=== PATIENT | female | born 1965 | race Caucasian/White ===

== ENCOUNTER 2020-07-16 07:00 | Emergency (ER) | payer OTHER, SELFPAY ==
[2020-07-16 07:08] VITALS: BP 140/83; PULSE 101; RESP 16; TEMP 37.1; O2SAT 98; BMI 25.8
--- NOTE | 2020-07-16 08:53 | ED.EYEPROB ---
HPI - Eye Problem General Chief complaint: Eye Problems Stated complaint: EYE ISSUE Time Seen by Provider: 07/16/20 08:00 Source: patient Mode of arrival: ambulatory Limitations: no limitations History of Present Illness HPI Narrative: 54 yo female here with rash to face noted since yesterday. patient tells me 8 days ago she was diagnosed with left eye bacterial conjunctivitis. She was treated with Cipro eyedrops. She continued to have sinus congestion, pressure, pain and bilateral ear pain and spoke to her primary care doctor 5 days ago. She was placed on doxycycline twice daily which she started Saturday. The patient tells me yesterday she noticed some rash over her face. This was itchy. She denies any difficulty breathing, swallowing, vomiting, diarrhea. No body rash. She took a Benadryl which seemed to improve the rash and this morning when she woke up she noticed a continued rash over the face. No fevers or chills. She continues to have some sinus pressure, pain and ear pain although tells me it is improving. Decreased drainage from her eye. The patient does tell me that she is continuing to use her contacts. She does not have glasses and is waiting for new contacts and glasses to come in. No visual pain or decreased acuity MD chief complaint: eye redness Onset (ago): day(s) Onset description: gradual Duration: constant Location: left eye Eye Symptoms: redness and itching Mechanism: none Severity: mild Associated symptoms: other (sinus pressure/pain/ear pain) Treatments Prior to Arrival: other (cipro eye drops, doxycyline, nasal saline ) Related Data Previous Rx's Medication Instructions Recorded lisinopril 10 mg tablet 10 mg PO DAILY 30 Days #30 tab 06/14/20 doxycycline hyclate 100 mg capsule 100 mg PO BID 7 Days #14 cap 07/12/20 clindamycin HCl 300 mg PO TID 10 Days #30 cap 07/16/20 [id number] 4 drp OTIC (EARS) Q6H #10 ml 07/16/20 prednisone 40 mg PO DAILY 5 Days #10 tab 07/16/20 Allergies Allergy/AdvReac Type Severity Reaction Status Date / Time ciprofloxacin [From CIPRO] Allergy Unknown UNKNOWN Verified 06/29/20 11:20 gluten [GLUTEN] Allergy Unknown ABD PAIN Unverified 05/12/20 18:53 penicillin V Allergy Unknown hives Verified 06/29/20 11:20 Penicillins [PENICILLINS] Allergy Unknown HIVES Verified 06/29/20 11:20 Sulfa (Sulfonamide Allergy Unknown RASH Verified 06/29/20 11:20 Antibiotics) [SULFA (SULFONAMIDE ANTIBIOTICS)] Review of Systems Review of Systems: Yes all other systems are reviewed and are negative Constitutional: Constitutional: Reports no additional constitutional complaints, Denies body ache(s), Denies chills, Denies fever(s), Denies headache(s) and Denies weakness Eyes: Eyes: Reports no additional eye complaints, Denies blurry vision, Denies change in vision, Denies eye discharge, Reports irritation, Denies loss of vision, Denies eye pain and Denies photophobia ENT: Reports system reviewed and no additional complaints, except as documented, Denies dizziness, Reports otalgia, Denies headache(s), Denies nasal congestion, Denies nasal discharge, Denies neck pain, Reports sinus pain and Reports sinus pressure Cardiovascular: Cardiovascular: Reports no additional cardiovascular complaints, Denies chest pain, Denies leg edema and Denies dyspnea Respiratory: Respiratory: Reports no additional respiratory complaints, Denies cough and Denies dyspnea Gastrointestinal: Gastrointestinal: Reports no additional gastrointestinal complaints, Denies abdominal pain, Denies diarrhea, Denies nausea and Denies vomiting Genitourinary: Genitourinary: Reports no additional female genitourinary complaints and Denies urinary incontinence Musculoskeletal: Musculoskeletal: Reports no additional musculoskeletal complaints, Denies back pain, Denies arthralgias, Denies joint swelling, Denies neck pain, Denies numbness and Denies tingling Integumentary/Breasts: Skin/Breast: Reports system reviewed and no additional complaints, except as docu and Denies rash Neurologic: Reports system reviewed and no additional complaints, except as documented, Denies Abnormal speech present, Denies dizziness, Denies headache(s), Denies loss of vision, Denies numbness, Denies tingling and Denies weakness PMFSH Past Medical History Attestation statement: The following information was validated with the patient. Source: obtained from family and nursing notes reviewed Medical History Celiac disease HTN (hypertension) Surgical History History of breast lump/mass excision History of section History of hysterectomy History of removal of cyst History of tonsillectomy Family History Family History Father CAD (coronary artery disease) Skin cancer Mother CHF (congestive heart failure) Diabetes Guillain-[place] Son Prader-Willi syndrome Son Muscular dystrophy Son Celiac disease Social History Social History Advance Directives: No Advance Directives Information Provided: Yes Physical Exam Vital Signs: Vital Signs: Last Vital Signs Temp 98.8 F 07/16/20 07:08 Pulse 101 H 07/16/20 07:08 Resp 16 07/16/20 07:08 BP 140/83 H 07/16/20 07:08 Pulse Ox 98 07/16/20 07:08 Body Mass Index 25.8 Const: General: cooperative, healthy appearing, comfortable and no acute distress Orientation/consciousness: patient oriented x3 Limitations: no limitations HENMT: Head: Yes normal to inspection Ears: hearing grossly normal bilaterally, TM's normal bilaterally, mastoids normal, no periauricular adenopathy and external ear abnormal ( bilateral canal swelling and erythema.) General nose exam: Normal external nose present Face and sinus: Yes Facial tenderness on exam of face and sinuses ( left maxillary) Mouth: Normal oral and palatal mucosa present Throat: Yes posterior oropharynx normal Eyes: Other: the left conjunctival is injected with mild irritation noted. There is no drainage, swelling. over the left upper eyelid there is an urticarial patch noted. There is similar patches noted over the forehead which crosses the midline and over the left cheek. There is no vesicle or pain on exam. The patient has some tenderness over the left maxillary sinus with some tenderness which extends just below the ear. There is no mastoid tenderness or swelling General: appearance normal, both eyes and all related structures Visual Garcia: normal visual garcia by confrontation Alignment and Position: alignment normal Corneas: corneas normal Pupils: Equal, round and reactive pupils present EOM: EOMs intact bilaterally Direct Ophthalmoscopy: No photophobia Neck: Neck: Yes normal visual inspection Chest: Chest palpation & inspection: normal inspection of the chest Resp: Effort & Inspection: normal respiratory effort Auscultation: clear to auscultation bilaterally Cardio: Rate: regular rate Rhythm: regular rhythm Peripheral pulses: Peripheral pulses 2+ throughout GI: Inspection: Yes normal to inspection Palpation (GI): Soft to palpation and nontender Auscultation: normal bowel sounds Back/Spine/Pelvis: Thoracic/Lumbar Spine: thoracic and lumbar spine normal to inspection Skin: General skin exam: no rashes or lesions noted Neuro: General: patient oriented x3, no focal motor deficits and normal sensation to monofilament Cranial nerves: Yes Equal, round and reactive pupils present Cognition (Neuro): normal cognition Speech: No Abnormal speech present Gait exam (Neuro): Normal gait present Motor exam (neuro): 5/5 motor strength present throughout Extrem: General: Yes normal to inspection Course Course Course Narrative: Exam consistent with a continued sinusitis and bilateral otitis externa and left bacterial conjunctivitis. Patient tells me she has an allergy to Cipro and wanted to try the Cipro this week to see if she would have a similar reaction. She is also taking doxycycline for the 1st time. It appears that she has a mild urticarial rash over the face which is likely secondary to medication reaction. There is no signs or symptoms of a systemic infection. will have the patient stop her current medications and start her new round of medicines. Reviewed worrisome signs symptoms and when to return to the emergency department. Comfortable discharge home. Discharge Plan Discharge Clinical Impression: Sinusitis, Allergic reaction, Otitis externa Patient Disposition: Home, Self-Care Instructions: Urticaria (ED), Sinusitis (ED), Otitis Externa (ED), General Allergic Reaction (ED) Additional Instructions: Warm compresses to face Stop all other antibiotics Prescriptions: New prednisone 20 mg tablet 40 mg PO DAILY 5 Days Qty: 10 RF: 0 clindamycin HCl 300 mg capsule 300 mg PO TID 10 Days Qty: 30 RF: 0 [id number] 3.5-10,000-1 mg/mL-unit/mL-% solution 4 drp otic (ears) Q6H Qty: 10 RF: 0 No Action lisinopril 10 mg tablet 10 mg PO DAILY 30 Days Qty: 30 RF: 8 doxycycline hyclate 100 mg capsule 100 mg PO BID 7 Days Qty: 14 RF: 0 Referrals: Matt Neves PA-C [Primary Care Provider] - 2 days Interventions: ED Discharge Assessment Last Done: 07/16/20 08:37 Discharge Date/Time: 07/16/20 08:40
== END 2020-07-16 08:40 | disposition home or self-care (01) ==
PROVIDERS: Emergency Provider Emergency Medicine; PCP Physician Assistant
DX: J32.9 Chronic sinusitis, unspecified (principal); H60.93 Unspecified otitis externa, bilateral; L23.9 Allergic contact dermatitis, unspecified cause; H57.12 Ocular pain, left eye; Z79.899 Other long term (current) drug therapy
CPT/HCPCS: 99282

== ENCOUNTER 2020-09-02 08:09 | Emergency (ER) | payer OTHER, SELFPAY ==
[2020-09-02 08:11] VITALS: BP 169/79; PULSE 100; RESP 18; TEMP 36.6; O2SAT 100; BMI 25.5
--- NOTE | 2020-09-02 08:40 | ED.EAR ---
HPI - Ear Problem General Chief complaint: Ear Problems Stated complaint: ear pain Time Seen by Provider: 09/02/20 08:30 Source: patient Mode of arrival: ambulatory Limitations: no limitations History of Present Illness HPI Narrative: Patient comes emergency room complaining of sinus pressure and left-sided ear pain. Patient states the ear pain has been intermittent since June. Patient denies any ear discharge. Patient states that she has had multiple sinus infections. Patient states that she is concerned that her partner is returning home from [facility], who recently got a liver transplant. Patient denies fever chills. Patient states that she gets tested for COVID every Saturday, so far all her tests have been negative, she is scheduled for a COVID test tomorrow MD Complaint: ear pain Related Data Previous Rx's Medication Instructions Recorded lisinopril 10 mg tablet 10 mg PO DAILY 30 Days #30 tab 06/14/20 doxycycline hyclate 100 mg capsule 100 mg PO BID 7 Days #14 cap 07/12/20 clindamycin HCl 300 mg PO TID 10 Days #30 cap 07/16/20 [id number] 4 drp OTIC (EARS) Q6H #10 ml 07/16/20 prednisone 40 mg PO DAILY 5 Days #10 tab 07/16/20 doxycycline hyclate 100 mg PO BID #14 tab 09/02/20 Allergies Allergy/AdvReac Type Severity Reaction Status Date / Time ciprofloxacin [From CIPRO] Allergy Unknown UNKNOWN Verified 06/29/20 11:20 gluten [GLUTEN] Allergy Unknown ABD PAIN Unverified 05/12/20 18:53 penicillin V Allergy Unknown hives Verified 06/29/20 11:20 Penicillins [PENICILLINS] Allergy Unknown HIVES Verified 06/29/20 11:20 Sulfa (Sulfonamide Allergy Unknown RASH Verified 06/29/20 11:20 Antibiotics) [SULFA (SULFONAMIDE ANTIBIOTICS)] Review of Systems Review of Systems: Constitutional : No Weight loss, No Fever, No Chills, No Night Sweats, No Fatigue, No Malaise ENT/Mouth : No Hearing loss, complaining of ear pressure, No Nasal Congestion, complaining of sinus pain on the left side, No Hoarseness, No sore throat, No Rhinorrhea, No Swallowing Difficulty Eyes: No Eye Pain, No Swelling, No Redness, No Foreign Body, No Discharge, No Vision Changes Cardiovascular : No Chest Pain, No SOB, No Dyspnea on Exertion, No Orthopnea, No Edema, No Palpitations Respiratory : No Cough, No Sputum, No Wheezing, No Smoke Exposure, No Dyspnea Gastrointestinal : No Nausea, No Vomiting, No Diarrhea, No Constipation, No abdominal Pain, No Hematochezia, No Melena Genitourinary : no irregular bleeding, No Dysuria, No Urinary Frequency, No Hematuria, No Urinary Incontinence, No Urgency, No Flank Pain, No Urinary Flow Changes, No Hesitancy Musculoskeletal : No joint pain, No Myalgias, No Joint Swelling Skin : No Skin Lesions, No rash Neuro : No Weakness, No Numbness, No Paresthesias, No Loss of Consciousness, No Dizziness, No Headache Psych : No Anxiety/Panic, No Depression, No SI/HI/AH/VH, No Social Issues, Heme/Lymph: No Bruising, No Bleeding,No Lymphadenopathy Endocrine : No Polyuria, No Polydipsia, No Temperature Intolerance PMFSH Past Medical History Medical History Celiac disease HTN (hypertension) Surgical History History of breast lump/mass excision History of section History of hysterectomy History of removal of cyst History of tonsillectomy Family History Family History Father CAD (coronary artery disease) Skin cancer Mother CHF (congestive heart failure) Diabetes Guillain-[place] Son Prader-Willi syndrome Son Muscular dystrophy Son Celiac disease Social History Social History Advance Directives: No Advance Directives Information Provided: Yes Physical Exam Vital Signs: Vital Signs: Last Vital Signs Temp 97.8 F 09/02/20 08:11 Pulse 100 09/02/20 08:11 Resp 18 09/02/20 08:11 BP 169/79 H 09/02/20 08:11 Pulse Ox 100 09/02/20 08:11 Body Mass Index 25.5 Appearance: Alert. Oriented X3. No acute distress. Eyes: Pupils equal, round and reactive to light. ENT: Pharynx normal. , no erythema, no fluid behind the tympanic membranes bilaterally, moderate pain/discomfort to palpation over the left sinus. Neck: Normal inspection. Neck supple. No lymph nodes noted. No crepitus CVS: Normal heart rate and rhythm. Pulses normal. Normal S1 and S2 Respiratory: No respiratory distress. Breath sounds normal. No Wheezing. No rales Abdomen: Soft and nontender. No rigidity. No distention. good BS x4 Skin: Skin warm and dry. Normal skin color. Normal skin turgor. Extremities: No lower extremity edema. No lower extremity edema. No Lacerations. No Rash Neuro: Oriented X 3. No motor deficit. No sensory deficit. Moving all extermities. No slurred speech. Course Course Course Narrative: At this time, it is possible the patient may have a viral infection with sinusitis causing her symptoms, however, given that her partner is immunosuppressed and returning home, we will go ahead and treat her with antibiotics. Patient states she has had good results in the last couple of months with doxycycline Discharge Plan Discharge Clinical Impression: Sinus infection Qualifiers: Sinusitis location: unspecified location Chronicity: unspecified Qualified Code(s): J32.9 - Chronic sinusitis, unspecified Patient Disposition: Home, Self-Care Instructions: Sinusitis (ED) Additional Instructions: Please follow-up with your primary care physician tomorrow. If you have any worsening or new symptoms, please return to the emergency room or call 911 Prescriptions: New doxycycline hyclate 100 mg tablet 100 mg PO BID Qty: 14 RF: 0 No Action lisinopril 10 mg tablet 10 mg PO DAILY 30 Days Qty: 30 RF: 8 doxycycline hyclate 100 mg capsule 100 mg PO BID 7 Days Qty: 14 RF: 0 prednisone 20 mg tablet 40 mg PO DAILY 5 Days Qty: 10 RF: 0 clindamycin HCl 300 mg capsule 300 mg PO TID 10 Days Qty: 30 RF: 0 [id number] 3.5-10,000-1 mg/mL-unit/mL-% solution 4 drp otic (ears) Q6H Qty: 10 RF: 0
== END 2020-09-02 09:20 | disposition home or self-care (01) ==
PROVIDERS: Emergency Provider Emergency Medicine; PCP Physician Assistant
DX: J32.9 Chronic sinusitis, unspecified (principal); H92.02 Otalgia, left ear; I10 Essential (primary) hypertension; Z79.899 Other long term (current) drug therapy
CPT/HCPCS: 99283

== ENCOUNTER 2021-04-04 09:06 | Emergency (ER) | payer OTHER, SELFPAY ==
[2021-04-04 10:38] VITALS: BP 141/82; PULSE 90; RESP 18; TEMP 37.1; O2SAT 100; BMI 23.8
[2021-04-04 11:48] LABS: Influenza A PCR NEGATIVE (Negative); Influenza B PCR NEGATIVE (Negative); Resp Syncy Virus RNA Qual PCR NEGATIVE (Negative); SARS COV2 PCR INHOUSE NEGATIVE (Negative)
--- NOTE | 2021-04-04 12:42 | ED.SKABFB ---
HPI - Skin/Abscess/Foreign Bdy General Chief complaint: Skin/Abscess/Foreign Body Stated complaint: Abcess Time Seen by Provider: 04/04/21 12:26 Source: patient Mode of arrival: ambulatory Limitations: no limitations History of Present Illness HPI narrative: 55-year-old female presents for abscess and right lower buttock. Ten days ago, patient noticed a pimple, foot 6 days ago it became painful and enlarged. Six days ago it was draining clear fluid. Five days ago the son felt that she had the chills and a temperature at home, so she went to an urgent care in [place], they put her on doxycycline. Yesterday the abscess popped on its own and was draining pus. She has had chills and nausea, no fever. Patient is allergic to Cipro, penicillin, and Bactrim. MD complaint: abscess/boil Onset (ago): day(s) (6) Tetanus up to date: yes Location: buttocks Severity: moderate Quality: aching Pain Consistency: constant Treatments prior to arrival: attempted to drain pus at home and antibiotic Related Data Previous Rx's Medication Instructions Recorded doxycycline hyclate 100 mg capsule 100 mg PO BID 7 Days #14 cap 07/12/20 clindamycin HCl 300 mg capsule 300 mg PO TID 10 Days #30 cap 07/16/20 [id number] 3.5 4 drp OTIC (EARS) Q6H #10 ml 07/16/20 mg/mL-10,000 unit/mL-1 % ear solution prednisone 20 mg tablet 40 mg PO DAILY 5 Days #10 tab 07/16/20 doxycycline hyclate 100 mg tablet 100 mg PO BID #14 tab 09/02/20 nitrofurantoin macrocrystal 100 mg 100 mg PO Q12H #14 cap 02/27/21 capsule (Macrodantin) lisinopril 10 mg tablet 10 mg PO DAILY #90 tab 04/02/21 doxycycline hyclate 100 mg tablet 100 mg PO BID 3 Days #6 tab 04/04/21 ondansetron HCl 4 mg tablet 4 mg PO Q8H 3 Days #9 tab 04/04/21 (Zofran) Allergies Allergy/AdvReac Type Severity Reaction Status Date / Time ciprofloxacin [From CIPRO] Allergy Unknown UNKNOWN Verified 06/29/20 11:20 gluten [GLUTEN] Allergy Unknown ABD PAIN Verified 04/04/21 10:38 penicillin V Allergy Unknown hives Verified 06/29/20 11:20 Penicillins [PENICILLINS] Allergy Unknown HIVES Verified 06/29/20 11:20 Sulfa (Sulfonamide Allergy Unknown RASH Verified 06/29/20 11:20 Antibiotics) [SULFA (SULFONAMIDE ANTIBIOTICS)] Review of Systems Review of Systems: Constitutional : Chills, fatigue, No Weight loss, No Fever,, No Night Sweats ENT/Mouth : No Hearing loss, No Ear Pain, No Nasal Congestion, NoSinus Pain, No Hoarseness, No sore throat, No Rhinorrhea, NoSwallowing Difficulty Eyes: No Eye Pain, No Swelling, No Redness, No Foreign Body, NoDischarge, No Vision Changes Cardiovascular : No Chest Pain, No SOB, No Dyspnea on Exertion, NoOrthopnea, No Edema, No Palpitations Respiratory : No Cough, No Sputum, No Wheezing, No Smoke Exposure, No Dyspnea Gastrointestinal :Nausea, No Vomiting, No Diarrhea, NoConstipation, No abdominal Pain, No Hematochezia, No Melena Musculoskeletal : No joint pain, No Myalgias, No Joint Swelling Skin : abscess to right buttock Neuro : No Weakness, No Numbness, No Paresthesias, No Loss ofConsciousness, No Dizziness, No Headache Psych : No Anxiety/Panic, No Depression, No SI/HI/AH/VH, No Social Issues, Heme/Lymph: No Bruising, No Bleeding,No Lymphadenopathy Yes all other systems are reviewed and are negative PMFSH Past Medical History Medical History Celiac disease HTN (hypertension) Surgical History History of breast lump/mass excision History of section History of hysterectomy History of removal of cyst History of tonsillectomy Family History Family History Father CAD (coronary artery disease) Skin cancer Mother CHF (congestive heart failure) Diabetes Guillain-[place] Son Prader-Willi syndrome Son Muscular dystrophy Son Celiac disease Social History Social History Advance Directives: Yes Advance Directives Information Provided: Yes Advance Directives on File: No Physical Exam Vital Signs: Vital Signs: Last Vital Signs Temp 98.7 F 04/04/21 10:38 Pulse 90 04/04/21 10:38 Resp 18 04/04/21 10:38 BP 141/82 H 04/04/21 10:38 Pulse Ox 100 04/04/21 10:38 Body Mass Index 23.8 Const: General: no acute distress, well developed, alert and awake Nutritional Appearance: average body habitus Orientation/consciousness: patient oriented x3 Limitations: no limitations HENMT: Head: Yes normal to inspection and Yes atraumatic Eyes: Pupils: Equal, round and reactive pupils present EOM: EOMs intact bilaterally Neck: Neck: Yes full ROM and Yes supple Resp: Effort & Inspection: able to speak in complete sentences Auscultation: clear to auscultation bilaterally, no crackles, no rales, no rhonchi and no wheezes Cardio: Rate: regular rate Rhythm: regular rhythm Heart sounds: S1 normal heart sound present and S2 normal heart sound present GI: Inspection: Yes normal to inspection Palpation (GI): Soft to palpation, nontender, no guarding and not rigid Skin: Other: Abscess with pointing right lower buttock, near patient's proximal thigh. No surrounding cellulitis. I can isolate a round structure below the abscess that is 3 cm in diameter. Lesions: lesion noted Neuro: General: patient oriented x3 Cranial nerves: Yes Equal, round and reactive pupils present Course Course Course Narrative: 55-year-old female presents for 6 days of worsening abscess on right buttock. She was seen 5 days ago, treated with doxycycline, and states the abscess popped on its own yesterday and drained pus. On exam, patient has stable vitals, is well appearing, she has a 1 cm pointing abscess on the surface of her skin, and I can palpate a 5-6 cm ball underneath her skin. I&D did not result in much pus being expressed, only about 2-3 mL of bloody purulence. I did pack it, and advise her to f/u in 2 days for packing removal and a re-check. Provided her with 3 more days of Doxy, provided her with Zofran. Given infection return precautions, patient verbalized agreement understanding of plan. MDM - Skin/Abscess/Foreign Bdy Lab Data Labs: Lab Results 04/04/21 Range/Units 10:48 Coronavirus (PCR) NEGATIVE (Negative) Influenza Type A (PCR) NEGATIVE (Negative) Influenza Type B (PCR) NEGATIVE (Negative) RSV RNA Qual (PCR) NEGATIVE (Negative) Procedures Abscess I/D Site: other (right buttock near thigh) Side (if applicable): right Local Anesthetic: lidocaine 1% Amount of anesthesia used (mL): 7 Technique: incised with blade Amount of fluid expressed (mL): 3 Sent for culture/gram staining?: No Irrigation: No Packing used?: iodoform Discharge Plan Discharge Clinical Impression: Abscess Patient Disposition: Home, Self-Care Instructions: Abscess (ED) Additional Instructions: Please call your primary care provider and make an appointment to be seen in the next 2 days for recheck of your abscess and removed the packing. Your PCP may refer you to General surgery. you have fevers, worsening pain, or any other new or concerning symptoms please return to the emergency room. Please take Zofran as prescribed, an extend your doxycycline prescription for 3 more days. Prescriptions: New doxycycline hyclate 100 mg tablet 100 mg PO BID 3 Days Qty: 6 RF: 0 ondansetron HCl [Zofran] 4 mg tablet 4 mg PO Q8H 3 Days Qty: 9 RF: 0 No Action doxycycline hyclate 100 mg capsule 100 mg PO BID 7 Days Qty: 14 RF: 0 nitrofurantoin macrocrystal [Macrodantin] 100 mg capsule 100 mg PO Q12H Qty: 14 RF: 0 lisinopril 10 mg tablet 10 mg PO DAILY Qty: 90 RF: 1 prednisone 20 mg tablet 40 mg PO DAILY 5 Days Qty: 10 RF: 0 clindamycin HCl 300 mg capsule 300 mg PO TID 10 Days Qty: 30 RF: 0 [id number]-[id number] 3.5-10,000-1 mg/mL-unit/mL-% solution 4 drp otic (ears) Q6H Qty: 10 RF: 0 doxycycline hyclate 100 mg tablet 100 mg PO BID Qty: 14 RF: 0 Interventions: ED Discharge Assessment Last Done: 04/04/21 13:49 Discharge Date/Time: 04/04/21 13:50
[2021-04-04] MEDS: Lidocaine HCl 1 % 20 ML VIAL INFILTRATI (12:58)
== END 2021-04-04 13:50 | disposition home or self-care (01) ==
PROVIDERS: Emergency Provider Emergency Medicine Emergency Medical Services; PCP Physician Assistant
DX: L02.31 Cutaneous abscess of buttock (principal)
CPT/HCPCS: 0241U; 10060; 36415; 99283; 99284

== ENCOUNTER 2021-04-06 12:29 | Outpatient (REF) | payer OTHER, SELFPAY ==
--- NOTE | ~2021-04-06 | XR_ITS ---
EXAMINATION: XR CHEST CLINICAL INFORMATION: Cough. COMPARISON: Chest radiograph dated 03/19/2016. TECHNIQUE: 2 views of the chest were obtained. FINDINGS: The lungs are clear. The cardiomediastinal silhouette is normal in size. There is no pleural effusion or pneumothorax. No acute osseous abnormality. XR/XR chest 2V IMPRESSION: No acute cardiopulmonary findings.
== END 2021-04-06 12:30 | disposition home or self-care (01) ==
LOC: HO.XRAY 12:29
PROVIDERS: PCP Physician Assistant; Visit Provider Nurse Practitioner Family
DX: R05 Cough (principal)
CPT/HCPCS: 71046

== ENCOUNTER 2021-04-06 12:44 | Outpatient (REF) | payer OTHER, SELFPAY | END 2021-04-06 12:45 | disposition home or self-care (01) | LOC: HO.LNP 12:44 | PROVIDERS: Visit Provider Nurse Practitioner Family | DX: L02.31 Cutaneous abscess of buttock (principal) | CPT/HCPCS: 87071; 87077; 87186; 87205 ==

== ENCOUNTER → 2021-04-10 08:21 | Outpatient (BNVA) | payer OTHER, SELFPAY | PROVIDERS: PCP Physician Assistant; Visit Provider Surgery | DX: L02.419 Cutaneous abscess of limb, unspecified (principal) | CPT/HCPCS: 99202 ==

== ENCOUNTER 2021-04-10 09:11 | Outpatient (REF) | payer OTHER, SELFPAY ==
[2021-04-10 09:49] LABS: COVID-19 Test Negative (Negative)
== END 2021-04-10 09:12 | disposition home or self-care (01) ==
LOC: HO.LAB 09:11
PROVIDERS: PCP Physician Assistant; Visit Provider Internal Medicine
DX: Z20.822 Contact with and (suspected) exposure to COVID-19 (principal)
CPT/HCPCS: 36415; 87635; C9803

== ENCOUNTER 2021-04-20 10:47 | Outpatient (REF) | payer OTHER, SELFPAY ==
[2021-04-20 11:49] LABS: COVID-19 Test Negative (Negative)
== END 2021-04-20 10:48 | disposition home or self-care (01) ==
LOC: HO.LAB 10:47
PROVIDERS: PCP Physician Assistant; Visit Provider Internal Medicine
DX: Z20.822 Contact with and (suspected) exposure to COVID-19 (principal)
CPT/HCPCS: 36415; 87635; C9803

== ENCOUNTER 2021-05-04 12:25 | Outpatient (REF) | payer OTHER, SELFPAY | END 2021-05-04 12:26 | disposition home or self-care (01) | LOC: HO.LAB 12:25 | PROVIDERS: PCP Physician Assistant; Visit Provider Nurse Practitioner Family | DX: R05 Cough (principal); Z20.822 Contact with and (suspected) exposure to COVID-19 | CPT/HCPCS: U0003; U0005 ==

== ENCOUNTER 2021-05-23 16:14 | Outpatient (REF) | payer OTHER, SELFPAY ==
--- NOTE | ~2021-05-23 | XR_ITS ---
EXAMINATION: XR CHEST CLINICAL INFORMATION: Cough. COMPARISON: None TECHNIQUE: 2 views of the chest were obtained. FINDINGS: The lungs are well-expanded and clear. The heart size and pulmonary vascularity is normal. There is mild dextro scoliosis dorsolumbar spine. XR/XR chest 2V IMPRESSION: Unremarkable chest exam.
[2021-05-23 16:37] LABS: MANUAL DIFF FLAG NO
[2021-05-23 17:30] LABS: Basophils Absolute Auto 0.1 X10*3/uL (0.0-0.2); Basophils Percent Auto 0.7 % (0-2); Eosinophils Absolute Auto 0.3 X10*3/uL (0.0-0.4); Eosinophils Percent Auto 4.2 % (0-4); Hematocrit 38.9 % (37-47); Hemoglobin 12.7 g/dl (12.0-16.0); Imm Gran Abs Auto 0.01 X10*3/uL (0.00-0.03); Imm Gran Pct Auto 0.1 % (0.0-0.4); Lymphocytes Absolute Auto 2.3 X10*3/uL (1.2-4.9); Mean Corpuscular HGB Conc 32.6 g/dl (31.0-35.0); Mean Corpuscular Hemoglobin 30.2 pg (27.0-33.0); Mean Corpuscular Volume 92.6 fL (80-98); Mean Platelet Volume 10.4 fL (9.4-12.3); Monocytes Absolute Auto 0.6 X10*3/uL (0.1-1.2); Monocytes Percent Auto 9.5 % (2-11); Neutrophils Absolute Auto 3.5 X10*3/uL (2.0-8.3); Neutrophils Percent Auto 51.5 % (45-73); Platelet Count 296 X10*3/uL (160-400); Red Cell Distribution Width 13.3 % (11.0-16.0); White Blood Count 6.7 X10*3/uL (4.8-10.8)
[2021-05-23 17:46] LABS: Alanine Aminotransferase 25 U/L (0-31); Albumin Level 4.5 g/dL (3.5-5.0); Alkaline Phosphatase 69 U/L (39-117); Anion Gap 12 (12-20); Aspartate Amino Transferase 20 U/L (5-31); Bilirubin Total 0.4 mg/dL (0.0-1.0); Blood Urea Nitrogen 10 mg/dL (9-16); Carbon Dioxide 25 mmol/L (22-29); Chloride 106 mmol/L (96-108); Estimated Glomerular Filt Rate > 60; Glucose Random 84 mg/dL (60-115); Potassium 5.1 mmol/L (3.3-5.1); Sodium 138 mmol/L (135-145); Total Protein 7.6 g/dL (6.5-8.0)
[2021-05-23 18:09] LABS: Free T4 (Free Thyroxine) 1.01 ng/dL (0.71-1.85); Thyroid Stimulating Hormone 0.54 uIU/mL (0.32-4.0); Vitamin D 25-OH Total 90.6 ng/mL (>30)
[2021-05-23 18:15] LABS: Folate 17.8 ng/mL (> or = 4.0); Vitamin B12 1453 pg/mL (200-900)
== END 2021-05-23 16:15 | disposition home or self-care (01) ==
LOC: HO.XRAY 16:14
PROVIDERS: PCP Physician Assistant; Visit Provider Nurse Practitioner Family
DX: R05 Cough (principal); I10 Essential (primary) hypertension
CPT/HCPCS: 36415; 71046; 80053; 82306; 82607; 82746; 84439; 84443; 85025

== ENCOUNTER 2021-05-30 11:15 | Outpatient (REF) | payer OTHER, SELFPAY ==
--- NOTE | ~2021-05-30 | XR_ITS ---
EXAMINATION: XR LUMBOSACRAL SPINE CLINICAL INFORMATION: Low back pain. COMPARISON: None. TECHNIQUE: 3 views of the lumbosacral spine. FINDINGS: There is mild straightening of the lumbar lordosis with mild levoscoliosis. The vertebral heights and alignment are normal. There is mild loss of L 2-3 and L3-L4 disc heights with mild ventral spondylosis. No visible acute fracture, dislocation or lytic process seen. SI joints are symmetrical and normal. XR/XR lumbar spine 2-3V IMPRESSION: Degenerative disc changes L2-L3 and L3-L4 disc levels. No visible acute fracture, dislocation or lytic process seen.
== END 2021-05-30 11:16 | disposition home or self-care (01) ==
LOC: HO.XRAY 11:15
PROVIDERS: PCP Physician Assistant; Visit Provider Physician Assistant
DX: M54.50 Low back pain, unspecified (principal)
CPT/HCPCS: 72100

== ENCOUNTER 2021-06-08 14:16 | Outpatient (REF) | payer OTHER, SELFPAY | END 2021-06-08 14:17 | disposition home or self-care (01) | LOC: HO.LAB 14:16 | PROVIDERS: PCP Physician Assistant; Visit Provider Physician Assistant | DX: R43.2 Parageusia (principal); Z20.822 Contact with and (suspected) exposure to COVID-19 | CPT/HCPCS: U0003; U0005 ==

== ENCOUNTER 2021-06-09 08:49 | Outpatient (REF) | payer OTHER, SELFPAY ==
--- NOTE | 2021-06-09 | PFT_ITS ---
Forced vital capacity, FEV1, QKC75-05, and MVV are all normal. Post bronchodilator therapy, no significant change. Total lung capacity and residual volume normal. Diffusion capacity normal. CONCLUSION: Normal pulmonary function test. No evidence of obstructive or restrictive pulmonary disorder. MD DANAE Sinha/MODL / [id number]
== END 2021-06-09 08:50 | disposition home or self-care (01) ==
LOC: HO.RESP 08:49
PROVIDERS: PCP Physician Assistant; Visit Provider Physician Assistant
DX: R05.9 Cough, unspecified (principal)
CPT/HCPCS: 94060; 94727; 94729

== ENCOUNTER 2021-07-03 11:50 | Outpatient (REF) | payer OTHER, SELFPAY ==
--- NOTE | ~2021-07-03 | MM_ITS ---
EXAMINATION: MM SCREENING DIGITAL BREAST TOMOSYNTHESIS, BILATERAL CLINICAL INFORMATION: Screening. Asymptomatic. The lifetime risk of breast cancer based on the Tyrer-Cuzick Model is 31%. COMPARISON: Mammography: 07/14/2019, 06/05/2018, 03/27/2016 TECHNIQUE: Digital breast tomosynthesis is performed in both the craniocaudal and mediolateral oblique views along with computer-aided detection (CAD). Synthesized 2D images are generated from the tomosynthesis. FINDINGS: The breasts are heterogeneously dense, which may obscure small masses (ACR BI-RADS breast composition Category c). Parenchymal pattern is similar to prior studies. There is no developing density or interval mass or architectural abnormality. No abnormal calcifications. The axilla and skin contours are unremarkable. MM/MM tomosynthesis screening BI IMPRESSION: No mammographic evidence of malignancy. ASSESSMENT: BI-RADS 1: Negative RECOMMENDATION: 1. Routine annual mammography screening. 2. The lifetime risk of breast cancer based on the Tyrer-Cuzick Model is 31%. Additional annual adjunct screening with breast MRI may be of benefit in women with a risk score of 20% or greater. This patient's information was entered into a reminder system with a target due date for their next mammogram.
== END 2021-07-03 11:51 | disposition home or self-care (01) ==
LOC: HO.MAMMO 11:50
PROVIDERS: Visit Provider Physician Assistant
DX: Z12.31 Encounter for screening mammogram for malignant neoplasm of breast (principal)
CPT/HCPCS: 77063; 77067

== ENCOUNTER 2021-07-26 14:49 | Outpatient (REF) | payer OTHER, SELFPAY ==
[2021-07-27 10:17] LABS: BV Int Neg Control Negative (Negative); BV Int Pos Control Positive (Positive)
== END 2021-07-26 14:50 | disposition home or self-care (01) ==
LOC: HO.LAB 14:49
PROVIDERS: PCP Physician Assistant; Visit Provider Obstetrics & Gynecology
DX: Z11.3 Encounter for screening for infections with a predominantly sexual mode of transmission (principal); B00.9 Herpesviral infection, unspecified; N93.9 Abnormal uterine and vaginal bleeding, unspecified; R31.29 Other microscopic hematuria
CPT/HCPCS: 87086; 87255; 87480; 87510; 87660; 99202

== ENCOUNTER 2021-08-08 11:00 | Outpatient (RCR) | payer OTHER, SELFPAY ==
--- NOTE | 2021-06-20 11:56 | MHC.PT.EP ---
[facility] [place] Office [place] Office [place] Office [address] Fela Jarvis [address] [phone] F: [phone] F: [phone] F: [phone] F: [phone] Physical Therapy Plan of Care Date of Evaluation: Date of Surgery: N/A Diagnosis: unspecified thoracic, thoracolumbar, and lumbosacral interventebral disc disorder Assessment: pt presents to physical therapy with pain, decreased range of motion, decreased strength, impaired functional mobility, impaired postural awareness, and gait deviations. pt is a good candidate for skilled PT due to age, potential remediation of impairments, typical disease/condition progression and prognosis, comorbidities, and motivation. pt would benefit from tailored strengthening and stretching exercise program, functional training, gait training, postural re-training, neuromuscular re-education, modalities as needed for pain, equipment safety demonstration. Frequency and Duration: The patient will be seen 2x/wk for 4 wks Short Term Goals: pt will be I w/ HEP to promote self-management of condition. pt will demo proper sitting posture w/ lumbar roll Store Person Goals: pt will report a statistically significant improvement in self-reported outcome measure, Radha, to promote self-management of condition. pt will report <2/10 w/ standing for >20 min to promote pain-free return to work. Treatment Plan: Modalities to reduce pain, spasms and effusion. Manual therapy to restore motion and function. Therapeutic exercise to improve strength and flexibility. Neuromuscular re-education for posture and balance. Therapeutic activities to return to functional activities of daily living. Electronically signed by: Mar Tilley PT, DPT Please sign and return to therapist. Thank you for your referral.
--- NOTE | 2021-08-09 17:48 | MHC.PT.DC ---
[facility] [place] Office [place] Office [place] Office [address] Fela Jarvis 140 [facility] [phone] F: [phone] F: [phone] F: [phone] F: [phone] Physical Therapy Discharge Report Diagnosis: unspecified thoracic, thoracolumbar, and lumbosacral interventebral disc disorder Date of Surgery: N/A Date of Evaluation: 06/20/21 Date of Discharge: 08/09/21 Treatments to Date: 12 Cancellations to Date: 3 No Shows to Date: 0 Discharge Status: Achieved Goals Improved Function Independent with HEP Discharge Summary: The patient overall reports a significant improvement in her pain severity and frequency. She reports an improvement in her ability to tolerate tasks both at work and at home. She feels she is much more aware of her posture in standing and sitting positions. She has achieved all goals established at the initial evaluation. The patient is independent with her home exercise program. She was advised she may benefit from going to a massage therapist to manage her trigger points once a month. She is discharged from this physical therapy plan of care to her [facility]. Electronically signed by: Mar Tilley PT, DPT Please sign and return to therapist. Thank you for your referral.
== END 2021-08-09 17:50 | disposition home or self-care (01) ==
LOC: HO.PT 11:00
PROVIDERS: PCP Physician Assistant; Visit Provider Physician Assistant
DX: M54.2 Cervicalgia (principal); M51.9 Unspecified thoracic, thoracolumbar and lumbosacral intervertebral disc disorder; M47.816 Spondylosis without myelopathy or radiculopathy, lumbar region
CPT/HCPCS: 97110; 97112; 97140; 97150; 97161

== ENCOUNTER 2021-08-09 12:04 | Outpatient (REF) | payer OTHER, SELFPAY | END 2021-08-09 12:05 | disposition home or self-care (01) | LOC: HO.LAB 12:04 | PROVIDERS: PCP Physician Assistant; Visit Provider Obstetrics & Gynecology | DX: R31.29 Other microscopic hematuria (principal); N90.89 Other specified noninflammatory disorders of vulva and perineum; I10 Essential (primary) hypertension; K90.0 Celiac disease; Z87.891 Personal history of nicotine dependence; Z88.0 Allergy status to penicillin; Z88.2 Allergy status to sulfonamides; Z88.1 Allergy status to other antibiotic agents; Z91.02 Food additives allergy status | CPT/HCPCS: 87255; 99212 ==

== ENCOUNTER 2021-08-22 11:57 | Outpatient (REF) | payer OTHER, SELFPAY ==
[2021-08-23 07:59] LABS: Syphilis Screen Nonreactive (Nonreactive)
[2021-08-23 08:14] LABS: HIV AB/AG Nonreactive (Nonreactive); HIV Num 1 0.07 S/CO (0.00-0.99); ~HepC Num1 0.12 S/CO (0.00-0.79); ~Hepatitis C Antibody Nonreactive (Nonreactive)
[2021-08-23 08:33] LABS: HBsAGNum1 0.17 S/CO (0.00-0.99); Hepatitis B Surface Antigen Negative (Negative)
== END 2021-08-22 11:58 | disposition home or self-care (01) ==
LOC: HO.LAB 11:57
PROVIDERS: PCP Physician Assistant; Visit Provider Obstetrics & Gynecology
DX: B00.9 Herpesviral infection, unspecified (principal); Z11.3 Encounter for screening for infections with a predominantly sexual mode of transmission; Z11.8 Encounter for screening for other infectious and parasitic diseases; Z11.4 Encounter for screening for human immunodeficiency virus [HIV]; Z11.59 Encounter for screening for other viral diseases
CPT/HCPCS: 36415; 86780; 86803; 87340; 87389

== ENCOUNTER 2021-08-23 10:35 | Outpatient (REF) | payer OTHER, SELFPAY ==
[2021-08-23 11:33] LABS: Hematocrit 37.4 % (37.0-47.0); Hemoglobin 12.1 g/dl (12.0-16.0); Mean Corpuscular HGB Conc 32.4 g/dl (31.0-35.0); Mean Corpuscular Hemoglobin 30.2 pg (27.0-33.0); Mean Corpuscular Volume 93.3 fL (80.0-98.0); Mean Platelet Volume 10.6 fL (9.4-12.3); Platelet Count 284 X10*3/uL (160-400); Red Blood Count 4.01 X10*6/uL (4.20-5.50); Red Cell Distribution Width 12.7 % (11.0-16.0); White Blood Count 6.9 X10*3/uL (4.8-10.8)
[2021-08-23 12:00] LABS: Alanine Aminotransferase 24 U/L (0-31); Albumin Level 4.1 g/dL (3.5-5.0); Alkaline Phosphatase 65 U/L (39-117); Anion Gap 8 (12-20); Aspartate Amino Transferase 18 U/L (5-31); Bilirubin Total 0.4 mg/dL (0.0-1.0); Blood Urea Nitrogen 15 mg/dL (9-16); Calcium 9.5 mg/dL (8.4-10.2); Carbon Dioxide 29 mmol/L (22-29); Chloride 105 mmol/L (96-108); Cholesterol 233 mg/dL; Estimated Glomerular Filt Rate > 60; Glucose Fasting 102 mg/dL (60-99); HDL Cholesterol 51 mg/dL; Iron 67 mcg/dL (30-160); LDL Cholesterol Calculated 157 mg/dl; Percent Iron Saturation 21 % (15-50); Potassium 4.2 mmol/L (3.3-5.1); Sodium 138 mmol/L (135-145); Total Iron Binding Capacity 312 mcg/dL (228-428); Total Protein 7.1 g/dL (6.5-8.0); Triglycerides 129 mg/dL; Unsaturated Iron Binding 245 ug/dL
[2021-08-23 12:23] LABS: TSH reflex Free T4 1.12 uIU/mL (0.32-4.0)
[2021-08-23 12:35] LABS: Folate 12.6 ng/mL (> or = 4.0); Vitamin B12 1028 pg/mL (200-900)
== END 2021-08-23 10:36 | disposition home or self-care (01) ==
LOC: HO.CT 10:35
PROVIDERS: PCP Physician Assistant; Visit Provider Obstetrics & Gynecology
DX: I10 Essential (primary) hypertension (principal); D50.9 Iron deficiency anemia, unspecified
CPT/HCPCS: 36415; 80053; 80061; 82607; 82746; 83540; 84443; 85027

== ENCOUNTER 2021-08-24 08:55 | Outpatient (REF) | payer OTHER, SELFPAY ==
--- NOTE | ~2021-08-24 | CT_ITS ---
EXAMINATION: CT ABDOMEN AND PELVIS WITHOUT AND WITH CONTRAST CLINICAL INFORMATION: Microscopic hematuria COMPARISON: MR pelvis 06/23/2018 TECHNIQUE: Multidetector volumetric imaging was performed of the abdomen and pelvis before and after the IV administration of 85 mL of Omnipaque 350 intravenous contrast. Sagittal and coronal reformatted images were obtained on the technologist's workstation. This CT examination was performed using dose optimization techniques as appropriate, variously including the following: *Automated exposure control *Adjustment of mA and/or kV according to patient size (this includes techniques or standardized protocols for targeted exams where dose is matched to indication/reason for exam; i.e. extremities or head) *Use of iterative reconstruction technique DLP: 785 mGy-cm FINDINGS: LUNG BASES: The visualized lung bases are unremarkable. ABDOMINAL AND PELVIC WALL: Unremarkable. LIVER AND BILIARY TREE: Unremarkable GALLBLADDER: Unremarkable PANCREAS: Unremarkable SPLEEN: Unremarkable ADRENAL GLANDS: A 1.1 cm left adrenal lesion measuring intrinsically low density (less than 10 Hounsfield units) compatible with an adrenal adenoma. KIDNEYS AND URETERS: Kidneys are normal in size shape and attenuation. No hydronephrosis or nephrolithiasis. No ureteral filling defect. UPPER GASTROINTESTINAL TRACT: The stomach and duodenum are unremarkable. VASCULAR: Unremarkable. LYMPH NODES: No lymphadenopathy. BLADDER: Unremarkable PELVIC VISCERA: Status post hysterectomy. LOWER GASTROINTESTINAL TRACT: The small and large bowel are unremarkable. Normal appendix. OSSEOUS STRUCTURES: Unremarkable CT/CT abdomen pelvis wo/w con IMPRESSION: No findings to explain symptoms of hematuria. A 1.1 cm left adrenal adenoma. No routine follow up recommended.
[2021-08-24] MEDS: iohexoL 350 MG/ML 100 ML INFUS..BTL IV (09:56)
== END 2021-08-24 08:56 | disposition home or self-care (01) ==
LOC: HO.CT 08:55
PROVIDERS: Visit Provider Obstetrics & Gynecology
DX: R31.29 Other microscopic hematuria (principal); N90.89 Other specified noninflammatory disorders of vulva and perineum
CPT/HCPCS: 56605; 74178; 99212; Q9967

== ENCOUNTER 2021-08-24 10:47 | Outpatient (REF) | payer OTHER, SELFPAY | END 2021-08-24 10:48 | disposition home or self-care (01) | LOC: HO.LAB 10:47 | PROVIDERS: Visit Provider Obstetrics & Gynecology | DX: N90.89 Other specified noninflammatory disorders of vulva and perineum (principal) | CPT/HCPCS: 87071; 87147; 87186; 87205; 88305; 88312 ==

== ENCOUNTER 2021-08-30 12:31 | Outpatient (REF) | payer OTHER, SELFPAY | END 2021-08-30 12:32 | disposition home or self-care (01) | LOC: HO.LAB 12:31 | PROVIDERS: PCP Physician Assistant; Visit Provider Obstetrics & Gynecology | DX: N76.4 Abscess of vulva (principal) | CPT/HCPCS: 56405; 87071; 87147; 87205; 99212 ==

== ENCOUNTER → 2021-09-19 10:47 | Outpatient (BNVA) | payer OTHER, SELFPAY | PROVIDERS: Visit Provider Obstetrics & Gynecology | DX: N76.4 Abscess of vulva (principal) | CPT/HCPCS: 99212 ==

== ENCOUNTER 2021-09-25 11:44 | Outpatient (REF) | payer OTHER, SELFPAY ==
[2021-09-25 14:00] LABS: Appearance Urine HAZY; Color Urine STRAW; Glucose Urine UA NEG (NEG); Leukocyte Esterase Urine 2+ (NEG); Nitrite Urine NEG (NEG); PH 6.5 (5.0-8.0); Specific Gravity - Urine <= 1.005 (1.005-1.025); UACC Culture Trigger YES; Urine Blood TRACE (NEG); Urine Ketones NEG (NEG); Urine Protein NEG (NEG-TRACE)
[2021-09-25 14:32] LABS: Bacteria Urine 4+ /LPF; Oval Fat Bodies Urine NOTED; RBC Urine 0-2 /HPF (0); WBC Clumps Urine NOTED
== END 2021-09-25 11:45 | disposition home or self-care (01) ==
LOC: HO.LAB 11:44
PROVIDERS: PCP Physician Assistant; Visit Provider Obstetrics & Gynecology
DX: D50.0 Iron deficiency anemia secondary to blood loss (chronic) (principal); N39.0 Urinary tract infection, site not specified; R74.8 Abnormal levels of other serum enzymes
CPT/HCPCS: 81001; 81003; 87086; 87088; 87186

== ENCOUNTER 2021-10-18 09:09 | Outpatient (REF) | payer OTHER, SELFPAY ==
[2021-10-18 09:36] LABS: Hematocrit 36.7 % (37.0-47.0); Hemoglobin 11.9 g/dl (12.0-16.0); Mean Corpuscular HGB Conc 32.4 g/dl (31.0-35.0); Mean Corpuscular Hemoglobin 30.3 pg (27.0-33.0); Mean Corpuscular Volume 93.4 fL (80.0-98.0); Mean Platelet Volume 9.9 fL (9.4-12.3); Platelet Count 275 X10*3/uL (160-400); Red Blood Count 3.93 X10*6/uL (4.20-5.50); Red Cell Distribution Width 13.8 % (11.0-16.0); White Blood Count 6.1 X10*3/uL (4.8-10.8)
[2021-10-18 10:36] LABS: Vitamin B12 963 pg/mL (200-900)
[2021-10-18 10:52] LABS: Appearance Urine HAZY; Color Urine YELLOW; Glucose Urine UA NEG (NEG); Leukocyte Esterase Urine NEG (NEG); Nitrite Urine NEG (NEG); PH 6.5 (5.0-8.0); Urine Blood NEG (NEG); Urine Ketones NEG (NEG); Urine Protein NEG (NEG-TRACE)
[2021-10-19 20:51] LABS: Adrenocorticotropic Hormone 13 pg/mL (6-50)
[2021-10-28 14:11] LABS: Catecholamine Frac, Total 533 pg/mL
== END 2021-10-18 09:10 | disposition home or self-care (01) ==
LOC: HO.LAB 09:09
PROVIDERS: Obstetrics & Gynecology; PCP Physician Assistant; Visit Provider Physician Assistant
DX: D50.0 Iron deficiency anemia secondary to blood loss (chronic) (principal); N39.0 Urinary tract infection, site not specified; R74.8 Abnormal levels of other serum enzymes
CPT/HCPCS: 36415; 81003; 82024; 82384; 82607; 85027

== ENCOUNTER 2021-10-20 13:14 | Outpatient (REF) | payer OTHER, SELFPAY | END 2021-10-20 13:15 | disposition home or self-care (01) | LOC: HO.LAB 13:14 | PROVIDERS: PCP Physician Assistant | DX: R31.29 Other microscopic hematuria (principal) | CPT/HCPCS: 99202 ==

== ENCOUNTER → 2021-12-04 11:00 | Outpatient (BNVA) | payer OTHER, SELFPAY | PROVIDERS: PCP Physician Assistant; Referring Provider Physician Assistant; Visit Provider Nurse Practitioner Family | DX: Z12.11 Encounter for screening for malignant neoplasm of colon (principal); K90.0 Celiac disease; R10.13 Epigastric pain | CPT/HCPCS: 99202 ==

== ENCOUNTER 2021-12-13 17:18 | Outpatient (REF) | payer OTHER, SELFPAY ==
[2021-12-13 18:05] LABS: Appearance Urine CLOUDY; Color Urine YELLOW; Glucose Urine UA NEG (NEG); Leukocyte Esterase Urine 3+ (NEG); Nitrite Urine POS (NEG); PH 7.5 (5.0-8.0); Specific Gravity - Urine 1.015 (1.005-1.025); UACC Culture Trigger YES; Urine Blood 1+ (NEG); Urine Ketones NEG (NEG); Urine Protein TRACE MG/DL (NEG-TRACE)
[2021-12-13 18:14] LABS: WBC Urine TNTC /HPF (0-4)
[2021-12-13 18:15] LABS: Bacteria Urine 3+ /LPF; Squamous Epithelial Cell Urine 1+ /LPF
== END 2021-12-13 17:19 | disposition home or self-care (01) ==
LOC: HO.LAB 17:18
PROVIDERS: PCP Physician Assistant; Visit Provider Obstetrics & Gynecology
DX: N39.0 Urinary tract infection, site not specified (principal)
CPT/HCPCS: 81001; 87086; 87088; 87186

== ENCOUNTER 2021-12-14 10:36 | Outpatient (REF) | payer OTHER, SELFPAY ==
--- NOTE | ~2021-12-14 | CT_ITS ---
EXAMINATION: CT HEAD WITHOUT CONTRAST CLINICAL INFORMATION: Headache. COMPARISON: None TECHNIQUE: Contiguous axial imaging was performed from the skull base to vertex without intravenous administration of contrast. This CT examination was performed using dose optimization techniques as appropriate, variously including the following: *Automated exposure control *Adjustment of mA and/or kV according to patient size (this includes techniques or standardized protocols for targeted exams where dose is matched to indication/reason for exam; i.e. extremities or head) *Use of iterative reconstruction technique DLP: 656 mGy-cm FINDINGS: There is no evidence of acute intracranial hemorrhage or territorial infarction. No abnormal mass effect or midline shift is seen. Lewis to white matter differentiation is well preserved. No extra-axial fluid collections are identified. The ventricles are normal in size. There is no abnormal attenuation within the brain parenchyma. The osseous structures and soft tissues are normal. The mastoid air cells and visualized portions of the paranasal sinuses are well aerated. CT/CT head/brain wo con IMPRESSION: No acute intracranial process seen.
--- NOTE | ~2021-12-14 | XR_ITS ---
EXAMINATION: XR HAND-BILATERAL CLINICAL INFORMATION: T78.40XD - Allergy, unspecified, subsequent encounter COMPARISON: None TECHNIQUE: 3 views each of both hands. FINDINGS: Right hand: Mild diffuse osteopenia. The bony alignments are intact. The cortices are intact. Articular margins, joint space and periarticular soft tissues are unremarkable. Left hand: Mild diffuse osteopenia. The bony alignments are intact. The cortices are intact. Articular margins, joint space appear unremarkable. The soft tissues are unremarkable. XR/XR hand LT 2V IMPRESSION: Mild diffuse osteopenia.
--- NOTE | ~2021-12-14 | XR_ITS ---
EXAMINATION: XR HAND-BILATERAL CLINICAL INFORMATION: T78.40XD - Allergy, unspecified, subsequent encounter COMPARISON: None TECHNIQUE: 3 views each of both hands. FINDINGS: Right hand: Mild diffuse osteopenia. The bony alignments are intact. The cortices are intact. Articular margins, joint space and periarticular soft tissues are unremarkable. Left hand: Mild diffuse osteopenia. The bony alignments are intact. The cortices are intact. Articular margins, joint space appear unremarkable. The soft tissues are unremarkable. XR/XR hand RT 2V IMPRESSION: Mild diffuse osteopenia.
== END 2021-12-14 10:37 | disposition home or self-care (01) ==
LOC: HO.CT 10:36
PROVIDERS: PCP Physician Assistant; Visit Provider Physician Assistant
DX: R51.9 Headache, unspecified (principal); T78.40XD Allergy, unspecified, subsequent encounter; M85.842 Other specified disorders of bone density and structure, left hand; M85.841 Other specified disorders of bone density and structure, right hand
CPT/HCPCS: 70450; 73120

== ENCOUNTER 2021-12-15 14:26 | Emergency (ER) | payer OTHER, SELFPAY ==
--- NOTE | ~2021-12-15 | CT_ITS ---
EXAMINATION: CT ABDOMEN AND PELVIS WITHOUT CONTRAST CLINICAL INFORMATION: Right flank pain. Dysuria. COMPARISON: CT abdomen 08/24/2021 TECHNIQUE: Multidetector volumetric imaging was performed from the superior aspect of the liver through the pubic symphysis. Sagittal and coronal reformatted images were obtained on the technologist's workstation. This CT examination was performed using dose optimization techniques as appropriate, variously including the following: *Automated exposure control *Adjustment of mA and/or kV according to patient size (this includes techniques or standardized protocols for targeted exams where dose is matched to indication/reason for exam; i.e. extremities or head) *Use of iterative reconstruction technique DLP: 462 mGy-cm FINDINGS: LUNG BASES: Mild bibasilar atelectasis. LIVER, GALLBLADDER, AND BILIARY TREE: The liver is normal in size, shape, and attenuation. No focal hepatic lesion or biliary ductal dilatation is present. The gallbladder is unremarkable with no evidence of radiopaque gallstones, gallbladder wall thickening, or obvious pericholecystic inflammatory changes. PANCREAS: Unremarkable. SPLEEN: Unremarkable. ADRENAL GLANDS: Stable 1.1 cm left adrenal nodule, Hounsfield measurements -5, compatible with an adrenal adenoma. Right adrenal gland appears unremarkable. KIDNEYS AND URETERS: The kidneys are normal in size, shape, and attenuation. No hydronephrosis, hydroureter, or calculi seen. No perinephric stranding. BLADDER: Unremarkable. GASTROINTESTINAL TRACT: Stomach is nondistended. The small and large bowel are unremarkable. The appendix is unremarkable. No free fluid. ABDOMINAL WALL: No significant hernia is appreciated. LYMPH NODES: No adenopathy seen. VASCULAR: Unremarkable. PELVIC VISCERA: Unremarkable. OSSEOUS STRUCTURES: Degenerative changes of the spine. CT/CT abdomen pelvis wo con IMPRESSION: No renal or ureteral calculi evident. No hydronephrosis. Cause the patient's symptoms has not been determined by CT. Stable 1.1 cm left adrenal adenoma. Fleischner guidelines were followed.
[2021-12-15 14:59] VITALS: BP 117/81; PULSE 95; RESP 18; TEMP 36.5; O2SAT 98; BMI 23.3
[2021-12-15 15:16] LABS: Appearance Urine CLEAR; Color Urine YELLOW; Glucose Urine UA NEG (NEG); Leukocyte Esterase Urine 2+ (NEG); Nitrite Urine NEG (NEG); UACC Culture Trigger YES; Urine Blood NEG (NEG); Urine Ketones NEG (NEG); Urine Protein NEG (NEG-TRACE)
[2021-12-15 15:30] LABS: Bacteria Urine TRACE /LPF; RBC Urine 0 /HPF (0); Squamous Epithelial Cell Urine 1+ /LPF
[2021-12-15 15:32] LABS: Basophils Percent Auto 0.6 % (0-2); Eosinophils Absolute Auto 0.2 X10*3/uL (0.0-0.4); Eosinophils Percent Auto 3.5 % (0-4); Hematocrit 36.5 % (37.0-47.0); Imm Gran Abs Auto 0.03 X10*3/uL (0.00-0.03); Imm Gran Pct Auto 0.4 % (0.0-0.4); Lymphocytes Percent Auto 28.6 % (20-40); MANUAL DIFF FLAG NO; Mean Corpuscular HGB Conc 32.9 g/dl (31.0-35.0); Mean Corpuscular Hemoglobin 30.2 pg (27.0-33.0); Mean Corpuscular Volume 91.9 fL (80.0-98.0); Mean Platelet Volume 10.8 fL (9.4-12.3); Monocytes Absolute Auto 0.6 X10*3/uL (0.1-1.2); Monocytes Percent Auto 8.2 % (2-11); Neutrophils Absolute Auto 4.1 x10*3/uL (2.0-8.3); Neutrophils Percent Auto 58.7 % (45-73); Platelet Count 239 X10*3/uL (160-400); Red Blood Count 3.97 X10*6/uL (4.20-5.50); Red Cell Distribution Width 12.7 % (11.0-16.0); White Blood Count 6.9 X10*3/uL (4.8-10.8)
[2021-12-15 15:45] VITALS: BP 120/75; PULSE 92; RESP 16; TEMP 36.8; O2SAT 99
[2021-12-15 15:49] LABS: Alanine Aminotransferase 39 U/L (0-31); Albumin Level 4.3 g/dL (3.5-5.0); Alkaline Phosphatase 72 U/L (39-117); Anion Gap 9 (12-20); Aspartate Amino Transferase 27 U/L (5-31); Bilirubin Total 0.2 mg/dL (0.0-1.0); Blood Urea Nitrogen 12 mg/dL (9-16); Calcium 9.9 mg/dL (8.4-10.2); Carbon Dioxide 29 mmol/L (22-29); Chloride 102 mmol/L (96-108); Creatinine Clr Calc Pharmacy 90.8; Estimated Glomerular Filt Rate > 60; Glucose Random 125 mg/dL (60-115); Potassium 4.2 mmol/L (3.3-5.1); Sodium 136 mmol/L (135-145); Total Protein 7.3 g/dL (6.5-8.0)
--- NOTE | 2021-12-15 16:05 | ED_ITS ---
HPI - Female Genitourinary General Chief complaint: Urogenital-Female Stated complaint: UTI sent by [facility] Time Seen by Provider: 12/15/21 15:48 Source: patient Mode of arrival: ambulatory Limitations: no limitations History of Present Illness HPI Narrative: This is a 56-year-old female past medical history significant for celiac disease, adrenal adenoma, htn presenting to the emergency department with 4 days of urinary frequency, urgency, dysuria, suprapubic tenderness and right-sided flank pain. Patient tells me that she was seen by her OBGYN who prescribed her Macrobid. She tells me she has been taking it for 3 days with little to no relief. She also reports subjective fevers and chills as well as intermittent nausea. Denies blood in urine. She denies chest pain, shortness of breath, vomiting, diarrhea, headache, dizziness, malaise, fatigue. MD elicited complaint: dysuria, UTI and flank pain Onset (ago): day(s) (4) Severity: severe Female Urogenital Radiation: Non-Radiating Quality of pain: stabbing Consistency: intermittent Vaginal discharge: none Vaginal bleeding: none Urinary symptoms: Dysuria, Urgency, Frequency, Difficulty Urinating and Flank Pain Exacerbating factors: none Relieving factors: none Associated symptoms: abdominal pain (Suprapubic region) Treatment prior to arrival: none Patient : No Related Data Previous Rx's Medication Instructions Recorded fluticasone propionate 100 1 inh INHALATION BID 30 Days #60 ea 05/30/21 mcg/actuation blister powder for inhalation (Flovent Diskus) albuterol sulfate 90 mcg/actuation 2 puff INHALATION Q4-6H PRN 30 06/12/21 aerosol inhaler (ProAir HFA) Days #8.5 g lisinopril 10 mg tablet 10 mg PO DAILY #90 tab 06/20/21 clindamycin HCl 300 mg capsule 300 mg PO Q6H 7 Days #28 cap 08/27/21 cephalexin 500 mg capsule 500 mg PO QID 7 Days #28 cap 08/30/21 fluticasone propionate 50 2 spray INTRANASAL DAILY 30 Days 11/08/21 mcg/actuation nasal #16 g spray,suspension (Flonase Allergy Relief) prednisone 20 mg tablet 20 mg PO DAILY 4 Days #4 tab 11/08/21 bisacodyl 5 mg tablet 10 mg PO BEDTIME #20 tab 12/04/21 magnesium citrate 150 ml PO DAILY PRN #296 ml 12/04/21 sennosides 8.6 mg tablet (Natural 8.6 mg PO BEDTIME #30 tab 12/04/21 Senna Laxative) amitriptyline 25 mg tablet 25 mg PO BEDTIME #30 tab 12/07/21 mqtlvbeywy-fpyjuytbyuxmi-qmicztrn 1 tab PO Q6H PRN #16 tab 12/13/21 50 mg-325 mg-40 mg tablet nitrofurantoin 100 mg PO BID 5 Days #10 cap 12/13/21 monohydrate/macrocrystals 100 mg capsule (Macrobid) cefuroxime axetil 250 mg tablet 250 mg PO BID 7 Days #14 tab 12/15/21 phenazopyridine 100 mg tablet 200 mg PO TID 2 Days #6 tab 12/15/21 (Pyridium) Allergies Allergy/AdvReac Type Severity Reaction Status Date / Time ciprofloxacin [From CIPRO] Allergy Unknown UNKNOWN Verified 12/15/21 15:02 gluten [GLUTEN] Allergy Unknown ABD PAIN Verified 12/15/21 15:02 penicillin V Allergy Unknown hives Verified 12/15/21 15:02 Penicillins [PENICILLINS] Allergy Unknown HIVES Verified 12/15/21 15:02 Sulfa (Sulfonamide Allergy Unknown RASH Verified 12/15/21 15:02 Antibiotics) [SULFA (SULFONAMIDE ANTIBIOTICS)] sumatriptan AdvReac Intermediate Chest Pain Verified 12/15/21 15:02 Review of Systems Review of Systems: Constitutional : No Weight loss, + Fever, + Chills, No Fatigue, No Malaise ENT/Mouth : No sore throat, No Rhinorrhea Eyes: No Eye Pain, No Swelling, No Redness Cardiovascular : No Chest Pain, No SOB, No Dyspnea on Exertion, No Orthopnea, No Edema, No Palpitations Respiratory : No Cough, No Sputum, No Wheezing Gastrointestinal : + Nausea, No Vomiting, No Diarrhea, No Constipation, + abdominal Pain, No Hematochezia, No Melena Genitourinary : + Dysuria, + Urinary Frequency, No Hematuria, Musculoskeletal : No joint pain, No Myalgias, No Joint Swelling Skin : No Skin Lesions, No rash Neuro : No Weakness, No Numbness, No Dizziness, No Headache Psych : No Anxiety/Panic, No Depression All other systems reviewed and are negative Yes all other systems are reviewed and are negative [facility] Past Medical History Attestation statement: The following information was validated with the patient. Source: old records reviewed and nursing notes reviewed Medical History (Updated 12/15/21 @ 16:42 by WIL Leonard) Abscess of buttock, right Celiac disease Cough HTN (hypertension) Sinus infection Thigh abscess Surgical History History of breast lump/mass excision History of section History of esophagogastroduodenoscopy (EGD) History of hysterectomy History of removal of cyst History of tonsillectomy Hx of colonoscopy Family History Family History Father CAD (coronary artery disease) Skin cancer Prostate cancer Mother CHF (congestive heart failure) Diabetes Guillain-[place] Son Prader-Willi syndrome Son Muscular dystrophy Son Celiac disease Social History Social History Housing: House Alcohol intake: never Patient Tobacco Use Status: Former Tobacco user Tobacco use type: Cigarette e-Cigarette/Vaping Use: Never Used Use of substances other than those prescribed or required for medical reasons: No Advance Directives: No Advance Directives Information Provided: No Patient : No service: No Current occupational status: employed Current occupation: [employer] Physical Exam Vital Signs: Vital Signs: Last Vital Signs Temp 99.7 F 12/15/21 18:02 Pulse 93 12/15/21 18:02 Resp 18 12/15/21 18:02 BP 115/70 12/15/21 18:02 Pulse Ox 98 12/15/21 18:02 BMI result Body Mass Index 23.3 Vital signs stable Appearance: Alert.? Oriented X3.? No acute distress.? Head: Normocephalic, atraumatic, no step-offs or deformities Eyes: Pupils equal, round and reactive to light.? ENT: Pharynx normal.? Neck: Normal inspection.? Neck supple.? CVS: Normal heart rate and rhythm.? Pulses normal.? Respiratory: No respiratory distress.? Breath sounds normal.? Abdomen: Soft and + discomfort to suprapubic region.? Skin: Skin warm and dry.? Normal skin color.? Normal skin turgor.? Extremities: No lower extremity edema.? No calf ttp. 5/5 strength to bilateral upper and lower extremities Back: No midline tenderness, no C-spine tenderness, full range of motion, + right-sided CVA tenderness Neuro: Oriented X 3.? No motor deficit.? No sensory deficit. CN 2-12 intact Course Reevaluation(s) Reevaluation #1: CBC appears to be at patient's baseline. No acute electrolyte abnormalities requiring intervention. Urine is positive for leukocyte esterases, patient is having urinary frequency, urgency and dysuria consistent with acute UTI I will treat patient with Ceftin 250 mg p.o. b.i.d. x7 days. I told her to discontinue the Macrobid as she feels like this is not helping. At this time patient will be discharged home with PCP in OBGYN follow-up. Comfortable discharge She was given her 1st dose of Ceftin here, monitored for a while, tolerated medication well. Time: 18:37 MDM - Female Genitourinary MDM Narrative Medical decision making narrative: 1555 56 yo f pmhx adrenal adenoma, htn, celiac disease presents to the emergency department with right-sided flank pain, suprapubic discomfort, urinary frequency, urgency and dysuria x4 days despite 3 days of treatment with Macrobid. Physical examination significant for discomfort with palpation of suprapubic region. Abdomen soft, not distended with normoactive bowel sounds. Regular rate and rhythm. Lungs clear. Neuro exam nonfocal. Vital signs stable. Plan at this time is to obtain a urine, basic laboratory studies, CT of the abdomen pelvis to rule out obstructing uropathy. Medical Records Attestation: I reviewed the patient's medical records. Lab Data Attestation: I reviewed the patient's lab results. Result diagrams: 12/15/21 15:22 12/15/21 15: Labs: Lab Results 12/15/21 12/15/21 12/15/21 Range/Units 15:07 15:22 15:22 WBC 6.9 (4.8-10.8) X10*3/uL RBC 3.97 L (4.20-5.50) X10*6/uL Hgb 12.0 (12.0-16.0) g/dl Hct 36.5 L (37.0-47.0) % MCV 91.9 (80.0-98.0) fL MCH 30.2 (27.0-33.0) pg MCHC 32.9 (31.0-35.0) g/dl RDW 12.7 (11.0-16.0) % Plt Count 239 (160-400) X10*3/uL MPV 10.8 (9.4-12.3) fL Immature Gran % (Auto) 0.4 (0.0-0.4) % Neut % (Auto) 58.7 (45-73) % Lymph % (Auto) 28.6 (20-40) % [place] % (Auto) 8.2 (2-11) % Eos % (Auto) 3.5 (0-4) % Baso % (Auto) 0.6 (0-2) % Lymph # (Auto) 2.0 (1.2-4.9) X10*3/uL [place]aves # (Auto) 0.6 (0.1-1.2) X10*3/uL Eos # (Auto) 0.2 (0.0-0.4) X10*3/uL Baso # (Auto) 0.0 (0.0-0.2) X10*3/uL Abs Immat Gran (auto) 0.03 (0.00-0.03) X10*3/uL Absolute Neuts (auto) 4.1 (2.0-8.3) x10*3/uL Absolute Nucleated RBC 0.000 (0.0-0.012) X10*3/uL Nucleated RBC % (auto) 0.0 (0.0-0.2) /100WBC Sodium 136 (135-145) mmol/L Potassium 4.2 (3.3-5.1) mmol/L Chloride 102 (96-108) mmol/L Carbon Dioxide 29 (22-29) mmol/L Anion Gap 9 L (12-20) BUN 12 (9-16) mg/dL Creatinine 0.73 (0.5-1.4) mg/dL Estim Creat Clear Calc 90.8 Estimated GFR > 60 Random Glucose 125 H (60-115) mg/dL Calcium 9.9 (8.4-10.2) mg/dL Total Bilirubin 0.2 (0.0-1.0) mg/dL AST 27 D (5-31) U/L ALT 39 H (0-31) U/L Alkaline Phosphatase 72 (39-117) U/L Total Protein 7.3 (6.5-8.0) g/dL Albumin 4.3 (3.5-5.0) g/dL Urine Color YELLOW Urine Appearance CLEAR Urine pH 7.0 (5.0-8.0) Ur Specific [place] 1.010 (1.005-1.025) Urine Protein NEG (NEG-TRACE) MG/DL Urine Glucose (UA) NEG (NEG) MG/DL Urine Ketones NEG (NEG) MG/DL Urine Blood NEG (NEG) Urine Nitrite NEG (NEG) Ur Leukocyte Esterase 2+ H (NEG) Urine RBC 0 (0) /HPF Urine WBC 15-29 H (0-4) /HPF Ur Squamous Epith Cells 1+ /LPF Urine Bacteria TRACE /LPF Critical Care Time Critical Care Time Critical Care Time: No Discharge Plan Discharge Clinical Impression: UTI (urinary tract infection) Patient Disposition: Home, Self-Care Instructions: Urinary Tract Infection in Women (ED), Urinary Tract Infection in Women (DC) Additional Instructions: Take your medications as prescribed. If you were prescribed antibiotics today, it is important that you take your medication to their entirety, do not skip any doses, do not finish them early. Follow-up with your primary care provider this week. Follow-up with OBGYN. Return to the emergency department with new or worsening symptoms. Such as fevers, chills, chest pain, shortness of breath, nausea, vomiting, dizziness, headache, vision changes, lethargy In case of emergency call 911 Please stop taking the other antibiotics. Start the ones I sent to your pharmacy. CT/CT abdomen pelvis wo con IMPRESSION: No renal or ureteral calculi evident. No hydronephrosis. Cause the patient's symptoms has not been determined by CT. ? Stable 1.1 cm left adrenal adenoma.? ? Fleischner guidelines were followed. Prescriptions: New phenazopyridine [Pyridium] 100 mg tablet 200 mg PO TID 2 Days Qty: 6 0RF cefuroxime axetil 250 mg tablet 250 mg PO BID 7 Days Qty: 14 0RF No Action albuterol sulfate [ProAir HFA] 90 mcg/actuation HFA aerosol inhaler 2 puff inhalation Q4-6H PRN (Reason: shortness of breath or wheezing) 30 Days Qty: 8.5 2RF lisinopril 10 mg tablet 10 mg PO DAILY Qty: 90 1RF clindamycin HCl 300 mg capsule 300 mg PO Q6H 7 Days Qty: 28 0RF amitriptyline 25 mg tablet 25 mg PO BEDTIME Qty: 30 1RF tforrolfgf-srnbytdftvuok-dhek 50-325-40 mg tablet 1 tab PO Q6H PRN (Reason: pain) Qty: 16 0RF nitrofurantoin monohyd/m-cryst [Macrobid] 100 mg capsule 100 mg PO BID 5 Days Qty: 10 0RF Flovent Diskus 100 mcg/actuation blister with device 1 inh inhalation BID 30 Days Qty: 60 0RF prednisone 20 mg tablet 20 mg PO DAILY 4 Days Qty: 4 0RF fluticasone propionate [Flonase Allergy Relief] 50 mcg/actuation spray,suspension 2 spray intranasal DAILY 30 Days Qty: 16 1RF Rx Instructions: administer into each nostril cephalexin 500 mg capsule 500 mg PO QID 7 Days Qty: 28 0RF sennosides [Natural Senna Laxative] 8.6 mg tablet 8.6 mg PO BEDTIME Qty: 30 3RF magnesium citrate Solution 150 ml PO DAILY PRN (Reason: constipation) Qty: 296 0RF Rx Instructions: Take half a bottle 2 hours after taking the Dulcolax day before the procedure, finish the rest 2 hours after. bisacodyl 5 mg tablet 10 mg PO BEDTIME Qty: 20 0RF Rx Instructions: Start taking Dulcolax tablets 6 days before the procedure 2 tablets each night. The day before the procedure you can take 2 tablets at noon time then follow with magnesium citrate as ordered. Referrals: Matt Neves PA-C [Primary Care Provider] - 2 days Salty Kline MD [Physician] - 2 weeks Stand Alone Forms: Work/School Release
[2021-12-15 18:02] VITALS: BP 115/70; PULSE 93; RESP 18; TEMP 37.6; O2SAT 98
== END 2021-12-15 19:25 | disposition home or self-care (01) ==
PROVIDERS: Emergency Provider Emergency Medicine Emergency Medical Services; PCP Physician Assistant
DX: N39.0 Urinary tract infection, site not specified (principal); R30.0 Dysuria; R33.9 Retention of urine, unspecified; R10.9 Unspecified abdominal pain; Z79.899 Other long term (current) drug therapy; Z87.891 Personal history of nicotine dependence
CPT/HCPCS: 36415; 74176; 80053; 81001; 85025; 99284

== ENCOUNTER → 2021-12-19 10:46 | Outpatient (BNVA) | payer OTHER, SELFPAY | PROVIDERS: PCP Physician Assistant | DX: R33.9 Retention of urine, unspecified (principal); Z87.440 Personal history of urinary (tract) infections | CPT/HCPCS: 51798; 99212 ==

== ENCOUNTER 2022-01-02 10:48 | Outpatient (REF) | payer OTHER, SELFPAY ==
[2022-01-02 11:38] LABS: Hematocrit 36.3 % (37.0-47.0); Hemoglobin 11.9 g/dl (12.0-16.0); Mean Corpuscular HGB Conc 32.8 g/dl (31.0-35.0); Mean Corpuscular Hemoglobin 30.4 pg (27.0-33.0); Mean Corpuscular Volume 92.8 fL (80.0-98.0); Mean Platelet Volume 10.5 fL (9.4-12.3); Platelet Count 276 X10*3/uL (160-400); Red Blood Count 3.91 X10*6/uL (4.20-5.50); Red Cell Distribution Width 12.8 % (11.0-16.0); White Blood Count 5.5 X10*3/uL (4.8-10.8)
[2022-01-02 12:07] LABS: C Reactive Protein 0.19 mg/dL (< or = 0.50); Iron 99 mcg/dL (30-160); Percent Iron Saturation 35 % (15-50); Rheumatoid Factor < 15.0 IU/mL (<15.0); Total Iron Binding Capacity 281 mcg/dL (228-428); Unsaturated Iron Binding 182 ug/dL
[2022-01-02 12:28] LABS: Erythrocyte Sedimentation Rate 10 MM/HR (0-20)
[2022-01-02 12:40] LABS: Appearance Urine CLEAR; Color Urine YELLOW; Glucose Urine UA NEG (NEG); Leukocyte Esterase Urine NEG (NEG); Nitrite Urine NEG (NEG); Urine Blood NEG (NEG); Urine Ketones NEG (NEG); Urine Protein NEG (NEG-TRACE)
[2022-01-04 11:32] LABS: Cyclic Citrullinated Peptide <16 UNITS
[2022-01-04 13:45] LABS: Anti Nuclear Antibody Screen NEGATIVE (NEGATIVE)
[2022-01-04 20:52] LABS: Transglutaminase Ab IgG <1.0 U/mL; Transglutaminase IgA <1.0 U/mL
== END 2022-01-02 10:49 | disposition home or self-care (01) ==
LOC: HO.LAB 10:48
PROVIDERS: Nurse Practitioner Family; Obstetrics & Gynecology; PCP Physician Assistant; Visit Provider Physician Assistant
DX: R10.9 Unspecified abdominal pain (principal); D50.9 Iron deficiency anemia, unspecified; M25.50 Pain in unspecified joint; N39.0 Urinary tract infection, site not specified
CPT/HCPCS: 36415; 81003; 83540; 85027; 85652; 86038; 86039; 86140; 86200; 86364; 86431

== ENCOUNTER 2022-01-11 11:21 | Outpatient (REF) | payer OTHER, SELFPAY ==
[2022-01-11 12:40] LABS: Appearance Urine HAZY; Color Urine YELLOW; Glucose Urine UA NEG (NEG); Leukocyte Esterase Urine 2+ (NEG); Nitrite Urine POS (NEG); PH 7.5 (5.0-8.0); UACC Culture Trigger YES; Urine Blood TRACE (NEG); Urine Ketones NEG (NEG); Urine Protein NEG (NEG-TRACE)
[2022-01-11 14:00] LABS: RBC Urine 0-2 /HPF (0); Renal Epithelial Cells Urine TRACE /LPF; Squamous Epithelial Cell Urine 1+ /LPF
[2022-01-11 14:01] LABS: Bacteria Urine 1+ /LPF
== END 2022-01-11 11:22 | disposition home or self-care (01) ==
LOC: HO.LAB 11:21
PROVIDERS: PCP Physician Assistant; Visit Provider Obstetrics & Gynecology
DX: N39.0 Urinary tract infection, site not specified (principal)
CPT/HCPCS: 81001; 81003; 87086

== ENCOUNTER 2022-02-19 16:52 | Outpatient (REF) | payer OTHER, SELFPAY ==
[2022-02-19 17:43] LABS: Hematocrit 34.4 % (37.0-47.0); Hemoglobin 11.1 g/dl (12.0-16.0); Mean Corpuscular HGB Conc 32.3 g/dl (31.0-35.0); Mean Corpuscular Hemoglobin 30.4 pg (27.0-33.0); Mean Corpuscular Volume 94.2 fL (80.0-98.0); Mean Platelet Volume 10.4 fL (9.4-12.3); Platelet Count 279 X10*3/uL (160-400); Red Blood Count 3.65 X10*6/uL (4.20-5.50); Red Cell Distribution Width 12.7 % (11.0-16.0); White Blood Count 6.7 X10*3/uL (4.8-10.8)
[2022-02-19 18:08] LABS: Anion Gap 13 (12-20); Blood Urea Nitrogen 12 mg/dL (9-16); Calcium 9.1 mg/dL (8.4-10.2); Carbon Dioxide 27 mmol/L (22-29); Chloride 104 mmol/L (96-108); Estimated Glomerular Filt Rate > 60; Glucose Random 87 mg/dL (60-115); Magnesium 2.1 mg/dL (1.6-2.6); Potassium 4.5 mmol/L (3.3-5.1); Sodium 139 mmol/L (135-145)
[2022-02-19 18:49] LABS: Vitamin B12 1132 pg/mL (200-900)
== END 2022-02-19 16:53 | disposition home or self-care (01) ==
LOC: HO.LAB 16:52
PROVIDERS: PCP Physician Assistant; Visit Provider Physician Assistant
DX: E53.8 Deficiency of other specified B group vitamins (principal); G43.809 Other migraine, not intractable, without status migrainosus; D64.89 Other specified anemias
CPT/HCPCS: 36415; 80048; 82607; 82746; 83735; 85027

== ENCOUNTER 2022-03-12 11:15 | Day surgery (SDC) | payer OTHER, SELFPAY ==
[2022-03-06 13:36] VITALS: BMI 24.9
--- NOTE | 2022-03-09 08:52 | P.CONAN_ITS ---
Documented by User: Jenise Larsen NP 03/09/22 08:54 HPI - Anesthesia Eval Consult details Narrative: 56yo F for Upper Endoscopy and Colonoscopy PMF Active Problems Active Problems: All Active Problems (Updated 02/21/22 @ 11:46 by Matt Neves PA-C) Fatigue (Acute) Microscopic hematuria (Acute) Retention of urine (Acute) UTI (urinary tract infection) (Acute) Frequent headaches (Acute) Bilateral hand pain (Acute) Allergic (Acute) Polyarthralgia (Acute) Anemia (Acute) Migraine (Acute) Post-COVID chronic headache (Acute) Asthma exacerbation (Acute) Fatigue (Acute) Vomiting (Acute) Left genital labial abscess (Acute) Elevated vitamin B12 level (Acute) Adrenal adenoma (Acute) Anemia (Acute) Vulvar lesion (Acute) Bleeding (Acute) Microscopic hematuria (Acute) Vagina bleeding (Acute) Herpes (Acute) Cervical spine pain (Acute) Loss of taste (Acute) Lumbar arthropathy (Acute) Celiac disease (Acute) Breast cancer screening (Acute) Colon cancer screening (Acute) Lumbar spine pain (Acute) Chronic cough (Acute) Annual physical exam (Acute) Nausea (Acute) Thigh abscess (Acute) Cough (Acute) Abscess of buttock, right (Acute) HTN (hypertension) (Acute) Past Medical History Medical History Abscess of buttock, right Celiac disease Cough HTN (hypertension) Retention of urine Sinus infection Thigh abscess Family History Family History Father CAD (coronary artery disease) Skin cancer Prostate cancer Mother CHF (congestive heart failure) Diabetes Guillain-Reedy Son Prader-Willi syndrome Son Muscular dystrophy Son Celiac disease Surgical History Surgical History History of breast lump/mass excision History of section History of esophagogastroduodenoscopy (EGD) History of hysterectomy History of removal of cyst History of tonsillectomy Hx of colonoscopy Social History Social History Housing: House Alcohol intake: never Patient Tobacco Use Status: Former Tobacco user Tobacco use type: Cigarette e-Cigarette/Vaping Use: Never Used Are you DNR?: No Advance Directives: No Advance Directives Information Provided: Yes service: No Current occupational status: employed Current occupation: [employer] Cognitive needs: No Hearing needs: No Vision needs: Yes Meds Allergies Allergy/AdvReac Type Severity Reaction Status Date / Time ciprofloxacin [From CIPRO] Allergy Unknown UNKNOWN Verified 02/21/22 11:24 gluten [GLUTEN] Allergy Unknown ABD PAIN Verified 02/21/22 11:24 penicillin V Allergy Unknown hives Verified 02/21/22 11:24 Penicillins [PENICILLINS] Allergy Unknown HIVES Verified 02/21/22 11:24 Sulfa (Sulfonamide Allergy Unknown RASH Verified 02/21/22 11:24 Antibiotics) [SULFA (SULFONAMIDE ANTIBIOTICS)] amitriptyline AdvReac Intermediate Depression Verified 02/21/22 11:24 sumatriptan AdvReac Intermediate Chest Pain Verified 02/21/22 11:24 Exam Exam Date and Time: March 09, 2022 0852 Height,Weight and Vital Signs: Height 5 ft 7 in Weight 72.121 kg Pertinent Lab Results Pertinent Lab Results: Laboratory Tests 02/19/22 02/19/22 16:58 16:58 WBC 6.7 Hgb 11.1 L Hct 34.4 L Plt Count 279 Sodium 139 Potassium 4.5 Chloride 104 Carbon Dioxide 27 BUN 12 Creatinine 0.76 Narrative Narrative: PFT 05/2021 Forced vital capacity, FEV1, XQR03-13, and MVV are all normal. ? Post bronchodilator therapy, no significant change. ? Total lung capacity and residual volume normal. ? Diffusion capacity normal. ? CONCLUSION:? Normal pulmonary function test. ? No evidence of obstructive or restrictive pulmonary disorder. Documented by User: Angelito Lei MD 03/12/22 13:09 [facility] Past Medical History Medical History Abscess of buttock, right Celiac disease Cough HTN (hypertension) Retention of urine Sinus infection Thigh abscess Family History Family History Father CAD (coronary artery disease) Skin cancer Prostate cancer Mother CHF (congestive heart failure) Diabetes Guillain-Reedy Son Prader-Willi syndrome Son Muscular dystrophy Son Celiac disease Family history of problems with anesthesia: No Surgical History Surgical History History of breast lump/mass excision History of section History of esophagogastroduodenoscopy (EGD) History of hysterectomy History of removal of cyst History of tonsillectomy Hx of colonoscopy History of Problems with Anesthesia: No Social History Social History Housing: House Alcohol intake: never Patient Tobacco Use Status: Former Tobacco user Tobacco use type: Cigarette e-Cigarette/Vaping Use: Never Used Are you DNR?: No Advance Directives: No Advance Directives Information Provided: Yes service: No Current occupational status: employed Current occupation: [employer] Cognitive needs: No Hearing needs: No Vision needs: Yes Meds Allergies Allergy/AdvReac Type Severity Reaction Status Date / Time ciprofloxacin [From CIPRO] Allergy Unknown UNKNOWN Verified 02/21/22 11:24 gluten [GLUTEN] Allergy Unknown ABD PAIN Verified 02/21/22 11:24 penicillin V Allergy Unknown hives Verified 02/21/22 11:24 Penicillins [PENICILLINS] Allergy Unknown HIVES Verified 02/21/22 11:24 Sulfa (Sulfonamide Allergy Unknown RASH Verified 02/21/22 11:24 Antibiotics) [SULFA (SULFONAMIDE ANTIBIOTICS)] amitriptyline AdvReac Intermediate Depression Verified 02/21/22 11:24 sumatriptan AdvReac Intermediate Chest Pain Verified 02/21/22 11:24 Exam Airway Mallampati Class: II TM Dist: >3cm Neck ROM: Full Denture: Upper and Lower Heart: rrr Lungs: clear Assessment and Plan Final Anesthetic Review Family History of Problems with Anesthesia: No History of Problems with Anesthesia: No NPO: Yes ASA Class: II Final Preanesthetic Review: No Changes in Pt Med Stat, Meds/Allgs Chart Reviewed, Consent Obtained/Reviewed and Anes Risks/Benef Reviewed Patient Risk: Intermediate Procedure Risk: Low Anesthetic Plan Anesthetic Plan: MAC: Disposition: Standard PACU
[2022-03-12 11:38] VITALS: BP 132/76; PULSE 101; RESP 18; TEMP 36.6; O2SAT 99
[2022-03-12] MEDS: Lactated Ringers 1,000 ML 100 ML IVCONT (11:55)
--- NOTE | 2022-03-12 13:08 | MHC.SHP ---
Pre-Procedural Eval Section A Date of Service: 03/12/22 The patient is an INPATIENT: No The History & Physical has been completed within 30 days and I have reviewed it.: No Section B Chief Complaint: Epigastric pain,Celiac disease,screening Details of Present Illness: Colon cancer screening, follow-up of celiac disease, epigastric pain Relevant Family History (Specify if Yes): Yes Relevant Social History: Tobacco Use (Former smoker) Present Medications: see Short Stay Collaborative assessment Medical History: Significant History (Abscess of buttock, right Celiac disease Cough HTN (hypertension) Sinus infection Thigh abscess) History of Previous Operations: Relevant previous surgery/procedure and date(s) (History of breast lump/mass excision History of section History of esophagogastroduodenoscopy (EGD) History of hysterectomy History of removal of cyst History of tonsillectomy Hx of colonoscopy) Allergies: Allergies Allergy/AdvReac Type Severity Reaction Status Date / Time ciprofloxacin [From CIPRO] Allergy Unknown UNKNOWN Verified 02/21/22 11:24 gluten [GLUTEN] Allergy Unknown ABD PAIN Verified 02/21/22 11:24 penicillin V Allergy Unknown hives Verified 02/21/22 11:24 Penicillins [PENICILLINS] Allergy Unknown HIVES Verified 02/21/22 11:24 Sulfa (Sulfonamide Allergy Unknown RASH Verified 02/21/22 11:24 Antibiotics) [SULFA (SULFONAMIDE ANTIBIOTICS)] amitriptyline AdvReac Intermediate Depression Verified 02/21/22 11:24 sumatriptan AdvReac Intermediate Chest Pain Verified 02/21/22 11:24 Review of Systems Sugical H&P ROS: Negative: Constitution, Cardiovascular and Respiratory and Yes, Specify: Gastrointestinal (celiac disease) Exam Surgical H&P Exam: Normal: Heart, Normal: Lungs, Normal: Extremities and Normal: Abdomen Plan Diagnosis/Plan: Unchanged I have reviewed the history and physical and performed a pertinent physical examination on my patient. No changes have occurred unless specified.
--- NOTE | 2022-03-12 13:10 | PM.OP ---
Brief Operative Note Date of Service: 03/12/22 Pre-op diagnosis: Colon cancer screening, follow-up of celiac disease, epigastric pain Post-op diagnosis: other (GERD, Gastritis, celiac disease, colon polyp, diverticulosis, hemorrhoids) Procedure: FLEXIBLE TRANSORAL UPPER GASTROINTESTINAL ENDOSCOPY WITH BIOPSIES AND COLONOSCOPY TILL CECUM WITH BIOPSIES UPPER ENDOSCOPY Consent: Indications for the procedure and potential complications of bleeding, perforation, reaction to medications and missed diagnosis were discussed with the patient and informed consent was obtained. Instrument: Olympus GIF H 190 mid size upper endoscope Monitoring: Vital signs and clinical assessment, continuous EKG monitoring, Pulse oximetry, Carbon Dioxide monitoring and blood pressure monitoring were done throughout the procedure. Procedure: The patient was placed in the left lateral decubitis position and pre-procedure medications were administered and a bite block was placed. The endoscope was inserted into the mouth and advanced under direct vision to the third part of duodenum. A careful inspection was made as the upper endoscope was withdrawn including a retroflexed examination of the proximal stomach; Findings and interventions are described below. Findings: Larynx: Normal Esophagus: GE junction at 38 cms. No esophagitis or Sanderson's. Stomach: Mild gastric erythema. Antral biopsies were obtained to check for H Pylori. Grade 2 flap valve on retroflexed examination of the cardia. Duodenum: Normal bulb and descending duodenum. Biopsies were obtained from 3rd part of the duodenum to follow up on celiac disease. Intervention: Biopsies as noted above COLONOSCOPY PROCEDURE NOTE Consent: Indications for the procedure and potential complications of bleeding, perforation, reaction to medications and missed diagnosis were discussed with the patient and informed consent was obtained. Instrument: Olympus PCF H 190 L variable stiffness pediatric colonoscope Monitoring: Vital signs and clinical assessment, intermittent blood pressure monitoring, continuous EKG monitoring, Pulse oximetry and Carbon Dioxide monitoring were done throughout the procedure. Colon withdrawl time was 20 minutes. Procedure: The patient was placed in the left lateral decubitis position and pre-procedure medications were administered. After a digital rectal examination of the ano-rectum, the video colonoscope was inserted into the rectum and advanced through the colon to the cecum. The colonoscope was slowly withdrawn in a retrograde panoramic fashion and the colon mucosa was carefully examined including a retroflexed view of the rectum. Findings and interventions are described below. Procedure Difficulty: : Colon was long and tortuous with narrowing in the sigmoid colon. No maneuvers were required Findings: Terminal Ileum: Not evaluated Cecum: Normal Ascending Colon: Normal Transverse Colon: A 4-5 mm diminutive appearing polyp removed with the cold biopsy Moderate diverticulosis Descending Colon: Moderate diverticulosis Sigmoid Colon: Moderate diverticulosis Rectum: Normal Ano-rectum: Moderate internal hemorrhoids Colon preparation: Good after copious irrigation. Impression and Post Procedure Diagnosis: Endoscopy Findings: ESOPHAGUS: STOMACH: Gastritis DUODENUM: Normal. Biopsies were obtained from 3rd part of the duodenum to follow up on celiac disease. Colonoscopy Findings: One diminutive appearing polyps removed Moderate to severe diverticulosis seen in the left and transverse colon Moderate hemorrhoids on retroflexed exam. Plan: Await pathology results Patient has an appointment on 03/26/22 in the GI Clinic with Jennifer Caldwell FNP-BC. Repeat Colonoscopy interval based on path results - in 5 years if polyps are adenomatous and 10 years if polyps are hyperplastic. Above findings were reviewed with the patient and colon polyps and diverticulosis handouts were given in the discharge area Surgeon: Fran Leal MD Anesthesia: MAC (Dr Lei) Was an Drill Press Operator Helper used for this Procedure?: No Drill Press Operator Helper: Cindy Hua Estimated blood loss (mL): 0 Pathology: other (A: Small bowel biopsies B: Gastric antrum r/o H. pylori C: transverse colon polyp) Condition: stable Disposition: PACU
[2022-03-12 14:11] VITALS: BP 113/64; PULSE 111; RESP 16; TEMP 36.8; O2SAT 99
[2022-03-12] MEDS: Butalb/Acetamin/Caff 50/325/40 TABLET 1 TAB PO (14:22)
[2022-03-12 14:26] VITALS: BP 113/55; PULSE 92; RESP 18; TEMP 36.8; O2SAT 100
--- NOTE | 2022-03-14 16:55 | W.PM.OPN ---
Operative Note Operative Note Date of Service: 03/12/22 Narrative: Pre-op diagnosis: Colon cancer screening, follow-up of celiac disease, epigastric pain Post-op diagnosis:?other (GERD, Gastritis, celiac disease, colon polyp, diverticulosis, hemorrhoids) Procedure: FLEXIBLE TRANSORAL UPPER GASTROINTESTINAL ENDOSCOPY WITH BIOPSIES AND COLONOSCOPY TILL CECUM WITH BIOPSIES UPPER ENDOSCOPY Consent:?Indications for the procedure and potential complications of bleeding, perforation, reaction to medications and missed diagnosis were discussed with the patient and informed consent was obtained. Instrument:?Olympus GIF H 190 mid size upper endoscope Monitoring: Vital signs and clinical assessment, continuous EKG monitoring, Pulse oximetry, Carbon Dioxide monitoring and blood pressure monitoring were done throughout the procedure. Procedure:?The patient was placed in the left lateral decubitis position and pre-procedure medications were administered and a bite block was placed. The endoscope was inserted into the mouth and advanced under direct vision to the third part of duodenum. A careful inspection was made as the upper endoscope was withdrawn including a retroflexed examination of the proximal stomach; Findings and interventions are described below. Findings: Larynx:? Normal Esophagus:?GE junction at 38 cms. No esophagitis or Sanderson's. Stomach:?Mild gastric erythema. Antral biopsies were obtained to check for H Pylori. Grade 2 flap valve on retroflexed examination of the cardia. Duodenum:?Normal bulb and descending duodenum.? Biopsies were obtained from 3rd part of the duodenum to follow up on celiac disease. Intervention:?Biopsies as noted above COLONOSCOPY PROCEDURE NOTE Consent:?Indications for the procedure and potential complications of bleeding, perforation, reaction to medications and missed diagnosis were discussed with the patient and informed consent was obtained. Instrument:?Olympus PCF H 190 L variable stiffness pediatric colonoscope Monitoring:?Vital signs and clinical assessment, intermittent blood pressure monitoring, continuous EKG monitoring, Pulse oximetry and Carbon Dioxide monitoring were done throughout the procedure. Colon withdrawl time was 20 minutes. Procedure:?The patient was placed in the left lateral decubitis position and pre-procedure medications were administered. After a digital rectal examination of the ano-rectum, the video colonoscope was inserted into the rectum and advanced through the colon to the cecum. The colonoscope was slowly withdrawn in a retrograde panoramic fashion and the colon mucosa was carefully examined including a retroflexed view of the rectum. Findings and interventions are described below. Procedure Difficulty:?: Colon was long and tortuous with narrowing in the sigmoid colon. No maneuvers were required Findings: Terminal Ileum: Not evaluated Cecum:? Normal Ascending Colon:??Normal Transverse Colon:??A 4-5 mm diminutive appearing polyp removed with the cold biopsy Moderate diverticulosis Descending Colon:? Moderate diverticulosis Sigmoid Colon:??Moderate diverticulosis Rectum:??Normal Ano-rectum:??Moderate internal hemorrhoids Colon preparation:? Good after copious irrigation. Impression and Post Procedure Diagnosis: Endoscopy Findings: ESOPHAGUS: STOMACH: Gastritis DUODENUM: Normal.? Biopsies were obtained from 3rd part of the duodenum to follow up on celiac disease. Colonoscopy Findings: One diminutive appearing polyps removed Moderate to severe diverticulosis seen in the left and transverse colon Moderate hemorrhoids on retroflexed exam. Plan: Await pathology results Patient has an appointment on 03/26/22 in the GI Clinic with Jennifer Caldwell FNP-BC. Repeat Colonoscopy interval based on path results - in 5 years if polyps are adenomatous and 10 years if polyps are hyperplastic. Above findings were reviewed with the patient and colon polyps and diverticulosis handouts were given in the discharge area Surgeon: Fran Leal MD Anesthesia:?MAC (Dr Lei) Was an Seed Potato Cutter used for this Procedure?:?No Seed Potato Cutter:?Cindy Hua Estimated blood loss (mL):?0 Pathology:?other (A: Small bowel biopsies? B: Gastric antrum r/o H. pylori? C: transverse colon polyp) Condition:?stable Disposition:?PACU Breast Ansted Node Biopsy Substrate(s) used for sentinel node biopsy in the non-neoadjuvant setting: Dye General Surg. - Synoptic Notes Breast Ansted Node Biopsy Substrate(s) used for sentinel node biopsy in the non-neoadjuvant setting: Dye
== END 2022-03-12 15:09 | disposition home or self-care (01) ==
PROVIDERS: PCP Physician Assistant; Visit Provider Internal Medicine Gastroenterology
PROC: (CPT 45380; principal; 2022-03-12 12:50)
DX: Z12.11 Encounter for screening for malignant neoplasm of colon (principal); K63.5 Polyp of colon; K57.30 Diverticulosis of large intestine without perforation or abscess without bleeding; K64.8 Other hemorrhoids; K90.0 Celiac disease; K21.9 Gastro-esophageal reflux disease without esophagitis; K29.50 Unspecified chronic gastritis without bleeding; I10 Essential (primary) hypertension; Z88.0 Allergy status to penicillin; Z88.1 Allergy status to other antibiotic agents; Z88.2 Allergy status to sulfonamides; Z88.8 Allergy status to other drugs, medicaments and biological substances; Z87.891 Personal history of nicotine dependence
CPT/HCPCS: 45380; 43239; 88305; 88342; J0461

== ENCOUNTER → 2022-03-26 13:01 | Outpatient (BNVA) | payer OTHER, SELFPAY | PROVIDERS: PCP Physician Assistant; Visit Provider Nurse Practitioner Family | DX: K90.0 Celiac disease (principal); K21.9 Gastro-esophageal reflux disease without esophagitis; K63.5 Polyp of colon; K57.30 Diverticulosis of large intestine without perforation or abscess without bleeding; Z98.890 Other specified postprocedural states | CPT/HCPCS: 99212 ==

== ENCOUNTER → 2022-05-01 10:49 | Outpatient (BNVA) | payer OTHER, SELFPAY | PROVIDERS: PCP Physician Assistant; Visit Provider Nurse Practitioner Family | DX: G43.809 Other migraine, not intractable, without status migrainosus (principal); U09.9 Post COVID-19 condition, unspecified; G89.29 Other chronic pain; H81.09 Meniere's disease, unspecified ear | CPT/HCPCS: 99202 ==

== ENCOUNTER 2022-05-07 11:54 | Outpatient (REF) | payer OTHER, SELFPAY ==
[2022-05-07 12:50] LABS: Hematocrit 36.9 % (37.0-47.0); Mean Corpuscular HGB Conc 32.5 g/dl (31.0-35.0); Mean Corpuscular Hemoglobin 29.9 pg (27.0-33.0); Mean Platelet Volume 10.4 fL (9.4-12.3); Platelet Count 301 X10*3/uL (160-400); Red Blood Count 4.01 X10*6/uL (4.20-5.50); Red Cell Distribution Width 11.9 % (11.0-16.0); White Blood Count 7.2 X10*3/uL (4.8-10.8)
[2022-05-07 13:48] LABS: Folate 13.2 ng/mL (> or = 4.0); Vitamin B12 1410 pg/mL (200-900)
[2022-05-07 14:42] LABS: Urine Cytology See Pathology rpt
[2022-05-09 00:57] LABS: Lyme Abs Screen <0.90 index
== END 2022-05-07 11:55 | disposition home or self-care (01) ==
LOC: HO.LAB 11:54
PROVIDERS: PCP Physician Assistant; Visit Provider Physician Assistant
DX: R31.29 Other microscopic hematuria (principal); E53.8 Deficiency of other specified B group vitamins; R74.8 Abnormal levels of other serum enzymes; D50.0 Iron deficiency anemia secondary to blood loss (chronic)
CPT/HCPCS: 36415; 82607; 82746; 85027; 86617; 86618; 88112

== ENCOUNTER 2022-05-10 11:39 | Outpatient (REF) | payer OTHER, SELFPAY ==
[2022-05-10 13:10] LABS: Appearance Urine Clear; Color Urine Yellow; Glucose Urine UA Negative (Negative); Leukocyte Esterase Urine Large (3+) (Negative); Nitrite Urine Negative (Negative); UMIC TRIGGER UACC YES; Urine Blood Negative (Negative); Urine Ketones Negative (Negative); Urine Protein Negative (Neg-Trace)
[2022-05-10 13:43] LABS: Bacteria Urine 2+ (None Seen); Hyaline Casts Urine 0-2 /LPF (0-2); RBC Urine 0-2 /HPF (0-2); Squamous Epithelial Cell Urine 0-2 /HPF (0-2); UACC Culture Trigger YES; WBC Urine >50 /HPF (0-5)
[2022-05-12 14:36] LABS: Haptoglobin 192 mg/dL (43-212)
== END 2022-05-10 11:40 | disposition home or self-care (01) ==
LOC: HO.LAB 11:39
PROVIDERS: PCP Physician Assistant; Visit Provider Physician Assistant
DX: R74.8 Abnormal levels of other serum enzymes (principal)
CPT/HCPCS: 36415; 81001; 83010; 87086; 87147

== ENCOUNTER → 2022-07-02 11:27 | Outpatient (BNVA) | payer OTHER, SELFPAY | PROVIDERS: PCP Physician Assistant; Visit Provider Urology | DX: N39.0 Urinary tract infection, site not specified (principal); N30.90 Cystitis, unspecified without hematuria; R39.89 Other symptoms and signs involving the genitourinary system | CPT/HCPCS: 51798; 99212 ==

== ENCOUNTER → 2022-07-03 10:48 | Outpatient (BNVA) | payer OTHER, SELFPAY | PROVIDERS: PCP Physician Assistant; Visit Provider Nurse Practitioner Family | DX: G43.809 Other migraine, not intractable, without status migrainosus (principal); R51.9 Headache, unspecified; M54.2 Cervicalgia; U09.9 Post COVID-19 condition, unspecified; M54.9 Dorsalgia, unspecified; M62.838 Other muscle spasm; G89.29 Other chronic pain | CPT/HCPCS: 99212 ==

== ENCOUNTER 2022-08-06 11:18 | Outpatient (REF) | payer OTHER, SELFPAY ==
--- NOTE | ~2022-08-06 | MM_ITS ---
EXAMINATION: MM SCREENING DIGITAL BREAST TOMOSYNTHESIS, BILATERAL CLINICAL INFORMATION: Screening. Asymptomatic. The lifetime risk of breast cancer based on the Tyrer-Cuzick Model is 16%. COMPARISON: Mammography: 07/03/2021, 07/14/2019, 06/05/2018 TECHNIQUE: Digital breast tomosynthesis is performed in both the craniocaudal and mediolateral oblique views along with computer-aided detection (CAD). Synthesized 2D images are generated from the tomosynthesis. FINDINGS: The breasts are heterogeneously dense, which may obscure small masses (ACR BI-RADS breast composition Category c). There are no significant masses, abnormal calcifications, or other abnormalities. Breast tissue composition borders on average fibroglandular. Parenchymal pattern is similar to prior studies. No developing density. Incidental intramammary node again seen mid outer left breast. The axilla and skin contours are unremarkable. MM/MM tomosynthesis screening BI IMPRESSION: No mammographic evidence of malignancy. ASSESSMENT: BI-RADS 2: Benign RECOMMENDATION: Routine annual mammography screening. This patient's information was entered into system with a target due date for their next mammogram.
== END 2022-08-06 11:19 | disposition home or self-care (01) ==
LOC: HO.MAMMO 11:18
PROVIDERS: Visit Provider Physician Assistant
DX: Z12.31 Encounter for screening mammogram for malignant neoplasm of breast (principal)
CPT/HCPCS: 77063; 77067

== ENCOUNTER → 2022-09-26 10:50 | Outpatient (BNVA) | payer OTHER, SELFPAY | PROVIDERS: PCP Physician Assistant; Visit Provider Nurse Practitioner Family | DX: K59.01 Slow transit constipation (principal); K90.0 Celiac disease | CPT/HCPCS: 99212 ==

== ENCOUNTER 2022-11-01 11:20 | Outpatient (REF) | payer OTHER, SELFPAY ==
[2022-11-01 12:16] LABS: Hematocrit 36.9 % (37.0-47.0); Mean Corpuscular HGB Conc 32.5 g/dl (31.0-35.0); Mean Corpuscular Hemoglobin 30.2 pg (27.0-33.0); Mean Corpuscular Volume 92.7 fL (80.0-98.0); Mean Platelet Volume 10.3 fL (9.4-12.3); Platelet Count 274 X10*3/uL (160-400); Red Blood Count 3.98 X10*6/uL (4.20-5.50); Red Cell Distribution Width 12.6 % (11.0-16.0); White Blood Count 6.5 X10*3/uL (4.8-10.8)
[2022-11-01 16:17] LABS: Alanine Aminotransferase 23 U/L (0-31); Albumin Level 3.8 g/dL (3.5-5.0); Alkaline Phosphatase 50 U/L (39-117); Anion Gap 14 (12-20); Aspartate Amino Transferase 25 U/L (5-31); Bilirubin Total 0.4 mg/dL (0.0-1.0); Blood Urea Nitrogen 15 mg/dL (9-16); Calcium 9.1 mg/dL (8.4-10.2); Carbon Dioxide 25 mmol/L (22-29); Chloride 106 mmol/L (96-108); Estimated Glomerular Filt Rate > 60; Glucose Random 74 mg/dL (60-115); Iron 99 mcg/dL (30-160); Magnesium 1.9 mg/dL (1.6-2.6); Percent Iron Saturation 40 % (15-50); Potassium 4.7 mmol/L (3.3-5.1); Sodium 140 mmol/L (135-145); Total Iron Binding Capacity 249 mcg/dL (228-428); Total Protein 6.2 g/dL (6.5-8.0); Unsaturated Iron Binding 150 ug/dL
[2022-11-01 16:31] LABS: Folate 6.1 ng/mL (> or = 4.0); Vitamin B12 929 pg/mL (200-900)
== END 2022-11-01 11:21 | disposition home or self-care (01) ==
LOC: HO.LAB 11:20
PROVIDERS: PCP Physician Assistant; Visit Provider Physician Assistant
DX: D50.9 Iron deficiency anemia, unspecified (principal); G43.809 Other migraine, not intractable, without status migrainosus; E53.8 Deficiency of other specified B group vitamins; I10 Essential (primary) hypertension
CPT/HCPCS: 36415; 80053; 82607; 82746; 83540; 83735; 85027

== ENCOUNTER → 2022-12-28 11:31 | Outpatient (BNVA) | payer OTHER, SELFPAY | PROVIDERS: PCP Physician Assistant; Visit Provider Urology | DX: Z87.440 Personal history of urinary (tract) infections (principal) | CPT/HCPCS: 99212 ==

== ENCOUNTER → 2023-02-04 10:29 | Outpatient (REF) | payer OTHER, SELFPAY ==
--- NOTE | 2023-02-04 10:32 | CA_ITS ---
Acquisition Time: 2023-02-04 10:40:32 Total Exercise Time: 00:09:10 Test Indications: CP Medications: SEE H Protocol: CHRIS Max HR: 160 BPM 99% of Pred: 161 BPM Max BP: 142/068 mmHG Max Work Load: 10.3 METS Exercise stress test with exercise 9 min 10 sec of Chris protocol, achieving 99% MPHR, 10.3 METs, without anginal symptoms, with 2/10 right axilla ache at baseline which resolved with exercise, with isolated PACs and PVCs, with normotensive response to exercise, without EKG changes meeting criteria for ischemia, with changes to P wave sizes in recovery (unclear significance). Test reviewed with Dr Hernandes Referred By: Matt Neves Overread By: MIREYA ARANDA
== END ==
LOC: HO.CARD 10:29
PROVIDERS: PCP Physician Assistant; Visit Provider Physician Assistant
DX: R07.2 Precordial pain (principal)
CPT/HCPCS: 93017

== ENCOUNTER 2023-03-12 11:51 | Outpatient (REF) | payer OTHER, SELFPAY ==
[2023-03-12 12:22] LABS: Hematocrit 38.5 % (37.0-47.0); Hemoglobin 12.4 g/dl (12.0-16.0); Mean Corpuscular HGB Conc 32.2 g/dl (31.0-35.0); Mean Corpuscular Hemoglobin 30.1 pg (27.0-33.0); Mean Corpuscular Volume 93.4 fL (80.0-98.0); Mean Platelet Volume 10.8 fL (9.4-12.3); Platelet Count 243 X10*3/uL (160-400); Red Blood Count 4.12 X10*6/uL (4.20-5.50); Red Cell Distribution Width 12.2 % (11.0-16.0)
[2023-03-12 12:51] LABS: Alanine Aminotransferase 20 U/L (0-31); Albumin Level 4.1 g/dL (3.5-5.0); Alkaline Phosphatase 45 U/L (39-117); Anion Gap 8 (12-20); Aspartate Amino Transferase 17 U/L (5-31); Bilirubin Total 0.2 mg/dL (0.0-1.0); Blood Urea Nitrogen 21 mg/dL (9-16); Calcium 9.5 mg/dL (8.4-10.2); Carbon Dioxide 28 mmol/L (22-29); Chloride 106 mmol/L (96-108); Estimated Glomerular Filt Rate > 60; Glucose Fasting 103 mg/dL (60-99); Iron 124 mcg/dL (30-160); Percent Iron Saturation 42 % (15-50); Potassium 3.9 mmol/L (3.3-5.1); Sodium 138 mmol/L (135-145); Total Iron Binding Capacity 297 mcg/dL (228-428); Unsaturated Iron Binding 173 ug/dL
[2023-03-12 12:54] LABS: Vitamin D 25-OH Total 72.8 ng/mL (>30)
[2023-03-12 13:11] LABS: Folate 2.7 ng/mL (> or = 4.0); Vitamin B12 557 pg/mL (200-900)
[2023-03-18 12:59] LABS: Vitamin B6 20.4 ng/mL (2.1-21.7)
[2023-03-19 10:59] LABS: Vitamin B1 9 nmol/L (8-30)
[2023-03-19 14:33] LABS: Alpha-Tocopherol 23.4 mg/L (5.7-19.9); Beta-Gamma Tocopherol <1.0 mg/L (<=4.3); Vitamin A 81 mcg/dL (38-98)
== END 2023-03-12 11:52 | disposition home or self-care (01) ==
LOC: HO.LAB 11:51
PROVIDERS: PCP Physician Assistant; Visit Provider Physician Assistant
DX: D50.9 Iron deficiency anemia, unspecified (principal); D64.89 Other specified anemias; E53.8 Deficiency of other specified B group vitamins; K90.0 Celiac disease; I10 Essential (primary) hypertension
CPT/HCPCS: 36415; 80053; 82180; 82306; 82607; 82746; 83540; 84134; 84207; 84425; 84446; 84590; 85027

== ENCOUNTER 2023-05-07 10:51 | Outpatient (AMB) | payer OTHER, SELFPAY ==
[2023-05-07 11:01] VITALS: PULSE 113; O2SAT 97; BMI 23.1
--- NOTE | 2023-05-07 11:01 | A.OFFPC_ITS ---
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 Accompanied by: Self / Same As Patient Allergies ciprofloxacin [From CIPRO] Allergy (Unknown, Verified 05/07/23 11:36) UNKNOWN gluten [GLUTEN] Allergy (Unknown, Verified 05/07/23 11:36) ABD PAIN penicillin V Allergy (Unknown, Verified 05/07/23 11:36) hives Penicillins [PENICILLINS] Allergy (Unknown, Verified 05/07/23 11:36) HIVES Sulfa (Sulfonamide Antibiotics) [SULFA (SULFONAMIDE ANTIBIOTICS)] Allergy (Unknown, Verified 05/07/23 11:36) RASH amitriptyline Adverse Reaction (Intermediate, Verified 05/07/23 11:36) Depression influenza virus vacc trivalent, spl Adverse Reaction (Intermediate, Verified 05/07/23 11:36) illness sumatriptan Adverse Reaction (Intermediate, Verified 05/07/23 11:36) Chest Pain Medication List - Last Reconciled 05/07/23 by Matt Neves PA-C albuterol sulfate 90 mcg/actuation (ProAir HFA) 2 puffs inhalation Q4-6H PRN 30 days baclofen 10 mg PO TID PRN 30 days [id number]-skckzqbepoqfp-dbxp 50-325-40 mg 1 tab PO Q6H PRN 4 days estradiol (Yuvafem) 10 mcg vaginal 2XW fluticasone propionate 50 mcg/actuation (Flonase Allergy Relief) 2 sprays intranasal DAILY 30 days fluticasone propionate 100 mcg/actuation (Flovent Diskus) 1 inh inhalation BID 30 days Tobacco use date assessed: 01/30/23 Dental Screening Dental Screen Date: 05/07/23 Did you have a dental visit in the last 12 months?: Yes Did you have a dental problem in the last 6 months where you did not have access to dental care?: No Was dental information given to patient?: Patient has dentist HPI f/u Celiacs, HTN 2 HPI0 Details patient is a 57-year-old female here today for follow-up visit ? Patient has a past medical history significant for hypertension, migraines, Celiac disease, chronic cystitis. Concern--> reports having bilateral mandible pain and swelling. She does have some impacted wisdom teeth that she will be following up with her dentist about. She is asking for antibiotic in the meantime. Concern--> celiac disease--> has generally been doing well though has noted some weight loss since last office visit. Noted some slight decreased protein in her most recent labs thus patient has been using supplemental protein shakes and has been feeling better. Even reported lower frequency of her migraines Recent labs showing low folate level and elevated vitamin-E level. CHRONIC MEDICAL CONDITION-> Anemia:? Has followed up with Hematology.? Red blood cell count and hemoglobin have been trending upwards.? Patient reports she is feeling somewhat better.? Most recent CBC showing improved red blood cell count and normal hemoglobin.. .. Migraines--IS FOLLOWED BY NEUROLOGY. CONTINUES WITH P.R.N. USE OF FIORICET FOR MIGRAINES WHICH HAVE BEEN EFFECTIVE. SHE DOES REPORT SINCE INCREASING HER PROTEIN HER DIET HER FREQUENCY OF MIGRAINES HAVE BEEN MUCH LESS.. .. HTN: Continues on Lisinopril and report she does monitor BP at home and report normal readings. [facility] Medical History Abscess of buttock, right Celiac disease Cough Diverticulosis HTN (hypertension) Retention of urine Sinus infection Thigh abscess Surgical History History of esophagogastroduodenoscopy (EGD) Hx of colonoscopy History of hysterectomy History of breast lump/mass excision History of removal of cyst History of section History of tonsillectomy Family History Father CAD (coronary artery disease) Skin cancer Prostate cancer Mother CHF (congestive heart failure) Diabetes Guillain-[place] Son Prader-Willi syndrome Son Muscular dystrophy Son Celiac disease Social History Household Members: Significant Other Housing: House Alcohol intake: current Alcohol intake frequency: a few times a month Alcohol type: wine Patient Tobacco Use Status: Former Tobacco user Tobacco use type: Cigarette e-Cigarette/Vaping Use: Never Used Second Hand Smoke Exposure: No service: No Current occupational status: employed Current occupation: [employer] Cognitive needs: No Hearing needs: No Vision needs: Yes Questionnaire Thrive Questionnaire Date Thrive assessed: 01/30/23 BENJAMIN-7 AMB Questionnaire BENJAMIN-7 Date BENJAMIN - 7 assessed: 01/30/23 Source: Developed by Drs. Reynaldo Hampton, Yajaira Villanueva, Sina Nj and colleagues, with an educational anjali from [employer]. Review of Systems Const Reports fatigue and Reports headache(s) Eyes Denies loss of vision ENT Denies vertigo, Denies dizziness, Reports headache(s) and Denies sore throat Card Denies chest pain, Denies leg edema and Denies lightheadedness Resp Denies cough, Denies hemoptysis and Denies wheezing GI Denies abdominal pain, Denies melena, Denies constipation, Denies diarrhea and Denies vomiting Denies urinary frequency, Denies dysuria and Denies urinary urgency Musc Denies arthralgias, Denies joint swelling, Denies numbness and Denies tingling Neuro Denies Abnormal speech present, Denies behavioral changes, Denies vertigo, Denies dizziness, Reports headache(s), Denies loss of vision, Denies memory loss, Denies numbness and Denies tingling Psych Denies anxiety, Denies behavioral changes, Denies depression, Denies memory loss and Denies panic attacks Endo Reports fatigue Ravi/Lymph Denies easy bleeding and Denies easy bruising Aller/Immun Denies wheezing Physical exam (Primary Care) Vital Signs: Last Vital Signs Pulse 113 H 05/07/23 11:01 Pulse Ox 97 05/07/23 11:01 Oxygen Delivery Method Room Air 05/07/23 11:01 BMI result Body Mass Index 23.1 Tobacco/Smoking Status: Tobacco use Status Tobacco use date assessed 01/30/23 05/07/23 11:09 Patient Tobacco Use Status Former Tobacco user 05/07/23 11:09 Tobacco use type Cigarette 05/07/23 11:09 e-Cigarette/Vaping Use Never Used 05/07/23 11:09 Thrive Assessment: Date of Thrive Assessment Date Thrive assessed 01/30/23 05/07/23 11:09 Const General: healthy appearing, no acute distress, alert and awake Nutritional Appearance: well nourished Orientation/consciousness: oriented to person, oriented to place and oriented to time HENNE Ears: TM's normal bilaterally General nose exam: Normal nasal mucous membranes and turbinates present Teeth image: 2 1. SWOLLEN IMPACTED WISDOM TOOTH Eyes Conjunctivae: conjunctivae normal Sclerae: sclerae normal Pupils: Equal, round and reactive pupils present Neck Neck: Yes no lymphadenopathy and Yes no JVD Thyroid: Thyroid normal Carotids: no bruits Resp Effort & Inspection: normal respiratory effort and not tachypneic Auscultation: no crackles, no rales, no rhonchi and no wheezes Cardio Rate: regular rate Rhythm: regular rhythm Heart sounds: no murmurs and normal S1 and S2 GI Palpation (GI): Soft to palpation, nontender, no hepatomegaly and no splenomegaly Auscultation: normal bowel sounds Skin General skin exam: no rashes or lesions noted and dry skin Neuro General: oriented to person, oriented to place and oriented to time Cranial nerves: Yes Equal, round and reactive pupils present Speech: No Abnormal speech present Gait exam (Neuro): Normal gait present Motor exam (neuro): no tremor noted Extrem Right upper extremity: full ROM Left upper extremity: full ROM Right lower extremity: full ROM; no edema Left lower extremity: full ROM; no edema Psych Mental Status: mental status grossly normal Speech and movement: Normal speech and movement present Affect: normal affect Attitude: cooperative Thought process: Normal thought process present Assessment and Plan Assessment & Plan (1) Celiac disease: Code(s): K90.0 - Celiac disease Plan: Continues to a low gluten diet. Continues to feel somewhat fatigued which may related to her celiac disease. Continue to vitamin levels and CBC. Advised perhaps establishing care with [facility] (2) Family history of skin cancer: Code(s): Z80.8 - Family history of malignant neoplasm of other organs or systems Plan: Patient reports a family history in her mother and her sister of having skin cancer. she would like to see a medical or surgical instrument maker for skin exam. (3) Dental abscess: Code(s): K04.7 - Periapical abscess without sinus Plan: Has upcoming appointment dentist about bilateral dental molar impactions. Seems to be infected thus will supply patient with antibiotics. Orders: Orders 2 Vitamin E 05/07/23 K90.0 - Celiac disease Vitamin B12 and Folate 05/07/23 E53.8 - Deficiency of other specified B group vitamins, K90.0 - Celiac disease Complete Blood Count no Diff 05/07/23 K90.0 - Celiac disease Basic Metabolic Panel 05/07/23 I10 - Essential (primary) hypertension Referrals 2 Dermatology Referral Z80.8 - Family history of malignant neoplasm of other organs or systems Medications: New 2 clindamycin HCl 300 mg PO Q8H 5 days 15 caps 0RF K04.7 - Periapical abscess without sinus Coding Level of Care Code Est Pt Level 4 (38837) Diagnoses Celiac disease K90.0 Family history of skin cancer Z80.8 Dental abscess K04.7
== END 2023-05-07 12:31 | disposition home or self-care (01) ==
PROVIDERS: PCP Physician Assistant; Visit Provider Physician Assistant
DX: K90.0 Celiac disease (principal); Z80.8 Family history of malignant neoplasm of other organs or systems; K04.7 Periapical abscess without sinus
CPT/HCPCS: 99214

== ENCOUNTER 2023-07-03 10:17 | Outpatient (AMB) | payer OTHER, SELFPAY ==
--- NOTE | 2023-07-03 10:21 | A.OFFVIS_ITS ---
Intake Vital Signs 07/03/23 10:36 Height 5 ft 7 in Weight 150 lb 2 oz BMI 23.5 BP 122/78 Blood Pressure Location Rt brachial Position Sitting Pulse 84 Pulse Source Pulse Oximeter Pulse Oximetry (%) 97 Oxygen Delivery Method Room Air Intake Visit Reasons: Follow up headaches-LVM Intake Note: Patient presents for follow up headaches. Patient states they seem to be getting worst, I'm not sure if it's because of a pulled tooth. Allergies ciprofloxacin [From CIPRO] Allergy (Unknown, Verified 07/03/23 10:38) UNKNOWN gluten [GLUTEN] Allergy (Unknown, Verified 07/03/23 10:38) ABD PAIN penicillin V Allergy (Unknown, Verified 07/03/23 10:38) hives Penicillins [PENICILLINS] Allergy (Unknown, Verified 07/03/23 10:38) HIVES Sulfa (Sulfonamide Antibiotics) [SULFA (SULFONAMIDE ANTIBIOTICS)] Allergy (Unknown, Verified 07/03/23 10:38) RASH amitriptyline Adverse Reaction (Intermediate, Verified 07/03/23 10:38) Depression influenza virus vacc trivalent, spl Adverse Reaction (Intermediate, Verified 07/03/23 10:38) illness sumatriptan Adverse Reaction (Intermediate, Verified 07/03/23 10:38) Chest Pain Medication List - Last Reconciled 07/03/23 by JOSHUA Scanlon albuterol sulfate 90 mcg/actuation (ProAir HFA) 2 puffs inhalation Q4-6H PRN 30 days baclofen 10 mg PO TID PRN 30 days xvaakmrley-rgfctsxwfeoqb-gndn 50-325-40 mg 1 tab PO Q6H PRN 4 days clindamycin HCl 300 mg PO Q8H 5 days estradiol (Yuvafem) 10 mcg vaginal 2XW fluticasone propionate 50 mcg/actuation (Flonase Allergy Relief) 2 sprays intran chani DAILY 30 days fluticasone propionate 100 mcg/actuation (Flovent Diskus) 1 inh inhalation BID 30 days HPI HPI Comments History of Present Illness Details 57-yr-old female presents for f/u visit. Pt reports that earlier this year, her routine labs showed low albumin so she started a protein supplement. She felt this was helping with her overall energy levels. Her B-12 was high, so she started to avoid B-12 foods, but than develop ed a folic acid def. She is now supplementing her folate and being more mindful to eat a balanced diet. Pt reports that she has been having increased headaches more recently. Since Mar, she has had some wisdom teeth infection, then a wisdom tooth extraction w/ subsequent dry socket. Later today she is scheduled to have the other wisdom tooth extracted. She does continue to have neck tightness pain. She is using Baclofen w/ some effect. She is hoping to start PT- her PCP has recently ordered PT. [facility] Medical History (Updated 05/20/23 @ 14:28 by Matt Neves PA-C) Diverticulosis Retention of urine Thigh abscess Cough Abscess of buttock, right HTN (hypertension) Celiac disease Sinus infection Surgical History (Updated 07/03/23 @ 10:39 by HOMERO Slade) [place] teeth removed History of esophagogastroduodenoscopy (EGD) Hx of colonoscopy History of hysterectomy History of breast lump/mass excision History of removal of cyst History of section History of tonsillectomy Family History Father CAD (coronary artery disease) Skin cancer Prostate cancer Mother CHF (congestive heart failure) Diabetes Guillain-[place] Son Prader-Willi syndrome Son Muscular dystrophy Son Celiac disease Social History Household Members: Significant Other Housing: House Alcohol intake: current Alcohol intake frequency: a few times a month Alcohol type: wine Patient Tobacco Use Status: Former Tobacco user Tobacco use type: Cigarette e-Cigarette/Vaping Use: Never Used Second Hand Smoke Exposure: No service: No Current occupational status: employed Current occupation: [employer] Cognitive needs: No Hearing needs: No Vision needs: Yes Review of Systems Const All systems reviewed & are unremarkable except as noted in HPI and below Physical Exam Vital Signs: Last Vital Signs Pulse 84 07/03/23 10:36 BP 122/78 07/03/23 10:36 Pulse Ox 97 07/03/23 10:36 Oxygen Delivery Method Room Air 07/03/23 10:36 BMI result Body Mass Index 23.5 Const General: cooperative and no acute distress Orientation/consciousness: patient oriented x3 HEENT Head: Yes normocephalic Resp Effort & Inspection: normal respiratory effort and able to speak in complete sentences Neuro General: patient oriented x3, gait normal and CN's II-XI intact bilaterally Cognition (Neuro): normal cognition Motor exam (neuro): 5/5 motor strength present throughout Psych Appearance: grossly normal Mental Status: mental status grossly normal Speech and movement: Normal speech and movement present Affect: normal affect Attitude: cooperative Thought process: Normal thought process present Thought content: Normal thought content present Insight: Good insight present (Psych) Judgement: Good judgement present (Psych) Assessment & Plan Assessment & Plan (1) Migraine: Code(s): G43.909 - Migraine, unspecified, not intractable, without status migrainosus Qualifiers: Migraine type: other Status migrainosus presence: without status migrainosus Intractability: not intractable Qualified Code(s): G43.809 - Other migraine, not intractable, without status migrainosus (2) Cervicalgia: Code(s): M54.2 - Cervicalgia Plan For acute headache treatment: May continue Fioricet May continue her Ibuprofen prn. Previous acute medication use: Sumatriptan- caused chest pain within minutes. Rizatriptan. Future consideration: Gepant. ? For headache prevention medication: Resume OTC Magnesium- goal is 400-500mg qhs Previous preventative medication use: Amitriptyline caused depression. Note in the past she was given Wellbutrin for smoking cessation and anxiety- also caused depression. Propranolol- caused bradycardia. Riboflavin 400mg qam- ineffective. ? For cervicalgia and dorsalgia: Continue Baclofen 5mg tid and 10mg qhs. Concur with referral to PT. Future considerations- pain management referral. ? For sleep: Monitor sleep. Future considerations: HST. f/u in 6 months or sooner prn. Medications: Refilled baclofen 10 mg PO TID 30 days PRN 90 tabs 3RF muscle spasm Coding Level of Care Code Est Pt Level 4 (16081) Diagnoses Other migraine without status migrainosus, not intractable G43.809 Migraine type: other Status migrainosus presence: without status migrainosus Intractability: not intractable Cervicalgia M54.2
[2023-07-03 10:36] VITALS: BP 122/78; PULSE 84; O2SAT 97; BMI 23.5
== END 2023-07-03 11:15 | disposition home or self-care (01) ==
PROVIDERS: Visit Provider Nurse Practitioner Family
DX: G43.809 Other migraine, not intractable, without status migrainosus (principal); M54.2 Cervicalgia
CPT/HCPCS: 99214

== ENCOUNTER → 2023-07-03 10:17 | Outpatient (BNVA) | payer OTHER, SELFPAY | PROVIDERS: Visit Provider Nurse Practitioner Family | DX: G43.809 Other migraine, not intractable, without status migrainosus (principal); M54.2 Cervicalgia | CPT/HCPCS: 99212 ==

== ENCOUNTER 2023-07-26 11:11 | Outpatient (REF) | payer OTHER, SELFPAY ==
[2023-07-26 11:46] LABS: Estimated Average Glucose 114 mg/dL; Hematocrit 37.3 % (37.0-47.0); Hemoglobin 12.1 g/dl (12.0-16.0); Hemoglobin A1c % 5.6 % (<6.0); Mean Corpuscular HGB Conc 32.4 g/dl (31.0-35.0); Mean Corpuscular Hemoglobin 30.3 pg (27.0-33.0); Mean Corpuscular Volume 93.5 fL (80.0-98.0); Mean Platelet Volume 10.9 fL (9.4-12.3); Platelet Count 273 X10*3/uL (160-400); Red Blood Count 3.99 X10*6/uL (4.20-5.50); Red Cell Distribution Width 12.8 % (11.0-16.0); White Blood Count 12.5 X10*3/uL (4.8-10.8)
[2023-07-26 12:27] LABS: Albumin Level 4.1 g/dL (3.5-5.0); Anion Gap 11 (12-20); Blood Urea Nitrogen 22 mg/dL (9-16); Calcium 9.3 mg/dL (8.4-10.2); Carbon Dioxide 28 mmol/L (22-29); Chloride 105 mmol/L (96-108); Estimated Glomerular Filt Rate > 60; Glucose Random 93 mg/dL (60-115); Lactate Dehydrogenase 236 U/L (122-220); Sodium 140 mmol/L (135-145)
[2023-07-26 12:46] LABS: Folate > 20.0 ng/mL (> or = 4.0); Vitamin B12 563 pg/mL (200-900)
[2023-07-31 03:39] LABS: Alpha-Tocopherol 17.1 mg/L (5.7-19.9); Beta-Gamma Tocopherol <1.0 mg/L (<=4.3)
== END 2023-07-26 11:12 | disposition home or self-care (01) ==
LOC: HO.LAB 11:11
PROVIDERS: PCP Physician Assistant; Visit Provider Physician Assistant
DX: I10 Essential (primary) hypertension (principal); R73.01 Impaired fasting glucose; R53.83 Other fatigue; M79.10 Myalgia, unspecified site; K90.0 Celiac disease; E53.8 Deficiency of other specified B group vitamins
CPT/HCPCS: 36415; 80048; 82040; 82550; 82607; 82746; 83036; 83615; 84446; 85027

== ENCOUNTER 2023-07-29 13:13 | Outpatient (REF) | payer OTHER, SELFPAY ==
[2023-07-29 14:22] LABS: Appearance Urine Cloudy; Color Urine Straw; Glucose Urine UA Negative (Negative); Leukocyte Esterase Urine Large (3+) (Negative); Nitrite Urine Positive (Negative); UMIC TRIGGER UACC YES; Urine Blood Small (1+) (Negative); Urine Ketones Negative (Negative); Urine Protein Negative (Neg-Trace)
[2023-07-29 14:26] LABS: Bacteria Urine 4+ (None Seen); Hyaline Casts Urine 0-2 /LPF (0-2); RBC Urine 0-2 /HPF (0-2); Squamous Epithelial Cell Urine 0-2 /HPF (0-2); UACC Culture Trigger YES; WBC Urine >50 /HPF (0-5)
== END 2023-07-29 13:14 | disposition home or self-care (01) ==
LOC: HO.LAB 13:13
PROVIDERS: PCP Physician Assistant; Visit Provider Physician Assistant
DX: R30.0 Dysuria (principal); Z87.440 Personal history of urinary (tract) infections
CPT/HCPCS: 81001; 87086; 87088; 87186

== ENCOUNTER 2023-08-07 10:41 | Outpatient (AMB) | payer OTHER, SELFPAY ==
--- NOTE | 2023-08-07 11:03 | MHC.PC.OV ---
Vital Signs 08/07/23 11:22 Height 5 ft 7 in Weight 148 lb BMI 23.2 BP 122/68 Blood Pressure Location Lt brachial Position Sitting Pulse 70 Pulse Source Palpation Intake Visit Reasons: f/u anemia, ciliacs dz Environmental Epidemiologist Required: No Accompanied by: Self / Same As Patient Allergies ciprofloxacin [From CIPRO] Allergy (Unknown, Verified 08/07/23 11:37) UNKNOWN gluten [GLUTEN] Allergy (Unknown, Verified 08/07/23 11:37) ABD PAIN penicillin V Allergy (Unknown, Verified 08/07/23 11:37) hives Penicillins [PENICILLINS] Allergy (Unknown, Verified 08/07/23 11:37) HIVES Sulfa (Sulfonamide Antibiotics) [SULFA (SULFONAMIDE ANTIBIOTICS)] Allergy (Unknown, Verified 08/07/23 11:37) RASH amitriptyline Adverse Reaction (Intermediate, Verified 08/07/23 11:37) Depression influenza virus vacc trivalent, spl Adverse Reaction (Intermediate, Verified 08/07/23 11:37) illness sumatriptan Adverse Reaction (Intermediate, Verified 08/07/23 11:37) Chest Pain Medication List - Last Reconciled 08/07/23 by Matt Neves PA-C albuterol sulfate 90 mcg/actuation (Ventolin HFA) 2 puffs inhalation Q4-6H PRN 30 days baclofen 10 mg PO TID PRN 30 days evmpkkyhlp-dfahjsgqddony-djxu 50-325-40 mg 1 tab PO Q6H PRN 4 days clindamycin HCl 300 mg PO Q8H 5 days estradiol (Yuvafem) 10 mcg vaginal 2XW fluticasone propionate 50 mcg/actuation (Flonase Allergy Relief) 2 sprays intranasal DAILY 30 days fluticasone propionate 100 mcg/actuation (Flovent Diskus) 1 inh inhalation BID 30 days phenazopyridine (Pyridium) 200 mg PO TID PRN 6 doses Tobacco use date assessed: 01/30/23 Dental Screening Dental Screen Date: 08/07/23 Did you have a dental visit in the last 12 months?: Yes Did you have a dental problem in the last 6 months where you did not have access to dental care?: No Was dental information given to patient?: Patient has dentist HPI f/u anemia, ciliacs dz HPI Details patient is a 57-year-old female here today for follow-up visit ? Patient has a past medical history significant for hypertension, migraines, Celiac disease, chronic cystitis. Concern--> recently suffered a UTI that was treated with antibiotics. She did have leukocytosis. She also left maxillary sinusitis that has not gone away. Continues to have pain in her left maxillary sinus. Will supply with clindamycin Concern--> celiac disease--> has generally been doing well though has noted some weight loss since last office visit. Noted some slight decreased protein in her most recent labs thus patient has been using supplemental protein shakes and has been feeling better. Even reported lower frequency of her migraines CHRONIC MEDICAL CONDITION-> Anemia:? Has followed up with Hematology.? Red blood cell count and hemoglobin have been trending upwards.? Patient reports she is feeling somewhat better.? Most recent CBC showing improved red blood cell count and normal hemoglobin.. .. Migraines--IS FOLLOWED BY NEUROLOGY. CONTINUES WITH P.R.N. USE OF FIORICET FOR MIGRAINES WHICH HAVE BEEN EFFECTIVE. SHE DOES REPORT SINCE INCREASING HER PROTEIN HER DIET HER FREQUENCY OF MIGRAINES HAVE BEEN MUCH LESS.. She will consider physical therapy for her cervical spine and if fails physical therapy will consider pain management evaluation .. HTN: Continues on Lisinopril and report she does monitor BP at home and report normal readings. Laboratory Tests 03/12/23 07/26/23 07/26/23 12:13 11:19 11:19 WBC 12.5 H RBC 4.12 L 3.99 L Creatinine 0.68 Urine Blood Urine Nitrite Ur Leukocyte Georgina ase Urine Bacteria 07/29/23 13:17 WBC RBC Creatinine Urine Blood Small (1+) H Urine Nitrite Positive H Ur Leukocyte Georgina ase Large (3+) H Urine Bacteria 4+ PFSH Medical History (Updated 08/07/23 @ 11:42 by Matt Neves PA-C) Diverticulosis Retention of urine Thigh abscess Cough Abscess of buttock, right HTN (hypertension) Celiac disease Sinus infection Surgical History [place] teeth removed History of esophagogastroduodenoscopy (EGD) Hx of colonoscopy History of hysterectomy History of breast lump/mass excision History of removal of cyst History of section History of tonsillectomy Family History Father CAD (coronary artery disease) Skin cancer Prostate cancer Mother CHF (congestive heart failure) Diabetes Guillain-[place] Son Prader-Willi syndrome Son Muscular dystrophy Son Celiac disease Social History Household Members: Significant Other Housing: House Alcohol intake: current Alcohol intake frequency: a few times a month Alcohol type: wine Comment: medicated at 1420 Patient Tobacco Use Status: Former Tobacco user Tobacco use type: Cigarette e-Cigarette/Vaping Use: Never Used Second Hand Smoke Exposure: No service: No Current occupational status: employed Current occupation: [employer] Cognitive needs: No Hearing needs: No Vision needs: Yes Questionnaire Thrive Questionnaire Date Thrive assessed: 01/30/23 BENJAMIN-7 AMB Questionnaire BENJAMIN-7 Date BENJAMIN - 7 assessed: 01/30/23 Source: Developed by Drs. Reynaldo Hampton, Yajaira Villanueva, Sina Nj and colleagues, with an educational anjali from [employer]. ACT Questionnaire In the past 4 weeks, how much of the time did your asthma keep you from getting as much done at work, school or at home?: None of the time During the past 4 weeks, how often have you had shortness of breath?: Not at all During the past 4 weeks, how often did your asthma symptoms wake you up at night or earlier than usual in the morning?: Not at all During the past 4 weeks, how often have you had to use your rescue inhaler or nebulizer medication?: Not at all How would you rate your asthma control during the past 4 weeks?: Completely controlled ACT Interpretation: Negative Score: 25 Review of Systems Const Denies headache(s) Eyes Denies loss of vision ENT Denies vertigo, Denies dizziness, Denies headache(s) and Denies sore throat Card Denies chest pain, Denies leg edema and Denies lightheadedness Resp Denies cough, Denies hemoptysis and Denies wheezing GI Denies abdominal pain, Denies melena, Denies constipation, Denies diarrhea and Denies vomiting Denies urinary frequency, Denies dysuria and Denies urinary urgency Musc Denies arthralgias, Denies joint swelling, Denies numbness and Denies tingling Neuro Denies Abnormal speech present, Denies behavioral changes, Denies vertigo, Denies dizziness, Denies headache(s), Denies loss of vision, Denies memory loss, Denies numbness and Denies tingling Psych Denies anxiety, Denies behavioral changes, Denies depression, Denies memory loss and Denies panic attacks Ravi/Lymph Denies easy bleeding and Denies easy bruising Aller/Immun Denies wheezing Physical exam (Primary Care) Vital Signs: Last Vital Signs Pulse 70 08/07/23 11:22 BP 122/68 08/07/23 11:22 BMI result Body Mass Index 23.2 Tobacco/Smoking Status: Tobacco use Status Tobacco use date assessed 01/30/23 08/07/23 11:03 Patient Tobacco Use Status Former Tobacco user 08/07/23 11:03 Tobacco use type Cigarette 08/07/23 11:03 e-Cigarette/Vaping Use Never Used 08/07/23 11:03 Thrive Assessment: Date of Thrive Assessment Date Thrive assessed 01/30/23 08/07/23 11:03 Const General: healthy appearing, no acute distress, alert and awake Nutritional Appearance: well nourished Orientation/consciousness: oriented to person, oriented to place and oriented to time HENMT Ears: TM's normal bilaterally General nose exam: Normal nasal mucous membranes and turbinates present Eyes Conjunctivae: conjunctivae normal Sclerae: sclerae normal Pupils: Equal, round and reactive pupils present Neck Neck: Yes no lymphadenopathy and Yes no JVD Thyroid: Thyroid normal Carotids: no bruits Resp Effort & Inspection: normal respiratory effort and not tachypneic Auscultation: no crackles, no rales, no rhonchi and no wheezes Cardio Rate: regular rate Rhythm: regular rhythm Heart sounds: no murmurs and normal S1 and S2 GI Palpation (GI): Soft to palpation, nontender, no hepatomegaly and no splenomegaly Auscultation: normal bowel sounds Skin General skin exam: no rashes or lesions noted and dry skin Neuro General: oriented to person, oriented to place and oriented to time Cranial nerves: Yes Equal, round and reactive pupils present Speech: No Abnormal speech present Gait exam (Neuro): Normal gait present Motor exam (neuro): no tremor noted Extrem Right upper extremity: full ROM Left upper extremity: full ROM Right lower extremity: full ROM; no edema Left lower extremity: full ROM; no edema Psych Mental Status: mental status grossly normal Speech and movement: Normal speech and movement present Affect: normal affect Attitude: cooperative Thought process: Normal thought process present Assessment and Plan Assessment & Plan (1) Left maxillary sinusitis: Code(s): J32.0 - Chronic maxillary sinusitis Plan: Patient's signs symptoms of sinusitis. Will supply patient with antibiotic. (2) Celiac disease: Code(s): K90.0 - Celiac disease Plan: Continues to a low gluten diet. Continues to feel somewhat fatigued which may related to her celiac disease. Continue to vitamin levels and CBC. Advised perhaps establishing care with integrative medicine group (3) Migraine: Code(s): G43.909 - Migraine, unspecified, not intractable, without status migrainosus Qualifiers: Intractability: not intractable Migraine type: other Status migrainosus presence: without status migrainosus Qualified Code(s): G43.809 - Other migraine, not intractable, without status migrainosus Plan: As per HPI patient does use Fioricet on a limited basis for acute migraines. She continues to follow with Neurology. She reports since increasing her protein in her diet her frequency migraines have been better. (4) Anemia: Code(s): D64.9 - Anemia, unspecified Qualifiers: Anemia type: other cause Other causes of anemia: other cause, not classified Qualified Code(s): D64.89 - Other specified anemias Plan: Continues to be somewhat anemic. She has stopped using her iron supplementation as she is believes it was not helpful in increasing her energy. (5) Asthma: Code(s): J45.909 - Unspecified asthma, uncomplicated Qualifiers: Asthma complication type: uncomplicated Asthma persistence: intermittent Asthma severity: mild Qualified Code(s): J45.20 - Mild intermittent asthma, uncomplicated Plan: Her asthma is fairly well controlled with only p.r.n. use of albuterol inhaler during times of illness Orders: Orders Microalbumin, Random (w Creat) 08/07/23 I10 - Essential (primary) hypertension Complete Blood Count no Diff 08/07/23 K90.0 - Celiac disease IRON PROFILE 08/07/23 D50.9 - Iron deficiency anemia, unspecified, K90.0 - Celiac disease Vitamin B12 and Folate 08/07/23 E53.8 - Deficiency of other specified B group vitamins, K90.0 - Celiac disease Comprehensive [place]. Panel Fast 08/07/23 I10 - Essential (primary) hypertension Medications: Changed From albuterol sulfate 90 mcg/actuation (ProAir HFA) 2 puffs inhalation Q4-6H 30 days PRN 8.5 grams 2RF shortness of breath or wheezing R05 - Cough To albuterol sulfate 90 mcg/actuation (Ventolin HFA) 2 puffs inhalation Q4-6H 30 days PRN 8.5 grams 2RF shortness of breath or wheezing R05 - Cough Refilled fluticasone propionate 50 mcg/actuation (Flonase Allergy Relief) administer into each nostril 2 sprays intranasal DAILY 30 days 16 grams 6RF T78.40XD - Allergy, unspecified, subsequent encounter fluticasone propionate 100 mcg/actuation (Flovent Diskus) 1 inh inhalation BID 30 days 60 ea 3RF J45.909 - Unspecified asthma, uncomplicated clindamycin HCl 300 mg PO Q8H 5 days 15 caps 0RF K04.7 - Periapical abscess without sinus yialbnatcx-wxqqktschyvvg-hktj 50-325-40 mg 1 tab PO Q6H 4 days PRN 16 tabs 0RF headache G43.809 - Other migraine, not intractable, without status migrainosus Discontinued phenazopyridine (Pyridium) Discontinued Reason: Doctor's Order 200 mg PO TID PRN 6 tabs 0RF pain Coding Level of Care Code Est Pt Level 4 (82032) Diagnoses Left maxillary sinusitis J32.0 Celiac disease K90.0 Other migraine without status migrainosus, not intractable G43.809 Intractability: not intractable Migraine type: other Status migrainosus presence: without status migrainosus Anemia due to other cause, not classified D64.89 Anemia type: other cause Other causes of anemia: other cause, not classified Mild intermittent asthma without complication J45.20 Asthma complication type: uncomplicated Asthma persistence: intermittent Asthma severity: mild
[2023-08-07 11:22] VITALS: BP 122/68; PULSE 70; BMI 23.2
== END 2023-08-07 11:51 | disposition home or self-care (01) ==
PROVIDERS: PCP Physician Assistant; Visit Provider Physician Assistant
DX: J32.0 Chronic maxillary sinusitis (principal); K90.0 Celiac disease; G43.809 Other migraine, not intractable, without status migrainosus; D64.89 Other specified anemias; J45.20 Mild intermittent asthma, uncomplicated; I10 Essential (primary) hypertension
CPT/HCPCS: 99214

== ENCOUNTER 2023-08-08 11:26 | Outpatient (REF) | payer OTHER, SELFPAY ==
[2023-08-08 12:51] LABS: Appearance Urine Turbid; Color Urine Yellow; Glucose Urine UA Negative (Negative); Leukocyte Esterase Urine Large (3+) (Negative); Nitrite Urine Positive (Negative); UMIC TRIGGER UACC YES; Urine Blood Large (3+) (Negative); Urine Ketones Negative (Negative); Urine Protein 100 (2+) mg/dL (Neg-Trace)
[2023-08-08 12:53] LABS: Bacteria Urine 4+ (None Seen); Hyaline Casts Urine 0-2 /LPF (0-2); RBC Urine >20 /HPF (0-2); Squamous Epithelial Cell Urine 0-2 /HPF (0-2); UACC Culture Trigger YES; WBC Urine >50 /HPF (0-5)
[2023-08-08 13:11] LABS: Creatinine Urine 64.33 mg/dL; Microalbum/Creatinine Ratio Ur 464.7 ug/mg cr (<30)
== END 2023-08-08 11:27 | disposition home or self-care (01) ==
LOC: HO.LAB 11:26
PROVIDERS: PCP Physician Assistant; Visit Provider Physician Assistant
DX: I10 Essential (primary) hypertension (principal)
CPT/HCPCS: 81001; 82043; 82570; 87086; 87088; 87186

== ENCOUNTER 2023-08-23 11:04 | Outpatient (REF) | payer OTHER, SELFPAY ==
[2023-08-23 12:52] LABS: Appearance Urine Clear; Color Urine Yellow; Glucose Urine UA Negative (Negative); Leukocyte Esterase Urine Trace (Negative); Nitrite Urine Negative (Negative); PH 6.5 (5.0-9.0); UMIC TRIGGER UA YES; Urine Blood Negative (Negative); Urine Ketones Negative (Negative); Urine Protein Negative (Neg-Trace)
[2023-08-23 12:57] LABS: Bacteria Urine None Seen (None Seen); Hyaline Casts Urine 0-2 /LPF (0-2); RBC Urine 0-2 /HPF (0-2); Squamous Epithelial Cell Urine 0-2 /HPF (0-2); WBC Urine 0-5 /HPF (0-5)
== END 2023-08-23 11:05 | disposition home or self-care (01) ==
LOC: HO.LAB 11:04
PROVIDERS: PCP Physician Assistant; Visit Provider Urology
DX: N39.0 Urinary tract infection, site not specified (principal)
CPT/HCPCS: 81001; 87086

== ENCOUNTER 2023-09-10 11:32 | Outpatient (AMB) | payer OTHER, SELFPAY ==
--- NOTE | 2023-09-10 11:42 | A.OFFVIS_ITS ---
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[place]) Allergies ciprofloxacin [From CIPRO] Allergy (Unknown, Verified 09/10/23 11:43) UNKNOWN gluten [GLUTEN] Allergy (Unknown, Verified 09/10/23 11:43) ABD PAIN penicillin V Allergy (Unknown, Verified 09/10/23 11:43) hives Penicillins [PENICILLINS] Allergy (Unknown, Verified 09/10/23 11:43) HIVES Sulfa (Sulfonamide Antibiotics) [SULFA (SULFONAMIDE ANTIBIOTICS)] Allergy (Unknown, Verified 09/10/23 11:43) RASH amitriptyline Adverse Reaction (Intermediate, Verified 09/10/23 11:43) Depression influenza virus vacc trivalent, spl Adverse Reaction (Intermediate, Verified 09/10/23 11:43) illness sumatriptan Adverse Reaction (Intermediate, Verified 09/10/23 11:43) Chest Pain HPI HPI Comments History of Present Illness Details Presenting complaining of perineum discomfort and swelling with possible lesions. The patient has been exercising recently and few days ago felt perineal pressure and possible swelling/tenderness. No vaginal or any other concerns PFSH Medical History Diverticulosis Retention of urine Thigh abscess Cough Abscess of buttock, right HTN (hypertension) Celiac disease Sinus infection Surgical History [place] teeth removed History of esophagogastroduodenoscopy (EGD) Hx of colonoscopy History of hysterectomy History of breast lump/mass excision History of removal of cyst History of section History of tonsillectomy Family History Father CAD (coronary artery disease) Skin cancer Prostate cancer Mother CHF (congestive heart failure) Diabetes Guillain-[place] Son Prader-Willi syndrome Son Muscular dystrophy Son Celiac disease Social History Household Members: Significant Other Housing: House Alcohol intake: current Alcohol intake frequency: a few times a month Alcohol type: wine Comment: medicated at 1420 Patient Tobacco Use Status: Former Tobacco user Tobacco use type: Cigarette e-Cigarette/Vaping Use: Never Used Second Hand Smoke Exposure: No service: No Current occupational status: employed Current occupation: [employer] Cognitive needs: No Hearing needs: No Vision needs: Yes Review of Systems Const All systems reviewed & are unremarkable except as noted in HPI and below Physical Exam Vital Signs: Last Vital Signs BP 104/60 09/10/23 11:44 BMI result Body Mass Index 23.2 General: Yes no CVA tenderness External Female Exam: normal external appearance and normal appearance of the urethra Speculum Exam - Vagina: normal appearance of the vagina, normal palpation, no lesions and no masses Speculum Exam - Cervix: normal appearance of the cervix, normal palpation, no lesions, no masses and nontender Bimanual exam- vagina & uterus: normal bimanual exam, normal palpation, uterine size normal, normal palpation, uterine shape normal, No Cervical tenderness present and non-tender Bimanual Exam- Adnexa, other: normal adnexae Back/Spine/Pelvis Back: no CVA tenderness Assessment & Plan Assessment & Plan (1) Perineal discomfort in female: Code(s): N94.9 - Unspecified condition associated with female genital organs and menstrual cycle Plan: Discussed with the patient the normal finding on pelvic exam with no evidence of any perineal pathology. The patient was reassured. All questions answered, the patient verbalized understanding Coding Level of Care Code Est Pt Level 3 (19265) Diagnoses Perineal discomfort in female N94.9
[2023-09-10 11:44] VITALS: BP 104/60; BMI 23.2
== END 2023-09-10 12:12 | disposition home or self-care (01) ==
LOC: HO.HWS 11:32
PROVIDERS: PCP Physician Assistant; Visit Provider Obstetrics & Gynecology
DX: N94.9 Unspecified condition associated with female genital organs and menstrual cycle (principal)
CPT/HCPCS: 99213

== ENCOUNTER → 2023-09-10 11:32 | Outpatient (BNVA) | payer OTHER, SELFPAY | PROVIDERS: PCP Physician Assistant; Visit Provider Obstetrics & Gynecology | DX: N94.9 Unspecified condition associated with female genital organs and menstrual cycle (principal) | CPT/HCPCS: 99212 ==

== ENCOUNTER 2024-03-17 14:38 | Outpatient (AMB) | payer OTHER, SELFPAY ==
[2024-03-17 14:59] VITALS: BP 118/68; PULSE 98; O2SAT 7; BMI 23.1
--- NOTE | 2024-03-17 14:59 | MHC.PC.OV ---
Vital Signs 03/17/24 14:59 Height 5 ft 7 in Weight 147 lb 6 oz BMI 23.1 BP 118/68 Blood Pressure Location Lt brachial Position Sitting Pulse 98 Pulse Source Pulse Oximeter Pulse Oximetry (%) 7 L Oxygen Delivery Method Room Air Intake Visit Reasons: f/u Celiac/ Anemia [employer] Required: No Accompanied by: Self / Same As Patient Allergies ciprofloxacin [From CIPRO] Allergy (Unknown, Verified 03/17/24 15:06) UNKNOWN gluten [GLUTEN] Allergy (Unknown, Verified 03/17/24 15:06) ABD PAIN penicillin V Allergy (Unknown, Verified 03/17/24 15:06) hives Penicillins [PENICILLINS] Allergy (Unknown, Verified 03/17/24 15:06) HIVES Sulfa (Sulfonamide Antibiotics) [SULFA (SULFONAMIDE ANTIBIOTICS)] Allergy (Unknown, Verified 03/17/24 15:06) RASH amitriptyline Adverse Reaction (Intermediate, Verified 03/17/24 15:06) Depression influenza virus vacc trivalent, spl Adverse Reaction (Intermediate, Verified 03/17/24 15:06) illness sumatriptan Adverse Reaction (Intermediate, Verified 03/17/24 15:06) Chest Pain Medication List - Last Reconciled 03/17/24 by Matt Neves PA-C albuterol sulfate 90 mcg/actuation (Ventolin HFA) 2 puffs inhalation Q4-6H PRN 30 days baclofen 10 mg PO TID PRN 30 days tfgqspwuef-ovzhmfuxdvicz-wscn 50-325-40 mg 1 tab PO Q6H PRN 30 days fluticasone propionate 50 mcg/actuation (Flonase Allergy Relief) 2 sprays intranasal DAILY 30 days Tobacco use date assessed: 03/17/24 Dental Screening Dental Screen Date: 03/17/24 Did you have a dental visit in the last 12 months?: Yes Did you have a dental problem in the last 6 months where you did not have access to dental care?: No Was dental information given to patient?: Patient has dentist HPI f/u Celiac/ Anemia HPI Details patient is a 58-year-old female here today for follow-up visit ? Patient has a past medical history significant for hypertension, migraines, Celiac disease, chronic cystitis. Concern--> celiac disease--> has generally been doing well .continues to follow specific celiac specific celiac stat diet and supplement with vitamin Noted some slight decreased protein in her most recent labs thus patient has been using supplemental protein shakes and has been feeling better. Even reported lower frequency of her migraines Anemia:? Has followed up with Hematology.? Red blood cell count and hemoglobin have been trending upwards.? Patient reports she is feeling somewhat better.? Most recent CBC showing improved red blood cell count and normal hemoglobin.. .. Migraines--IS FOLLOWED BY NEUROLOGY. CONTINUES WITH P.R.N. USE OF FIORICET FOR MIGRAINES WHICH HAVE BEEN EFFECTIVE. SHE DOES REPORT SINCE INCREASING HER PROTEIN HER DIET HER FREQUENCY OF MIGRAINES HAVE BEEN MUCH LESS.. .. HTN: Blood pressure acceptable today in office. Does not further use any lisinopril. [facility] Medical History (Updated 03/18/24 @ 07:26 by Matt Neves PA-C) Herpes Diverticulosis Retention of urine Abscess of buttock, right HTN (hypertension) Celiac disease Sinus infection Surgical History Davis teeth removed History of esophagogastroduodenoscopy (EGD) Hx of colonoscopy History of hysterectomy History of breast lump/mass excision History of removal of cyst History of section History of tonsillectomy Family History Father CAD (coronary artery disease) Skin cancer Prostate cancer Mother CHF (congestive heart failure) Diabetes Guillain-Rittman Son Prader-Willi syndrome Son Muscular dystrophy Son Celiac disease Social History Household Members: Significant Other Housing: House Alcohol intake: current Alcohol intake frequency: a few times a month Alcohol type: wine Comment: medicated at 1420 Patient Tobacco Use Status: Former Tobacco user Tobacco use type: Cigarette e-Cigarette/Vaping Use: Never Used Second Hand Smoke Exposure: No service: No Current occupational status: employed Current occupation: [employer] Cognitive needs: No Hearing needs: No Vision needs: Yes Questionnaire PHQ-9 Over the last 2 weeks, how often have you been bothered by any of the following problems? 1. Little interest or pleasure in doing things: not at all 2. Feeling down, depressed, or hopeless: not at all 3. Trouble falling or staying asleep, or sleeping too much: not at all 4. Feeling tired or having little energy: not at all 5. Poor appetite or overeating: not at all 6. Feeling bad about yourself - or that you are a failure or have let yourself or your family down: not at all 7. Trouble concentrating on things, such as reading the newspaper or watching television: not at all 8. Moving or speaking so slowly that other people could have noticed. Or the opposite - being so fidgety or restless that you have been moving around a lot more than usual: not at all 9. Thoughts that you would be better off or of hurting yourself in some way: not at all Total score: 0 Depression Screening Interpretation: Negative Depression Screening Done: Yes 40644 - PHQ-9 Billing: Yes Source: Developed by Drs. Reynaldo Hampton, Yajaira Villanueva, Sina Nj and colleagues, with an educational anjali from [employer]. Thrive Questionnaire Date Thrive assessed: 03/17/24 I am a: Patient What is your living situation today?: I have a steady place to live Within the past 12 months, did the food you bought not last and you didn't have the money to get more?: Never true Within the past 12 months, did you worry whether your food would run out before you got money to buy more?: Never true Do you have trouble paying for medicines?: No Do you have trouble getting transportation to medical appointments?: No Do you have trouble paying your heating and electricity bill?: No Do you have trouble taking care of your child, family member or friend?: No Do you have trouble with day-to-day activities such as bathing, preparing meals, shopping, managing finances, etc.?: No Are you currently unemployed and looking for a job?: No Are you interested in more education?: No Please select the resources that you would like help with: None Currently or been in a relationship where the following occur: No concerns reported THRIVE Score: 0 AUDIT C Alcohol Use Questionnaire (AUDIT-C) 1. How often do you have a drink containing alcohol?: Monthly or less 2. How many drinks containing alcohol do you have on a typical day when you are drinking?: 1 or 2 3. How often do you have six or more drinks on one occasion?: Never Total Score: 1 BENJAMIN-7 AMB Questionnaire BENJAMIN-7 Date BENJAMIN - 7 assessed: 03/17/24 Feeling nervous, anxious, or on edge: 0 = Not at all Not being able to stop or control worryin = Not at all Worrying too much about different things: 0 = Not at all Trouble relaxin = Not at all Being so restless that it is hard to sit still: 0 = Not at all Becoming easily annoyed or irritable: 0 = Not at all Feeling afraid as if something awful might happen: 0 = Not at all Total BENJAMIN-7 score (0-4 normal; 5-9 mild; 10-14 moderate; 15-21 severe): 0 Source: Developed by Drs. Reynaldo Hampton, Yajaira Villanueva, Sina Nj and colleagues, with an educational anjali from [employer]. BENJAMIN-7 Assessment Billing BENJAMIN-7 Assessment Tool: BENJAMIN-7 Assessment 41052 ACT Questionnaire In the past 4 weeks, how much of the time did your asthma keep you from getting as much done at work, school or at home?: None of the time During the past 4 weeks, how often have you had shortness of breath?: Not at all During the past 4 weeks, how often did your asthma symptoms wake you up at night or earlier than usual in the morning?: Not at all During the past 4 weeks, how often have you had to use your rescue inhaler or nebulizer medication?: Not at all How would you rate your asthma control during the past 4 weeks?: Completely controlled ACT Interpretation: Negative Score: 25 Review of Systems Const Denies headache(s) Eyes Denies loss of vision ENT Denies vertigo, Denies dizziness, Denies headache(s) and Denies sore throat Card Denies chest pain, Denies leg edema and Denies lightheadedness Resp Denies cough, Denies hemoptysis and Denies wheezing GI Denies abdominal pain, Denies melena, Denies constipation, Denies diarrhea and Denies vomiting Denies urinary frequency, Denies dysuria and Denies urinary urgency Musc Denies arthralgias, Denies joint swelling, Denies numbness and Denies tingling Neuro Denies Abnormal speech present, Denies behavioral changes, Denies vertigo, Denies dizziness, Denies headache(s), Denies loss of vision, Denies memory loss, Denies numbness and Denies tingling Psych Denies anxiety, Denies behavioral changes, Denies depression, Denies memory loss and Denies panic attacks Ravi/Lymph Denies easy bleeding and Denies easy bruising Aller/Immun Denies wheezing Physical exam (Primary Care) Vital Signs: Last Vital Signs Pulse 98 03/17/24 14:59 BP 118/68 03/17/24 14:59 Pulse Ox 7 L 03/17/24 14:59 Oxygen Delivery Method Room Air 03/17/24 14:59 BMI result Body Mass Index 23.1 Tobacco/Smoking Status: Tobacco use Status Tobacco use date assessed 03/17/24 03/17/24 15:02 Patient Tobacco Use Status Former Tobacco user 03/17/24 15:02 Tobacco use type Cigarette 03/17/24 15:02 e-Cigarette/Vaping Use Never Used 03/17/24 15:02 PHQ-9: PHQ-9 Score PHQ-9: Total score 0 03/17/24 15:07 Depression Screening Interpretation: Negative Thrive Assessment: Date of Thrive Assessment Date Thrive assessed 03/17/24 03/17/24 15:02 Currently or been in a relationship where the following occur: No concerns reported Const General: healthy appearing, no acute distress, alert and awake Nutritional Appearance: well nourished Orientation/consciousness: oriented to person, oriented to place and oriented to time HENMT Ears: TM's normal bilaterally General nose exam: Normal nasal mucous membranes and turbinates present Eyes Conjunctivae: conjunctivae normal Sclerae: sclerae normal Pupils: Equal, round and reactive pupils present Neck Neck: Yes no lymphadenopathy and Yes no JVD Thyroid: Thyroid normal Carotids: no bruits Resp Effort & Inspection: normal respiratory effort and not tachypneic Auscultation: no crackles, no rales, no rhonchi and no wheezes Cardio Rate: regular rate Rhythm: regular rhythm Heart sounds: no murmurs and normal S1 and S2 GI Palpation (GI): Soft to palpation, nontender, no hepatomegaly and no splenomegaly Auscultation: normal bowel sounds Skin General skin exam: no rashes or lesions noted and dry skin Neuro General: oriented to person, oriented to place and oriented to time Cranial nerves: Yes Equal, round and reactive pupils present Speech: No Abnormal speech present Gait exam (Neuro): Normal gait present Motor exam (neuro): no tremor noted Extrem Right upper extremity: full ROM Left upper extremity: full ROM Right lower extremity: full ROM; no edema Left lower extremity: full ROM; no edema Psych Mental Status: mental status grossly normal Speech and movement: Normal speech and movement present Affect: normal affect Attitude: cooperative Thought process: Normal thought process present Assessment and Plan Assessment & Plan (1) Celiac disease: Code(s): K90.0 - Celiac disease Plan: Continues to a low gluten diet. Continues to feel somewhat fatigued which may related to her celiac disease. Continue to monitor vitamin levels and CBC. Advised perhaps establishing care with integrative medicine group (2) Migraine: Code(s): G43.909 - Migraine, unspecified, not intractable, without status migrainosus Qualifiers: Migraine type: other Status migrainosus presence: without status migrainosus Intractability: not intractable Qualified Code(s): G43.809 - Other migraine, not intractable, without status migrainosus Plan: As per HPI patient does use Fioricet on a limited basis for acute migraines. She continues to follow with Neurology. She does not know any triggers to her migraines. Seems to be some seasonal affect on her migraines as well. (3) Anemia: Code(s): D64.9 - Anemia, unspecified Qualifiers: Anemia type: other cause Other causes of anemia: other cause, not classified Qualified Code(s): D64.89 - Other specified anemias Plan: Continues to be somewhat anemic patient continues on supplemental vitamins. Will continue to follow CBC and iron studies. (4) Asthma: Code(s): J45.909 - Unspecified asthma, uncomplicated Qualifiers: Asthma severity: mild Asthma persistence: intermittent Asthma complication type: uncomplicated Qualified Code(s): J45.20 - Mild intermittent asthma, uncomplicated Plan: Her asthma is fairly well controlled with only p.r.n. use of albuterol inhaler during times of illness (5) HTN (hypertension): Code(s): I10 - Essential (primary) hypertension Qualifiers: Hypertension type: primary hypertension Qualified Code(s): I10 - Essential (primary) hypertension Orders: Orders Vitamin E 03/17/24 K90.0 - Celiac disease MM screening mammo BI 03/17/24 Z12.31 - Encounter for screening mammogram for malignant neoplasm of breast Medications: Refilled ozpeywktpd-xhunwbdjydrjb-ilsa 50-325-40 mg 1 tab PO Q6H PRN 20 tabs 1RF headache 30 days G43.809 - Other migraine, not intractable, without status migrainosus Coding Level of Care Code Est Pt Level 4 (03567) Diagnoses Celiac disease K90.0 Other migraine without status migrainosus, not intractable G43.809 Migraine type: other Status migrainosus presence: without status migrainosus Intractability: not intractable Anemia due to other cause, not classified D64.89 Anemia type: other cause Other causes of anemia: other cause, not classified Mild intermittent asthma without complication J45.20 Asthma severity: mild Asthma persistence: intermittent Asthma complication type: uncomplicated Primary hypertension I10 Hypertension type: primary hypertension Additional Codes BENJAMIN-7 Assessment Billing - BENJAMIN-7 Assessment Tool: BENJAMIN-7 Assessment 07086 ([id number])
== END 2024-03-17 15:29 | disposition home or self-care (01) ==
PROVIDERS: PCP Physician Assistant; Visit Provider Physician Assistant
DX: K90.0 Celiac disease (principal); G43.809 Other migraine, not intractable, without status migrainosus; D64.89 Other specified anemias; J45.20 Mild intermittent asthma, uncomplicated; I10 Essential (primary) hypertension
CPT/HCPCS: 99214

== ENCOUNTER 2024-03-20 11:17 | Outpatient (REF) | payer OTHER, SELFPAY ==
[2024-03-20 11:59] LABS: Hematocrit 37.4 % (37.0-47.0); Hemoglobin 12.4 g/dl (12.0-16.0); Mean Corpuscular HGB Conc 33.2 g/dl (31.0-35.0); Mean Corpuscular Hemoglobin 30.8 pg (27.0-33.0); Mean Platelet Volume 10.9 fL (9.4-12.3); Platelet Count 227 X10*3/uL (160-400); Red Blood Count 4.02 X10*6/uL (4.20-5.50); Red Cell Distribution Width 12.7 % (11.0-16.0); White Blood Count 6.5 X10*3/uL (4.8-10.8)
[2024-03-20 12:34] LABS: Alanine Aminotransferase 17 U/L (0-31); Albumin Level 4.2 g/dL (3.5-5.0); Alkaline Phosphatase 47 U/L (39-117); Anion Gap 11 (12-20); Aspartate Amino Transferase 17 U/L (5-31); Bilirubin Total 0.3 mg/dL (0.0-1.0); Blood Urea Nitrogen 20 mg/dL (9-16); Calcium 8.8 mg/dL (8.4-10.2); Carbon Dioxide 26 mmol/L (22-29); Chloride 106 mmol/L (96-108); Estimated Glomerular Filt Rate > 60; Glucose Fasting 94 mg/dL (60-99); Iron 106 mcg/dL (30-160); Percent Iron Saturation 36 % (15-50); Potassium 4.4 mmol/L (3.3-5.1); Sodium 139 mmol/L (135-145); Total Iron Binding Capacity 297 mcg/dL (228-428); Total Protein 7.2 g/dL (6.5-8.0); Unsaturated Iron Binding 191 ug/dL
[2024-03-20 13:09] LABS: Folate 4.2 ng/mL (> or = 4.0); Vitamin B12 506 pg/mL (200-900)
[2024-03-26 02:53] LABS: Alpha-Tocopherol 14.5 mg/L (5.7-19.9); Beta-Gamma Tocopherol <1.0 mg/L (<=4.3)
== END 2024-03-20 11:18 | disposition home or self-care (01) ==
LOC: HO.LAB 11:17
PROVIDERS: PCP Physician Assistant; Visit Provider Physician Assistant
DX: K90.0 Celiac disease (principal); D50.9 Iron deficiency anemia, unspecified; E53.8 Deficiency of other specified B group vitamins; I10 Essential (primary) hypertension
CPT/HCPCS: 36415; 80053; 82607; 82746; 83540; 84446; 85027

== ENCOUNTER 2024-03-27 10:46 | Outpatient (REF) | payer OTHER, SELFPAY ==
--- NOTE | ~2024-03-27 | MM_ITS ---
EXAMINATION: MM SCREENING DIGITAL BREAST TOMOSYNTHESIS, BILATERAL CLINICAL INFORMATION: Screening. Asymptomatic. COMPARISON: Mammography: This study is compared with prior exams dating back to 2018. TECHNIQUE: Digital breast tomosynthesis is performed in both the craniocaudal and mediolateral oblique views along with computer-aided detection (CAD). Synthesized 2D images are generated from the tomosynthesis. FINDINGS: The breasts are heterogeneously dense, which may obscure small masses (ACR BI-RADS breast composition Category c). There are no significant masses, abnormal calcifications, or other abnormalities. MM/MM tomosynthesis screening BI IMPRESSION: No mammographic evidence of malignancy. ASSESSMENT: BI-RADS BI-RADS 1 - Negative RECOMMENDATION: Routine annual mammography screening. 1 year F/U This examination should not preclude the clinical evaluation of a suspicious palpable abnormality. This patient's information was entered into a reminder system with a target due date for their next mammogram. Electronically signed by: Dorothea Jama MD 04/27/2024 11:35 PM EDT
== END 2024-03-27 10:47 | disposition home or self-care (01) ==
LOC: HO.MAMMO 10:46
PROVIDERS: PCP Physician Assistant; Visit Provider Physician Assistant
DX: Z12.31 Encounter for screening mammogram for malignant neoplasm of breast (principal)
CPT/HCPCS: 77063; 77067

== ENCOUNTER → 2024-03-27 11:00 | Outpatient (BNV) | payer OTHER, SELFPAY | PROVIDERS: PCP Physician Assistant; Visit Provider Radiology Diagnostic Radiology | DX: Z12.31 Encounter for screening mammogram for malignant neoplasm of breast (principal) | CPT/HCPCS: 77063; 77067 ==

== ENCOUNTER 2024-08-04 10:35 | Outpatient (AMB) | payer OTHER, SELFPAY ==
[2024-08-04 11:23] VITALS: BP 120/60; PULSE 92; O2SAT 96; BMI 23.3
--- NOTE | 2024-08-04 11:23 | MHC.PC.OV ---
Vital Signs 08/04/24 11:23 Height 5 ft 7 in Weight 148 lb 8 oz BMI 23.3 BP 120/60 Blood Pressure Location Lt brachial Position Sitting Pulse 92 Pulse Source Pulse Oximeter Pulse Oximetry (%) 96 Oxygen Delivery Method Room Air Intake Visit Reasons: ANNUAL Intake Note: Patient is here today for a physical. Director Of [employer] Required: No Accompanied by: Self / Same As Patient Allergies ciprofloxacin [From CIPRO] Allergy (Unknown, Verified 08/04/24 11:42) UNKNOWN gluten [GLUTEN] Allergy (Unknown, Verified 08/04/24 11:42) ABD PAIN penicillin V Allergy (Unknown, Verified 08/04/24 11:42) hives Penicillins [PENICILLINS] Allergy (Unknown, Verified 08/04/24 11:42) HIVES Sulfa (Sulfonamide Antibiotics) [SULFA (SULFONAMIDE ANTIBIOTICS)] Allergy (Unknown, Verified 08/04/24 11:42) RASH amitriptyline Adverse Reaction (Intermediate, Verified 08/04/24 11:42) Depression influenza virus vacc trivalent, spl Adverse Reaction (Intermediate, Verified 08/04/24 11:42) illness sumatriptan Adverse Reaction (Intermediate, Verified 08/04/24 11:42) Chest Pain Medication List - Last Reconciled 08/04/24 by Matt Neves PA-C albuterol sulfate 90 mcg/actuation (Ventolin HFA) 2 puffs inhalation Q4-6H PRN 30 days baclofen 10 mg PO TID PRN 30 days pxsugllwap-fcioppuomkxnt-inqr 50-325-40 mg 1 tab PO Q6H PRN 30 days fluticasone propionate 50 mcg/actuation (Flonase Allergy Relief) 2 sprays intranasal DAILY 30 days Tobacco use date assessed: 03/17/24 Dental Screening Dental Screen Date: 03/17/24 HPI ANNUAL HPI Details Patient is a 58-year-old female here today for routine annual physical ? Patient has a past medical history significant for hypertension, migraines, Celiac disease, chronic cystitis. Concern--> celiac disease--> has generally been doing well .continues to follow specific celiac specific celiac stat diet and supplement with vitamin Noted some slight decreased protein in her most recent labs thus patient has been using supplemental protein shakes and has been feeling better. Even reported lower frequency of her migraines She has concerns about [place]'s and hypercortisolism thus will be checking her random cortisol level. She does understand she needs to do a 24 hour cortisol urine for proper diagnosis. Anemia:? Has followed up with Hematology.? Red blood cell count and hemoglobin have been trending upwards.? Patient reports she is feeling somewhat better.? Most recent CBC showing improved red blood cell count and normal hemoglobin.. .. Migraines--IS FOLLOWED BY NEUROLOGY. CONTINUES WITH P.R.N. USE OF FIORICET FOR MIGRAINES WHICH HAVE BEEN EFFECTIVE. SHE DOES REPORT SINCE INCREASING HER PROTEIN HER DIET HER FREQUENCY OF MIGRAINES HAVE BEEN MUCH LESS.. .. HTN: Blood pressure acceptable today in office. Does not further use any lisinopril. Vaccines: Up-to-date with COVID vaccine, up-to-date with pneumonia vaccine, up-to-date with tetanus vaccine, declines Flu vaccine. Need Shingrex. Mammogram: UTD with MAmmo Colonoscopy: UTD with colonoscopy- hyperplastic polyp found repeat 5 years due to her celiac disease [facility] Medical History (Updated 08/05/24 @ 07:45 by Matt Neves PA-C) Adrenal adenoma Herpes Diverticulosis Retention of urine HTN (hypertension) Celiac disease Sinus infection Surgical History [place] teeth removed History of esophagogastroduodenoscopy (EGD) Hx of colonoscopy History of hysterectomy History of breast lump/mass excision History of removal of cyst History of section History of tonsillectomy Family History Father CAD (coronary artery disease) Skin cancer Prostate cancer Mother CHF (congestive heart failure) Diabetes Guillain-[place] Son Prader-Willi syndrome Son Muscular dystrophy Son Celiac disease Social History (Updated 08/04/24 @ 11:47 by Matt Neves PA-C) Household Members: Significant Other Housing: House Alcohol intake: current Alcohol intake frequency: holidays/special occasions only Comment: medicated at 1420 Patient Tobacco Use Status: Former Tobacco user Tobacco use type: Cigarette e-Cigarette/Vaping Use: Never Used Second Hand Smoke Exposure: No service: No Current occupational status: employed Current occupation: [employer] Cognitive needs: No Hearing needs: No Vision needs: Yes Questionnaire PHQ-9 Over the last 2 weeks, how often have you been bothered by any of the following problems? 1. Little interest or pleasure in doing things: not at all 2. Feeling down, depressed, or hopeless: not at all 3. Trouble falling or staying asleep, or sleeping too much: not at all 4. Feeling tired or having little energy: nearly every day 5. Poor appetite or overeating: not at all 6. Feeling bad about yourself - or that you are a failure or have let yourself or your family down: not at all 7. Trouble concentrating on things, such as reading the newspaper or watching television: not at all 8. Moving or speaking so slowly that other people could have noticed. Or the opposite - being so fidgety or restless that you have been moving around a lot more than usual: not at all 9. Thoughts that you would be better off or of hurting yourself in some way: not at all Total score: 3 Depression Screening Interpretation: Positive Depression Screening Follow-up: Existing condition Depression Screening Done: Yes 04702 - PHQ-9 Billing: Yes Source: Developed by Drs. Reynaldo Hampton, Yajaira Villanueva, Sina Nj and colleagues, with an educational anjali from [employer]. Thrive Questionnaire Date Thrive assessed: 08/04/24 I am a: Patient What is your living situation today?: I have a steady place to live Within the past 12 months, did the food you bought not last and you didn't have the money to get more?: Never true Within the past 12 months, did you worry whether your food would run out before you got money to buy more?: Never true Do you have trouble paying for medicines?: No Do you have trouble getting transportation to medical appointments?: No Do you have trouble paying your heating and electricity bill?: No Do you have trouble taking care of your child, family member or friend?: No Do you have trouble with day-to-day activities such as bathing, preparing meals, shopping, managing finances, etc.?: No Are you currently unemployed and looking for a job?: No Are you interested in more education?: No Please select the resources that you would like help with: None Currently or been in a relationship where the following occur: I choose not to answer THRIVE Score: 0 AUDIT C Alcohol Use Questionnaire (AUDIT-C) 1. How often do you have a drink containing alcohol?: Monthly or less 2. How many drinks containing alcohol do you have on a typical day when you are drinking?: 1 or 2 3. How often do you have six or more drinks on one occasion?: Never Total Score: 1 BENJAMIN-7 AMB Questionnaire BENJAMIN-7 Date BENJAMIN - 7 assessed: 08/04/24 Feeling nervous, anxious, or on edge: 0 = Not at all Not being able to stop or control worryin = Several days Worrying too much about different things: 1 = Several days Trouble relaxin = Not at all Being so restless that it is hard to sit still: 0 = Not at all Becoming easily annoyed or irritable: 0 = Not at all Feeling afraid as if something awful might happen: 0 = Not at all Total BENJAMIN-7 score (0-4 normal; 5-9 mild; 10-14 moderate; 15-21 severe): 2 Source: Developed by Drs. Reynaldo Hampton, Yajaira Villanueva, Sina Nj and colleagues, with an educational anjali from [employer]. BENJAMIN-7 Assessment Billing BENJAMIN-7 Assessment Tool: BENJAMIN-7 Assessment 79284 Physical exam (Primary Care) Vital Signs: Last Vital Signs Pulse 92 08/04/24 11:23 BP 120/60 08/04/24 11:23 Pulse Ox 96 08/04/24 11:23 Oxygen Delivery Method Room Air 08/04/24 11:23 BMI result Body Mass Index 23.3 Tobacco/Smoking Status: Tobacco use Status Tobacco use date assessed 03/17/24 08/04/24 11:25 Patient Tobacco Use Status Former Tobacco user 08/04/24 11:47 Tobacco use type Cigarette 08/04/24 11:47 e-Cigarette/Vaping Use Never Used 08/04/24 11:47 PHQ-9: PHQ-9 Score PHQ-9: Total score 3 08/04/24 11:44 Depression Screening Interpretation: Positive Depression Screening Follow-up: Existing condition Thrive Assessment: Date of Thrive Assessment Date Thrive assessed 08/04/24 08/04/24 11:25 Currently or been in a relationship where the following occur: I choose not to answer Coding Level of Care Code Est Pt Prev Care 40-64y(82998) Diagnoses Annual physical exam Z00.00 Anemia due to other cause, not classified D64.89 Anemia type: other cause Other causes of anemia: other cause, not classified Elevated vitamin B12 level R74.8 Celiac disease K90.0 Other migraine without status migrainosus, not intractable G43.809 Migraine type: other Status migrainosus presence: without status migrainosus Intractability: not intractable Additional Codes BENJAMIN-7 Assessment Billing - BENJAMIN-7 Assessment Tool: BENJAMIN-7 Assessment 20823 ([id number]) PHQ-9 - 11151 - PHQ-9 Billing: Yes ([id number]) Assessment & Plan Assessment & Plan (1) Annual physical exam: Code(s): Z00.00 - Encounter for general adult medical examination without abnormal findings Category: Medical Plan: As per HPI (2) Anemia: Code(s): D64.9 - Anemia, unspecified Category: Medical Qualifiers: Anemia type: other cause Other causes of anemia: other cause, not classified Qualified Code(s): D64.89 - Other specified anemias Plan: Will continue to follow CBC to ensure stable RBCs and hemoglobin. (3) Elevated vitamin B12 level: Code(s): R74.8 - Abnormal levels of other serum enzymes Category: Medical Plan: Patient has a history of elevated B12 levels thus has real back on B12 vitamin supplementation. (4) Celiac disease: Code(s): K90.0 - Celiac disease Category: Medical Plan: Continues to follow a strict celiac diet. She has been feeling much better over the last few years following a celiac diet. Most recent labs has been stable. Will continue to follow particular vitamin levels and CBC. (5) Migraine: Code(s): G43.909 - Migraine, unspecified, not intractable, without status migrainosus Category: Medical Qualifiers: Migraine type: other Status migrainosus presence: without status migrainosus Intractability: not intractable Qualified Code(s): G43.809 - Other migraine, not intractable, without status migrainosus Plan: Patient continues with the use of p.r.n. Fioricet for migraine disorder. She reports this medication helps her significantly on a p.r.n. basis. We did discuss the rebound headache phenomena that can happen with Fioricet use and patient does understand and agree. Orders: Orders Vitamin B12 and Folate 08/04/24 E53.8 - Deficiency of other specified B group vitamins, R74.8 - Abnormal levels of other serum enzymes Complete Blood Count no Diff 08/04/24 R53.83 - Other fatigue Comprehensive Met. Panel 08/04/24 I10 - Essential (primary) hypertension
== END 2024-08-04 12:00 | disposition home or self-care (01) ==
PROVIDERS: PCP Physician Assistant; Visit Provider Physician Assistant
DX: Z00.00 Encounter for general adult medical examination without abnormal findings (principal); D64.89 Other specified anemias; R74.8 Abnormal levels of other serum enzymes; K90.0 Celiac disease; G43.809 Other migraine, not intractable, without status migrainosus

== ENCOUNTER → 2024-08-04 10:35 | Outpatient (BNVA) | payer OTHER, SELFPAY | PROVIDERS: PCP Physician Assistant; Visit Provider Physician Assistant | DX: Z00.00 Encounter for general adult medical examination without abnormal findings (principal); D64.89 Other specified anemias; R74.8 Abnormal levels of other serum enzymes; K90.0 Celiac disease; G43.809 Other migraine, not intractable, without status migrainosus | CPT/HCPCS: 96127; 99396 ==

== ENCOUNTER 2024-11-02 10:39 | Outpatient (AMB) | payer OTHER, SELFPAY ==
[2024-11-02 10:44] VITALS: BP 120/80; BMI 23.6
--- NOTE | 2024-11-02 10:44 | A.OFFPC_ITS ---
Vital Signs 11/02/24 10:44 Height 5 ft 7 in Weight 151 lb BMI 23.6 BP 120/80 Blood Pressure Location Lt brachial Position Sitting Intake Visit Reasons: f/u celiacs Crop Quantitative Geneticist Required: No Accompanied by: Self / Same As Patient Allergies ciprofloxacin [From CIPRO] Allergy (Unknown, Verified 11/02/24 10:53) UNKNOWN gluten [GLUTEN] Allergy (Unknown, Verified 11/02/24 10:53) ABD PAIN penicillin V Allergy (Unknown, Verified 11/02/24 10:53) hives Penicillins [PENICILLINS] Allergy (Unknown, Verified 11/02/24 10:53) HIVES Sulfa (Sulfonamide Antibiotics) [SULFA (SULFONAMIDE ANTIBIOTICS)] Allergy (Unknown, Verified 11/02/24 10:53) RASH amitriptyline Adverse Reaction (Intermediate, Verified 11/02/24 10:53) Depression influenza virus vacc trivalent, spl Adverse Reaction (Intermediate, Verified 11/02/24 10:53) illness sumatriptan Adverse Reaction (Intermediate, Verified 11/02/24 10:53) Chest Pain Medication List - Last Reconciled 11/02/24 by Matt Neves PA-C albuterol sulfate 90 mcg/actuation (Ventolin HFA) 2 puffs inhalation Q4-6H PRN 30 days baclofen 10 mg PO TID PRN 30 days uorpzbwkud-gollbmtyrzcph-bsop 50-325-40 mg 1 tab PO Q6H PRN 30 days fluticasone propionate 50 mcg/actuation (Flonase Allergy Relief) 2 sprays intranasal DAILY 30 days ondansetron mg PO Tobacco use date assessed: 11/02/24 Dental Screening Dental Screen Date: 11/02/24 Did you have a dental visit in the last 12 months?: Yes Did you have a dental problem in the last 6 months where you did not have access to dental care?: No Was dental information given to patient?: Patient has dentist HPI f/u celiacs HPI Details Patient is a 58-year-old female here today for follow-up visit ? Patient has a past medical history significant for hypertension, migraines, Celiac disease, chronic cystitis. Concern--> patient is post-Norovirus gastroenteritis. Initially struck by sudden-onset gastroenteritis?marked by vomiting and diarrhea shortly after contact with a potential source of infection?her symptoms were severe, leading to emergency department intervention where intravenous Zofran was administered. Post-recovery, she reports dietary adjustments necessary for controlling episodic pain and nausea. Persistent gastrointestinal disturbance, attributed to suspected gastritis, appears to be food-related, exacerbated by dietary indiscretions. celiac disease--> has generally been doing well .continues to follow specific celiac specific celiac stat diet and supplement with vitamin Noted some slight decreased protein in her most recent labs thus patient has been using supplemental protein shakes and has been feeling better. Even reported lower frequency of her migraines Anemia:? Has followed up with Hematology.? Red blood cell count and hemoglobin have been trending upwards.? Patient reports she is feeling somewhat better.? Most recent CBC showing improved red blood cell count and normal hemoglobin.. .. Migraines--IS FOLLOWED BY NEUROLOGY. CONTINUES WITH P.R.N. USE OF FIORICET FOR MIGRAINES WHICH HAVE BEEN EFFECTIVE. SHE DOES REPORT SINCE INCREASING HER PROTEIN HER DIET HER FREQUENCY OF MIGRAINES HAVE BEEN MUCH LESS.. .. HTN: Has been managing her blood pressure with lifestyle and dietary modifications. She was previously on blood pressure medication though not at this point. [facility] Medical History (Updated 11/02/24 @ 11:10 by Matt Neves PA-C) Adrenal adenoma Herpes Diverticulosis Retention of urine HTN (hypertension) Celiac disease Sinus infection Surgical History [place] teeth removed History of esophagogastroduodenoscopy (EGD) Hx of colonoscopy History of hysterectomy History of breast lump/mass excision History of removal of cyst History of section History of tonsillectomy Family History Father CAD (coronary artery disease) Skin cancer Prostate cancer Mother CHF (congestive heart failure) Diabetes Guillain-Bagley Son Prader-Willi syndrome Son Muscular dystrophy Son Celiac disease Social History Household Members: Significant Other Housing: House Alcohol intake: current Alcohol intake frequency: holidays/special occasions only Comment: medicated at 1420 Patient Tobacco Use Status: Former Tobacco user Tobacco use type: Cigarette e-Cigarette/Vaping Use: Never Used Second Hand Smoke Exposure: No service: No Current occupational status: employed Current occupation: [employer] Cognitive needs: No Hearing needs: No Vision needs: Yes Questionnaire PHQ-9 Over the last 2 weeks, how often have you been bothered by any of the following problems? 1. Little interest or pleasure in doing things: not at all 2. Feeling down, depressed, or hopeless: not at all 3. Trouble falling or staying asleep, or sleeping too much: not at all 4. Feeling tired or having little energy: not at all 5. Poor appetite or overeating: not at all 6. Feeling bad about yourself - or that you are a failure or have let yourself or your family down: not at all 7. Trouble concentrating on things, such as reading the newspaper or watching television: not at all 8. Moving or speaking so slowly that other people could have noticed. Or the opposite - being so fidgety or restless that you have been moving around a lot more than usual: not at all 9. Thoughts that you would be better off or of hurting yourself in some way: not at all Total score: 0 Depression Screening Interpretation: Negative Depression Screening Done: Yes 76663 - PHQ-9 Billing: Yes Source: Developed by Drs. Reynaldo Hampton, Yajaira Villanueva, Sina Nj and colleagues, with an educational anjali from [employer]. Thrive Questionnaire Date Thrive assessed: 11/02/24 I am a: Patient What is your living situation today?: I have a steady place to live Within the past 12 months, did the food you bought not last and you didn't have the money to get more?: Never true Within the past 12 months, did you worry whether your food would run out before you got money to buy more?: Never true Do you have trouble paying for medicines?: No Do you have trouble getting transportation to medical appointments?: No Do you have trouble paying your heating and electricity bill?: No Do you have trouble taking care of your child, family member or friend?: No Do you have trouble with day-to-day activities such as bathing, preparing meals, shopping, managing finances, etc.?: No Are you currently unemployed and looking for a job?: No Are you interested in more education?: No Please select the resources that you would like help with: None Currently or been in a relationship where the following occur: I choose not to answer THRIVE Score: 0 AUDIT C Alcohol Use Questionnaire (AUDIT-C) 1. How often do you have a drink containing alcohol?: Monthly or less 2. How many drinks containing alcohol do you have on a typical day when you are drinking?: 1 or 2 3. How often do you have six or more drinks on one occasion?: Never Total Score: 1 BENJAMIN-7 AMB Questionnaire BENJAMIN-7 Date BENJAMIN - 7 assessed: 11/02/24 Feeling nervous, anxious, or on edge: 0 = Not at all Not being able to stop or control worryin = Not at all Worrying too much about different things: 0 = Not at all Trouble relaxin = Not at all Being so restless that it is hard to sit still: 0 = Not at all Becoming easily annoyed or irritable: 0 = Not at all Feeling afraid as if something awful might happen: 0 = Not at all Total BENJAMIN-7 score (0-4 normal; 5-9 mild; 10-14 moderate; 15-21 severe): 0 Source: Developed by Drs. Reynaldo Hampton, Yajaira Villanueva, Sina Nj and colleagues, with an educational anjali from [employer]. BENJAMIN-7 Assessment Billing BENJAMIN-7 Assessment Tool: BENJAMIN-7 Assessment 93258 Review of Systems Const Denies headache(s) Eyes Denies loss of vision ENT Denies vertigo, Denies dizziness, Denies headache(s) and Denies sore throat Card Denies chest pain, Denies leg edema and Denies lightheadedness Resp Denies cough, Denies hemoptysis and Denies wheezing GI Reports abdominal pain, Denies melena, Denies constipation, Reports dyspepsia, Reports heartburn, Denies diarrhea and Denies vomiting Denies urinary frequency, Denies dysuria and Denies urinary urgency Musc Denies arthralgias, Denies joint swelling, Denies numbness and Denies tingling Neuro Denies Abnormal speech present, Denies behavioral changes, Denies vertigo, Denies dizziness, Denies headache(s), Denies loss of vision, Denies memory loss, Denies numbness and Denies tingling Psych Denies anxiety, Denies behavioral changes, Denies depression, Denies memory loss and Denies panic attacks Ravi/Lymph Denies easy bleeding and Denies easy bruising Aller/Immun Denies wheezing Physical exam (Primary Care) Vital Signs: Last Vital Signs BP 120/80 11/02/24 10:44 BMI result Body Mass Index 23.6 Tobacco/Smoking Status: Tobacco use Status Tobacco use date assessed 11/02/24 11/02/24 10:51 Patient Tobacco Use Status Former Tobacco user 11/02/24 10:51 Tobacco use type Cigarette 11/02/24 10:51 e-Cigarette/Vaping Use Never Used 11/02/24 10:51 PHQ-9: PHQ-9 Score PHQ-9: Total score 0 11/02/24 15:55 Depression Screening Interpretation: Negative Thrive Assessment: Date of Thrive Assessment Date Thrive assessed 11/02/24 11/02/24 10:51 Currently or been in a relationship where the following occur: I choose not to answer Const General: healthy appearing, no acute distress, alert and awake Nutritional Appearance: well nourished Orientation/consciousness: oriented to person, oriented to place and oriented to time HENMT Ears: TM's normal bilaterally General nose exam: Normal nasal mucous membranes and turbinates present Eyes Conjunctivae: conjunctivae normal Sclerae: sclerae normal Pupils: Equal, round and reactive pupils present Neck Neck: Yes no lymphadenopathy and Yes no JVD Thyroid: Thyroid normal Carotids: no bruits Resp Effort & Inspection: normal respiratory effort and not tachypneic Auscultation: no crackles, no rales, no rhonchi and no wheezes Cardio Rate: regular rate Rhythm: regular rhythm Heart sounds: no murmurs and normal S1 and S2 GI Palpation (GI): Soft to palpation, nontender, no hepatomegaly and no splenomegaly Auscultation: normal bowel sounds Skin General skin exam: no rashes or lesions noted and dry skin Neuro General: oriented to person, oriented to place and oriented to time Cranial nerves: Yes Equal, round and reactive pupils present Speech: No Abnormal speech present Gait exam (Neuro): Normal gait present Motor exam (neuro): no tremor noted Extrem Right upper extremity: full ROM Left upper extremity: full ROM Right lower extremity: full ROM; no edema Left lower extremity: full ROM; no edema Psych Mental Status: mental status grossly normal Speech and movement: Normal speech and movement present Affect: normal affect Attitude: cooperative Thought process: Normal thought process present Coding Level of Care Code Est Pt Level 4 (90076) Diagnoses Gastroesophageal reflux disease without esophagitis K21.9 Esophagitis presence: without esophagitis Anemia due to other cause, not classified D64.89 Anemia type: other cause Other causes of anemia: other cause, not classified Elevated vitamin B12 level R74.8 Celiac disease K90.0 Other migraine without status migrainosus, not intractable G43.809 Intractability: not intractable Migraine type: other Status migrainosus presence: without status migrainosus Facial skin lesion L98.9 Lumbar disc disorder M51.9 Cervicalgia M54.2 Additional Codes PHQ-9 - 11949 - PHQ-9 Billing: Yes ([id number]) BENJAMIN-7 Assessment Billing - BENJAMIN-7 Assessment Tool: BENJAMIN-7 Assessment 55379 ([id number]) Assessment & Plan Assessment & Plan (1) GERD (gastroesophageal reflux disease): Code(s): K21.9 - Gastro-esophageal reflux disease without esophagitis Category: Medical Qualifiers: Esophagitis presence: without esophagitis Qualified Code(s): K21.9 - Gastro-esophageal reflux disease without esophagitis Plan: Patient's signs and symptoms of mid upper abdominal pain most consistent with GERD. She is status post gastroenteritis from suspected norovirus. Will supply patient with a PPI therapy to use for the next few weeks to help reduce gastric inflammation. (2) Anemia: Code(s): D64.9 - Anemia, unspecified Category: Medical Qualifiers: Anemia type: other cause Other causes of anemia: other cause, not classified Qualified Code(s): D64.89 - Other specified anemias Plan: Will continue to follow CBC to ensure stable RBCs and hemoglobin. (3) Elevated vitamin B12 level: Code(s): R74.8 - Abnormal levels of other serum enzymes Category: Medical Plan: Patient has a history of elevated B12 levels thus has real back on B12 vitamin supplementation. (4) Celiac disease: Code(s): K90.0 - Celiac disease Category: Medical Plan: Continues to follow a strict celiac diet. She has been feeling much better over the last few years following a celiac diet. Most recent labs has been stable. Will continue to follow particular vitamin levels and CBC. (5) Migraine: Code(s): G43.909 - Migraine, unspecified, not intractable, without status migrainosus Category: Medical Qualifiers: Intractability: not intractable Migraine type: other Status migrainosus presence: without status migrainosus Qualified Code(s): G43.809 - Other migraine, not intractable, without status migrainosus Plan: Patient continues with the use of p.r.n. Fioricet for migraine disorder. She reports this medication helps her significantly on a p.r.n. basis. (6) Facial skin lesion: Code(s): L98.9 - Disorder of the skin and subcutaneous tissue, unspecified Category: Medical Plan: Patient is a few facial skin lesions she would like evaluated by a transmission technician. She does admit to tanning and having a lot of sun exposure. She is concerned about cancerous skin lesions. (7) Lumbar disc disorder: Code(s): M51.9 - Unspecified thoracic, thoracolumbar and lumbosacral intervertebral disc disorder Category: Medical Plan: Patient has a long history of lumbar spine pain. Did have a x-ray in 2020 that did show-- >Degenerative disc changes L2-L3 and L3-L4 disc levels. She is interested in being more physically active though her lower back pain does limit her ability to be more active. She is interested in seeing pain management to help her with a pain reduction modality. (8) Cervicalgia: Code(s): M54.2 - Cervicalgia Category: Medical Plan: Patient also does have chronic neck pain with some decreased range of motion. She is interested in doing physical therapy to help her with her neck pain. Orders: Orders PT Evaluation and Treatment 11/02/24 M51.9 - Unspecified thoracic, thoraco lumbar and lumbosacral intervertebral disc disorder Magnesium 11/02/24 K90.0 - Celiac disease XR lumbar spine 2-3V 11/02/24 M51.9 - Unspecified thoracic, thoracolumbar and lumbosacral intervertebral disc disorder XR cervical spine 4V 11/02/24 M54.2 - Cervicalgia Referrals Pain Management Referral M51.9 - Unspecified thoracic, thoracolumbar and lumbosacral intervertebral disc disorder Dermatology Referral L98.9 - Disorder of the skin and subcutaneous tissue, unspecified Medications: New ondansetron 4 mg PO Q8H 5 days 15 tabs 0RF K90.0 - Celiac disease omeprazole 20 mg PO DAILY 14 days 14 caps 0RF K21.9 - Gastro-esophageal reflux disease without esophagitis estradiol (Yuvafem) 10 mcg vaginal 2XW 4 weeks 8 tabs 0RF Z87.440 - Personal history of urinary (tract) infections Refilled albuterol sulfate 90 mcg/actuation (Ventolin HFA) 2 puffs inhalation Q4-6H 30 days PRN 8.5 grams 2RF shortness of breath or wheezing R05 - Cough
== END 2024-11-02 11:21 | disposition home or self-care (01) ==
PROVIDERS: PCP Physician Assistant; Visit Provider Physician Assistant
DX: K21.9 Gastro-esophageal reflux disease without esophagitis (principal); D64.89 Other specified anemias; R74.8 Abnormal levels of other serum enzymes; K90.0 Celiac disease; G43.809 Other migraine, not intractable, without status migrainosus; L98.9 Disorder of the skin and subcutaneous tissue, unspecified; M51.9 Unspecified thoracic, thoracolumbar and lumbosacral intervertebral disc disorder; M54.2 Cervicalgia

== ENCOUNTER → 2024-11-02 10:39 | Outpatient (BNVA) | payer OTHER, SELFPAY | PROVIDERS: PCP Physician Assistant; Visit Provider Physician Assistant | DX: K21.9 Gastro-esophageal reflux disease without esophagitis (principal); D64.89 Other specified anemias; R74.8 Abnormal levels of other serum enzymes; K90.0 Celiac disease; G43.809 Other migraine, not intractable, without status migrainosus; L98.9 Disorder of the skin and subcutaneous tissue, unspecified; M51.9 Unspecified thoracic, thoracolumbar and lumbosacral intervertebral disc disorder; M54.2 Cervicalgia | CPT/HCPCS: 96127; 99212 ==

== ENCOUNTER 2024-11-18 11:04 | Outpatient (REF) | payer OTHER, SELFPAY ==
--- NOTE | ~2024-11-18 | XR_ITS ---
EXAMINATION: XR LUMBOSACRAL SPINE CLINICAL INFORMATION: M51.9 - Unspecified thoracic, thoracolumbar and lumbosacral intervertebr... COMPARISON: May 30, 2021. TECHNIQUE: Three views of the lumbosacral spine. FINDINGS: Levoconvex rotoscoliosis apex at L3. Endplate sclerosis decreased intervertebral disc height and marginal osteophyte formation, L3-4 and to a lesser extent L2-3 and L1-2 levels. No acute cortical disruption or gross malalignment. No lytic or blastic lesions. XR/XR lumbar spine 2-3V IMPRESSION: Levoconvex rotoscoliosis and multilevel spondylosis. Slight worsening since prior examination. Electronically signed by: Hector Ashley MD 11/18/2024 02:56 PM EDT
--- NOTE | ~2024-11-18 | XR_ITS ---
EXAMINATION: XR CERVICAL SPINE CLINICAL INFORMATION: M54.2 - Cervicalgia COMPARISON: None available. TECHNIQUE: 6 views of the cervical spine, inclusive of flexion and extension views, were obtained. FINDINGS: Marginal osteophyte formation and endplate sclerosis and decreased intervertebral disc height at C4-5 and C5-6 level. Grade 1 retrolisthesis C4-5. Reverse curvature apex at C4. Upper airway is patent. Right neuroforamina narrowing secondary to marginal osteophyte formation C4-5 and C5-6 level. Left neuroforamina narrowing C4-5 secondary to marginal osteophyte formation. Craniocervical junction is intact. XR/XR cervical spine 4V IMPRESSION: Cervical spondylosis C4-5 and C5-6 level resulting in neuroforamina stenosis/narrowing and grade 1 retrolisthesis at C4-5. Electronically signed by: Hector Ashley MD 11/18/2024 03:33 PM EDT
== END 2024-11-18 11:05 | disposition home or self-care (01) ==
LOC: HO.XRAY 11:04
PROVIDERS: PCP Physician Assistant; Visit Provider Physician Assistant
DX: M54.2 Cervicalgia (principal); M51.9 Unspecified thoracic, thoracolumbar and lumbosacral intervertebral disc disorder
CPT/HCPCS: 72050; 72100

== ENCOUNTER → 2024-11-18 11:10 | Outpatient (BNV) | payer OTHER, SELFPAY | PROVIDERS: PCP Physician Assistant; Visit Provider Radiology Diagnostic Radiology | DX: M54.2 Cervicalgia (principal); M51.9 Unspecified thoracic, thoracolumbar and lumbosacral intervertebral disc disorder | CPT/HCPCS: 72050; 72100 ==

== ENCOUNTER 2024-11-20 11:19 | Outpatient (AMB) | payer OTHER, SELFPAY ==
--- NOTE | 2024-11-20 11:23 | A.OFFVIS_ITS ---
Vital Signs 11/20/24 11:24 Height 5 ft 7 in Weight 150 lb BMI 23.5 BP 112/70 Blood Pressure Location Lt brachial Position Sitting Pulse 95 Pulse Source Pulse Oximeter Pulse Oximetry (%) 98 Oxygen Delivery Method Room Air Intake Visit Reasons: 6 mnts f/u for headaches/ LVM w/address Intake Note: Patient presents follow up Migraine Staff Physical Therapy Assistant Required: No Accompanied by: Self / Same As Patient Allergies ciprofloxacin [From CIPRO] Allergy (Unknown, Verified 11/20/24 11:24) UNKNOWN gluten [GLUTEN] Allergy (Unknown, Verified 11/20/24 11:24) ABD PAIN penicillin V Allergy (Unknown, Verified 11/20/24 11:24) hives Penicillins [PENICILLINS] Allergy (Unknown, Verified 11/20/24 11:24) HIVES Sulfa (Sulfonamide Antibiotics) [SULFA (SULFONAMIDE ANTIBIOTICS)] Allergy (Unknown, Verified 11/20/24 11:24) RASH amitriptyline Adverse Reaction (Intermediate, Verified 11/20/24 11:24) Depression influenza virus vacc trivalent, spl Adverse Reaction (Intermediate, Verified 11/20/24 11:24) illness sumatriptan Adverse Reaction (Intermediate, Verified 11/20/24 11:24) Chest Pain Medication List - Last Reconciled 11/20/24 by JOSHUA Scanlon albuterol sulfate 90 mcg/actuation (Ventolin HFA) 2 puffs inhalation Q4-6H PRN 30 days baclofen 10 mg PO TID PRN 30 days fzbrnxqsgh-iguneenalwytv-ngii 50-325-40 mg 1 tab PO Q6H PRN 30 days estradiol (Yuvafem) 10 mcg vaginal 2XW 4 weeks fluconazole 150 mg PO Q3D 2 doses fluticasone propionate 50 mcg/actuation (Flonase Allergy Relief) 2 sprays intranasal DAILY 30 days omeprazole 20 mg PO DAILY 14 days ondansetron 4 mg PO Q8H 5 days HPI Comments Details: History of Present Illness The patient is a 59-year-old female presenting with migraines and cervicalgia. The migraines persist, associated with neck-based origin. Has 1 migraine attack per month, lasting up to two weeks. she tries to take Fioricet at the 1st sign, may repeat the dose, however this is not always effective In the headache persists. Using sunglasses to help reduce photophobia as able. Headaches worsened by neck tightness. also notes chronic lower back pain, often needing to wear a lidocaine patch to her right lower lumbar region. she is trying to be mindful of her posture and has been doing some exercises to improve her core strength. She was not able to do physical therapy after the last visit due to work obligations, however is open to it now. PCP has already initiated a new PT order as well as a referral to pain management order. She does continue to take baclofen 10 mg tab- half tab throughout the day max of 30 mg per day which prevents/reduces muscle spasms throughout her back and neck. may also use a CBD cream to her neck, which can be helpful. Recent cervical and lumbar XR imaging ordered by PCP showed slightly worsening Lumbar Levoconvex rotoscoliosis and Cervical spondylosis C4-5 and C5-6 level resulting in neuroforamina stenosis/narrowing and grade 1 retrolisthesis at C4-5. In the past, has had tingling arm pain. Sleep difficulties partly linked to neck pain, headaches. Baseline migraine characteristics: Age of onset: 55 Preceding causes: COVID-19 infection, mild Aggravating factors: Smells, gluten intake. Position changes can trigger dizziness. Prodrome symptoms: Unsure Aura: None Headache characteristics/severity: Holocranial and retroorbital throbbing headache. Prior to starting Propranol, rated headache pain as 10+/10, since starting Propranolol PETERSON is 5-9/10. Associated symptoms: Photophobia, phonophobia, osmophobia, nausea, increased (internal head spinning) dizziness, brain fog, mild irritability, activity intolerance. Denies any autonomic or focal weakness s/s. Postdrome: Unsure, as PETERSON is constant after onset Interval history Recent resolved neurovirus with GI upset managed by Zofran. Family History - Son had Prader-Willi syndrome with scoliosis. Review of Systems - Neurological: Reports headaches and neck tightness. - Musculoskeletal: Reports neck pain and dorsalgia. - Gastrointestinal: Reports past nausea, vomiting, diarrhea from neurovirus infection; current heartburn. Headache Lifestyle Factors - Reports frequent use of sunglasses for sunlight sensitivity. - Attempts core strengthening exercises to manage neck posture, potentially influencing headaches. Reports experimenting with dietary adjustments. Food The patient is mindful of dietary influences on health, acknowledging gluten sensitivity affecting stomach discomfort. Attempts to maintain a diet avoiding celiac triggers. [facility] Medical History (Updated 11/20/24 @ 17:46 by JOSHUA Scanlon) Adrenal adenoma Herpes Diverticulosis Retention of urine HTN (hypertension) Celiac disease Sinus infection Surgical History [place] teeth removed History of esophagogastroduodenoscopy (EGD) Hx of colonoscopy History of hysterectomy History of breast lump/mass excision History of removal of cyst History of section History of tonsillectomy Family History Father CAD (coronary artery disease) Skin cancer Prostate cancer Mother CHF (congestive heart failure) Diabetes Guillain-[place] Son Prader-Willi syndrome Son Muscular dystrophy Son Celiac disease Social History Household Members: Significant Other Housing: House Alcohol intake: current Alcohol intake frequency: holidays/special occasions only Comment: medicated at 1420 Patient Tobacco Use Status: Former Tobacco user Tobacco use type: Cigarette e-Cigarette/Vaping Use: Never Used Second Hand Smoke Exposure: No service: No Current occupational status: employed Current occupation: [employer] Cognitive needs: No Hearing needs: No Vision needs: Yes Physical Exam Vital Signs: Last Vital Signs Pulse 95 11/20/24 11:24 BP 112/70 11/20/24 11:24 Pulse Ox 98 11/20/24 11:24 Oxygen Delivery Method Room Air 11/20/24 11:24 BMI result Body Mass Index 23.5 Const General: cooperative and no acute distress Orientation/consciousness: patient oriented x3 HEENT Head: Yes normocephalic Resp Effort & Inspection: normal respiratory effort and able to speak in complete sentences Neuro Other: Posterior cervical tightness General: patient oriented x3, gait normal and CN's II-XI intact bilaterally Cognition (Neuro): normal cognition Motor exam (neuro): 5/5 motor strength present throughout Psych Appearance: grossly normal Mental Status: mental status grossly normal Speech and movement: Normal speech and movement present Affect: normal affect Attitude: cooperative Thought process: Normal thought process present Assessment & Plan Assessment & Plan (1) Migraine: Code(s): G43.909 - Migraine, unspecified, not intractable, without status migrainosus Category: Medical Qualifiers: Migraine type: migraine (< 15 days per month) without aura Status migrainosus presence: with status migrainosus Intractability: not intractable Qualified Code(s): G43.001 - Migraine without aura, not intractable, with status migrainosus (2) Cervicalgia: Code(s): M54.2 - Cervicalgia Category: Medical (3) Rotoscoliosis: Code(s): M41.80 - Other forms of scoliosis, site unspecified Category: Medical (4) Myalgia: Code(s): M79.10 - Myalgia, unspecified site Category: Medical Plan Discussion Notes During our visit, we discussed the current management of her migraines and cervicalgia/ dorsalgia. reviewed x-ray reports and images with the patient. I proposed the introduction of a migraine-specific preventive medication, Ajovy, an injectable designed to block neurochemicals specific to migraines without crossing the blood-brain barrier. We talked about potential side effects, including injection site reactions and rare allergic responses, and agreed to pursue it based on insurance coverage. Given the presence of scoliosis and neck narrowing, we weighed the benefits of a combined approach involving physical therapy, pain management, and consideration of managed care nurse. Follow-up methods and channels were discussed, emphasizing patient participation in choosing the supportive care network. Patient was informed and verbally consented to the use of an ambient scribe for clinic note documentation during this visit. Plan and Patient Instructions For acute headache treatment: May continue Fioricet sparingly as needed May continue Ibuprofen 400-600 mg every 4-6 hours as needed. Previous acute medication use: Sumatriptan- caused chest pain within minutes. Rizatriptan- not tolerated. Future consideration: Gepant. ? For headache prevention medication: Resume magnesium 400 mg daily at bedtime- especially as patient will be starting omeprazole to address residual gastritis symptoms status post recent norovirus infection. Start Emgality 120mg/ml auto-injection: Loading dose: 240mg (2 120mg/ml auto-injections) via subcutaneous injection in 2 different sites). Then 30 days after loading dose, start Maintenance dose: 120mg (120mg/ml autoinjector) subcutaneous injection every month. Patient plans to review Emgality website and self administer Emgality once available. Important considerations: * Emgality will likely require insurance prior authorization prior to receiving it from the pharmacy. * Potential side effects include allergic reaction and injection site reactions. * Emgality injection training educational video is available to view on [email or web address] * Store Emgality in the refrigerator in it's original packaging in order to protect from light. * Remove Emgality at least 1 hour prior to taking the injection. * Emgality can be left out of the fridge for?up to 7 days at a temperature not above 86?F. If either of these conditions are exceeded, then Emgality must be thrown away. * Once Emgality has been stored out of refrigeration, do not place it back in the refrigerator. Previous preventative medication use: Amitriptyline caused depression. Note in the past she was given Wellbutrin for smoking cessation and anxiety- also caused depression. Propranolol- caused bradycardia. Riboflavin 400mg qam- ineffective. ? For cervicalgia and dorsalgia: Continue Baclofen 5mg tid and 10mg qhs (max 30 mg per day). Concur with referral to PT. Concur with referral to pain management. Patient may benefit from chiropractic therapy as well- information shared on local provider, patient will consider and let us know. Continue regular physical activity. ? For sleep: Monitor sleep. Future considerations: HST. f/u in 6 months or sooner prn. Medications: New galcanezumab-gnlm (Emgality Pen) Loading dose: 120 mg subcu injection x2 in alternate sites (total 240 mg). To be followed by maintenance dose of 120 mg subcu q.month. 240 mg (2 mL) subcut ONCE 30 days 2 mL 0RF magnesium oxide may hold for loose stools 400 mg PO BEDTIME 30 days 30 tabs 6RF Refilled ellbveqpia-glwehlfrpcnev-ejop 50-325-40 mg 1 tab PO Q6H 30 days PRN 20 tabs 1RF headache G43.809 - Other migraine, not intractable, without status migrainosus Coding Level of Care Code Est Pt Level 4 (39670) Complex EM visit Add On G2211 Diagnoses Migraine without aura and with status migrainosus, not intractable G43.001 Migraine type: migraine (< 15 days per month) without aura Status migrainosus presence: with status migrainosus Intractability: not intractable Cervicalgia M54.2 Rotoscoliosis M41.80 Myalgia M79.10
[2024-11-20 11:24] VITALS: BP 112/70; PULSE 95; O2SAT 98; BMI 23.5
== END 2024-11-20 12:19 | disposition home or self-care (01) ==
LOC: HO.HSMS 11:20
PROVIDERS: PCP Physician Assistant; Visit Provider Nurse Practitioner Family
DX: G43.001 Migraine without aura, not intractable, with status migrainosus (principal); M54.2 Cervicalgia; M41.80 Other forms of scoliosis, site unspecified; M79.10 Myalgia, unspecified site
CPT/HCPCS: 99214; G2211

== ENCOUNTER → 2024-11-20 11:19 | Outpatient (BNVA) | payer SELFPAY | PROVIDERS: PCP Physician Assistant; Visit Provider Nurse Practitioner Family | DX: G43.001 Migraine without aura, not intractable, with status migrainosus (principal); M54.2 Cervicalgia; M41.80 Other forms of scoliosis, site unspecified; M79.10 Myalgia, unspecified site | CPT/HCPCS: 99212 ==

== ENCOUNTER 2024-11-23 15:18 | Outpatient (REF) | payer OTHER, SELFPAY ==
[2024-11-24 13:45] LABS: Bacterial Vaginosis PCR POSITIVE (Negative); Candida Group PCR NOT DETECTED (Not Detect); Candida glab krusei PCR NOT DETECTED (Not Detect); Trichomonas vaginalis PCR NOT DETECTED (Not Detect)
== END 2024-11-23 15:19 | disposition home or self-care (01) ==
LOC: HO.LNP 15:18
PROVIDERS: PCP Physician Assistant; Visit Provider Obstetrics & Gynecology
DX: N76.0 Acute vaginitis (principal); R31.29 Other microscopic hematuria; N39.0 Urinary tract infection, site not specified
CPT/HCPCS: 81002; 81515; 87086; 87088; 87186; 99212

== ENCOUNTER 2024-11-23 15:18 | Outpatient (AMB) | payer OTHER, SELFPAY ==
[2024-11-23 15:20] VITALS: BMI 23.5
--- NOTE | 2024-11-23 15:20 | A.OFFVIS_ITS ---
Vital Signs 11/23/24 15:20 Height 5 ft 7 in Weight 150 lb BMI 23.5 Intake Visit Reasons: vaginal pain Online Communications Manager Required: No Information Interpreted: non-clinical & clinical Trash Collector Supervisor: Trash Collector Supervisor Present (Mesha Barker RONGricelda) Accompanied by: Self / Same As Patient Allergies ciprofloxacin [From CIPRO] Allergy (Unknown, Verified 11/23/24 15:26) UNKNOWN gluten [GLUTEN] Allergy (Unknown, Verified 11/23/24 15:26) ABD PAIN penicillin V Allergy (Unknown, Verified 11/23/24 15:26) hives Penicillins [PENICILLINS] Allergy (Unknown, Verified 11/23/24 15:26) HIVES Sulfa (Sulfonamide Antibiotics) [SULFA (SULFONAMIDE ANTIBIOTICS)] Allergy (Unknown, Verified 11/23/24 15:26) RASH amitriptyline Adverse Reaction (Intermediate, Verified 11/23/24 15:26) Depression influenza virus vacc trivalent, spl Adverse Reaction (Intermediate, Verified 11/23/24 15:26) illness sumatriptan Adverse Reaction (Intermediate, Verified 11/23/24 15:26) Chest Pain HPI Comments Details: Presenting complaining of suprapubic pressure associated with vulvovaginal discharge and itching with irritation PFSH Medical History Adrenal adenoma Herpes Diverticulosis Retention of urine HTN (hypertension) Celiac disease Sinus infection Surgical History [place] teeth removed History of esophagogastroduodenoscopy (EGD) Hx of colonoscopy History of hysterectomy History of breast lump/mass excision History of removal of cyst History of section History of tonsillectomy Family History Father CAD (coronary artery disease) Skin cancer Prostate cancer Mother CHF (congestive heart failure) Diabetes Guillain-[place] Son Prader-Willi syndrome Son Muscular dystrophy Son Celiac disease Social History Household Members: Significant Other Housing: House Alcohol intake: current Alcohol intake frequency: holidays/special occasions only Comment: medicated at 1420 Patient Tobacco Use Status: Former Tobacco user Tobacco use type: Cigarette e-Cigarette/Vaping Use: Never Used Second Hand Smoke Exposure: No service: No Current occupational status: employed Current occupation: [employer] Cognitive needs: No Hearing needs: No Vision needs: Yes Review of Systems Const All systems reviewed & are unremarkable except as noted in HPI and below Physical Exam Vital Signs: BMI result Body Mass Index 23.5 General: Yes no CVA tenderness External Female Exam: normal external appearance and normal appearance of the urethra Speculum Exam - Vagina: normal appearance of the vagina, normal palpation, no lesions and no masses Speculum Exam - Cervix: normal appearance of the cervix, normal palpation, no lesions, no masses and nontender Bimanual exam- vagina & uterus: normal bimanual exam, normal palpation, uterine size normal, normal palpation, uterine shape normal, No Cervical tenderness present and non-tender Bimanual Exam- Adnexa, other: normal adnexae Back/Spine/Pelvis Back: no CVA tenderness Assessment & Plan Assessment & Plan (1) Vulvovaginitis: Code(s): N76.0 - Acute vaginitis Category: Medical Plan: GC/CT, Bacterial Vaginosis panel taken, Terazol 0.8% q.h.s. for 3 days with Lotrisone cream b.i.d. for 5 days was sent to the patient's pharmacy. The patient was instructed to call if symptoms don't improve in 48 hours. (2) Microscopic hematuria: Code(s): R31.29 - Other microscopic hematuria Category: Medical Plan: Urine dip showed microscopic hematuria with positive nitrites and leukocyte, will send urine for culture treat with Macrobid 100 mg p.o. b.i.d. for 5 days. Instructions given the patient to call in case of persistence of her symptoms, fever above 100.4, flank pain, nausea or vomiting and to schedule a 2 week repeat urine dip appointment . All questions answered, the patient verbalized understanding Orders: Orders Bacterial Vaginosis Panel Today N39.0 - Urinary tract infection, site not specified, R31.29 - Other microscopic hematuria Urine Culture Today N39.0 - Urinary tract infection, site not specified, R31.29 - Other microscopic hematuria Medications: New clotrimazole-betamethasone 1-0.05 % 1 appl topical BID 5 days 45 grams 0RF terconazole 0.8% 1 appful vaginal BEDTIME 3 days 20 grams 0RF nitrofurantoin monohyd/m-cryst 100 mg (Macrobid) 100 mg PO BID 5 days 10 caps 0RF Coding Level of Care Code Est Pt Level 3 (88925) Diagnoses Vulvovaginitis N76.0 Microscopic hematuria R31.29
== END 2024-11-23 15:44 | disposition home or self-care (01) ==
LOC: HO.HWS 15:18
PROVIDERS: PCP Physician Assistant; Visit Provider Obstetrics & Gynecology
DX: N76.0 Acute vaginitis (principal); R31.29 Other microscopic hematuria; N39.0 Urinary tract infection, site not specified
CPT/HCPCS: 99213

== ENCOUNTER 2024-11-25 15:51 | Outpatient (AMB) | payer OTHER, SELFPAY ==
--- NOTE | 2024-11-25 13:20 | A.OFFVIS_ITS ---
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 Accompanied by: Self / Same As Patient Allergies ciprofloxacin [From CIPRO] Allergy (Unknown, Verified 11/25/24 16:07) UNKNOWN gluten [GLUTEN] Allergy (Unknown, Verified 11/25/24 16:07) ABD PAIN penicillin V Allergy (Unknown, Verified 11/25/24 16:07) hives Penicillins [PENICILLINS] Allergy (Unknown, Verified 11/25/24 16:07) HIVES Sulfa (Sulfonamide Antibiotics) [SULFA (SULFONAMIDE ANTIBIOTICS)] Allergy (Unknown, Verified 11/25/24 16:07) RASH amitriptyline Adverse Reaction (Intermediate, Verified 11/25/24 16:07) Depression influenza virus vacc trivalent, spl Adverse Reaction (Intermediate, Verified 11/25/24 16:07) illness sumatriptan Adverse Reaction (Intermediate, Verified 11/25/24 16:07) Chest Pain HPI Comments Details: 11/25/24-- h/o frequent UTI's, seen recently by unit assistant for vaginitis, noted to have nitrite positive urine, treated with macrobid and sent for follow up History of Present Illness The patient is a 59-year-old female presenting with urinary symptoms and follow- up for a recent vaginal infection. She disclosed the emergence of severe pain and swelling in her genital area last week, urging a query for UTI as prior experience dictated similarity in symptoms. The urinal discomfort was substantially exacerbated by local creams, requiring eventual intervention with Metronidazole upon detection of a bacterial origin. The incident had stylistic impacts, restricting her dress code due to irritation. Historically, the patient had unexplained childhood bladder issues, complemented by a narrative of well-managed scoliosis, presenting residual concerns for hereditary and oncogenic developments due to celiac indicators. Overall, the patient's well-being had stabilised with the Metronidazole intervention, ameliorating symptom intensity though some traits such as the presence of blood in urinal samples needed further attention within the diagnostic and follow-up scheme following a comparative lack in symptomatic explanation. Urinary Symptoms Review - Pain and swelling in the urogenital area noted last week. - Painful urination with a sensation of incomplete bladder emptying. - Previous use of topical preparations exacerbated irritation. - Initial urinalysis demonstrated blood presence. - Subsequent slight improvement with Metronidazole treatment. - Long-standing history of bladder issues from childhood. Results - Ultrasound of kidneys (To be scheduled) - Cystoscopy recommended (Post-vaginal infection clearance) - Urine test indicating: slight blood presence, inflammatory cells reduced Discussion Notes I discussed with the patient the findings suggesting vaginitis related to a bacterial infection, guiding the treatment course inclusive of Metronidazole considering prior swab results. The recurring blood traces in the urine led to the consideration of a formal ultrasound evaluation of the kidneys and a cystoscopy. We discussed the potential etiological links common with her broader medical history and shared concerns regarding previous nicotine use, necessitating further investigation toward eliminating background risks. I reinforced the need for updates to her estrogen medication and explored options like A&D ointment to offer tactile relief amid present suppository sensitivities. Importantly, the discussion encompassed procedural oversight and conclusive insights oriented toward clearing any problematic urothelial aspects her current symptomatic paradigm intimates. 12/28/22--Jodi is a 57-year-old female who presents to the office for recurrent UTI follow-up. denies Urinary dysuria or urgeny. The patient denies having UTI episode in the interim. The patient was given trial Yuvafem suppository during her last visit, reports benefits with the trial. She also takes extra strength cranberry two pills a day with benefits. Plan: Continue OTC extra strength cranberry pills. Continue Yuvafem 10 mcg. Follow-up after 9 months or sooner if needed. If she has reoccurrence of UTI symptoms then she is advised to call at that time and leave a urine specimen for culture and we will treat her with antibiotics. [facility] Medical History Adrenal adenoma Herpes Diverticulosis Retention of urine HTN (hypertension) Celiac disease Sinus infection Surgical History [place] teeth removed History of esophagogastroduodenoscopy (EGD) Hx of colonoscopy History of hysterectomy History of breast lump/mass excision History of removal of cyst History of section History of tonsillectomy Family History Father CAD (coronary artery disease) Skin cancer Prostate cancer Mother CHF (congestive heart failure) Diabetes Guillain-[place] Son Prader-Willi syndrome Son Muscular dystrophy Son Celiac disease Social History Household Members: Significant Other Housing: House Alcohol intake: current Alcohol intake frequency: holidays/special occasions only Comment: medicated at 1420 Patient Tobacco Use Status: Former Tobacco user Tobacco use type: Cigarette e-Cigarette/Vaping Use: Never Used Second Hand Smoke Exposure: No service: No Current occupational status: employed Current occupation: [employer] Cognitive needs: No Hearing needs: No Vision needs: Yes Office Procedures Post Void Residual Post Residual Void Post Void Residual (PVR): 192 [id number] Void Residual by ultrasound Results AMB Urinalysis, Automated UA Leukoctes 125 Ke/uL Last Edit by Glanse Tena on 11/25/24 16:22 UA Nitrite Negative Last Edit by Spark Etail on 11/25/24 16:22 UA Urobilinogen 0.2 mg/dL Last Edit by Spark Etail on 11/25/24 16:22 UA Protein 0 mg/dL Last Edit by Spark Etail on 11/25/24 16:22 UA pH 6.0 Last Edit by [facility] on 11/25/24 16:22 UA Blood 10 Alfonzo/uL Last Edit by Spark Etail on 11/25/24 16:22 UA Specific Lennon 1.010 Last Edit by Spark Etail on 11/25/24 16:22 UA Ketone Negative Last Edit by Spark Etail on 11/25/24 16:22 UA Bilirubin 0 mg/dL Last Edit by Spark Etail on 11/25/24 16:22 UA Glucose 0 mg/dL Last Edit by Spark Etail on 11/25/24 16:22 Results Reviewed Results Reviewed: Laboratory Last Values Urine pH (Auto) 6.0 11/25/24 16:20 Specific Lennon (Auto) 1.010 11/25/24 16:20 Urine Protein (Auto) 0 mg/dL 11/25/24 16:20 Glucose (UA)(Auto) 0 mg/dL 11/25/24 16:20 Urine Ketones (Auto) Negative 11/25/24 16:20 Urine Blood (Auto) 10 Alfonzo/uL 11/25/24 16:20 Urine Nitrite (Auto) Negative 11/25/24 16:20 Urine Bilirubin (Auto) 0 mg/dL 11/25/24 16:20 Urine Urobilinogen (Auto) 0.2 mg/dL 11/25/24 16:20 Leukocyte Esterase (Auto) 125 Ke/uL 11/25/24 16:20 Assessment & Plan Assessment & Plan (1) Vulvovaginitis: Code(s): N76.0 - Acute vaginitis Category: Medical Plan: GC/CT, Bacterial Vaginosis panel taken, Terazol 0.8% q.h.s. for 3 days with Lotrisone cream b.i.d. for 5 days was sent to the patient's pharmacy. The patient was instructed to call if symptoms don't improve in 48 hours. (2) Microscopic hematuria: Code(s): R31.29 - Other microscopic hematuria Category: Medical Plan: Urine dip showed microscopic hematuria with positive nitrites and leukocyte, will send urine for culture treat with Macrobid 100 mg p.o. b.i.d. for 5 days. Instructions given the patient to call in case of persistence of her symptoms, fever above 100.4, flank pain, nausea or vomiting and to schedule a 2 week repeat urine dip appointment . All questions answered, the patient verbalized understanding Plan Plan We will continue Metronidazole for bacterial vaginitis addressing symptoms recognized through recent swabbing. Topical A&D ointment aids comfort during intermediary infection phases. Scheduling an upcoming kidney ultrasound, followed by a cystoscopy post-infectious regression, appraises us of internal contributors to lingering urinal abnormalities. Ensuring continuation of low- dose estrogen supports preventive uro-genital health. Broader investigations discern the cumulative effect of lifestyle and historical medical background on current symptoms. Patient Instructions - Continue the prescribed course of Metronidazole. - Use A&D ointment sparingly for symptom relief. - Await scheduling for the kidney ultrasound. - Follow pre-procedure instructions for the upcoming cystoscopy. - Maintain twice-weekly estrogen application as directed. - Abstain from applying any creams not prescribed or urgent necessity. - Await a call for imaging appointments and ensure timely adherence to inspections. - Report any escalation in urinary discomfort, blood presence, or symptomatic worsening immediately. Orders: Orders AMB Urinalysis Automated Today Z13.9 - Encounter for screening, unspecified Urine Cytology Today R31.29 - Other microscopic hematuria AMB Post Void Residual by ultrasound Today R33.9 - Retention of urine, unspecified Medications: Refilled estradiol (Yuvafem) 10 mcg vaginal 2XW 4 weeks 8 tabs 4RF Z87.440 - Personal history of urinary (tract) infections Scribe Plan - Not visible on output: Patient was informed and verbally consented to the use of an ambient scribe for clinic note documentation during this visit. Coding Level of Care Code Est Pt Level 4 (87151) Diagnoses Vulvovaginitis N76.0 Microscopic hematuria R31.29 CPT Codes Post Residual Void - PVR CPT Code: 24038-Ovaz Void Residual by ultrasound ([id number])
== END 2024-11-25 16:52 | disposition home or self-care (01) ==
LOC: HO.HUSH 15:51
PROVIDERS: PCP Physician Assistant; Visit Provider Urology
DX: Z13.9 Encounter for screening, unspecified (principal)

== ENCOUNTER 2024-11-25 15:51 | Outpatient (REF) | payer OTHER, SELFPAY ==
[2024-11-25 16:44] LABS: Urine Cytology See Pathology rpt
== END 2024-11-25 15:52 | disposition home or self-care (01) ==
LOC: HO.LNP 15:51
PROVIDERS: PCP Physician Assistant; Visit Provider Urology
DX: R31.29 Other microscopic hematuria (principal); N76.0 Acute vaginitis; N39.0 Urinary tract infection, site not specified; R39.9 Unspecified symptoms and signs involving the genitourinary system; R33.9 Retention of urine, unspecified
CPT/HCPCS: 51798; 81003; 88112; 99212

== ENCOUNTER 2024-12-03 13:23 | Outpatient (REF) | payer OTHER, SELFPAY ==
[2024-12-04 04:13] LABS: CT PCR NOT DETECTED (Not Detect.); NG PCR NOT DETECTED (Not Detect.)
[2024-12-04 10:27] LABS: Bacterial Vaginosis PCR NEGATIVE (Negative); Candida Group PCR NOT DETECTED (Not Detect); Candida glab krusei PCR NOT DETECTED (Not Detect); Trichomonas vaginalis PCR NOT DETECTED (Not Detect)
== END 2024-12-03 13:24 | disposition home or self-care (01) ==
LOC: HO.LNP 13:23
PROVIDERS: PCP Physician Assistant; Visit Provider Obstetrics & Gynecology
DX: N76.0 Acute vaginitis (principal)
CPT/HCPCS: 81515; 87491; 87591; 99212

== ENCOUNTER 2024-12-03 13:23 | Outpatient (AMB) | payer OTHER, SELFPAY ==
--- NOTE | 2024-12-03 13:36 | A.OFFVIS_ITS ---
Intake Visit Reasons: Vaginal itching Warehouse Traffic Supervisor: Warehouse Traffic Supervisor Present ([place]) Accompanied by: Self / Same As Patient Allergies ciprofloxacin [From CIPRO] Allergy (Unknown, Verified 12/03/24 13:44) UNKNOWN gluten [GLUTEN] Allergy (Unknown, Verified 12/03/24 13:44) ABD PAIN penicillin V Allergy (Unknown, Verified 12/03/24 13:44) hives Penicillins [PENICILLINS] Allergy (Unknown, Verified 12/03/24 13:44) HIVES Sulfa (Sulfonamide Antibiotics) [SULFA (SULFONAMIDE ANTIBIOTICS)] Allergy (Unknown, Verified 12/03/24 13:44) RASH amitriptyline Adverse Reaction (Intermediate, Verified 12/03/24 13:44) Depression influenza virus vacc trivalent, spl Adverse Reaction (Intermediate, Verified 12/03/24 13:44) illness sumatriptan Adverse Reaction (Intermediate, Verified 12/03/24 13:44) Chest Pain HPI Comments Details: Presenting complaining of mild itching and minimal vaginal odor, no vaginal discharge or any other symptoms. On 11/23/2024 BV panel was positive for BV, the patient was treated with metronidazole 500 mg p.o. b.i.d. for 7 days PFSH Medical History Adrenal adenoma Herpes Diverticulosis Retention of urine HTN (hypertension) Celiac disease Sinus infection Surgical History [place] teeth removed History of esophagogastroduodenoscopy (EGD) Hx of colonoscopy History of hysterectomy History of breast lump/mass excision History of removal of cyst History of section History of tonsillectomy Family History Father CAD (coronary artery disease) Skin cancer Prostate cancer Mother CHF (congestive heart failure) Diabetes Guillain-[place] Son Prader-Willi syndrome Son Muscular dystrophy Son Celiac disease Social History Household Members: Significant Other Housing: House Alcohol intake: current Alcohol intake frequency: holidays/special occasions only Comment: medicated at 1420 Patient Tobacco Use Status: Former Tobacco user Tobacco use type: Cigarette e-Cigarette/Vaping Use: Never Used Second Hand Smoke Exposure: No service: No Current occupational status: employed Current occupation: [employer] Cognitive needs: No Hearing needs: No Vision needs: Yes Review of Systems Const All systems reviewed & are unremarkable except as noted in HPI and below Physical Exam General: Yes no CVA tenderness External Female Exam: normal external appearance and normal appearance of the urethra Speculum Exam - Vagina: normal appearance of the vagina, normal palpation, no le sions and no masses Speculum Exam - Cervix: normal appearance of the cervix, normal palpation, no lesions, no masses and nontender Bimanual exam- vagina & uterus: normal bimanual exam, normal palpation, uterine size normal, normal palpation, uterine shape normal, No Cervical tenderness present and non-tender Bimanual Exam- Adnexa, other: normal adnexae Back/Spine/Pelvis Back: no CVA tenderness Assessment & Plan Assessment & Plan (1) Vulvovaginitis: Code(s): N76.0 - Acute vaginitis Category: Medical Plan: Since the patient has recently been treated with metronidazole and the symptoms are minimal will collect BV panel and GC chlamydia, check the results and treat accordingly. All questions answered, the patient verbalized understanding Coding Level of Care Code Est Pt Level 3 (22009) Diagnoses Vulvovaginitis N76.0
== END 2024-12-03 16:30 | disposition home or self-care (01) ==
LOC: HO.HWS 13:23
PROVIDERS: PCP Physician Assistant; Visit Provider Obstetrics & Gynecology
DX: N76.0 Acute vaginitis (principal)
CPT/HCPCS: 99213

== ENCOUNTER 2024-12-08 10:57 | Outpatient (AMB) | payer OTHER, SELFPAY ==
--- NOTE | 2024-12-08 10:58 | A.OFFVIS_ITS ---
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 Accompanied by: Self / Same As Patient Allergies ciprofloxacin [From CIPRO] Allergy (Unknown, Verified 12/08/24 11:03) UNKNOWN gluten [GLUTEN] Allergy (Unknown, Verified 12/08/24 11:03) ABD PAIN penicillin V Allergy (Unknown, Verified 12/08/24 11:03) hives Penicillins [PENICILLINS] Allergy (Unknown, Verified 12/08/24 11:03) HIVES Sulfa (Sulfonamide Antibiotics) [SULFA (SULFONAMIDE ANTIBIOTICS)] Allergy (Unknown, Verified 12/08/24 11:03) RASH amitriptyline Adverse Reaction (Intermediate, Verified 12/08/24 11:03) Depression influenza virus vacc trivalent, spl Adverse Reaction (Intermediate, Verified 12/08/24 11:03) illness sumatriptan Adverse Reaction (Intermediate, Verified 12/08/24 11:03) Chest Pain HPI HPI thoracolumbar intervertebral disc disorder: Details: The patient is a pleasant 59-year-old female presenting with chronic low back and neck pain, persisting since 2018, interferes with mobility and daily activities. Pain management attempts include heat patches, physical activity, and medications (baclofen, Ibuprofen, OTC magnesium and anti-inflammatory supplements), but with limited success. Neck pain, attributed to cervical arthritis and degenerative changes, is coupled with headaches exacerbated post- COVID in 2020. Past treatments, including physical therapy, have been partially effective. The patient is also facing recurrent bladder infections, hematuria, and urological assessment in conjunction with degenerative pain challenges. The functional status is impacted, complicating consistent everyday activity management. - Onset and Timing: Chronic low back pain since 2018, chronic neck pain exacerbated [id number] in early 2020. - Quality and Character: Persistent, aching, sharp, tugging, pulling, cramping, tight pain in the low back and neck. - Primary Location: Low back and neck. - Radiation: Pain localized without radiation into the extremities. - Exacerbating Factors: Sitting, typical motions, walking, aggravation upon backward bending and range of motions. - Relieving Factors: Heat patches, rest, physical exercises, partial relief with medications. - Interference with Activities: Mobility limitations, challenges in everyday activities including work duties. - Affect: Pain affecting mobility and daily functionality, underscores frustration. - Analgesia: Utilizes ibuprofen and muscle relaxants with heat patches, aiming for adequate relief. - Adverse Effects: Not explicitly stated, concern with recurrent ibuprofen usage. - Activities of Daily Living: Pain limits physical activities, affects work-life balance that demands active movements. - Aberrant Drug Related Behaviors: None reported. Oswestry Low Back Pain Disabiliy Score=18 (moderate disability) [facility] Medical History Adrenal adenoma Herpes Diverticulosis Retention of urine HTN (hypertension) Celiac disease Sinus infection Surgical History [place] teeth removed History of esophagogastroduodenoscopy (EGD) Hx of colonoscopy History of hysterectomy History of breast lump/mass excision History of removal of cyst History of section History of tonsillectomy Family History Father CAD (coronary artery disease) Skin cancer Prostate cancer Mother CHF (congestive heart failure) Diabetes Guillain-[place] Son Prader-Willi syndrome Son Muscular dystrophy Son Celiac disease Social History Household Members: Significant Other Housing: House Alcohol intake: current Alcohol intake frequency: holidays/special occasions only Comment: medicated at 1420 Patient Tobacco Use Status: Former Tobacco user Tobacco use type: Cigarette e-Cigarette/Vaping Use: Never Used Second Hand Smoke Exposure: No service: No Current occupational status: employed Current occupation: [employer] Cognitive needs: No Hearing needs: No Vision needs: Yes Review of Systems Const Details: - Musculoskeletal: Reports low back and neck pain. - Neurological: Reports headaches, occasional dizziness. - Genitourinary: Reports recurrent urinary tract infections, denies incontinence. - Gastrointestinal: Denies prior appendectomy, gallbladder issues. - General: Denies changes in extremity sensation, denies radicular pain. All systems reviewed & are unremarkable except as noted in HPI and below Physical Exam Vital Signs: Last Vital Signs Pulse 102 H 12/08/24 11:04 BP 136/78 12/08/24 11:04 Pulse Ox 100 12/08/24 11:04 Oxygen Delivery Method Room Air 12/08/24 11:04 BMI result Body Mass Index 23.4 General: Appears afebrile. Alert and oriented. Mood and affect appropriate. Follows and participates in conversation appropriately. Respiratory effort is unlabored. No cough. No nasal discharge. Able to transition from sit to stand unassisted. Ambulates with bilaterally normal heel strike and toe off. Neck Other: Reports increased pain with cervical extension and flexion. Spurling compression test negative. Pain is unchanged by Spurling maneuver with retraction. Elvey's tension test positive bilaterally, with radiation of pain from neck to wrist. Lhermitte's test was negative. DTR intact, +2 and symmetrical. No clonus. Patient demonstrated 5/5 motor strength of bilateral upper extremities. 2 + radial pulses. Neck: Yes normal visual inspection, Yes no lymphadenopathy, Yes supple, No anterior neck swelling, Yes no JVD, No prominent supraclavicular fat pad and No prominent dorsocervical fat pad General: Yes no CVA tenderness Back/Spine/Pelvis Other: Patient is able to walk and stand on heels and tip toes with no difficulties demonstrating good motor tone. No limping. Lumbar extension reproduces moderate pain. Flexion is intact and reproduces mild pain. Demonstrates 5/5 strength of quadriceps bilaterally as well as flexion/dorsiflexion of bilateral feet against resistance. 2+ pedal pulses bilaterally. Straight leg rise with dorsiflexion negative bilaterally. +2 patellar and achilles reflexes bilaterally. Facet loading test positive bilaterally. Mat sign, Javier?s, and Stinchfield tests are negative bilaterally. No groin pain with I/E hip rotations. Valsalva maneuver negative. Back: no CVA tenderness Cervical Spine: loss of normal cervical lordosis, cervical muscular tenderness, pain with cervical ROM, No Cervical spine scars present, No Cervical spine tenderness and No step off deformity Thoracic/Lumbar Spine: thoracic and lumbar spine normal to inspection, No Thoracic/lumbar spine scar(s), Lasegue's sign negative, straight leg raise negative bilaterally, pain with thoraco-lumbar ROM, paraspinal muscle tenderness, thoraco-lumbar ROM limited, No thoracic spinal tenderness and lumbar spinal tenderness (L3-S1) Pelvis: no buttock tenderness Sacroiliac joints: bilaterally nontender Results Reviewed Results Reviewed: XR LUMBOSACRAL SPINE 11/18/24 FINDINGS: Levoconvex rotoscoliosis apex at L3. Endplate sclerosis decreased intervertebral disc height and marginal osteophyte formation, L3-4 and to a lesser extent L2-3 and L1-2 levels. No acute cortical disruption or gross malalignment. No lytic or blastic lesions. IMPRESSION: Levoconvex rotoscoliosis and multilevel spondylosis. Slight worsening since prior examination. XR CERVICAL SPINE 11/18/24 FINDINGS: Marginal osteophyte formation and endplate sclerosis and decreased intervertebral disc height at C4-5 and C5-6 level. Grade 1 retrolisthesis C4-5. Reverse curvature apex at C4. Upper airway is patent. Right neuroforamina narrowing secondary to marginal osteophyte formation C4-5 and C5-6 level. Left neuroforamina narrowing C4-5 secondary to marginal osteophyte formation. Craniocervical junction is intact. IMPRESSION: Cervical spondylosis C4-5 and C5-6 level resulting in neuroforamina stenosis/narrowing and grade 1 retrolisthesis at C4-5. Assessment & Plan Assessment & Plan (1) Cervicalgia: Code(s): M54.2 - Cervicalgia Category: Medical (2) Lumbar disc disorder: Code(s): M51.9 - Unspecified thoracic, thoracolumbar and lumbosacral intervertebral disc disorder Category: Medical (3) Lumbosacral spondylosis: Code(s): M47.817 - Spondylosis without myelopathy or radiculopathy, lumbosacral region Category: Medical (4) Degenerative disc disease, cervical: Code(s): M50.30 - Other cervical disc degeneration, unspecified cervical region Category: Medical (5) Cervical spondylosis: Code(s): M47.812 - Spondylosis without myelopathy or radiculopathy, cervical region Category: Medical (6) Muscle spasm: Code(s): M62.838 - Other muscle spasm Category: Medical (7) Cervical spine pain: Code(s): M54.2 - Cervicalgia Category: Medical (8) Spondylolisthesis, cervical region: Code(s): M43.12 - Spondylolisthesis, cervical region Category: Medical Plan We discussed interventional treatments for chronic axial cervical and lumbar pain due to degenerative arthritis with diagnostic medial branch nerve blocks to assess efficacy in pain reduction, anticipating success could support the initiation of radiofrequency ablation RFA or Sprint PNS trial. Informational pamphlets were provided to patient. Schedule Bilateral Diagnostic L3-L4 DR L5 MBB with local and fluoroscopy. Expectations, risks and benefits were reviewed. Patient is aware she will be contacted to schedule this procedure. An MRI of the cervical spine is recommended to evaluate the detailed structure potentially contributing to the severe headache and neck pain. Due to the nature of pain affecting functional status and quality of life, we extensively discussed the merits of interventional pain management over ongoing pharmacological dependency. The patient emphasized her commitment to maintaining activity levels despite limitations. Dietary and lifestyle modifications focusing on anti-inflammatory strategies and consistent exercise will be continued. All questions and concerns have been answered and patient agreed with the treatment plan. Follow up after injections and sooner as needed. Patient was informed and verbally consented to the use of an ambient scribe for clinic note documentation during this visit. Orders: Orders MR cervical spine wo con Today M43.12 - Spondylolisthesis, cervical region, M47.812 - Spondylosis without myelopathy or radiculopathy, cervical region, M50.30 - Other cervical disc degeneration, unspecified cervical region, M54.2 - Cervicalgia Patient Instructions: - Apply heat patches to affected areas as needed. - Maintain home exercise regimen focusing on core strengthening and flexibility. - Limit ibuprofen use to reduce potential adverse effects. - Report any significant changes in pain or new symptoms immediately. - Follow up with scheduled interventions and diagnostic appointments. Coding Level of Care Code New Pt Level 4 (25711) Diagnoses Cervicalgia M54.2 Lumbar disc disorder M51.9 Lumbosacral spondylosis M47.817 Degenerative disc disease, cervical M50.30 Cervical spondylosis M47.812 Muscle spasm M62.838 Cervical spine pain M54.2 Spondylolisthesis, cervical region M43.12
[2024-12-08 11:04] VITALS: BP 136/78; PULSE 102; O2SAT 100; BMI 23.4
== END 2024-12-08 11:44 | disposition home or self-care (01) ==
LOC: HO.PMC 10:57
PROVIDERS: PCP Physician Assistant; Referring Provider Physician Assistant; Visit Provider Nurse Practitioner Family
DX: M54.2 Cervicalgia (principal); M51.9 Unspecified thoracic, thoracolumbar and lumbosacral intervertebral disc disorder; M47.817 Spondylosis without myelopathy or radiculopathy, lumbosacral region; M47.812 Spondylosis without myelopathy or radiculopathy, cervical region; M62.838 Other muscle spasm; M43.12 Spondylolisthesis, cervical region
CPT/HCPCS: 99204

== ENCOUNTER → 2024-12-08 10:57 | Outpatient (BNVA) | payer OTHER, SELFPAY | PROVIDERS: PCP Physician Assistant; Referring Provider Physician Assistant; Visit Provider Nurse Practitioner Family | DX: M54.2 Cervicalgia (principal); M51.9 Unspecified thoracic, thoracolumbar and lumbosacral intervertebral disc disorder; M47.817 Spondylosis without myelopathy or radiculopathy, lumbosacral region; M50.30 Other cervical disc degeneration, unspecified cervical region; M47.812 Spondylosis without myelopathy or radiculopathy, cervical region; M62.838 Other muscle spasm; M43.12 Spondylolisthesis, cervical region | CPT/HCPCS: 99202 ==

== ENCOUNTER 2024-12-09 15:51 | Outpatient (AMB) | payer OTHER, SELFPAY ==
--- NOTE | 2024-12-09 16:11 | A.OFFVIS_ITS ---
Intake Visit Reasons: Urine dip Allergies ciprofloxacin [From CIPRO] Allergy (Unknown, Verified 12/09/24 16:11) UNKNOWN gluten [GLUTEN] Allergy (Unknown, Verified 12/09/24 16:11) ABD PAIN penicillin V Allergy (Unknown, Verified 12/09/24 16:11) hives Penicillins [PENICILLINS] Allergy (Unknown, Verified 12/09/24 16:11) HIVES Sulfa (Sulfonamide Antibiotics) [SULFA (SULFONAMIDE ANTIBIOTICS)] Allergy (Unknown, Verified 12/09/24 16:11) RASH amitriptyline Adverse Reaction (Intermediate, Verified 12/09/24 16:11) Depression influenza virus vacc trivalent, spl Adverse Reaction (Intermediate, Verified 12/09/24 16:11) illness sumatriptan Adverse Reaction (Intermediate, Verified 12/09/24 16:11) Chest Pain HPI Comments Details: Presenting for repeat urine dip with no complaints vaginal discharge or odor, no urine symptoms PFSH Medical History Adrenal adenoma Herpes Diverticulosis Retention of urine HTN (hypertension) Celiac disease Sinus infection Surgical History [place] teeth removed History of esophagogastroduodenoscopy (EGD) Hx of colonoscopy History of hysterectomy History of breast lump/mass excision History of removal of cyst History of section History of tonsillectomy Family History Father CAD (coronary artery disease) Skin cancer Prostate cancer Mother CHF (congestive heart failure) Diabetes Guillain-[place] Son Prader-Willi syndrome Son Muscular dystrophy Son Celiac disease Social History Household Members: Significant Other Housing: House Alcohol intake: current Alcohol intake frequency: holidays/special occasions only Comment: medicated at 1420 Patient Tobacco Use Status: Former Tobacco user Tobacco use type: Cigarette e-Cigarette/Vaping Use: Never Used Second Hand Smoke Exposure: No service: No Current occupational status: employed Current occupation: [employer] Cognitive needs: No Hearing needs: No Vision needs: Yes Review of Systems Const All systems reviewed & are unremarkable except as noted in HPI and below Reports as per HPI and Reports no additional complaints GI Reports no additional complaints Reports no additional complaints Results AMB Urinalysis, Automated UA Leukoctes 0.5 Ke/uL Last Edit by Sarah John [facility] on 12/09/24 16:1 9 UA Nitrite Negative Last Edit by Sarah John [facility] on 12/09/24 16:19 UA Urobilinogen 0 mg/dL Last Edit by Sarah John [facility] on 12/09/24 16:1 9 UA Protein 0 mg/dL Last Edit by Sarah John [facility] on 12/09/24 16:19 UA pH 6.5 Last Edit by Sarah John [facility] on 12/09/24 16:19 UA Blood 0 Alfonzo/uL Last Edit by Sarah John [facility] on 12/09/24 16:19 UA Specific [place] 1.015 Last Edit by Sarah John [facility] on 12/09/24 16:19 UA Ketone Negative Last Edit by Sarah John [facility] on 12/09/24 16:19 UA Bilirubin 0 mg/dL Last Edit by Sarah John [facility] on 12/09/24 16:19 UA Glucose 0 mg/dL Last Edit by Sarah John [facility] on 12/09/24 16:19 Results Reviewed Results Reviewed: Laboratory Last Values Urine pH (Auto) 6.5 12/09/24 16:18 Specific [place] (Auto) 1.015 12/09/24 16:18 Urine Protein (Auto) 0 mg/dL 12/09/24 16:18 Glucose (UA)(Auto) 0 mg/dL 12/09/24 16:18 Urine Ketones (Auto) Negative 12/09/24 16:18 Urine Blood (Auto) 0 Alfonzo/uL 12/09/24 16:18 Urine Nitrite (Auto) Negative 12/09/24 16:18 Urine Bilirubin (Auto) 0 mg/dL 12/09/24 16:18 Urine Urobilinogen (Auto) 0 mg/dL 12/09/24 16:18 Leukocyte Esterase (Auto) 0.5 Ke/uL 12/09/24 16:18 Assessment & Plan Assessment & Plan (1) Microscopic hematuria: Code(s): R31.29 - Other microscopic hematuria Category: Medical Plan: Repeat urine dip showed no evidence of microscopic hematuria, the patient was reassured. All questions answered, the patient verbalized understanding Orders: Orders AMB Urinalysis Automated Today R31.29 - Other microscopic hematuria Coding Level of Care Code Est Pt Level 3 (35974) Diagnoses Microscopic hematuria R31.29
== END 2024-12-09 16:50 | disposition home or self-care (01) ==
LOC: HO.HWS 15:51
PROVIDERS: PCP Physician Assistant; Visit Provider Obstetrics & Gynecology
DX: R31.29 Other microscopic hematuria (principal)
CPT/HCPCS: 99213

== ENCOUNTER → 2024-12-09 15:51 | Outpatient (BNVA) | payer OTHER, SELFPAY | PROVIDERS: PCP Physician Assistant; Visit Provider Obstetrics & Gynecology | DX: R31.29 Other microscopic hematuria (principal) | CPT/HCPCS: 81003; 99212 ==

== ENCOUNTER 2024-12-26 10:59 | Outpatient (REF) | payer OTHER, SELFPAY ==
--- NOTE | ~2024-12-26 | MR_ITS ---
EXAMINATION: MR CERVICAL SPINE WITHOUT CONTRAST CLINICAL INFORMATION: Cervicalgia. COMPARISON: None available. TECHNIQUE: MRI of the cervical spine was obtained using routine sequences without contrast. FINDINGS: Craniocervical junction is intact with normal alignment. There is a borderline position of the cerebellar tonsils in the foramen magnum.. No bone marrow STIR signal abnormality. Grade 1 retrolisthesis, C4-5 and C5-6 level. Grade 1 anterolisthesis C7-T1. Marginal osteophyte formation and disc desiccation, C4-5 and C5-6 level. There is buckling deformity of the dorsal aspect of the thecal sac secondary to ligamentum flavum hypertrophy at C4-5 and C5-6 level. C2-3: No disc herniation. No neuroforamina stenosis. C3-4: No disc herniation. No neuroforamina stenosis. C4-5: Broad-based disc osteophyte compresses formation abutting the cord. No cord signal abnormality. Bilateral left greater than right neuroforamina narrowing/stenosis. C5-6: Broad-based disc osteophyte compresses formation abutting the cord. No cord signal abnormality. No neuroforamina stenosis. C6-7: No disc herniation. No neuroforamina stenosis. C7-T1: No disc herniation. No neuroforamina stenosis. No prevertebral compartment hematoma, mass or fluid collection. Flow-void signal within the main vessels is normal. Codominant vertebral arteries. MR/MR cervical spine wo con IMPRESSION: Cervical spondylosis C4-5 and to a lesser extent C5-6 abutting the cord without cord compression, cord edema and or myelopathy. Bilateral neuroforamina narrowing/stenosis on a degenerative basis at C4-5. Electronically signed by: Hector Ashley MD 12/28/2024 09:32 AM EDT
== END 2024-12-26 11:00 | disposition home or self-care (01) ==
LOC: HO.MRI 10:59
PROVIDERS: PCP Physician Assistant; Visit Provider Nurse Practitioner Family
DX: M47.812 Spondylosis without myelopathy or radiculopathy, cervical region (principal); M50.30 Other cervical disc degeneration, unspecified cervical region; M43.12 Spondylolisthesis, cervical region
CPT/HCPCS: 72141

== ENCOUNTER → 2024-12-26 11:12 | Outpatient (BNV) | payer OTHER, SELFPAY | PROVIDERS: PCP Physician Assistant; Visit Provider Radiology Diagnostic Radiology | DX: M47.812 Spondylosis without myelopathy or radiculopathy, cervical region (principal); M99.61 Osseous and subluxation stenosis of intervertebral foramina of cervical region | CPT/HCPCS: 72141 ==

== ENCOUNTER 2024-12-28 13:14 | Outpatient (REF) | payer OTHER, SELFPAY ==
--- NOTE | ~2024-12-28 | US_ITS ---
CLINICAL HISTORY: N39.0 - Urinary tract infection, site not specified US RENAL Comparison: None Findings: Right kidney 11.1 cm in length. Left kidney 10.6 cm in length. Renal cortical thickness and echotexture bilaterally is within normal limits. Pyelonephritis cannot be excluded sonographically. No hydronephrosis, shadowing calculus or cortical mass lesion. IMPRESSION: No hydronephrosis. This document has been electronically signed by: Annmarie Chamorro DO on 12/29/2024 15:17:06
== END 2024-12-28 13:15 | disposition home or self-care (01) ==
LOC: HO.US 13:14
PROVIDERS: PCP Physician Assistant; Visit Provider Urology
DX: N39.0 Urinary tract infection, site not specified (principal)
CPT/HCPCS: 76775

== ENCOUNTER → 2024-12-28 13:17 | Outpatient (BNV) | payer OTHER, SELFPAY | PROVIDERS: PCP Physician Assistant; Visit Provider Radiology Diagnostic Radiology | DX: N39.0 Urinary tract infection, site not specified (principal) | CPT/HCPCS: 76775 ==

== ENCOUNTER 2025-01-04 14:24 | Outpatient (AMB) | payer OTHER, SELFPAY ==
--- NOTE | 2025-01-04 14:29 | MHC.OFFVIS ---
Vital Signs 01/04/25 14:32 Height 5 ft 7 in Weight 149 lb BMI 23.3 BP 143/74 H Blood Pressure Location Rt brachial Position Sitting Pulse 90 Pulse Source Pulse Oximeter Pulse Oximetry (%) 100 Oxygen Delivery Method Room Air Intake Visit Reasons: follow up MRI results Intake Note: Pain today 04/04 Crude Oil Treater Required: No Accompanied by: Self / Same As Patient Allergies ciprofloxacin [From CIPRO] Allergy (Unknown, Verified 01/04/25 14:32) UNKNOWN gluten [GLUTEN] Allergy (Unknown, Verified 01/04/25 14:32) ABD PAIN penicillin V Allergy (Unknown, Verified 01/04/25 14:32) hives Penicillins [PENICILLINS] Allergy (Unknown, Verified 01/04/25 14:32) HIVES Sulfa (Sulfonamide Antibiotics) [SULFA (SULFONAMIDE ANTIBIOTICS)] Allergy (Unknown, Verified 01/04/25 14:32) RASH amitriptyline Adverse Reaction (Intermediate, Verified 01/04/25 14:32) Depression influenza virus vacc trivalent, spl Adverse Reaction (Intermediate, Verified 01/04/25 14:32) illness sumatriptan Adverse Reaction (Intermediate, Verified 01/04/25 14:32) Chest Pain HPI Comments Details: Patient presents today for follow up to discuss recent cervical spine MRI results. Back pain, noted as more severe than neck pain, predominantly affects the lower lumbar region. Scoliosis and lumbar spondylosis were diagnosed via X-ray, identifying multilevel arthritis contributing to the patient?s pain profile. Sitting for prolonged periods intensifies this discomfort, leading to severe cramps and muscle spasms. Activities that involve standing and bending are also affected, although relief is found with therapeutic measures such as heat application and Capsaicin patches. The patient described how these musculoskeletal challenges impact functionality at work, especially when maintaining an upright posture for extended times. She is interested to pursue interventional treatments for axial low back pain but requires completion of physical therapy per her insurance requirements. PRIOR: The patient is a pleasant 59-year-old female presenting with chronic low back and neck pain, persisting since 2018, interferes with mobility and daily activities. Pain management attempts include heat patches, physical activity, and medications (baclofen, Ibuprofen, OTC magnesium and anti-inflammatory supplements), but with limited success. Neck pain, attributed to cervical arthritis and degenerative changes, is coupled with headaches exacerbated post-COVID in 2020. Past treatments, including physical therapy, have been partially effective. The patient is also facing recurrent bladder infections, hematuria, and urological assessment in conjunction with degenerative pain challenges. The functional status is impacted, complicating consistent everyday activity management. - Onset and Timing: Chronic low back pain since 2018, chronic neck pain exacerbated [id number] in early 2020. - Quality and Character: Persistent, aching, sharp, tugging, pulling, cramping, tight pain in the low back and neck. - Primary Location: Low back and neck. - Radiation: Pain localized without radiation into the extremities. - Exacerbating Factors: Sitting, typical motions, walking, aggravation upon backward bending and range of motions. - Relieving Factors: Heat patches, rest, physical exercises, partial relief with medications. - Interference with Activities: Mobility limitations, challenges in everyday activities including work duties. - Affect: Pain affecting mobility and daily functionality, underscores frustration. - Analgesia: Utilizes ibuprofen and muscle relaxants with heat patches, aiming for adequate relief. - Adverse Effects: Not explicitly stated, concern with recurrent ibuprofen usage. - Activities of Daily Living: Pain limits physical activities, affects work-life balance that demands active movements. - Aberrant Drug Related Behaviors: None reported. Oswestry Low Back Pain Disabiliy Score=18 (moderate disability) PFSH Medical History Adrenal adenoma Herpes Diverticulosis Retention of urine HTN (hypertension) Celiac disease Sinus infection Surgical History [place] teeth removed History of esophagogastroduodenoscopy (EGD) Hx of colonoscopy History of hysterectomy History of breast lump/mass excision History of removal of cyst History of section History of tonsillectomy Family History Father CAD (coronary artery disease) Skin cancer Prostate cancer Mother CHF (congestive heart failure) Diabetes Guillain-[place] Son Prader-Willi syndrome Son Muscular dystrophy Son Celiac disease Social History Household Members: Significant Other Housing: House Alcohol intake: current Alcohol intake frequency: holidays/special occasions only Comment: medicated at 1420 Patient Tobacco Use Status: Former Tobacco user Tobacco use type: Cigarette e-Cigarette/Vaping Use: Never Used Second Hand Smoke Exposure: No service: No Current occupational status: employed Current occupation: [employer] Cognitive needs: No Hearing needs: No Vision needs: Yes Review of Systems Const All systems reviewed & are unremarkable except as noted in HPI and below Physical Exam Vital Signs: Last Vital Signs Pulse 90 01/04/25 14:32 BP 143/74 H 01/04/25 14:32 Pulse Ox 100 01/04/25 14:32 Oxygen Delivery Method Room Air 01/04/25 14:32 BMI result Body Mass Index 23.3 General: Appears afebrile. Alert and oriented. Mood and affect appropriate. Follows and participates in conversation appropriately. Respiratory effort is unlabored. No cough. Able to transition from sit to stand unassisted. Ambulates with bilaterally normal heel strike and toe off. Neck Other: Reports increased pain with cervical extension and flexion. Spurling compression test negative. Pain is unchanged by Spurling maneuver with retraction. Elvey's tension test positive bilaterally, with radiation of pain from neck to wrist. Lhermitte's test was negative. DTR intact, +2 and symmetrical. No clonus. Patient demonstrated 5/5 motor strength of bilateral upper extremities. 2 + radial pulses. Neck: Yes normal visual inspection, Yes no lymphadenopathy, Yes supple, No anterior neck swelling, Yes no JVD and No prominent dorsocervical fat pad General: Yes no CVA tenderness Back/Spine/Pelvis Other: Limited lumbar ROM due to pain. Lumbar extension reproduces moderate pain. Flexion is intact and reproduces mild pain. Demonstrates 5/5 strength of quadriceps bilaterally as well as flexion/dorsiflexion of bilateral feet against resistance. 2+ pedal pulses bilaterally. Straight leg rise with dorsiflexion negative bilaterally. +2 patellar and achilles reflexes bilaterally. Facet loading test positive bilaterally. Mat sign, Javier?s, and Stinchfield tests are negative bilaterally. No groin pain with I/E hip rotations. Valsalva maneuver negative. Back: no CVA tenderness Cervical Spine: loss of normal cervical lordosis, cervical muscular tenderness, pain with cervical ROM, No Cervical spine scars present and No Cervical spine tenderness Thoracic/Lumbar Spine: thoracic and lumbar spine normal to inspection, No Thoracic/lumbar spine scar(s), Lasegue's sign negative, straight leg raise negative bilaterally, pain with thoraco-lumbar ROM, paraspinal muscle tenderness, thoraco-lumbar ROM limited, No thoracic spinal tenderness and lumbar spinal tenderness (L3-S1) Pelvis: no buttock tenderness Sacroiliac joints: bilaterally nontender Results Reviewed Results Reviewed: XR LUMBOSACRAL SPINE 11/18/24 FINDINGS: Levoconvex rotoscoliosis apex at L3. Endplate sclerosis decreased intervertebral disc height and marginal osteophyte formation, L3-4 and to a lesser extent L2-3 and L1-2 levels. No acute cortical disruption or gross malalignment. No lytic or blastic lesions. IMPRESSION: Levoconvex rotoscoliosis and multilevel spondylosis. Slight worsening since prior examination. XR CERVICAL SPINE 11/18/24 FINDINGS: Marginal osteophyte formation and endplate sclerosis and decreased intervertebral disc height at C4-5 and C5-6 level. Grade 1 retrolisthesis C4-5. Reverse curvature apex at C4. Upper airway is patent. Right neuroforamina narrowing secondary to marginal osteophyte formation C4-5 and C5-6 level. Left neuroforamina narrowing C4-5 secondary to marginal osteophyte formation. Craniocervical junction is intact. IMPRESSION: Cervical spondylosis C4-5 and C5-6 level resulting in neuroforamina stenosis/narrowing and grade 1 retrolisthesis at C4-5. MR CERVICAL SPINE WITHOUT CONTRAST 12/26/24 CLINICAL INFORMATION: Cervicalgia. COMPARISON: None available. TECHNIQUE: MRI of the cervical spine was obtained using routine sequences without contrast. FINDINGS: Craniocervical junction is intact with normal alignment. There is a borderline position of the cerebellar tonsils in the foramen magnum.. No bone marrow STIR signal abnormality. Grade 1 retrolisthesis, C4-5 and C5-6 level. Grade 1 anterolisthesis C7-T1. Marginal osteophyte formation and disc desiccation, C4-5 and C5-6 level. There is buckling deformity of the dorsal aspect of the thecal sac secondary to ligamentum flavum hypertrophy at C4-5 and C5-6 level. C2-3: No disc herniation. No neuroforamina stenosis. C3-4: No disc herniation. No neuroforamina stenosis. C4-5: Broad-based disc osteophyte compresses formation abutting the cord. No cord signal abnormality. Bilateral left greater than right neuroforamina narrowing/stenosis. C5-6: Broad-based disc osteophyte compresses formation abutting the cord. No cord signal abnormality. No neuroforamina stenosis. C6-7: No disc herniation. No neuroforamina stenosis. C7-T1: No disc herniation. No neuroforamina stenosis. No prevertebral compartment hematoma, mass or fluid collection. Flow-void signal within the main vessels is normal. Codominant vertebral arteries. IMPRESSION: Cervical spondylosis C4-5 and to a lesser extent C5-6 abutting the cord without cord compression, cord edema and or myelopathy. Bilateral neuroforamina narrowing/stenosis on a degenerative basis at C4-5. Assessment & Plan Assessment & Plan (1) Lumbar disc disorder: Code(s): M51.9 - Unspecified thoracic, thoracolumbar and lumbosacral intervertebral disc disorder Category: Medical (2) Lumbosacral spondylosis: Code(s): M47.817 - Spondylosis without myelopathy or radiculopathy, lumbosacral region Category: Medical (3) Degenerative disc disease, cervical: Code(s): M50.30 - Other cervical disc degeneration, unspecified cervical region Category: Medical (4) Cervical spondylosis: Code(s): M47.812 - Spondylosis without myelopathy or radiculopathy, cervical region Category: Medical (5) Muscle spasm: Code(s): M62.838 - Other muscle spasm Category: Medical (6) Spondylolisthesis, cervical region: Code(s): M43.12 - Spondylolisthesis, cervical region Category: Medical Plan We discussed cervical spine MRI results today. Patient reports her neck pain has been minimal since last visit but continues to endorse significant low back pain. Pending physical therapy as initial steps in the treatments for axial low back pain. If no function improvement or pain reducation, will proceed with Bilateral Diagnostic L3-L4 DR L5 MBB with local and fluoroscopy. Expectations, risks and benefits were reviewed. Patient is aware she will be contacted to schedule this procedure. Script sent for personal TENS unit via [employer] for muscle spasms in the neck and low back regions. All questions and concerns have been answered and patient agreed with the treatment plan. Follow up after PT and sooner as needed. Patient was informed and verbally consented to the use of an ambient scribe for clinic note documentation during this visit. Coding Level of Care Code Est Pt Level 4 (35461) Complex EM visit Add On G2211 Diagnoses Lumbar disc disorder M51.9 Lumbosacral spondylosis M47.817 Degenerative disc disease, cervical M50.30 Cervical spondylosis M47.812 Muscle spasm M62.838 Spondylolisthesis, cervical region M43.12
[2025-01-04 14:32] VITALS: BP 143/74; PULSE 90; O2SAT 100; BMI 23.3
== END 2025-01-04 14:47 | disposition home or self-care (01) ==
LOC: HO.PMC 14:25
PROVIDERS: PCP Physician Assistant; Visit Provider Nurse Practitioner Family
DX: M51.9 Unspecified thoracic, thoracolumbar and lumbosacral intervertebral disc disorder (principal); M47.817 Spondylosis without myelopathy or radiculopathy, lumbosacral region; M50.30 Other cervical disc degeneration, unspecified cervical region; M47.812 Spondylosis without myelopathy or radiculopathy, cervical region; M62.838 Other muscle spasm; M43.12 Spondylolisthesis, cervical region
CPT/HCPCS: 99214; G2211

== ENCOUNTER → 2025-01-04 14:24 | Outpatient (BNVA) | payer OTHER, SELFPAY | PROVIDERS: PCP Physician Assistant; Visit Provider Nurse Practitioner Family | DX: M51.9 Unspecified thoracic, thoracolumbar and lumbosacral intervertebral disc disorder (principal); M47.817 Spondylosis without myelopathy or radiculopathy, lumbosacral region; M47.812 Spondylosis without myelopathy or radiculopathy, cervical region; M50.30 Other cervical disc degeneration, unspecified cervical region; M62.838 Other muscle spasm; M43.12 Spondylolisthesis, cervical region | CPT/HCPCS: 99212 ==

== ENCOUNTER 2025-01-15 07:50 | Outpatient (AMB) | payer OTHER, SELFPAY ==
--- NOTE | 2025-01-15 08:11 | A.OFFVIS_ITS ---
Intake Visit Reasons: cysto/ US Intake Note: Patient presents today for a cystoscopy/US * Renal US 12/29 Urology medications: estradiol cream Blood thinners: none Or Manager Required: No Accompanied by: Self / Same As Patient Allergies ciprofloxacin (From CIPRO) Allergy (Unknown, Verified 01/15/25 08:12) UNKNOWN gluten (GLUTEN) Allergy (Unknown, Verified 01/15/25 08:12) ABD PAIN penicillin V Allergy (Unknown, Verified 01/15/25 08:12) hives Penicillins (PENICILLINS) Allergy (Unknown, Verified 01/15/25 08:12) HIVES Sulfa (Sulfonamide Antibiotics) (SULFA (SULFONAMIDE ANTIBIOTICS)) Allergy (Unknown, Verified 01/15/25 08:12) RASH amitriptyline Adverse Reaction (Intermediate, Verified 01/15/25 08:12) Depression influenza virus vacc trivalent, spl Adverse Reaction (Intermediate, Verified 01/15/25 08:12) illness sumatriptan Adverse Reaction (Intermediate, Verified 01/15/25 08:12) Chest Pain HPI Comments Details: 01/15/25--Here for office cystoscopy. Cystoscopy findings: Bladder mucosa within normal limits. 11/25/24-- h/o frequent UTI's, seen recently by food technology teacher for vaginitis, noted to have nitrite positive urine, treated with macrobid and sent for follow up. 59-year-old female presenting with urinary symptoms and follow-up for a recent vaginal infection. She disclosed the emergence of severe pain and swelling in her genital area last week, urging a query for UTI as prior experience dictated similarity in symptoms. The urinal discomfort was substantially exacerbated by local creams, requiring eventual intervention with Metronidazole upon detection of a bacterial origin. The incident had stylistic impacts, restricting her dress code due to irritation. Historically, the patient had unexplained childhood bladder issues, complemented by a narrative of well-managed scoliosis, presenting residual concerns for hereditary and oncogenic developments due to celiac indicators. Overall, the patient's well-being had stabilised with the Metronidazole intervention, ameliorating symptom intensity though some traits such as the presence of blood in urinal samples needed further attention within the diagnostic and follow-up scheme following a comparative lack in symptomatic explanation. Plan schedule ultrasound evaluation of the kidneys and a cystoscopy. 12/28/22--Jodi is a 57-year-old female who presents to the office for recurrent UTI follow-up. denies Urinary dysuria or urgency. The patient denies having UTI episode in the interim. The patient was given trial Yuvafem suppository during her last visit, reports benefits with the trial. She also takes extra strength cranberry two pills a day with benefits. Plan: Continue OTC extra strength cranberry pills. Continue Yuvafem 10 mcg. Follow-up after 9 months or sooner if needed. If she has reoccurrence of UTI symptoms then she is advised to call at that time and leave a urine specimen for culture and we will treat her with antibiotics. [facility] Medical History Adrenal adenoma Herpes Diverticulosis Retention of urine HTN (hypertension) Celiac disease Sinus infection Surgical History [place] teeth removed History of esophagogastroduodenoscopy (EGD) Hx of colonoscopy History of hysterectomy History of breast lump/mass excision History of removal of cyst History of section History of tonsillectomy Family History Father CAD (coronary artery disease) Skin cancer Prostate cancer Mother CHF (congestive heart failure) Diabetes Guillain-[place] Son Prader-Willi syndrome Son Muscular dystrophy Son Celiac disease Social History Household Members: Significant Other Housing: House Alcohol intake: current Alcohol intake frequency: holidays/special occasions only Comment: medicated at 1420 Patient Tobacco Use Status: Former Tobacco user Tobacco use type: Cigarette e-Cigarette/Vaping Use: Never Used Second Hand Smoke Exposure: No service: No Current occupational status: employed Current occupation: [employer] Cognitive needs: No Hearing needs: No Vision needs: Yes Office Procedures Cystoscopy Consent Discussed risk and benefit or proposed procedure with the patient. Information consent for procedure given to the patient. Discussed technical aspects, risks, benefits and alternatives in full. Addressed all of the patient's questions and concerns regarding the procedure. The patient demonstrated knowledge and understanding. They wish to proceed with this procedure. Preparation The patient was prepped in the usual manner. A sql dba was present and in the room. Genitalia was prepped with betadine solution in a sterile manner. Lidocaine Jelly 2% was placed into the urethra and 16Fr flexible Olympus cystoscope was inserted into the meatus after adequate lubrication. Procedure Time out per protocol performed. Speculum used as indicated for adequate visualization of urethra, the flexible cystoscope is passed transurethrally: The bladder was inspected in its entirety with utilization retroflexion displaying: Tumor(s): no suspicious bladder lesions visualized Trabeculation: Mucosal Erthema: Orifices: normal shape and position Urethra: normal Cystoscopy findings: WNL, no suspicious bladder lesions visualized [id number] DISPOSABLE SCOPE URO-G FLEXIBLE SCOPE Procedure code (CPT) selection complete Office Meds lidocaine HCl 2 % mucosal jelly in applicator Performing Provider: Maximo Martino MD [facility] Administered by: Joseph Delacruz LPN on 01/15/25 08:22 Dose Route Admin Location Dispensed Lot Number Expiration Date [facility] Probation Agent 10 mL intra-urethral 20 mL nitrofurantoin monohydrate/macrocrystals 100 mg capsule Performing Provider: Maximo Martino MD Performing Location: [facility] Administered by: Joseph Delacruz LPN on 01/15/25 08:22 Dose Route Admin Location Dispensed Lot Number Expiration Date [facility] Probation Agent 100 mg PO 1 cap Results AMB Urinalysis, Automated UA Leukoctes 70 Ke/uL Last Edit by Joseph Delacruz LPN on 01/15/25 08:36 UA Nitrite Negative Last Edit by Joseph Delacruz LPN on 01/15/25 08:36 UA Urobilinogen 3.5 mg/dL Last Edit by Joseph Delacruz LPN on 01/15/25 08:36 UA Protein 0 mg/dL Last Edit by Joseph Delacruz LPN on 01/15/25 08:36 UA pH 7.0 Last Edit by Joseph Delacruz LPN on 01/15/25 08:36 UA Blood 10 Alfonzo/uL Last Edit by Joseph Delacruz LPN on 01/15/25 08:36 UA Specific [place] 1.005 Last Edit by Joseph Delacruz LPN on 01/15/25 08:36 UA Ketone Negative Last Edit by Joseph Delacruz LPN on 01/15/25 08:36 UA Bilirubin 0 mg/dL Last Edit by Joseph Delacruz LPN on 01/15/25 08:36 UA Glucose 0 mg/dL Last Edit by Joseph Delacruz LPN on 01/15/25 08:36 Results Reviewed Results Reviewed: Laboratory Last Values Urine pH (Auto) 7.0 01/15/25 08:22 Specific [place] (Auto) 1.005 01/15/25 08:22 Urine Protein (Auto) 0 mg/dL 01/15/25 08:22 Glucose (UA)(Auto) 0 mg/dL 01/15/25 08:22 Urine Ketones (Auto) Negative 01/15/25 08:22 Urine Blood (Auto) 10 Alfonzo/uL 01/15/25 08:22 Urine Nitrite (Auto) Negative 01/15/25 08:22 Urine Bilirubin (Auto) 0 mg/dL 01/15/25 08:22 Urine Urobilinogen (Auto) 3.5 mg/dL 01/15/25 08:22 Leukocyte Esterase (Auto) 70 Ke/uL 01/15/25 08:22 Date of Service: 12/28/24 CLINICAL HISTORY: N39.0 - Urinary tract infection, site not specified US RENAL Comparison: None Findings: Right kidney 11.1 cm in length. Left kidney 10.6 cm in length. Renal cortical thickness and echotexture bilaterally is within normal limits. Pyelonephritis cannot be excluded sonographically. No hydronephrosis, shadowing calculus or cortical mass lesion. IMPRESSION: No hydronephrosis. Collected: 05/10/22-UNK Status: COMP Req#: [id number] Received: 05/10/22 Source: [facility] Sp Desc: Urine alas Subm Dr: Matt Neves Ordered: Urine Culture Procedure Result Verified Site Urine Culture Final 05/11/22 Organism 1 Strep agalactiae (Grp B) Quant > 100,000 cfu/mL Susceptibility not routinely performed on this isolate. Collected: 12/13/21 Status: COMP Req#: [id number] Received: 12/13/21 Source: [facility] Sp Desc: Urine alas Subm Dr: Salty Kline MD Ordered: Urine Culture Procedure Result Verified Site Urine Culture Final 12/15/21 Organism 1 Klebsiella pneumoniae Quant > 100,000 cfu/mL Kleb pneum M.I.C. RX --------- --- Ampicillin 16 R Extended Spectrum Beta Lactam NEG - Ceftriaxone <=1 S Gentamicin <=1 S Levofloxacin <=0.12 S Nitrofurantoin 32 S Trimethoprim/Sulfamethoxazole <=20 S Date of Service: 12/15/21 EXAMINATION: CT ABDOMEN AND PELVIS WITHOUT CONTRAST? CLINICAL INFORMATION: Right flank pain. Dysuria.? COMPARISON: CT abdomen 08/24/2021? FINDINGS: LUNG BASES: Mild bibasilar atelectasis.? LIVER, GALLBLADDER, AND BILIARY TREE: The liver is normal in size, shape, and attenuation. No focal hepatic lesion or biliary ductal dilatation is present. The gallbladder is unremarkable with no evidence of radiopaque gallstones, gallbladder wall thickening, or obvious pericholecystic inflammatory changes.? PANCREAS: Unremarkable.? SPLEEN: Unremarkable.? ADRENAL GLANDS: Stable 1.1 cm left adrenal nodule, Hounsfield measurements -5, compatible with an adrenal adenoma. Right adrenal gland appears unremarkable.? KIDNEYS AND URETERS: The kidneys are normal in size, shape, and attenuation. No hydronephrosis, hydroureter, or calculi seen. No perinephric stranding. ? BLADDER: Unremarkable.? GASTROINTESTINAL TRACT: Stomach is nondistended. The small and large bowel are unremarkable. The appendix is unremarkable. No free fluid. ABDOMINAL WALL: No significant hernia is appreciated.? LYMPH NODES: No adenopathy seen. VASCULAR: Unremarkable. PELVIC VISCERA: Unremarkable.? OSSEOUS STRUCTURES: Degenerative changes of the spine.? IMPRESSION: No renal or ureteral calculi evident. No hydronephrosis. Cause the patient's symptoms has not been determined by CT.? Stable 1.1 cm left adrenal adenoma.? Assessment & Plan Assessment & Plan (1) Microscopic hematuria: Code(s): R31.29 - Other microscopic hematuria Category: Medical (2) Recurrent UTI: Code(s): N39.0 - Urinary tract infection, site not specified Category: Medical (3) UTI symptoms: Code(s): R39.9 - Unspecified symptoms and signs involving the genitourinary system Category: Medical Plan FU in 3 months, monitor PVR Orders: Orders AMB Cystoscopy 01/15/25 R39.9 - Unspecified symptoms and signs involving the genitourinary system, Z87.440 - Personal history of urinary (tract) infections, R31.29 - Other microscopic hematuria AMB Urinalysis Automated 01/15/25 R39.9 - Unspecified symptoms and signs in volving the genitourinary system, R31.29 - Other microscopic hematuria Patient Instructions: The patient had an opportunity to ask questions regarding treatment plan. The patient expressed understanding and agreement with the above treatment plan. The patient is aware they should contact our office by phone for worsening of their current condition or the appearance of new symptoms. Compliance is encouraged with any medications and followup testing that is ordered. It is a privilege to be allowed the opportunity to participate in the urologic care of your patient. If you have any questions or concerns regarding treatment for the above conditions please do not hesitate to contact me. The office telephone contact is [phone]. This note is constructed in part using voice recognition software. While every effort has been made to ensure accuracy visual merchandising coordinator errors may have been included. Yours sincerely, Maximo Martino MD Scribe Plan - Not visible on output: Patient was informed and verbally consented to the use of an ambient scribe for clinic note documentation during this visit. Coding Level of Care Code Procedure Only Diagnoses Microscopic hematuria R31.29 Recurrent UTI N39.0 UTI symptoms R39.9 CPT Codes Cystoscopy - CPT: 62280-[id number] ([id number])
== END 2025-01-15 09:04 | disposition home or self-care (01) ==
LOC: HO.HUSH 07:51
PROVIDERS: PCP Physician Assistant; Visit Provider Urology
DX: R39.9 Unspecified symptoms and signs involving the genitourinary system (principal); R31.29 Other microscopic hematuria; Z87.440 Personal history of urinary (tract) infections
CPT/HCPCS: 52000

== ENCOUNTER → 2025-01-15 07:50 | Outpatient (BNVA) | payer OTHER, SELFPAY | PROVIDERS: PCP Physician Assistant; Visit Provider Urology | DX: R31.29 Other microscopic hematuria (principal); R39.9 Unspecified symptoms and signs involving the genitourinary system; Z87.440 Personal history of urinary (tract) infections | CPT/HCPCS: 52000; 81003 ==

== ENCOUNTER 2025-03-26 11:38 | Outpatient (REF) | payer OTHER, SELFPAY ==
--- OUTSIDE RECORDS SUMMARY | 2025-03-26 11:41 | XMS_ITS | Clinical Summary ---
Author Organization [facility] Address [address] [address] Phone Care Team Providers Care Plant Health Manager Name Role Phone Matt Neves Primary Care Provider + Allergies Active Allergy Reactions Criticality Noted Date Comments Ciprofloxacin Unknown 01/18/2018 Gluten Protein GI Upset,Rash,Swelling Low 8 Penicillin Hives 11/17/2021 Sulfa (Sulfonamide Antibiotics) Rash Low 01/18/2018 Medications CRANBERRY FRUIT ORAL Active coenzyme Q10 100 mg capsule Take 100 mg by mouth daily. Active butalbital-acetami nophen-caff 50-325-40 mg per capsule 11/17/19 22 Active fluticasone propionate (FLONASE) 50 mcg/actuation nasal spray 11/09/19 22 Active baclofen (LIORESAL) 10 MG tablet 03/06/20 23 Active YUVAFEM 10 mcg Tab 02/26/20 23 Active butalbital-acetami nophen-caffeine (FIORICET, ESGIC) 50-325-40 mg per tablet TAKE 1 TABLET BY MOUTH EVERY 6 HOURS NEEDED FOR HEADACHES FOR 4 DAYS 03/06/20 23 Active naproxen (NAPROSYN) 500 MG tablet Take 1 tablet (500 mg total) by mouth 2 (two) times a day for 3 days. Then twice daily as needed for pain, inflammation 20 tablet 04/19/20 23 Active ibuprofen (ADVIL,MOTRIN) 400 MG tablet 06/19/20 23 Active ondansetron (ZOFRAN-ODT) 4 MG disintegrating tablet Take 1 tablet (4 mg total) by mouth every 12 (twelve) hours as needed. 9 tablet 10/05/19 25 Active magnesium oxide (MAG-OX) 400 mg (241.3 mg elemental) tablet TAKE 1 TABLET BY MOUTH AT BEDTIME FOR 30 DAYS MAY HOLD FOR LOOSE STOOLS 11/21/19 25 Active metroNIDAZOLE (FLAGYL) 500 MG tablet Take 1 tablet by mouth 2 (two) times a day. 11/25/19 25 Active nitrofurantoin (MACROBID) 100 MG capsule Take 1 capsule by mouth 2 (two) times a day. 11/24/19 25 Active Active Problems No known active problems Immunizations Immunization Administration Dates Next Due Pneumococcal conjugate PCV13 06/29/2018 Pneumococcal polysaccharide PPSV23 08/31/2021, Tdap 04/30/2019 Social History Tobacco Use Types Packs/Day Years Used Date Smoking Tobacco: Former Smokeless Tobacco: Never Tobacco Cessation:Counseling Given: Not Answered Alcohol Use Standard Drinks/Week Comments No 0 (1 standard drink = 0.6 oz pur e alcohol) Education Answer Date Recorded Are you interested in more education? Not on mendez e 12/21/2022 Are you concerned about learning? Not on file 12/21/2022 No 12/21/2022 No 12/21/2022 Digital Access Answer Date Recorded No 01/19/2023 No 01/19/2023 Reliable internet access at home? Not on file 01/19/2023 Device with a working camera? Not on file Intimate Partner Violence Answer Date R ecorded Are you denied basic needs s uch as food, clothing, or medical care? No 10/05/2024 In the past 12 months have y ou been in a relationship with a person who hurts, threatens, or tries to control you? No 10/05/2024 Are you denied basic needs s [facility] as food, clothing, or medical care? No 10/05/2024 In the past 12 months have y ou been in a relationship with a person who hurts, threatens, or tries to control you? No 10/05/2024 Comments No Sex and Gender Information Value Date Recorded Sex Assigned at Female 02/09/2021 11:22 AM EDT Legal Sex Female 9:43 AM EDT Gender Identity Female 02/09/2021 11:22 AM EDT Sexual Orientation Not on file Last Filed Vital Signs Vital Sign Reading Time Taken Comments Blood Pressure 124/78 11/27/2024 11:30 AM EDT Pulse 92 11/27/2024 11:30 AM EDT Temperature 36.8 C (98.2 F) 11/27/2024 11:30 AM EDT Respiratory Rate 17 11/27/2024 11:30 AM EDT Oxygen Saturation 99% 11/27/2024 11:30 AM EDT Inhaled Oxygen Concentration - - Weight 66.2 kg (146 lb) 10/05/2024 7:28 AM EST Height 170.2 cm (5' 7 ) 10/05/2024 7:28 AM EST Body Mass Index 22.87 10/05/2024 7:28 AM EST Plan of Treatment Health Maintenance Due Date Last Done Comments LIPID PANEL 1963 DEPRESSION SCREENING 1975 SMOKING Hx and SMOKELESS TOBACCO SCREENING 11/13/1976 HEPATITIS C SCREENING 11/13/1981 HIV ONE-TIME SCREENING (18-6 5 YEARS) 11/13/1981 PAP SMEAR 11/13/1984 MAMMOGRAM 2003 COLOGUARD 11/13/2008 COLONOSCOPY 11/13/2008 COLORECTAL CANCER SCREENING 11/13/2008 FIT TEST 11/13/2008 FOBT 11/13/2008 SIGMOIDOSCOPY 11/13/2008 VIRTUAL COLONOSCOPY 11/13/2008 ZOSTER VACCINES (1 of 2) 11/13/2013 COVID-19 VACCINE ( - 2023-2 5 season) 2024 04/24/2022, 10/21/2020, 09/21/2020 Adult Td,Tdap Booster 04/30/2029 04/30/2019 RSV VACCINE (1 - 1-dose 75+ series) 11/13/2038 PNEUMOCOCCAL VACCINES (50+ years) Completed 08/31/2021, 04/29/2019, 06/29/2018 HEPATITIS A VACCINES Aged Out No long er eligible based on patient's age to complete this topic HIB VACCINES Aged Out No longer eligi ble based on patient's age to complete this topic MENINGOCOCCAL VACCINES (ACWY) Aged Out No longer eligible based on patient's age to complete this topic MENINGOCOCCAL VACCINES (B) Aged Out N o longer eligible based on patient's age to complete this topic Medical Devices Not on file Insurance ANAHEIMENSE NON NSPG PCP SILVER [employer]ITY CONNECTORCARE ANAHEIMENSE NON NSPG PCP [employer] ANAHEIMENSE NON NSPG PCP SILVER CLARITY CONNECTORCARE WELLSENSE NON NSPG PCP SILVER CLARITY CONNECTORCARE WELLSENSE NON NSPG PCP SILVER CLARITY CONNECTORCARE WELLSENSE NON NSPG PCP SILVER CLARITY CONNECTORCARE Care Teams Plant Health Manager Relationship Specialty Start Date End Date Matt Neves PA [facility] [place] [address] PCP - General 04/12/20 Additional Source Comments The information contained in this document represents components of the legal health record. It is not the complete legal health record.[facility]
[2025-03-26 12:21] LABS: Hematocrit 35.4 % (37.0-47.0); Hemoglobin 12.1 g/dl (12.0-16.0); Mean Corpuscular HGB Conc 34.2 g/dl (31.0-35.0); Mean Corpuscular Hemoglobin 31.3 pg (27.0-33.0); Mean Corpuscular Volume 91.5 fL (80.0-98.0); NRBC Abs Auto 0.000 X10*3/uL (0.0-0.012); NRBC Pct Auto 0.0 /100WBC (0.0-0.2); Platelet Count 206 X10*3/uL (160-400); Red Blood Count 3.87 X10*6/uL (4.20-5.50); White Blood Count 6.0 X10*3/uL (4.8-10.8)
[2025-03-26 13:12] LABS: Alanine Aminotransferase 28 U/L (0-31); Albumin Level 4.1 g/dL (3.5-5.0); Alkaline Phosphatase 53 U/L (39-117); Anion Gap 11 (12-20); Aspartate Amino Transferase 24 U/L (5-31); Blood Urea Nitrogen 19 mg/dL (9-16); Calcium 8.6 mg/dL (8.4-10.2); Carbon Dioxide 26 mmol/L (22-29); Chloride 106 mmol/L (96-108); Estimated Glomerular Filt Rate > 60; Magnesium 2.0 mg/dL (1.6-2.6); Potassium 4.3 mmol/L (3.3-5.1); Sodium 139 mmol/L (135-145); Total Protein 6.8 g/dL (6.5-8.0)
[2025-03-26 13:46] LABS: Folate 5.3 ng/mL (> or = 4.0); Vitamin B12 391 pg/mL (200-900)
== END 2025-03-26 11:39 | disposition home or self-care (01) ==
LOC: HO.LAB 11:38
PROVIDERS: PCP Physician Assistant; Visit Provider Physician Assistant
DX: I10 Essential (primary) hypertension (principal); K90.0 Celiac disease; M79.10 Myalgia, unspecified site; E53.8 Deficiency of other specified B group vitamins; R53.83 Other fatigue; R74.8 Abnormal levels of other serum enzymes
CPT/HCPCS: 36415; 80053; 82533; 82607; 82746; 83735; 85027

== ENCOUNTER 2025-04-22 11:07 | Outpatient (AMB) | payer OTHER, SELFPAY ==
--- NOTE | 2025-04-22 11:08 | A.OFFVIS_ITS ---
Intake Visit Reasons: 3m/PVR Intake Note: Patient presents today for: 3mo follow up/pvr Urology medications: estradiol cream Blood thinners: none Today's PVR: 66mls Extrusion Die Coordinator Required: No Accompanied by: Self / Same As Patient Allergies ciprofloxacin (From CIPRO) Allergy (Unknown, Verified 04/22/25 11:10) UNKNOWN gluten (GLUTEN) Allergy (Unknown, Verified 04/22/25 11:10) ABD PAIN penicillin V Allergy (Unknown, Verified 04/22/25 11:10) hives Penicillins (PENICILLINS) Allergy (Unknown, Verified 04/22/25 11:10) HIVES Sulfa (Sulfonamide Antibiotics) (SULFA (SULFONAMIDE ANTIBIOTICS)) Allergy (Unknown, Verified 04/22/25 11:10) RASH amitriptyline Adverse Reaction (Intermediate, Verified 04/22/25 11:10) Depression influenza virus vacc trivalent, spl Adverse Reaction (Intermediate, Verified 04/22/25 11:10) illness sumatriptan Adverse Reaction (Intermediate, Verified 04/22/25 11:10) Chest Pain Medication List - Last Reconciled 04/22/25 by Maximo Martino MD baclofen 10 mg PO TID PRN 30 days wfiilujygz-mggvvivfqsjum-ypbo 50-325-40 mg 1 tab PO Q6H PRN 30 days estradiol (Yuvafem) 10 mcg vaginal 2XW 4 weeks fluticasone propionate 50 mcg/actuation (Flonase Allergy Relief) 2 sprays intranasal DAILY 30 days galcanezumab-gnlm (Emgality Pen) 240 mg (2 mL) subcut ONCE 30 days magnesium oxide 400 mg PO BEDTIME 30 days HPI Comments Details: 04/22/25--Jodi is here for FU - recurrent UTIs, chronic cystitis. She is prescribed Vagifem. Urinalysis today negative leukocytes negative blood. Bladder scan PVR 66 mL. The patient states she has been doing well she is using kcux-ngm-wldqahh methylene blue. She states she is having less symptoms of bladder pressure and urgency. She is watching her diet to avoid dietary bladder irritants. Follow-up in 9 months telehealth unless patient has any recurrent urinary symptoms. 01/15/25--Here for office cystoscopy. Cystoscopy findings: Bladder mucosa within normal limits. 11/25/24-- h/o frequent UTI's, seen recently by brand advocate for vaginitis, noted to have nitrite positive urine, treated with macrobid and sent for follow up. 59-year-old female presenting with urinary symptoms and follow-up for a recent vaginal infection. She disclosed the emergence of severe pain and swelling in her genital area last week, urging a query for UTI as prior experience dictated similarity in symptoms. The urinal discomfort was substantially exacerbated by local creams, requiring eventual intervention with Metronidazole upon detection of a bacterial origin. The incident had stylistic impacts, restricting her dress code due to irritation. Historically, the patient had unexplained childhood bladder issues, complemented by a narrative of well-managed scoliosis, presenting residual concerns for hereditary and oncogenic developments due to celiac indicators. Overall, the patient's well-being had stabilised with the Metronidazole intervention, ameliorating symptom intensity though some traits such as the presence of blood in urinal samples needed further attention within the diagnostic and follow-up scheme following a comparative lack in symptomatic explanation. Plan schedule ultrasound evaluation of the kidneys and a cystoscopy. 12/28/22--Jodi is a 57-year-old female who presents to the office for recurrent UTI follow-up. denies Urinary dysuria or urgency. The patient denies having UTI episode in the interim. The patient was given trial Yuvafem suppository during her last visit, reports benefits with the trial. She also takes extra strength cranberry two pills a day with benefits. Plan: Continue OTC extra strength cranberry pills. Continue Yuvafem 10 mcg. Follow-up after 9 months or sooner if needed. If she has reoccurrence of UTI symptoms then she is advised to call at that time and leave a urine specimen for culture and we will treat her with antibiotics. [facility] Medical History Adrenal adenoma Herpes Diverticulosis Retention of urine HTN (hypertension) Celiac disease Sinus infection Surgical History [place] teeth removed History of esophagogastroduodenoscopy (EGD) Hx of colonoscopy History of hysterectomy History of breast lump/mass excision History of removal of cyst History of section History of tonsillectomy Family History Father CAD (coronary artery disease) Skin cancer Prostate cancer Mother CHF (congestive heart failure) Diabetes Guillain-[place] Son Prader-Willi syndrome Son Muscular dystrophy Son Celiac disease Social History Household Members: Significant Other Housing: House Alcohol intake: current Alcohol intake frequency: holidays/special occasions only Comment: medicated at 1420 Patient Tobacco Use Status: Former Tobacco user Tobacco use type: Cigarette e-Cigarette/Vaping Use: Never Used Second Hand Smoke Exposure: No service: No Current occupational status: employed Current occupation: [employer] Cognitive needs: No Hearing needs: No Vision needs: Yes Review of Systems Const All systems reviewed & are unremarkable except as noted in HPI and below Reports no additional complaints Eyes Reports no additional complaints ENT Reports no additional complaints Card Reports no additional complaints Resp Reports no additional complaints GI Reports no additional complaints Reports as per HPI Musc Reports no additional complaints Skin/Breast Reports system reviewed and no additional complaints, except as documented Neuro Reports no additional complaints Psych Reports no additional complaints Endo Reports no additional complaints Ravi/Lymph Reports no additional complaints Aller/Immun Reports no additional complaints Office Procedures Post Void Residual Post Residual Void Post Void Residual (PVR): 66 [id number] Void Residual by ultrasound Results AMB Urinalysis, Automated UA Leukoctes 15 Ke/uL Last Edit by RIMMA Lomeli on 04/22/25 11:28 UA Nitrite Negative Last Edit by RIMMA Lomeli on 04/22/25 11:28 UA Urobilinogen 3.5 mg/dL Last Edit by RIMMA Lomeli on 04/22/25 11:2 8 UA Protein 0 mg/dL Last Edit by RIMMA Lomeli on 04/22/25 11:28 UA pH 6.0 Last Edit by RIMMA Lomeli on 04/22/25 11:28 UA Blood 0 Alfonzo/uL Last Edit by RIMMA Lomeli on 04/22/25 11:28 UA Specific Avery 1.015 Last Edit by RIMMA Lomeli on 04/22/25 11: 28 UA Ketone Negative Last Edit by RIMMA Lomeli on 04/22/25 11:28 UA Bilirubin 0 mg/dL Last Edit by RIMMA Lomeli on 04/22/25 11:28 UA Glucose 0 mg/dL Last Edit by RIMMA Lomeli on 04/22/25 11:28 Results Reviewed Results Reviewed: Laboratory Last Values Urine pH (Auto) 6.0 04/22/25 11:27 Specific Avery (Auto) 1.015 04/22/25 11:27 Urine Protein (Auto) 0 mg/dL 04/22/25 11:27 Glucose (UA)(Auto) 0 mg/dL 04/22/25 11:27 Urine Ketones (Auto) Negative 04/22/25 11:27 Urine Blood (Auto) 0 Alfonzo/uL 04/22/25 11:27 Urine Nitrite (Auto) Negative 04/22/25 11:27 Urine Bilirubin (Auto) 0 mg/dL 04/22/25 11:27 Urine Urobilinogen (Auto) 3.5 mg/dL 04/22/25 11:27 Leukocyte Esterase (Auto) 15 Ke/uL 04/22/25 11:27 Assessment & Plan Assessment & Plan (1) Microscopic hematuria: Code(s): R31.29 - Other microscopic hematuria Category: Medical (2) Recurrent UTI: Code(s): N39.0 - Urinary tract infection, site not specified Category: Medical (3) UTI symptoms: Code(s): R39.9 - Unspecified symptoms and signs involving the genitourinary system Category: Medical (4) Chronic cystitis: Code(s): N30.20 - Other chronic cystitis without hematuria Category: Medical Plan Continue Vagifem. Continue diet management. Follow-up in 9 months Orders: Orders AMB Post Void Residual by ultrasound Today R39.9 - Unspecified symptoms and signs involving the genitourinary system AMB Urinalysis Automated Today Z13.9 - Encounter for screening, unspecified Patient Instructions: The patient had an opportunity to ask questions regarding treatment plan. The patient expressed understanding and agreement with the above treatment plan. The patient is aware they should contact our office by phone for worsening of their current condition or the appearance of new symptoms. Compliance is encouraged with any medications and followup testing that is ordered. It is a privilege to be allowed the opportunity to participate in the urologic care of your patient. If you have any questions or concerns regarding treatment for the above conditions please do not hesitate to contact me. The office telephone contact is [phone]. This note is constructed in part using voice recognition software. While every effort has been made to ensure accuracy pipe fitter gas pipe errors may have been included. Yours sincerely, Maximo Martino MD Coding Level of Care Code Est Pt Level 4 (98170) Diagnoses Microscopic hematuria R31.29 Recurrent UTI N39.0 UTI symptoms R39.9 Chronic cystitis N30.20 CPT Codes Post Residual Void - PVR CPT Code: 39751-Rcuk Void Residual by ultrasound ([id number])
--- OUTSIDE RECORDS SUMMARY | 2025-04-22 12:29 | XMS_ITS | Clinical Summary ---
Author Organization [facility] Address [address] [address] Phone Care Team Providers Care Table Assembler Metal Name Role Phone Matt Neves Primary Care [...] 10/05/2024 Are you denied basic needs s [facility] as food, clothing, or medical care? [...] topic Medical Devices Not on file Insurance BAKERENSE NON NSPG PCP SILVER CLARITY CONNECTORCARE BAKERENSE NON NSPG PCP SILVER CLARITY CONNECTORCARE BAKERENSE NON NSPG PCP SILVER CLARITY CONNECTORCARE WELLSENSE NON NSPG PCP SILVER CLARITY CONNECTORCARE WELLSENSE NON NSPG PCP SILVER CLARITY CONNECTORCARE WELLSENSE NON NSPG PCP SILVER CLARITY CONNECTORCARE Care Teams Table Assembler Metal Relationship Specialty Start Date End Date Matt Neves PA [facility] [place] [address] PCP - General 04/12/20 Additional Source Comments The information contained in this document represents components of the legal health record. It is not the complete legal health record.[facility]
--- OUTSIDE RECORDS SUMMARY | 2025-04-22 12:29 | XMS_ITS | Encounter Summary ---
Author Organization [facility] Address [address] [facility] [address] [place] [address] Phone Care Team Providers Care Manager Bank Name Role Phone Matt Neves Primary Care Provider + Encounter Details Date Type Department Care Team (Latest Contact Info) Description 09/02/2021 Transcribe Orders Virtual Department [address] [place] [address] Jory Charles, KEITH [address] [facility] [address] [place] [address] Encounter for laboratory testing for COVID-19 virus (Primary Dx) Social History Tobacco Use Types Packs/Day Years Used Date Smoking Tobacco: Former Smokeless Tobacco: Never Alcohol Use Standard Drinks/Week Comments No 0 (1 standard drink = 0.6 oz pur e alcohol) Comments Unknown Sex and Gender Information Value Date Recorded Sex Assigned at Female 02/09/2021 11:22 AM EDT Legal Sex Female 9:43 AM EDT Gender Identity Female 02/09/2021 11:22 AM EDT Sexual Orientation Not on file documented as of this encounter Plan of Treatment Not on file documented as of this encounter Results * COVID-19 PCR Order (09/03/2021 1:28 PM EST) COVID Testing Status Specimen received in analyzing lab. Results should be available within 24 to 48 hrs. [facility] Symptomatic? YES [facility] Other 09/03/2021 1:28 PM EST 09/03/2021 6:27 PM EST us Jory Charles BUG TRIMMER BODY FLUIDS AND STOOLS ORDERAB LES Final Result [facility] [address] [place] [address] [facility] [address] [place] [id number] documented in this encounter Visit Diagnoses Diagnosis Encounter for laboratory testing for COVID-19 virus- Primary documented in this encounter Additional Health Concerns Infection Onset Date Last Indicated Resolved Time CoV-Risk 09/02/2021 09/03/2021 09/04/2021 10:3 0 AM EST CoV-Exposed Comment:Positive COVID-19 09/02/2021 09/02/2021 09/04/2021 10: 30 AM EST COVID-19 09/03/2021 09/03/2021 09/24/2021 1:22 AM EST CoV-Risk 06/04/2022 06/04/2022 06/15/2022 1:23 AM EDT CoV-Risk 10/05/2024 10/05/2024 10/16/2024 1:21 AM EST CDiff-Risk 10/05/2024 10/05/2024 10/05/2024 11:0 5 AM EST documented as of this encounter Care Teams Manager Bank Relationship Specialty Start Date End Date Matt Neves PA [address] [place] [id number] PCP - General 04/12/20 documented as of this encounter Additional Source Comments The information contained in this document represents components of the legal health record. It is not the complete legal health record.[facility]
== END 2025-04-22 11:51 | disposition home or self-care (01) ==
LOC: HO.HUSH 11:08
PROVIDERS: PCP Physician Assistant; Visit Provider Urology
DX: R31.29 Other microscopic hematuria (principal); N39.0 Urinary tract infection, site not specified; R39.9 Unspecified symptoms and signs involving the genitourinary system; N30.20 Other chronic cystitis without hematuria; Z13.9 Encounter for screening, unspecified
CPT/HCPCS: 99214

== ENCOUNTER → 2025-04-22 11:07 | Outpatient (BNVA) | payer OTHER, SELFPAY | PROVIDERS: PCP Physician Assistant; Visit Provider Urology | DX: N30.20 Other chronic cystitis without hematuria (principal); R31.29 Other microscopic hematuria; R39.9 Unspecified symptoms and signs involving the genitourinary system | CPT/HCPCS: 51798; 81003; 99212 ==

== ENCOUNTER 2025-04-27 15:00 | Outpatient (AMB) | payer OTHER, SELFPAY ==
--- NOTE | 2025-04-27 15:00 | A.OFFVIS_ITS ---
Intake Visit Reasons: Menopause symptoms Allergies ciprofloxacin (From CIPRO) Allergy (Unknown, Verified 04/22/25 11:10) UNKNOWN gluten (GLUTEN) Allergy (Unknown, Verified 04/22/25 11:10) ABD PAIN penicillin V Allergy (Unknown, Verified 04/22/25 11:10) hives Penicillins (PENICILLINS) Allergy (Unknown, Verified 04/22/25 11:10) HIVES Sulfa (Sulfonamide Antibiotics) (SULFA (SULFONAMIDE ANTIBIOTICS)) Allergy (Unknown, Verified 04/22/25 11:10) RASH amitriptyline Adverse Reaction (Intermediate, Verified 04/22/25 11:10) Depression influenza virus vacc trivalent, spl Adverse Reaction (Intermediate, Verified 04/22/25 11:10) illness sumatriptan Adverse Reaction (Intermediate, Verified 04/22/25 11:10) Chest Pain HPI Comments Details: The patient is schedule telehealth visit to discuss menopause and hormone replacement therapy, no hot flashes or any other concerns [facility] Medical History Adrenal adenoma Herpes Diverticulosis Retention of urine HTN (hypertension) Celiac disease Sinus infection Surgical History [place] teeth removed History of esophagogastroduodenoscopy (EGD) Hx of colonoscopy History of hysterectomy History of breast lump/mass excision History of removal of cyst History of section History of tonsillectomy Family History Father CAD (coronary artery disease) Skin cancer Prostate cancer Mother CHF (congestive heart failure) Diabetes Guillain-[place] Son Prader-Willi syndrome Son Muscular dystrophy Son Celiac disease Social History Household Members: Significant Other Housing: House Alcohol intake: current Alcohol intake frequency: holidays/special occasions only Comment: medicated at 1420 Patient Tobacco Use Status: Former Tobacco user Tobacco use type: Cigarette e-Cigarette/Vaping Use: Never Used Second Hand Smoke Exposure: No service: No Current occupational status: employed Current occupation: [employer] Cognitive needs: No Hearing needs: No Vision needs: Yes Review of Systems Const All systems reviewed & are unremarkable except as noted in HPI and below Reports as per HPI and Reports no additional complaints GI Reports no additional complaints Reports no additional complaints Telehealth Telehealth Telehealth Platform: [employer] Location of provider rendering services: practice address Location of patient: address on file Patient Identification confirmed using: Name, : Yes Telehealth method: video Patient verbally consented to treatment: Yes Patient verbally consented to billing insurance company: Yes Patient informed of any privacy concerns related to visit: Yes Minutes spent on Phone/Video with Pt.: 15 Assessment & Plan Assessment & Plan (1) Menopause: Code(s): Z78.0 - Asymptomatic menopausal state Category: Medical Plan: Discussed with the patient the indication for estrogen replacement therapy, all pros and cons, risks benefits, benefits including prevention of bone loss, hot flashes vaginal dryness risks include increase in the risk of breast cancer, strokes DVT and breast cancer. Commended calcium/D 1200 mg with 800 international of vitamin-D. All questions answered, the patient verbalized understanding I spent a total of 20 minutes reviewing the chart, talking to the patient via video and documenting in the medical record. Coding Level of Care Code Tele Est Pt Level 3 (81851) Diagnoses Menopause Z78.0
--- OUTSIDE RECORDS SUMMARY | 2025-04-27 16:14 | XMS_ITS | Clinical Summary ---
Author Organization [facility] Address [address] [address] Phone Care Team Providers Care Steno Pool Supervisor Name Role Phone Matt Neves Primary Care [...] 10/05/2024 Are you denied basic needs s [facility] as food, clothing, or medical care? [...] 11/13/2008 ZOSTER VACCINES (1 of 2) 11/13/2013 INFLUENZA VACCINE (#1) 2025 COVID-19 VACCINE (2024-2 6 season) 2025 04/24/2022, 10/21/2020, 09/21/2020 Adult Td,Tdap Booster 04/30/2029 [...] topic Medical Devices Not on file Insurance LIBERTYENSE NON NSPG PCP SILVER CLARITY CONNECTORCARE [facility] NON NSPG PCP SILVER CLARITY CONNECTORCARE LIBERTYENSE NON NSPG PCP SILVER CLARITY CONNECTORCARE LIBERTYENSE NON NSPG PCP SILVER CLARITY CONNECTORCARE LIBERTYENSE NON NSPG PCP SILVER CLARITY CONNECTORCARE LIBERTYENSE NON NSPG PCP SILVER CLARITY CONNECTORCARE Care Teams Steno Pool Supervisor Relationship Specialty Start Date End Date Matt Neves PA [address] [place] [address] PCP - General 04/12/20 Additional Source Comments The information contained in this document represents components of the legal health record. It is not the complete legal health record.[facility]
--- OUTSIDE RECORDS SUMMARY | 2025-04-27 16:14 | XMS_ITS | Encounter Summary ---
Author Organization [facility] Address [address] [facility] [address] [place] [address] Phone Care Team Providers Care Heliotherapist Name Role Phone Matt Neves Primary Care Provider + Encounter Details Date Type Department Care Team (Latest Contact Info) Description 09/02/2021 Transcribe Orders Virtual Department [address] [place] [address] Jory Charles, KEITH [address] [facility] [address] [place] [address] Encounter for laboratory testing for COVID-19 virus [...] be available within 24 to 48 hrs. [facility] Symptomatic? YES [facility] Other 09/03/2021 1:28 PM EST 09/03/2021 6:27 PM EST Jory Charles PAY STATION COLLECTOR BODY FLUIDS AND STOOLS ORDERAB LES Final Result [facility] [address] [place] [address] [facility] [address] [place] [id number] documented in this encounter Visit Diagnoses Diagnosis [...] documented as of this encounter Care Teams Heliotherapist Relationship Specialty Start Date End Date Matt Neves PA [address] [place] [id number] PCP - General 04/12/20 documented as of this encounter Additional Source Comments The information contained in this document represents components of the legal health record. It is not the complete legal health record.[facility]
== END 2025-04-27 15:30 | disposition home or self-care (01) ==
LOC: HO.HWS 15:00
PROVIDERS: PCP Physician Assistant; Visit Provider Obstetrics & Gynecology
DX: Z78.0 Asymptomatic menopausal state (principal)
CPT/HCPCS: 99213

== ENCOUNTER 2025-05-04 10:11 | Outpatient (AMB) | payer OTHER, SELFPAY ==
--- NOTE | 2025-05-04 10:12 | MHC.OFFVIS ---
Vital Signs 05/04/25 10:16 Height 5 ft 7 in Weight 153 lb 6 oz BMI 24.0 BP 125/78 Blood Pressure Location Lt brachial Position Sitting Pulse 96 Pulse Source Pulse Oximeter Pulse Oximetry (%) 100 Oxygen Delivery Method Room Air Intake Visit Reasons: follow up Intake Note: Pain today 04/04 Chemist Assistant Required: No Accompanied by: Self / Same As Patient Allergies ciprofloxacin (From CIPRO) Allergy (Unknown, Verified 05/04/25 10:17) UNKNOWN gluten (GLUTEN) Allergy (Unknown, Verified 05/04/25 10:17) ABD PAIN penicillin V Allergy (Unknown, Verified 05/04/25 10:17) hives Penicillins (PENICILLINS) Allergy (Unknown, Verified 05/04/25 10:17) HIVES Sulfa (Sulfonamide Antibiotics) (SULFA (SULFONAMIDE ANTIBIOTICS)) Allergy (Unknown, Verified 05/04/25 10:17) RASH amitriptyline Adverse Reaction (Intermediate, Verified 05/04/25 10:17) Depression influenza virus vacc trivalent, spl Adverse Reaction (Intermediate, Verified 05/04/25 10:17) illness sumatriptan Adverse Reaction (Intermediate, Verified 05/04/25 10:17) Chest Pain HPI Comments Details: The patient is a 59-year-old female presenting with chronic back pain, which she reports as more severe than her neck pain. The back pain is primarily located on the right side and has been persistent, with a specific spot that hurts all the time. The pain occasionally extends to the buttocks, which started during a trip to [place], and she has been trying to manage it with stretching and topical applications. The patient denies significant radiation of the pain to the legs, although she experiences numbness and tingling in her hands and feet, which she notes as a new symptom. She has been considering whether the symptoms could be related to sciatica but notes that the pain does not extend to the groin or down the legs. The patient has a history of scoliosis, degenerative disc disease, and arthritis, which have been confirmed by previous x-rays. She has been taking various supplements, including magnesium and vitamin D, and has recently started calcium supplementation. Denies any recent cough, cold, infection, fever or any significant changes in medical history since last office visit. PRIOR: Patient presents today for follow up to discuss recent cervical spine MRI results. Back pain, noted as more severe than neck pain, predominantly affects the lower lumbar region. Scoliosis and lumbar spondylosis were diagnosed via X-ray, identifying multilevel arthritis contributing to the patient?s pain profile. Sitting for prolonged periods intensifies this discomfort, leading to severe cramps and muscle spasms. Activities that involve standing and bending are also affected, although relief is found with therapeutic measures such as heat application and Capsaicin patches. The patient described how these musculoskeletal challenges impact functionality at work, especially when maintaining an upright posture for extended times. She is interested to pursue interventional treatments for axial low back pain but requires completion of physical therapy per her insurance requirements. PRIOR: The patient is a pleasant 59-year-old female presenting with chronic low back and neck pain, persisting since 2018, interferes with mobility and daily activities. Pain management attempts include heat patches, physical activity, and medications (baclofen, Ibuprofen, OTC magnesium and anti-inflammatory supplements), but with limited success. Neck pain, attributed to cervical arthritis and degenerative changes, is coupled with headaches exacerbated post-COVID in 2020. Past treatments, including physical therapy, have been partially effective. The patient is also facing recurrent bladder infections, hematuria, and urological assessment in conjunction with degenerative pain challenges. The functional status is impacted, complicating consistent everyday activity management. - Onset and Timing: Chronic low back pain since 2018, chronic neck pain exacerbated [id number] in early 2020. - Quality and Character: Persistent, aching, sharp, tugging, pulling, cramping, tight pain in the low back and neck. - Primary Location: Low back and neck. - Radiation: Pain localized without radiation into the extremities. - Exacerbating Factors: Sitting, typical motions, walking, aggravation upon backward bending and range of motions. - Relieving Factors: Heat patches, rest, physical exercises, partial relief with medications. - Interference with Activities: Mobility limitations, challenges in everyday activities including work duties. - Affect: Pain affecting mobility and daily functionality, underscores frustration. - Analgesia: Utilizes ibuprofen and muscle relaxants with heat patches, aiming for adequate relief. - Adverse Effects: Not explicitly stated, concern with recurrent ibuprofen usage. - Activities of Daily Living: Pain limits physical activities, affects work-life balance that demands active movements. - Aberrant Drug Related Behaviors: None reported. Oswestry Low Back Pain Disabiliy Score=18 (moderate disability) [facility] Medical History Adrenal adenoma Herpes Diverticulosis Retention of urine HTN (hypertension) Celiac disease Sinus infection Surgical History [place] teeth removed History of esophagogastroduodenoscopy (EGD) Hx of colonoscopy History of hysterectomy History of breast lump/mass excision History of removal of cyst History of section History of tonsillectomy Family History Father CAD (coronary artery disease) Skin cancer Prostate cancer Mother CHF (congestive heart failure) Diabetes Guillain-[place] Son Prader-Willi syndrome Son Muscular dystrophy Son Celiac disease Social History Household Members: Significant Other Housing: House Alcohol intake: current Alcohol intake frequency: holidays/special occasions only Comment: medicated at 1420 Patient Tobacco Use Status: Former Tobacco user Tobacco use type: Cigarette e-Cigarette/Vaping Use: Never Used Second Hand Smoke Exposure: No service: No Current occupational status: employed Current occupation: [employer] Cognitive needs: No Hearing needs: No Vision needs: Yes Review of Systems Const Details: - Musculoskeletal: Reports chronic back pain primarily on the right side, occasional extension to the buttocks. - Neurological: Reports numbness and tingling in hands and feet, denies radiation of pain to legs. All systems reviewed & are unremarkable except as noted in HPI and below Physical Exam Vital Signs: Last Vital Signs Pulse 96 05/04/25 10:16 BP 125/78 05/04/25 10:16 Pulse Ox 100 05/04/25 10:16 Oxygen Delivery Method Room Air 05/04/25 10:16 BMI result Body Mass Index 24.0 General: Appears afebrile. Alert and oriented. Mood and affect appropriate. Follows and participates in conversation appropriately. Respiratory effort is unlabored. No cough. Able to transition from sit to stand unassisted. Ambulates with bilaterally normal heel strike and toe off. General: Yes no CVA tenderness Back/Spine/Pelvis Other: Limited lumbar ROM due to pain. Lumbar extension reproduces moderate to severe pain. Flexion is intact and reproduces mild pain. Demonstrates 5/5 strength of quadriceps bilaterally as well as flexion/dorsiflexion of bilateral feet against resistance. 2+ pedal pulses bilaterally. Straight leg rise with dorsiflexion negative bilaterally. +2 patellar and achilles reflexes bilaterally. Facet loading test positive bilaterally. Mat sign, Javier?s, and Stinchfield tests are negative bilaterally. No groin pain with I/E hip rotations. Valsalva maneuver negative. Back: no CVA tenderness Cervical Spine: loss of normal cervical lordosis, cervical muscular tenderness, pain with cervical ROM, No Cervical spine scars present, No Cervical spine tenderness and No step off deformity Thoracic/Lumbar Spine: thoracic and lumbar spine normal to inspection, No Thoracic/lumbar spine scar(s), Lasegue's sign negative, straight leg raise negative bilaterally, pain with thoraco-lumbar ROM, paraspinal muscle tenderness, thoraco-lumbar ROM limited, No thoracic spinal tenderness and lumbar spinal tenderness (L3-S1) Pelvis: no buttock tenderness Sacroiliac joints: bilaterally nontender Extrem General: Yes capillary refill normal, Yes no clubbing, cyanosis or edema and Yes no calf tenderness Results Reviewed Results Reviewed: XR LUMBOSACRAL SPINE 11/18/24 FINDINGS: Levoconvex rotoscoliosis apex at L3. Endplate sclerosis decreased intervertebral disc height and marginal osteophyte formation, L3-4 and to a lesser extent L2-3 and L1-2 levels. No acute cortical disruption or gross malalignment. No lytic or blastic lesions. IMPRESSION: Levoconvex rotoscoliosis and multilevel spondylosis. Slight worsening since prior examination. XR CERVICAL SPINE 11/18/24 FINDINGS: Marginal osteophyte formation and endplate sclerosis and decreased intervertebral disc height at C4-5 and C5-6 level. Grade 1 retrolisthesis C4-5. Reverse curvature apex at C4. Upper airway is patent. Right neuroforamina narrowing secondary to marginal osteophyte formation C4-5 and C5-6 level. Left neuroforamina narrowing C4-5 secondary to marginal osteophyte formation. Craniocervical junction is intact. IMPRESSION: Cervical spondylosis C4-5 and C5-6 level resulting in neuroforamina stenosis/narrowing and grade 1 retrolisthesis at C4-5. MR CERVICAL SPINE WITHOUT CONTRAST 12/26/24 CLINICAL INFORMATION: Cervicalgia. COMPARISON: None available. TECHNIQUE: MRI of the cervical spine was obtained using routine sequences without contrast. FINDINGS: Craniocervical junction is intact with normal alignment. There is a borderline position of the cerebellar tonsils in the foramen magnum.. No bone marrow STIR signal abnormality. Grade 1 retrolisthesis, C4-5 and C5-6 level. Grade 1 anterolisthesis C7-T1. Marginal osteophyte formation and disc desiccation, C4-5 and C5-6 level. There is buckling deformity of the dorsal aspect of the thecal sac secondary to ligamentum flavum hypertrophy at C4-5 and C5-6 level. C2-3: No disc herniation. No neuroforamina stenosis. C3-4: No disc herniation. No neuroforamina stenosis. C4-5: Broad-based disc osteophyte compresses formation abutting the cord. No cord signal abnormality. Bilateral left greater than right neuroforamina narrowing/stenosis. C5-6: Broad-based disc osteophyte compresses formation abutting the cord. No cord signal abnormality. No neuroforamina stenosis. C6-7: No disc herniation. No neuroforamina stenosis. C7-T1: No disc herniation. No neuroforamina stenosis. No prevertebral compartment hematoma, mass or fluid collection. Flow-void signal within the main vessels is normal. Codominant vertebral arteries. IMPRESSION: Cervical spondylosis C4-5 and to a lesser extent C5-6 abutting the cord without cord compression, cord edema and or myelopathy. Bilateral neuroforamina narrowing/stenosis on a degenerative basis at C4-5. Assessment & Plan Assessment & Plan (1) Cervicalgia: Code(s): M54.2 - Cervicalgia Category: Medical (2) Rotoscoliosis: Code(s): M41.80 - Other forms of scoliosis, site unspecified Category: Medical (3) Lumbosacral spondylosis: Code(s): M47.817 - Spondylosis without myelopathy or radiculopathy, lumbosacral region Category: Medical (4) Cervical spondylosis: Code(s): M47.812 - Spondylosis without myelopathy or radiculopathy, cervical region Category: Medical (5) Lumbar degenerative disc disease: Code(s): M51.369 - Other intervertebral disc degeneration, lumbar region without mention of lumbar back pain or lower extremity pain Category: Medical Plan The plan includes initiating physical therapy for chronic neck and back pain. Diagnostic lumbar injections are planned to assess the pain's response and consider further interventions such as radiofrequency ablation or Sprint PNS trial if necessary. Schedule diagnostic bilateral L3-L4 DR L5 medial branch blocks with local and fluoroscopy. Expectations, risks and benefits were reviewed. Patient is aware she will be contacted to schedule this procedure. A bone density test is recommended to evaluate for osteoporosis, given the patient's history of celiac disease and potential risk factors. The patient is encouraged to continue dietary management. All questions and concerns have been answered and patient agreed with the treatment plan. Follow up after injections and sooner as needed. Patient was informed and verbally consented to the use of an ambient scribe for clinic note documentation during this visit. Orders: Orders PT Evaluation and Treatment Today M41.80 - Other forms of scoliosis, site unspecified, M47.812 - Spondylosis without myelopathy or radiculopathy, cervical region, M47.817 - Spondylosis without myelopathy or radiculopathy, lumbosacral region, M51.369 - Other intervertebral disc degeneration, lumbar region without mention of lumbar back pain or lower extremity pain, M54.2 - Cervicalgia Coding Level of Care Code Est Pt Level 4 (82201) Complex EM visit Add On G2211 Diagnoses Cervicalgia M54.2 Rotoscoliosis M41.80 Lumbosacral spondylosis M47.817 Cervical spondylosis M47.812 Lumbar degenerative disc disease M51.369
[2025-05-04 10:16] VITALS: BP 125/78; PULSE 96; O2SAT 100; BMI 24.0
--- OUTSIDE RECORDS SUMMARY | 2025-05-04 11:54 | XMS_ITS | Clinical Summary ---
Author Organization [facility] Address [address] [address] Phone Care Team Providers Care Print Production Manager Name Role Phone Matt Neves Primary [...] 10/05/2024 Are you denied basic needs [facility] as food, clothing, or medical care? [...] topic Medical Devices Not on file Insurance [employer] NON NSPG PCP [employer] [facility] NON NSPG PCP [employer] NON NSPG PCP [employer] NON NSPG PCP [employer] NON NSPG PCP S[employer] NON NSPG PCP [employer] Care Teams Print Production Manager Relationship Specialty Start Date End Date Matt Neves PA [address] [place] [address] PCP - General 04/12/20 Additional Source Comments The information contained in this document represents components of the legal health record. It is not the complete legal health record.[facility]
--- OUTSIDE RECORDS SUMMARY | 2025-05-04 11:54 | XMS_ITS | Encounter Summary ---
Author Organization [facility] Address [address] [facility] [address] [place] [address] Phone Care Team Providers Care Metal Sorter Name Role Phone Matt Neves Primary Care Provider + Encounter Details Date Type Department Care Team (Latest Contact Info) Description 09/02/2021 Transcribe Orders Virtual Department [address] [place] [address] Jory Charles, KEITH [address] Simona [facility] [address] [place] [address] Encounter for laboratory testing for COVID-19 virus [...] be available within 24 to 48 hrs. [facility] Symptomatic? YES [facility] Other 09/03/2021 1:28 PM EST 09/03/2021 6:27 PM EST Jory Charles PROPERTY ADMINISTRATOR BODY FLUIDS AND STOOLS ORDERAB LES Final Result [facility] [address] [place] [address] [facility] [address] [place] [id number] documented in this encounter Visit Diagnoses Diagnosis [...] documented as of this encounter Care Teams Metal Sorter Relationship Specialty Start Date End Date Matt Neves PA [address] [place] [id number] PCP - General 04/12/20 documented as of this encounter Additional Source Comments The information contained in this document represents components of the legal health record. It is not the complete legal health record.[facility]
== END 2025-05-04 10:34 | disposition home or self-care (01) ==
LOC: HO.PMC 10:12
PROVIDERS: PCP Physician Assistant; Visit Provider Nurse Practitioner Family
DX: M54.2 Cervicalgia (principal); M41.80 Other forms of scoliosis, site unspecified; M47.817 Spondylosis without myelopathy or radiculopathy, lumbosacral region; M47.812 Spondylosis without myelopathy or radiculopathy, cervical region; M51.369 Other intervertebral disc degeneration, lumbar region without mention of lumbar back pain or lower extremity pain
CPT/HCPCS: 99214

== ENCOUNTER → 2025-05-04 10:11 | Outpatient (BNVA) | payer OTHER, SELFPAY | PROVIDERS: PCP Physician Assistant; Visit Provider Nurse Practitioner Family | DX: M54.2 Cervicalgia (principal); M41.80 Other forms of scoliosis, site unspecified; M47.817 Spondylosis without myelopathy or radiculopathy, lumbosacral region; M47.812 Spondylosis without myelopathy or radiculopathy, cervical region; M51.369 Other intervertebral disc degeneration, lumbar region without mention of lumbar back pain or lower extremity pain | CPT/HCPCS: 99212 ==

== ENCOUNTER 2025-05-10 10:59 | Outpatient (AMB) | payer OTHER, SELFPAY ==
[2025-05-10 11:23] VITALS: BP 140/70; PULSE 85; O2SAT 96; BMI 24.0
--- NOTE | 2025-05-10 11:23 | A.OFFPC_ITS ---
Vital Signs 05/10/25 11:23 Height 5 ft 7 in Weight 153 lb 4 oz BMI 24.0 BP 140/70 H Blood Pressure Location Lt brachial Position Sitting Pulse 85 Pulse Source Pulse Oximeter Pulse Oximetry (%) 96 Oxygen Delivery Method Room Air Intake Visit Reasons: 6 Month F/U Exploration Driller Required: No Accompanied by: Self / Same As Patient Allergies ciprofloxacin (From CIPRO) Allergy (Unknown, Verified 05/10/25 11:37) UNKNOWN gluten (GLUTEN) Allergy (Unknown, Verified 05/10/25 11:37) ABD PAIN penicillin V Allergy (Unknown, Verified 05/10/25 11:37) hives Penicillins (PENICILLINS) Allergy (Unknown, Verified 05/10/25 11:37) HIVES Sulfa (Sulfonamide Antibiotics) (SULFA (SULFONAMIDE ANTIBIOTICS)) Allergy (Unknown, Verified 05/10/25 11:37) RASH amitriptyline Adverse Reaction (Intermediate, Verified 05/10/25 11:37) Depression influenza virus vacc trivalent, spl Adverse Reaction (Intermediate, Verified 05/10/25 11:37) illness sumatriptan Adverse Reaction (Intermediate, Verified 05/10/25 11:37) Chest Pain Medication List - Last Reconciled 05/10/25 by Matt Neves PA-C baclofen 10 mg PO TID PRN 30 days hohcufyrij-czagvhmpuulgm-hbbb 50-325-40 mg 1 tab PO Q6H PRN 30 days estradiol (Yuvafem) 10 mcg vaginal 2XW 4 weeks fluticasone propionate 50 mcg/actuation (Flonase Allergy Relief) 2 sprays intranasal DAILY 30 days galcanezumab-gnlm (Emgality Pen) 120 mg subcut QMONTH 1 month magnesium oxide 400 mg PO BEDTIME 30 days Tobacco use date assessed: 05/10/25 Dental Screening Dental Screen Date: 05/10/25 Did you have a dental visit in the last 12 months?: Yes Did you have a dental problem in the last 6 months where you did not have access to dental care?: No Was dental information given to patient?: Patient has dentist HPI 6 Month F/U HPI Details Patient is a 59-year-old female here today for follow-up visit ? Patient has a past medical history significant for hypertension, migraines, Celiac disease, chronic cystitis. celiac disease--> has generally been doing well .continues to follow specific celiac specific celiac stat diet and supplement with vitamin Noted some slight decreased protein in her most recent labs thus patient has been using supplemental protein shakes and has been feeling better. Even reported lower frequency of her migraines Normocytic Anemia:? The patient has a history of normocytic anemia, with recent blood work showing a red blood cell count of 3.8 and a hematocrit of 35.4, while hemoglobin remains normal at 12.1. She has been taking ftxc-rzc-fsgnwix iron supplements but is unsure of their efficacy. The anemia is suspected to be related to her celiac disease, which she has been managing by avoiding gluten. .. Migraines--IS FOLLOWED BY NEUROLOGY. She is now on injectable therapy Emgality for her migraines. She reports she still has migraines several times a week. She is hopeful that the Emgality will take an affect on reducing frequency of her migraines. .. HTN: Has been managing her blood pressure with lifestyle and dietary modifications. She was previously on blood pressure medication though not at this point. Laboratory Tests 07/26/23 03/20/24 03/26/25 11:19 11:35 11:51 RBC 3.99 L 4.02 L 3.87 L Creatinine 0.64 Magnesium 2.0 Vitamin B12 506 391 Folate 5.3 PFSH Medical History Adrenal adenoma Herpes Diverticulosis Retention of urine HTN (hypertension) Celiac disease Sinus infection Surgical History [place] teeth removed History of esophagogastroduodenoscopy (EGD) Hx of colonoscopy History of hysterectomy History of breast lump/mass excision History of removal of cyst History of section History of tonsillectomy Family History Father CAD (coronary artery disease) Skin cancer Prostate cancer Mother CHF (congestive heart failure) Diabetes Guillain-Rhodes Son Prader-Willi syndrome Son Muscular dystrophy Son Celiac disease Social History Household Members: Significant Other Housing: House Alcohol intake: current Alcohol intake frequency: holidays/special occasions only Comment: medicated at 1420 Patient Tobacco Use Status: Former Tobacco user Tobacco use type: Cigarette e-Cigarette/Vaping Use: Never Used Second Hand Smoke Exposure: No service: No Current occupational status: employed Current occupation: [employer] Cognitive needs: No Hearing needs: No Vision needs: Yes Questionnaire PHQ-9 Over the last 2 weeks, how often have you been bothered by any of the following problems? 1. Little interest or pleasure in doing things: not at all 2. Feeling down, depressed, or hopeless: not at all 3. Trouble falling or staying asleep, or sleeping too much: not at all 4. Feeling tired or having little energy: not at all 5. Poor appetite or overeating: not at all 6. Feeling bad about yourself - or that you are a failure or have let yourself or your family down: not at all 7. Trouble concentrating on things, such as reading the newspaper or watching television: not at all 8. Moving or speaking so slowly that other people could have noticed. Or the opposite - being so fidgety or restless that you have been moving around a lot more than usual: not at all 9. Thoughts that you would be better off or of hurting yourself in some way: not at all Total score: 0 52055 - PHQ-9 Billing: Yes Source: Developed by Drs. Reynaldo Hampton, Yjaaira Villanueva, Sina Nj and colleagues, with an educational anjali from [employer]. Thrive Questionnaire Date Thrive assessed: 05/04/25 I am a: Patient What is your living situation today?: I have a steady place to live Within the past 12 months, did the food you bought not last and you didn't have the money to get more?: Never true Within the past 12 months, did you worry whether your food would run out before you got money to buy more?: Never true Do you have trouble paying for medicines?: No Do you have trouble getting transportation to medical appointments?: No Do you have trouble paying your heating and electricity bill?: No Do you have trouble taking care of your child, family member or friend?: No Do you have trouble with day-to-day activities such as bathing, preparing meals, shopping, managing finances, etc.?: No Are you currently unemployed and looking for a job?: No Are you interested in more education?: No Please select the resources that you would like help with: None Currently or been in a relationship where the following occur: I choose not to answer THRIVE Score: 0 AUDIT C Alcohol Use Questionnaire (AUDIT-C) 1. How often do you have a drink containing alcohol?: Never 3. How often do you have six or more drinks on one occasion?: Never Total Score: 0 BENJAMIN-7 AMB Questionnaire BENJAMIN-7 Date BENJAMIN - 7 assessed: 11/02/24 Feeling nervous, anxious, or on edge: 0 = Not at all Not being able to stop or control worryin = Not at all Worrying too much about different things: 0 = Not at all Trouble relaxin = Not at all Being so restless that it is hard to sit still: 0 = Not at all Becoming easily annoyed or irritable: 0 = Not at all Feeling afraid as if something awful might happen: 0 = Not at all Total BENJAMIN-7 score (0-4 normal; 5-9 mild; 10-14 moderate; 15-21 severe): 0 Source: Developed by Drs. Reynaldo Hampton, Yajaira Villanueva, Sina Nj and colleagues, with an educational anjali from [employer]. Review of Systems Const Denies headache(s) Eyes Denies loss of vision ENT Denies vertigo, Denies dizziness, Denies headache(s) and Denies sore throat Card Denies chest pain, Denies leg edema and Denies lightheadedness Resp Denies cough, Denies hemoptysis and Denies wheezing GI Denies abdominal pain, Denies melena, Denies constipation, Denies diarrhea, Reports nausea and Denies vomiting Denies urinary frequency, Denies dysuria and Denies urinary urgency Musc Denies arthralgias, Denies joint swelling, Denies numbness and Denies tingling Neuro Denies Abnormal speech present, Denies behavioral changes, Denies vertigo, Denies dizziness, Denies headache(s), Denies loss of vision, Denies memory loss, Denies numbness and Denies tingling Psych Denies anxiety, Denies behavioral changes, Denies depression, Denies memory loss and Denies panic attacks Ravi/Lymph Denies easy bleeding and Denies easy bruising Aller/Immun Denies wheezing Physical exam (Primary Care) Vital Signs: Last Vital Signs Pulse 85 05/10/25 11:23 BP 140/70 H 05/10/25 11:23 Pulse Ox 96 05/10/25 11:23 Oxygen Delivery Method Room Air 05/10/25 11:23 BMI result Body Mass Index 24.0 Tobacco/Smoking Status: Tobacco use Status Tobacco use date assessed 05/10/25 05/10/25 11:31 Patient Tobacco Use Status Former Tobacco user 05/10/25 11:31 Tobacco use type Cigarette 05/10/25 11:31 e-Cigarette/Vaping Use Never Used 05/10/25 11:31 PHQ-9: PHQ-9 Score PHQ-9: Total score 0 05/10/25 11:40 Thrive Assessment: Date of Thrive Assessment Date Thrive assessed 05/04/25 05/10/25 11:31 Currently or been in a relationship where the following occur: I choose not to answer Const General: healthy appearing, no acute distress, alert and awake Nutritional Appearance: well nourished Orientation/consciousness: oriented to person, oriented to place and oriented to time HENMT Ears: TM's normal bilaterally General nose exam: Normal nasal mucous membranes and turbinates present Eyes Conjunctivae: conjunctivae normal Sclerae: sclerae normal Pupils: Equal, round and reactive pupils present Neck Neck: Yes no lymphadenopathy and Yes no JVD Thyroid: Thyroid normal Carotids: no bruits Resp Effort & Inspection: normal respiratory effort and not tachypneic Auscultation: no crackles, no rales, no rhonchi and no wheezes Cardio Rate: regular rate Rhythm: regular rhythm Heart sounds: no murmurs and normal S1 and S2 GI Palpation (GI): Soft to palpation, nontender, no hepatomegaly and no splenomegaly Auscultation: normal bowel sounds Skin General skin exam: no rashes or lesions noted and dry skin Neuro General: oriented to person, oriented to place and oriented to time Cranial nerves: Yes Equal, round and reactive pupils present Speech: No Abnormal speech present Gait exam (Neuro): Normal gait present Motor exam (neuro): no tremor noted Extrem Right upper extremity: full ROM Left upper extremity: full ROM Right lower extremity: full ROM; no edema Left lower extremity: full ROM; no edema Psych Mental Status: mental status grossly normal Speech and movement: Normal speech and movement present Affect: normal affect Attitude: cooperative Thought process: Normal thought process present Coding Level of Care Code Est Pt Level 4 (60997) Diagnoses Iron deficiency anemia due to chronic blood loss D50.0 Anemia type: iron deficiency Iron deficiency anemia type: chronic blood loss Primary hypertension I10 Hypertension type: primary hypertension Celiac disease K90.0 Migraine without aura and with status migrainosus, not intractable G43.001 Migraine type: migraine (< 15 days per month) without aura Status migrainosus presence: with status migrainosus Intractability: not intractable Additional Codes PHQ-9 - 26420 - PHQ-9 Billing: Yes ([id number]) Assessment & Plan Assessment & Plan (1) Anemia: Code(s): D64.9 - Anemia, unspecified Category: Medical Qualifiers: Anemia type: iron deficiency Iron deficiency anemia type: chronic blood loss Qualified Code(s): D50.0 - Iron deficiency anemia secondary to blood loss (chronic) Plan: The patient has normocytic anemia with a red blood cell count of 3.8 and hematocrit of 35.4, while hemoglobin is normal at 12.1. The anemia is suspected to be related to her celiac disease, and she has been taking kzfj-biw-emvdval iron supplements. Further evaluation of the anemia is necessary to determine the underlying cause and appropriate management. (2) HTN (hypertension): Code(s): I10 - Essential (primary) hypertension Category: Medical Qualifiers: Hypertension type: primary hypertension Qualified Code(s): I10 - Essential (primary) hypertension Plan: Patient's blood pressure acceptable today in office. Not on any antihypertensive medication in his able to control her blood pressure with diet and exercise. (3) Celiac disease: Code(s): K90.0 - Celiac disease Category: Medical Plan: The patient manages her celiac disease by adhering to a strict gluten-free diet. She experiences nausea and joint pain, which may be associated with her condition. (4) Migraine: Code(s): G43.909 - Migraine, unspecified, not intractable, without status migrainosus Category: Medical Qualifiers: Migraine type: migraine (< 15 days per month) without aura Status migrainosus presence: with status migrainosus Intractability: not intractable Qualified Code(s): G43.001 - Migraine without aura, not intractable, with status migrainosus Plan: Patient followed by Neurology, has been started on Emgality recently in his awaiting for her to take a effect. She still does use ibuprofen and Fioricet from time to time for her migraines as well. She is unclear to a exact trigger to her migraines at this time though could be multifactorial including GI celiac issues, stress ect.. Orders: Orders Complete Blood Count no Diff 05/10/25 D64.89 - Other specified anemias Vitamin D 25-OH Total 05/10/25 D64.89 - Other specified anemias XR DEXA axial skeleton 05/10/25 Z78.0 - Asymptomatic menopausal state MM tomosynthesis screening BI 05/10/25 Z12.31 - Encounter for screening mammogram for malignant neoplasm of breast Vitamin B12 and Folate 05/10/25 D64.89 - Other specified anemias, E53.8 - Deficiency of other specified B group vitamins Comprehensive [place]. Panel Fast 05/10/25 I10 - Essential (primary) hypertension Medications: New ondansetron 4 mg PO Q8H PRN 21 tabs 0RF nausea and vomiting 7 days
--- OUTSIDE RECORDS SUMMARY | 2025-05-10 14:44 | XMS_ITS | Clinical Summary ---
Author Organization [facility] Address [address] [address] Phone Care Team Providers Care Filter Worker Name Role Phone Matt Neves Primary Care [...] 10/05/2024 Are you denied basic needs s [facility] as food, clothing, or medical [...] topic Medical Devices Not on file Insurance [employer] NON [place]SPG PCP [employer] [facility] NON NSPG PCP SIL[employer] NON NSPG PCP SILVER [employer] CONNE[employer] NON NSPG PCP SILVER [employer]ITY CONNE[employer] NON NSPG PCP SILVER [employer] CONNE[employer] NON NSPG PCP [employer] Care Teams Filter Worker Relationship Specialty Start Date End Date Matt Neves PA [address] [place] [address] PCP - General 04/12/20 Additional Source Comments The information contained in this document represents components of the legal health record. It is not the complete legal health record.[facility]
--- OUTSIDE RECORDS SUMMARY | 2025-05-10 14:44 | XMS_ITS | Encounter Summary ---
Author Organization Located Within [facility] Address [address] [facility] [address] [place] [address] Phone Care Team Providers Care Cash Crop Farmer Name Role Phone Matt Neves Primary Care Provider + Encounter Details Date Type Department Care Team (Latest Contact Info) Description 09/02/2021 Transcribe Orders Virtual Department [address] [place] [address] Jory Charles, KEITH [address] [facility] [address] [place] [address] Encounter for laboratory testing for COVID-19 virus [...] be available within 24 to 48 hrs. [facility] Symptomatic? YES [facility] Other 09/03/2021 1:28 PM EST 09/03/2021 6:27 PM EST us Jory Charles FOUNTAIN CLERK [employer] STOOLS ORDERAB LES Final Result [facility] [address] [place] [address] [facility] [address] [place] [phone] documented in this encounter Visit Diagnoses Diagnosis [...] documented as of this encounter Care Teams Cash Crop Farmer Relationship Specialty Start Date End Date Matt Neves PA [address] [place] [id number] PCP - General 04/12/20 documented as of this encounter Additional Source Comments The information contained in this document represents components of the legal health record. It is not the complete legal health record.[facility]
== END 2025-05-10 12:03 | disposition home or self-care (01) ==
LOC: HO.HMCH 11:01
PROVIDERS: PCP Physician Assistant; Visit Provider Physician Assistant
DX: D50.0 Iron deficiency anemia secondary to blood loss (chronic) (principal); I10 Essential (primary) hypertension; K90.0 Celiac disease; G43.001 Migraine without aura, not intractable, with status migrainosus

== ENCOUNTER → 2025-05-10 10:59 | Outpatient (BNVA) | payer OTHER, SELFPAY | PROVIDERS: PCP Physician Assistant; Visit Provider Physician Assistant | DX: K90.0 Celiac disease (principal); D50.0 Iron deficiency anemia secondary to blood loss (chronic); I10 Essential (primary) hypertension; G43.001 Migraine without aura, not intractable, with status migrainosus; D64.89 Other specified anemias; E53.8 Deficiency of other specified B group vitamins; Z78.0 Asymptomatic menopausal state | CPT/HCPCS: 96127; 99212 ==

== ENCOUNTER 2025-05-13 11:15 | Outpatient (AMB) | payer OTHER, SELFPAY ==
[2025-05-13 11:19] VITALS: BP 110/70; PULSE 93; O2SAT 97; BMI 22.7
--- NOTE | 2025-05-13 11:19 | A.OFFVIS_ITS ---
Vital Signs 05/13/25 11:19 Height 5 ft 7 in Weight 145 lb BMI 22.7 BP 110/70 Blood Pressure Location Lt brachial Position Sitting Pulse 93 Pulse Source Pulse Oximeter Pulse Oximetry (%) 97 Oxygen Delivery Method Room Air Intake Visit Reasons: 6 mnts f/u appt Intake Note: Patient presents follow up Migraine Ep Specialist Required: No Accompanied by: Self / Same As Patient Allergies ciprofloxacin (From CIPRO) Allergy (Unknown, Verified 05/13/25 11:22) UNKNOWN gluten (GLUTEN) Allergy (Unknown, Verified 05/13/25 11:22) ABD PAIN penicillin V Allergy (Unknown, Verified 05/13/25 11:22) hives Penicillins (PENICILLINS) Allergy (Unknown, Verified 05/13/25 11:22) HIVES Sulfa (Sulfonamide Antibiotics) (SULFA (SULFONAMIDE ANTIBIOTICS)) Allergy (Unknown, Verified 05/13/25 11:22) RASH amitriptyline Adverse Reaction (Intermediate, Verified 05/13/25 11:22) Depression influenza virus vacc trivalent, spl Adverse Reaction (Intermediate, Verified 05/13/25 11:22) illness sumatriptan Adverse Reaction (Intermediate, Verified 05/13/25 11:22) Chest Pain Medication List - Last Reconciled 05/13/25 by Jackie Gomes, JOSHUA baclofen 10 mg PO TID PRN 30 days unoshyyykq-fwttiezucxylh-suod 50-325-40 mg 1 tab PO Q6H PRN 30 days estradiol (Yuvafem) 10 mcg vaginal 2XW 4 weeks fluticasone propionate 50 mcg/actuation (Flonase Allergy Relief) 2 sprays intr anasal DAILY 30 days galcanezumab-gnlm (Emgality Pen) 120 mg subcut QMONTH 1 month magnesium oxide 400 mg PO BEDTIME 30 days ondansetron 4 mg PO Q8H PRN 7 days tobramycin 0.3% 1 drp ophthalmic (eye) Q4H 7 days HPI Comments Details: 59-year-old female presents for follow-up of migraine. She is working with pain management to treat low back pain in the setting of scoliosis, focusing on obtaining lumbar injections. She has also reached out to her PCP to request a follow-up bone density scan, as he last one was at the time of her celiac diagnosis, which showed early osteopenia. She is trying to be more consistent with routine exercise. Reports she is concerned about the high co-pay cost of starting PT. 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 She started Emgality at the end of March, and so far is tolerating it well. She reports that headaches can be triggered by these types of stressors, but also by weather changes, and can just occur. She sometimes has to take 1-2 Fioricet for full effect. Baseline migraine characteristics: Age of onset: 55 Preceding causes: COVID-19 infection, mild Aggravating factors: Smells, gluten intake. Position changes can trigger dizziness. Prodrome symptoms: Unsure Aura: None Headache characteristics/severity: Holocranial and retroorbital throbbing headache. Prior to starting Propranol, rated headache pain as 10+/10, since starting Propranolol PETERSON is 5-9/10. Associated symptoms: Photophobia, phonophobia, osmophobia, nausea, increased (internal head spinning) dizziness, brain fog, mild irritability, activity intolerance. Denies any autonomic or focal weakness s/s. Postdrome: Unsure, as PETERSON is constant after onset PFSH Medical History Adrenal adenoma Herpes Diverticulosis Retention of urine HTN (hypertension) Celiac disease Sinus infection Surgical History [place] teeth removed History of esophagogastroduodenoscopy (EGD) Hx of colonoscopy History of hysterectomy History of breast lump/mass excision History of removal of cyst History of section History of tonsillectomy Family History Father CAD (coronary artery disease) Skin cancer Prostate cancer Mother CHF (congestive heart failure) Diabetes Guillain-Bittinger Son Prader-Willi syndrome Son Muscular dystrophy Son Celiac disease Social History Household Members: Significant Other Housing: House Alcohol intake: current Alcohol intake frequency: holidays/special occasions only Comment: medicated at 1420 Patient Tobacco Use Status: Former Tobacco user Tobacco use type: Cigarette e-Cigarette/Vaping Use: Never Used Second Hand Smoke Exposure: No service: No Current occupational status: employed Current occupation: [employer] Cognitive needs: No Hearing needs: No Vision needs: Yes Physical Exam Vital Signs: Last Vital Signs Pulse 93 05/13/25 11:19 BP 110/70 05/13/25 11:19 Pulse Ox 97 05/13/25 11:19 Oxygen Delivery Method Room Air 05/13/25 11:19 BMI result Body Mass Index 22.7 Const General: cooperative and no acute distress Orientation/consciousness: patient oriented x3 HEENT Head: Yes normocephalic Resp Effort & Inspection: normal respiratory effort and able to speak in complete sentences Neuro Other: Posterior cervical tightness General: patient oriented x3, gait normal and CN's II-XI intact bilaterally Cognition (Neuro): normal cognition Motor exam (neuro): 5/5 motor strength present throughout Psych Appearance: grossly normal Mental Status: mental status grossly normal Speech and movement: Normal speech and movement present Affect: normal affect Attitude: cooperative Thought process: Normal thought process present Assessment & Plan Assessment & Plan (1) Migraine: Code(s): G43.909 - Migraine, unspecified, not intractable, without status migrainosus Category: Medical Qualifiers: Migraine type: migraine (< 15 days per month) without aura Status migrainosus presence: with status migrainosus Intractability: not intractable Qualified Code(s): G43.001 - Migraine without aura, not intractable, with status migrainosus (2) Cervicalgia: Code(s): M54.2 - Cervicalgia Category: Medical (3) Rotoscoliosis: Code(s): M41.80 - Other forms of scoliosis, site unspecified Category: Medical (4) Myalgia: Code(s): M79.10 - Myalgia, unspecified site Category: Medical Plan For overall headache management: * Continue to optimize lifestyle factors that can contribute to headache burden, such as maintaining a regular sleep schedule, eating an overall healthy well- balanced diet, taking sufficient fluid intake, and engaging in regular physical activity as tolerated. 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 Information shared with her and motivational interviewing. For acute headache treatment: * May continue Fioricet sparingly as needed * May continue Ibuprofen 400-600 mg every 4-6 hours as needed. Previous acute medication use: Sumatriptan- caused chest pain within minutes. Rizatriptan- not tolerated. Future consideration: Gepant. ? For headache prevention medication: * Continue magnesium 400 mg daily at bedtime- especially as patient will be starting omeprazole to address residual gastritis symptoms status post recent norovirus infection. * Continue Emgality maintenance dose: 120mg (120mg/ml autoinjector) subcutaneous injection every month. * Important considerations for Emgality: * Emgality injection training educational video is available to view on [employer] * Store Emgality in the refrigerator in it's original packaging in order to protect from light. * Remove Emgality at least 1 hour prior to taking the injection. * Emgality can be left out of the fridge for?up to 7 days at a temperature not above 86?F. If either of these conditions are exceeded, then Emgality must be thrown away. * Once Emgality has been stored out of refrigeration, do not place it back in the refrigerator. Previous preventative medication use: Amitriptyline caused depression. Note in the past she was given Wellbutrin for smoking cessation and anxiety- also caused depression. Propranolol- caused bradycardia. Riboflavin 400mg qam- ineffective. ? For cervicalgia and dorsalgia: * Continue Baclofen 5mg tid and 10mg qhs (max 30 mg per day). * Encouraged patient to have PT eval and treat as ordered-she can request to do a few visits to develop a home exercise program * Follow-up with pain management as scheduled * Patient may benefit from chiropractic therapy as well- information previously shared on local provider, patient will consider and let us know. * Continue regular physical activity as tolerated ? For sleep: * Monitor sleep. * Future considerations: HST. f/u in 6 months or sooner prn. Coding Level of Care Code Est Pt Level 4 (94022) Diagnoses Migraine without aura and with status migrainosus, not intractable G43.001 Migraine type: migraine (< 15 days per month) without aura Status migrainosus presence: with status migrainosus Intractability: not intractable Cervicalgia M54.2 Rotoscoliosis M41.80 Myalgia M79.10
--- OUTSIDE RECORDS SUMMARY | 2025-05-13 13:33 | XMS_ITS | Clinical Summary ---
Author Organization [facility] Address [address] [address] Phone Care Team Providers Care Animal Bounty Hunter Name Role Phone Matt Neves Primary Care [...] 10/05/2024 Are you denied basic needs s [facility] as food, clothing, or medical care? [...] topic Medical Devices Not on file Insurance [place] [place] PCP [facility] [employer] [facility] NON NSPG PCP [employer] [place] [place] PCP S[employer] [place] NON [place] PCP [employer] [place] NON [place]SPG PCP S[employer] [place] NON [place] PCP [employer] Care Teams Animal Bounty Hunter Relationship Specialty Start Date End Date Matt Neves PA [address] [place] [address] PCP - General 04/12/20 Additional Source Comments The information contained in this document represents components of the legal health record. It is not the complete legal health record.[facility]
--- OUTSIDE RECORDS SUMMARY | 2025-05-13 13:34 | XMS_ITS | Encounter Summary ---
Author Organization [facility] Address [address] [facility] [address] [place] [address] Phone Care Team Providers Care Institutional Commodity Analyst Name Role Phone Matt Neves Primary Care Provider + Encounter Details Date Type Department Care Team (Latest Contact Info) Description 09/02/2021 Transcribe Orders Virtual Department [address] [place] [address] Jory Charles, KEITH [address] [facility] [address] [place] [address] Encounter for laboratory testing for COVID-19 virus [...] be available within 24 to 48 hrs. [facility] Symptomatic? YES [facility] Other 09/03/2021 1:28 PM EST 09/03/2021 6:27 PM EST Jory Charles ACTUARIAL TECHNICIAN BODY FLUIDS AND STOOLS ORDERAB LES Final Result [facility] [address] [place] [address] [facility] [address] [place] [id number] documented in this encounter Visit Diagnoses Diagnosis [...] documented as of this encounter Care Teams Institutional Commodity Analyst Relationship Specialty Start Date End Date Matt Neves PA [address] [place] [id number] PCP - General 04/12/20 documented as of this encounter Additional Source Comments The information contained in this document represents components of the legal health record. It is not the complete legal health record.[facility]
== END 2025-05-13 12:15 | disposition home or self-care (01) ==
LOC: HO.HSMS 11:16
PROVIDERS: PCP Physician Assistant; Visit Provider Nurse Practitioner Family
DX: G43.001 Migraine without aura, not intractable, with status migrainosus (principal); M54.2 Cervicalgia; M41.80 Other forms of scoliosis, site unspecified; M79.10 Myalgia, unspecified site
CPT/HCPCS: 99214

== ENCOUNTER → 2025-05-13 11:15 | Outpatient (BNVA) | payer OTHER, SELFPAY | PROVIDERS: PCP Physician Assistant; Visit Provider Nurse Practitioner Family | DX: G43.001 Migraine without aura, not intractable, with status migrainosus (principal); G54.2 Cervical root disorders, not elsewhere classified; M41.80 Other forms of scoliosis, site unspecified; M79.10 Myalgia, unspecified site | CPT/HCPCS: 99212 ==

== ENCOUNTER 2025-06-21 10:00 | Outpatient (RCR) | payer OTHER, SELFPAY ==
--- NOTE | 2025-05-27 13:37 | MHC.PT.EP ---
[facility] [place] Office [place] Office [place] Office [address] Fela Jarvis [address] [phone] F: [phone] F: [phone] F: [phone] F: [phone] Physical Therapy Plan of Care Date of Evaluation: 05/25/25 Date of Surgery: Diagnosis: rotoscoliosis; Assessment: pt is a 59 y/o female presenting to physical therapy w/ referring diagnosis of rotoscoliosis. Impairments include pain, decreased range of motion, decreased strength, impaired functional mobility, impaired postural awareness, and altered ambulation mechanics. pt is a good candidate for skilled PT due to age, potential remediation of impairments, typical disease/condition progression and prognosis, comorbidities, and motivation. pt would benefit from skilled PT intervention to provide a tailored strengthening and stretching exercise program, functional training, gait training, postural re-training, neuromuscular re-education, modalities as needed for pain, equipment safety demonstration. Frequency and Duration: The patient will be seen 2x/wk for 4 wks Short Term Goals: pt will be I w/ HEP to promote self-management of condition. pt will demo proper sitting posture w/ lumbar roll to promote neutral spine w/ seated ADLs. Half-Way Goals: pt will report a statistically significant improvement in self-reported outcome measure to promote return to PLOF. Treatment Plan: Modalities to reduce pain, spasms and effusion. Manual therapy to restore motion and function. Therapeutic exercise to improve strength and flexibility. Neuromuscular re-education for posture and balance. Therapeutic activities to return to functional activities of daily living. Electronically signed by: Mar Becker PT, DPT Please sign and return to therapist. Thank you for your referral.
--- NOTE | 2025-06-21 18:25 | MHC.PT.DC ---
[facility] [place] Office [place] Office [place] Office [address] Fela Jarvis [address] [phone] F: [phone] F: [phone] F: [phone] F: [phone] Physical Therapy Discharge Report Diagnosis: rotoscoliosis; Date of Surgery: Date of Evaluation: 05/25/25 Date of Discharge: 06/21/25 Treatments to Date: 9 Cancellations to Date: 0 No Shows to Date: 0 Discharge Status: Improved Function Independent with HEP Discharge Summary: The patient overall was reporting minimal to moderate improvements in back pain with physical therapy intervention. We modified her core strengthening program as I felt it was too advanced for her given the scoliosis in her spine. She benefitted from soft tissue work; however, going forward I encouraged her to follow up with a massage therapist for prison management of her symptoms. She is independent with her home exercise program and is discharged from this physical therapy plan of care. Electronically signed by: Mar Becker PT, DPT Please sign and return to therapist. Thank you for your referral.
== END 2025-06-21 18:25 | disposition home or self-care (01) ==
LOC: HO.PT 10:00
PROVIDERS: PCP Physician Assistant; Visit Provider Nurse Practitioner Family
DX: M47.817 Spondylosis without myelopathy or radiculopathy, lumbosacral region (principal); M51.369 Other intervertebral disc degeneration, lumbar region without mention of lumbar back pain or lower extremity pain; M54.2 Cervicalgia; M41.80 Other forms of scoliosis, site unspecified; M47.812 Spondylosis without myelopathy or radiculopathy, cervical region
CPT/HCPCS: 97110; 97112; 97140; 97162

== ENCOUNTER 2025-06-22 09:59 | Outpatient (AMB) | payer OTHER, SELFPAY ==
--- NOTE | 2025-06-22 10:25 | A.OFFVIS_ITS ---
Vital Signs 06/22/25 10:29 Height 5 ft 7 in Weight 155 lb 8 oz BMI 24.4 BP 134/67 Blood Pressure Location Rt brachial Position Sitting Pulse 97 Pulse Source Pulse Oximeter Pulse Oximetry (%) 100 Oxygen Delivery Method Room Air Intake Visit Reasons: Follow up s/p PT Intake Note: Pain today 02/02 Final Inspector Shuttle Required: No Accompanied by: Self / Same As Patient Allergies ciprofloxacin (From CIPRO) Allergy (Unknown, Verified 05/13/25 11:22) UNKNOWN gluten (GLUTEN) Allergy (Unknown, Verified 05/13/25 11:22) ABD PAIN penicillin V Allergy (Unknown, Verified 05/13/25 11:22) hives Penicillins (PENICILLINS) Allergy (Unknown, Verified 05/13/25 11:22) HIVES Sulfa (Sulfonamide Antibiotics) (SULFA (SULFONAMIDE ANTIBIOTICS)) Allergy (Unknown, Verified 05/13/25 11:22) RASH amitriptyline Adverse Reaction (Intermediate, Verified 05/13/25 11:22) Depression influenza virus vacc trivalent, spl Adverse Reaction (Intermediate, Verified 05/13/25 11:22) illness sumatriptan Adverse Reaction (Intermediate, Verified 05/13/25 11:22) Chest Pain HPI Comments Details: The patient is a 59-year-old female presenting with chronic neck and back pain following physical therapy sessions. The patient has a history of significant lumbar scoliosis and multilevel spondylosis in cervical and lumbar spine. She completed nine sessions of physical therapy, which included exercises, scraping, an K-taping, particularly targeting her neck, hips, and back. The therapy provided partial relief, especially with neck mobility and muscle tightness. Despite therapy, the patient continues to experience chronic headaches and back pain. She reports that her headaches are managed with medication prescribed by Neurology, and she prefers to focus on back pain management at this time. The patient also has degenerative disc disease and multilevel arthritis, contributing to her chronic pain. She experiences chronic muscle spasms and tightness, particularly in the lower back, exacerbated by activities such as standing and doing dishes. The patient takes baclofen 10 mg three times daily and magnesium for muscle relaxation. She has not pursued massage therapy but has considered it as a potential adjunct treatment. Patient reports a transient episode of leg swelling was noted after one of physical therapy sessions which involved scraping, attributed to lymphatic circulation changes, but it resolved without ongoing symptoms. Preventative care includes a scheduled bone density test and a mammogram. Denies any recent cough, cold, infection, fever or any other significant changes in medical history since last office visit. PRIOR: The patient is a 59-year-old female presenting with chronic back pain, which she reports as more severe than her neck pain. The back pain is primarily located on the right side and has been persistent, with a specific spot that hurts all the time. The pain occasionally extends to the buttocks, which started during a trip to [place], and she has been trying to manage it with stretching and topical applications. The patient denies significant radiation of the pain to the legs, although she experiences numbness and tingling in her hands and feet, which she notes as a new symptom. She has been considering whether the symptoms could be related to sciatica but notes that the pain does not extend to the groin or down the legs. The patient has a history of scoliosis, degenerative disc disease, and arthri tis, which have been confirmed by previous x-rays. She has been taking various supplements, including magnesium and vitamin D, and has recently started calcium supplementation. Denies any recent cough, cold, infection, fever or any significant changes in medical history since last office visit. PRIOR: Patient presents today for follow up to discuss recent cervical spine MRI results. Back pain, noted as more severe than neck pain, predominantly affects the lower lumbar region. Scoliosis and lumbar spondylosis were diagnosed via X- ray, identifying multilevel arthritis contributing to the patient?s pain profile. Sitting for prolonged periods intensifies this discomfort, leading to severe cramps and muscle spasms. Activities that involve standing and bending are also affected, although relief is found with therapeutic measures such as heat application and Capsaicin patches. The patient described how these musculoskeletal challenges impact functionality at work, especially when maintaining an upright posture for extended times. She is interested to pursue interventional treatments for axial low back pain but requires completion of physical therapy per her insurance requirements. PRIOR: The patient is a pleasant 59-year-old female presenting with chronic low back and neck pain, persisting since 2018, interferes with mobility and daily activities. Pain management attempts include heat patches, physical activity, and medications (baclofen, Ibuprofen, OTC magnesium and anti-inflammatory supplements), but with limited success. Neck pain, attributed to cervical arthritis and degenerative changes, is coupled with headaches exacerbated post- COVID in 2021. Past treatments, including physical therapy, have been partially effective. The patient is also facing recurrent bladder infections, hematuria, and urological assessment in conjunction with degenerative pain challenges. The functional status is impacted, complicating consistent everyday activity management. - Onset and Timing: Chronic low back pain since 2018, chronic neck pain exacerbated [id number] in early 2020. - Quality and Character: Persistent, aching, sharp, tugging, pulling, cramping, tight pain in the low back and neck. - Primary Location: Low back and neck. - Radiation: Pain localized without radiation into the extremities. - Exacerbating Factors: Sitting, typical motions, walking, aggravation upon b ackward bending and range of motions. - Relieving Factors: Heat patches, rest, physical exercises, partial relief with medications. - Interference with Activities: Mobility limitations, challenges in everyday activities including work duties. - Affect: Pain affecting mobility and daily functionality, underscores frustration. - Analgesia: Utilizes ibuprofen and muscle relaxants with heat patches, aiming for adequate relief. - Adverse Effects: Not explicitly stated, concern with recurrent ibuprofen usage. - Activities of Daily Living: Pain limits physical activities, affects work-life balance that demands active movements. - Aberrant Drug Related Behaviors: None reported. Oswestry Low Back Pain Disabiliy Score=18 (moderate disability) PFSH Medical History Adrenal adenoma Herpes Diverticulosis Retention of urine HTN (hypertension) Celiac disease Sinus infection Surgical History [place] teeth removed History of esophagogastroduodenoscopy (EGD) Hx of colonoscopy History of hysterectomy History of breast lump/mass excision History of removal of cyst History of section History of tonsillectomy Family History Father CAD (coronary artery disease) Skin cancer Prostate cancer Mother CHF (congestive heart failure) Diabetes Guillain-Henderson Son Prader-Willi syndrome Son Muscular dystrophy Son Celiac disease Social History Household Members: Significant Other Housing: House Alcohol intake: current Alcohol intake frequency: holidays/special occasions only Comment: medicated at 1420 Patient Tobacco Use Status: Former Tobacco user Tobacco use type: Cigarette e-Cigarette/Vaping Use: Never Used Second Hand Smoke Exposure: No service: No Current occupational status: employed Current occupation: [employer] Cognitive needs: No Hearing needs: No Vision needs: Yes Review of Systems Const Details: - Musculoskeletal: Reports chronic back pain and muscle spasms. - Neurological: Reports chronic headaches, managed with medication. - Lymphatic: Reports transient leg swelling after physical therapy, resolved without ongoing symptoms. All systems reviewed & are unremarkable except as noted in HPI and below Physical Exam Vital Signs: Last Vital Signs Pulse 97 06/22/25 10:29 BP 134/67 06/22/25 10:29 Pulse Ox 100 06/22/25 10:29 Oxygen Delivery Method Room Air 06/22/25 10:29 BMI result Body Mass Index 24.4 General: Appears afebrile. Alert and oriented. Mood and affect appropriate. Follows and participates in conversation appropriately. Respiratory effort is unlabored. No cough. Able to transition from sit to stand unassisted. Ambulates with bilaterally normal heel strike and toe off. General: Yes no CVA tenderness Back/Spine/Pelvis Other: Limited lumbar ROM due to pain. Lumbar extension reproduces moderate to severe pain. Flexion is intact and reproduces mild pain. Demonstrates 5/5 strength of quadriceps bilaterally as well as flexion/dorsiflexion of bilateral feet against resistance. 2+ pedal pulses bilaterally. Straight leg rise with dorsiflexion negative bilaterally. +2 patellar and achilles reflexes bilaterally. Facet loading test positive bilaterally. Mat sign, Javier?s, and Stinchfield tests are negative bilaterally. No groin pain with I/E hip rotations. Valsalva maneuver negative. Back: no CVA tenderness Cervical Spine: loss of normal cervical lordosis, cervical muscular tenderness, pain with cervical ROM, No Cervical spine scars present, No Cervical spine tenderness and No step off deformity Thoracic/Lumbar Spine: thoracic and lumbar spine normal to inspection, No Thoracic/lumbar spine scar(s), Lasegue's sign negative, straight leg raise negative bilaterally, pain with thoraco-lumbar ROM, paraspinal muscle tenderness, thoraco-lumbar ROM limited, No thoracic spinal tenderness and lumbar spinal tenderness (L3-S1) Pelvis: no buttock tenderness Sacroiliac joints: bilaterally nontender Results Reviewed Results Reviewed: XR LUMBOSACRAL SPINE 11/18/24 FINDINGS: Levoconvex rotoscoliosis apex at L3. Endplate sclerosis decreased intervertebral disc height and marginal osteophyte formation, L3-4 and to a lesser extent L2-3 and L1-2 levels. No acute cortical disruption or gross malalignment. No lytic or blastic lesions. IMPRESSION: Levoconvex rotoscoliosis and multilevel spondylosis. Slight worsening since prior examination. XR CERVICAL SPINE 11/18/24 FINDINGS: Marginal osteophyte formation and endplate sclerosis and decreased intervertebral disc height at C4-5 and C5-6 level. Grade 1 retrolisthesis C4-5. Reverse curvature apex at C4. Upper airway is patent. Right neuroforamina narrowing secondary to marginal osteophyte formation C4-5 and C5-6 level. Left neuroforamina narrowing C4-5 secondary to marginal osteophyte formation. Craniocervical junction is intact. IMPRESSION: Cervical spondylosis C4-5 and C5-6 level resulting in neuroforamina stenosis/narrowing and grade 1 retrolisthesis at C4-5. MR CERVICAL SPINE WITHOUT CONTRAST 12/26/24 CLINICAL INFORMATION: Cervicalgia. COMPARISON: None available. TECHNIQUE: MRI of the cervical spine was obtained using routine sequences without contrast. FINDINGS: Craniocervical junction is intact with normal alignment. There is a borderline position of the cerebellar tonsils in the foramen magnum.. No bone marrow STIR signal abnormality. Grade 1 retrolisthesis, C4-5 and C5-6 level. Grade 1 anterolisthesis C7-T1. Marginal osteophyte formation and disc desiccation, C4-5 and C5-6 level. There is buckling deformity of the dorsal aspect of the thecal sac secondary to ligamentum flavum hypertrophy at C4-5 and C5-6 level. C2-3: No disc herniation. No neuroforamina stenosis. C3-4: No disc herniation. No neuroforamina stenosis. C4-5: Broad-based disc osteophyte compresses formation abutting the cord. No cord signal abnormality. Bilateral left greater than right neuroforamina narrowing/stenosis. C5-6: Broad-based disc osteophyte compresses formation abutting the cord. No cord signal abnormality. No neuroforamina stenosis. C6-7: No disc herniation. No neuroforamina stenosis. C7-T1: No disc herniation. No neuroforamina stenosis. No prevertebral compartment hematoma, mass or fluid collection. Flow-void signal within the main vessels is normal. Codominant vertebral arteries. IMPRESSION: Cervical spondylosis C4-5 and to a lesser extent C5-6 abutting the cord without cord compression, cord edema and or myelopathy. Bilateral neuroforamina narrowing/stenosis on a degenerative basis at C4-5. Assessment & Plan Assessment & Plan (1) Cervicalgia: Code(s): M54.2 - Cervicalgia Category: Medical (2) Rotoscoliosis: Code(s): M41.80 - Other forms of scoliosis, site unspecified Category: Medical (3) Lumbosacral spondylosis: Code(s): M47.817 - Spondylosis without myelopathy or radiculopathy, lumbosacral region Category: Medical (4) Cervical spondylosis: Code(s): M47.812 - Spondylosis without myelopathy or radiculopathy, cervical region Category: Medical (5) Lumbar degenerative disc disease: Code(s): M51.369 - Other intervertebral disc degeneration, lumbar region without mention of lumbar back pain or lower extremity pain Category: Medical Plan The plan includes proceeding with lumbar medial branch blocks to confirm axial low back pain. If successful, this may lead to radiofrequency ablation as a longer-term solution. The patient will continue with her current medication regimen, including baclofen and magnesium, to manage muscle spasms. She is advised to maintain her exercise routine and consider massage therapy as an adjunct treatment. Schedule diagnostic bilateral L3-L4 DR L5 medial branch blocks with local and fluoroscopy. Expectations, risks and benefits were reviewed. Patient is aware she will be contacted to schedule this procedure. All questions and concerns have been answered and patient agreed with the treatment plan. Follow up after injections and sooner as needed. Patient was informed and verbally consented to the use of an ambient scribe for clinic note documentation during this visit. Coding Level of Care Code Est Pt Level 4 (74438) Complex EM visit Add On G2211 Diagnoses Cervicalgia M54.2 Rotoscoliosis M41.80 Lumbosacral spondylosis M47.817 Cervical spondylosis M47.812 Lumbar degenerative disc disease M51.369
[2025-06-22 10:29] VITALS: BP 134/67; PULSE 97; O2SAT 100; BMI 24.4
== END 2025-06-22 10:49 | disposition home or self-care (01) ==
PROVIDERS: PCP Physician Assistant; Visit Provider Nurse Practitioner Family
DX: M54.2 Cervicalgia (principal); M41.80 Other forms of scoliosis, site unspecified; M47.817 Spondylosis without myelopathy or radiculopathy, lumbosacral region; M47.812 Spondylosis without myelopathy or radiculopathy, cervical region; M51.369 Other intervertebral disc degeneration, lumbar region without mention of lumbar back pain or lower extremity pain
CPT/HCPCS: 99214

== ENCOUNTER → 2025-06-22 09:59 | Outpatient (BNVA) | payer OTHER, SELFPAY | PROVIDERS: PCP Physician Assistant; Visit Provider Nurse Practitioner Family | DX: M47.817 Spondylosis without myelopathy or radiculopathy, lumbosacral region (principal); M54.2 Cervicalgia; M41.80 Other forms of scoliosis, site unspecified; M47.812 Spondylosis without myelopathy or radiculopathy, cervical region; M51.369 Other intervertebral disc degeneration, lumbar region without mention of lumbar back pain or lower extremity pain | CPT/HCPCS: 99212 ==

== ENCOUNTER 2025-07-05 12:38 | Outpatient (REF) | payer OTHER, SELFPAY ==
--- NOTE | ~2025-07-05 | MM_ITS ---
EXAMINATION: MM SCREENING DIGITAL BREAST TOMOSYNTHESIS, BILATERAL CLINICAL INFORMATION: Screening. Asymptomatic. Remote history of right breast surgery for papilloma resection. COMPARISON: Comparison made to multiple prior, most recent March 27, 2024, and most remote March 18, 2014. TECHNIQUE: Digital breast tomosynthesis is performed in mediolateral oblique and craniocaudal views along with computer-aided detection (CAD). Synthesized 2D images are generated from the tomosynthesis. FINDINGS: BREAST COMPOSITION: The breasts are heterogeneously dense, which may obscure small masses. RIGHT BREAST: Prior excisional biopsy. No significant masses, suspicious calcifications or other abnormalities are seen. LEFT BREAST: No significant masses, suspicious calcifications or other abnormalities are seen. MM/MM tomosynthesis screening BI IMPRESSION: BILATERAL BREASTS: Benign, no mammographic evidence of malignancy. Normal interval follow-up is recommended in 12 months. ASSESSMENT: BI-RADS: Category 2: Benign RECOMMENDATION: Routine annual mammography screening. FOLLOW-UP: 1 year F/U This examination should not preclude the clinical evaluation of a suspicious palpable abnormality. This patient's information was entered into a reminder system with a target due date for their next mammogram. Electronically signed by: Dalia Garcia MD 07/06/2025 08:51 PM [facility]
--- NOTE | ~2025-07-05 | MM_ITS ---
EXAMINATION: DXA BONE DENSITY AXIAL HISTORY: Z78.0 - Asymptomatic menopausal state TECHNIQUE: Cause.it Dual energy absorptiometry (DEXA) of the lumbar spine, total left hip, and femoral neck was performed. COMPARISON: None FINDINGS: The bone mineral density of the lumbar spine is 1.066 g/cm2, corresponding to a T-score of -0.8, and a Z-score of 0.4. This is indicative of normal bone mineral density. The bone mineral density of the left total hip is 0.919 g/cm2, corresponding to a T-score of -0.7, and a Z-score of 0.2. This is indicative of normal bone mineral density. The bone mineral density of the left femoral neck is 0.918 g/cm2, corresponding to a T-score of -0.9, and a Z-score of 0.4. This is indicative of normal bone mineral density. FRACTURE RISK: The FRAX index suggests a ten year probability of major osteoporotic fracture of 7.1%, and of hip fracture 0.4%. MM/XR DEXA axial skeleton IMPRESSION: Based on bone mineral density, and according to World Health Organization (WHO) criteria, the diagnosis is consistent with normal bone mineral density based on lowest T score of -0.9 in the left femoral neck. Statistically, 68% of repeat scans fall within 1 SD (+/- 0.010 g/cm2 for AP spine L1-L4) and 1 SD (+/- 0.012 g/cm2 for femur total) FRAX is a trademark of the [employer] [place] [employer] Metabolic Bone Disease, a World Health Organization (WHO) Collaborating Center. Electronically signed by: Jodi Don MD 07/06/2025 08:20 AM [facility]
--- OUTSIDE RECORDS SUMMARY | 2025-07-05 14:45 | XMS_ITS | Clinical Summary ---
Author Organization [facility] Address [address] [address] Phone Care Team Providers Care Rn Wound Care Name Role Phone Matt Neves Primary Care [...] 10/05/2024 Are you denied basic needs s [facility] as food, clothing, or medical [...] topic Medical Devices Not on file Insurance [employer] NON NSPG PCP SILVER CLARITY CONNECTORCARE [facility] NON NSPG PCP SILVER CL[employer]ITY CONNECTORCARE [employer] NON NSPG PCP SILVER CL[employer]ITY CONNECTORCARE [place] NON NSPG PCP SILVER [employer]ITY CONNE[employer]CARE [place] NON NSPG PCP S[employer]VER [employer] CONNE[employer]CARE [place] NON NSPG PCP [employer] CONNECTORCARE Care Teams Rn Wound Care Relationship Specialty Start Date End Date Matt Neves PA [address] [place] [address] PCP - General 04/12/20 Additional Source Comments The information contained in this document represents components of the legal health record. It is not the complete legal health record.[facility]
--- OUTSIDE RECORDS SUMMARY | 2025-07-05 14:45 | XMS_ITS | Encounter Summary ---
Author Organization [facility] Address [address] [facility] [address] [place] [address] Phone Care Team Providers Care Programmer Analyst Name Role Phone Matt Neves Primary Care Provider + Encounter Details Date Type Department Care Team (Late st Contact Info) Description 09/02/2021 Transcribe Orders Virtual Department [address] [place] [address] Jory Charles NP [address] [place] [address] [place] [address] Encounter for laboratory testing for COVID-19 virus [...] be available within 24 to 48 hrs. [facility] Symptomatic? YES [facility] Other 09/03/2021 1:28 PM EST 09/03/2021 6:27 PM EST us Jory Charles BOTTOM FINISHER LAB GENERAL ORDERABLES Final R esult [facility] [address] [place] [address] [facility] [address] [place] [id number] documented in this encounter Visit Diagnoses Diagnosis [...] documented as of this encounter Care Teams Programmer Analyst Relationship Specialty [place] [address] [place] [id number] PCP - General 04/12/20 documented as of this encounter Additional Source Comments The information contained in this document represents components of the legal health record. It is not the complete legal health record.[facility]
== END 2025-07-05 12:39 | disposition home or self-care (01) ==
LOC: HO.MAMMO 12:38
PROVIDERS: PCP Physician Assistant; Visit Provider Physician Assistant
DX: Z12.31 Encounter for screening mammogram for malignant neoplasm of breast (principal); Z13.820 Encounter for screening for osteoporosis; Z78.0 Asymptomatic menopausal state
CPT/HCPCS: 77063; 77067; 77080

== ENCOUNTER → 2025-07-05 13:15 | Outpatient (BNV) | payer OTHER, SELFPAY | PROVIDERS: PCP Physician Assistant; Visit Provider Radiology Diagnostic Radiology | DX: Z12.31 Encounter for screening mammogram for malignant neoplasm of breast (principal); E28.39 Other primary ovarian failure | CPT/HCPCS: 77063; 77067; 77080 ==

== ENCOUNTER 2025-07-16 12:17 | Outpatient (REF) | payer OTHER, SELFPAY ==
--- NOTE | ~2025-07-16 | US_ITS ---
EXAMINATION: US TRIPLEX LOWER EXTREMITY, RIGHT CLINICAL INFORMATION: Edema, right lower extremity COMPARISON: None available. TECHNIQUE: Color-flow triplex imaging with spectral analysis and compression Doppler were performed on the right lower extremity. FINDINGS: Respiratory variation, normal compression and augmented flow are demonstrated in the interrogated right common femoral vein, superficial femoral vein, profunda femoral vein, popliteal vein and midcalf peroneal and posterior tibial venous segments . There is no Reyes's cyst. US/US venous duplex LE RT IMPRESSION: No acute deep venous thrombosis interrogated veins, right lower extremity. Negative for DVT.. Electronically signed by: Hector Ashley MD 07/16/2025 12:41 PM EST Workstation:
--- OUTSIDE RECORDS SUMMARY | 2025-07-16 12:45 | XMS_ITS | Encounter Summary ---
Author Organization [facility] Address [address] [facility] [address] [place] [address] Phone Care Team Providers Care Metal Rivet Machine Operator Name Role Phone Matt Neves Primary Care Provider + Encounter Details Date Type Department Care Team (Late st Contact Info) Description 09/02/2021 Transcribe Orders Virtual Department [address] [place] [address] Jory Charles NP [address] [place] [address] [place] [address] Encounter for laboratory testing for COVID-19 virus [...] be available within 24 to 48 hrs. [facility] Symptomatic? YES [facility] Other 09/03/2021 1:28 PM EST 09/03/2021 6:27 PM EST us Jory Charles WEIGHT LOSS SALES CONSULTANT LAB GENERAL ORDERABLES Final R esult [facility] [address] [place] [address] [facility] [address] [place] [id number] documented in this encounter Visit Diagnoses Diagnosis [...] as of this encounter Care Teams Metal Rivet Machine Operator Relationship Specialty [place] [address] [place] [id number] PCP - General 04/12/20 documented as of this encounter Additional Source Comments The information contained in this document represents components of the legal health record. It is not the complete legal health record.[facility]
--- OUTSIDE RECORDS SUMMARY | 2025-07-16 12:45 | XMS_ITS | Clinical Summary ---
Author Organization [facility] Address [address] [address] Phone Care Team Providers Care Communication Manager Name Role Phone Matt Neves Primary [...] 10/05/2024 Are you denied basic needs s [facility] as food, clothing, or medical care? No [...] topic Medical Devices Not on file Insurance [employer] NON NSPG PCP SILVER CLARITY CONNECTORCARE [facility] NON NSPG PCP SILVER [employer]ITY CONNECTORCARE [place] NON NSPG PCP SILVER [employer]ITY CONNECTORCARE [place] NON NSPG PCP SILVER CL[employer]ITY CONNECTORCARE [place] NON NSPG PCP S[employer]VER [employer]ITY CONNECTORCARE [place] NON NSPG PCP S[employer]ITY CONNECTORCARE Care Teams Communication Manager Relationship Specialty Start Date End Date Matt Neves PA [address] [place] [address] PCP - General 04/12/20 Additional Source Comments The information contained in this document represents components of the legal health record. It is not the complete legal health record.[facility]
== END 2025-07-16 12:18 | disposition home or self-care (01) ==
LOC: HO.US 12:17
PROVIDERS: PCP Physician Assistant; Visit Provider Physician Assistant
DX: R60.0 Localized edema (principal)
CPT/HCPCS: 93971

== ENCOUNTER → 2025-07-16 12:20 | Outpatient (BNV) | payer OTHER, SELFPAY | PROVIDERS: PCP Physician Assistant; Visit Provider Radiology Diagnostic Radiology | DX: R60.0 Localized edema (principal) | CPT/HCPCS: 93971 ==

== ENCOUNTER 2025-07-20 06:21 | Outpatient (REF) | payer OTHER, SELFPAY ==
--- NOTE | ~2025-07-20 | FL_ITS ---
EXAMINATION: FLUOROSCOPY GUIDANCE FOR NEEDLE PLACEMENT CLINICAL INFORMATION: M47.817 - Spondylosis without myelopathy or radiculopathy, lumbosacral r... COMPARISON: Lumbar spine x-ray October 2024 TECHNIQUE: Intraoperative fluoroscopy from provided for pain management procedure. 12 submitted images. FINDINGS: Images demonstrate needle placement and contrast injection adjacent to the bilateral lateral L3, L4 and L5 vertebrae. FLUOROSCOPY TIME: 43 seconds DOSE AREA PRODUCT: [id number] mGy-cm2 FL/FL guidance in treatment room IMPRESSION: Fluoroscopy guidance for pain management procedure. Electronically signed by: Jodi Don MD 07/20/2025 02:35 PM EST
--- OUTSIDE RECORDS SUMMARY | 2025-07-20 06:24 | XMS_ITS | Encounter Summary ---
Author Organization [facility] Address [address] [place] [address] Phone Care Team Providers Care Health Safety Specialist Name Role Phone Matt Neves Primary Care Provider + Encounter Details Date Type Department Care Team (Late st Contact Info) Description 09/02/2021 Transcribe Orders Virtual Department [address] [place] [address] Jory Charles NP [address] [place] [address] [place] [address] Encounter for laboratory testing for COVID-19 virus [...] be available within 24 to 48 hrs. [facility] Symptomatic? YES [facility] Other 09/03/2021 1:28 PM EST 09/03/2021 6:27 PM EST us Jory Charles EXECUTIVE PRODUCER [employer]OMOS LAB GENERAL ORDERABLES Final R esult [facility] [address] [place] [address] [facility] [address] [place] [id number] documented in this encounter Visit Diagnoses Diagnosis [...] documented as of this encounter Care Teams Health Safety Specialist Relationship Specialty [place] [address] [place] [id number] PCP - General 04/12/20 documented as of this encounter Additional Source Comments The information contained in this document represents components of the legal health record. It is not the complete legal health record.[facility]
--- OUTSIDE RECORDS SUMMARY | 2025-07-20 06:24 | XMS_ITS | Clinical Summary ---
Author Organization [facility] Address [address] [address] Phone Care Team Providers Care Desolderer Name Role Phone Matt Neves Primary Care [...] 10/05/2024 Are you denied basic needs s [facility] as food, clothing, or medical care? No [...] topic Medical Devices Not on file Insurance [place] PCP SILVER CLARITY CONNECTORCARE [facility] NON NSPG PCP SILVER CLARITY CONNECTORCARE [place] NON N[place]G PCP SILVER CLARITY CONNECTORCARE [place] NON NSPG PCP SILVER CLARITY CONNECTORCARE [place] NON NSPG PCP SILVER CL[employer]ITY CONNE[employer]CARE [place] NON N[place]G PCP S[employer] CONNE[employer] Care Teams Desolderer Relationship Specialty Start Date End Date Matt Neves PA [address] [place] [address] PCP - General 04/12/20 Additional Source Comments The information contained in this document represents components of the legal health record. It is not the complete legal health record.[facility]
== END 2025-07-20 06:22 | disposition home or self-care (01) ==
LOC: CF 06:21
PROVIDERS: Visit Provider Anesthesiology
DX: M47.817 Spondylosis without myelopathy or radiculopathy, lumbosacral region (principal); M47.812 Spondylosis without myelopathy or radiculopathy, cervical region; M51.369 Other intervertebral disc degeneration, lumbar region without mention of lumbar back pain or lower extremity pain; M41.80 Other forms of scoliosis, site unspecified
CPT/HCPCS: 64493; 64494; J2003; J2795; Q9967

== ENCOUNTER 2025-07-20 12:59 | Outpatient (AMB) | payer OTHER, SELFPAY ==
[2025-07-20 13:11] VITALS: BP 132/70; PULSE 88; RESP 16; O2SAT 98; BMI 24.3
--- NOTE | 2025-07-20 13:11 | A.OFFVIS_ITS ---
Vital Signs 07/20/25 13:11 07/20/25 13:43 Height 5 ft 7 in Weight 155 lb BMI 24.3 BP 132/70 132/69 Blood Pressure Location Lt brachial Lt brachial Position Sitting Sitting Respiration 16 16 Pulse 88 88 Pulse Source Pulse Oximeter Pulse Oximeter Pulse Oximetry (%) 98 97 Oxygen Delivery Method Room Air Room Air Intake Visit Reasons: Bilateral Diagnostic L3-L4-DR L5 MBB Allergies ciprofloxacin (From CIPRO) Allergy (Unknown, Verified 05/13/25 11:22) UNKNOWN gluten (GLUTEN) Allergy (Unknown, Verified 05/13/25 11:22) ABD PAIN penicillin V Allergy (Unknown, Verified 05/13/25 11:22) hives Penicillins (PENICILLINS) Allergy (Unknown, Verified 05/13/25 11:22) HIVES Sulfa (Sulfonamide Antibiotics) (SULFA (SULFONAMIDE ANTIBIOTICS)) Allergy (Unknown, Verified 05/13/25 11:22) RASH amitriptyline Adverse Reaction (Intermediate, Verified 05/13/25 11:22) Depression influenza virus vacc trivalent, spl Adverse Reaction (Intermediate, Verified 05/13/25 11:22) illness sumatriptan Adverse Reaction (Intermediate, Verified 05/13/25 11:22) Chest Pain PFSH Medical History Adrenal adenoma Herpes Diverticulosis Retention of urine HTN (hypertension) Celiac disease Sinus infection Surgical History [place] teeth removed History of esophagogastroduodenoscopy (EGD) Hx of colonoscopy History of hysterectomy History of breast lump/mass excision History of removal of cyst History of section History of tonsillectomy Family History Father CAD (coronary artery disease) Skin cancer Prostate cancer Mother CHF (congestive heart failure) Diabetes Guillain-[place] Son Prader-Willi syndrome Son Muscular dystrophy Son Celiac disease Social History Household Members: Significant Other Housing: House Alcohol intake: current Alcohol intake frequency: holidays/special occasions only Comment: medicated at 1420 Patient Tobacco Use Status: Former Tobacco user Tobacco use type: Cigarette e-Cigarette/Vaping Use: Never Used Second Hand Smoke Exposure: No service: No Current occupational status: employed Current occupation: [employer] Cognitive needs: No Hearing needs: No Vision needs: Yes Physical Exam Vital Signs: Last Vital Signs Pulse 88 07/20/25 13:43 Resp 16 07/20/25 13:43 BP 132/69 07/20/25 13:43 Pulse Ox 97 07/20/25 13:43 Oxygen Delivery Method Room Air 07/20/25 13:43 BMI result Body Mass Index 24.3 Assessment & Plan Assessment & Plan (1) Cervicalgia: Code(s): M54.2 - Cervicalgia Category: Medical (2) Rotoscoliosis: Code(s): M41.80 - Other forms of scoliosis, site unspecified Category: Medical (3) Lumbosacral spondylosis: Code(s): M47.817 - Spondylosis without myelopathy or radiculopathy, lumbosacral region Category: Medical (4) Cervical spondylosis: Code(s): M47.812 - Spondylosis without myelopathy or radiculopathy, cervical region Category: Medical (5) Lumbar degenerative disc disease: Code(s): M51.369 - Other intervertebral disc degeneration, lumbar region without mention of lumbar back pain or lower extremity pain Category: Medical Plan Diagnostic medial branch block L3,L4 dorsal ramus L5 bilateral.? ? ?Informed consent was explained to the patient. All questions were explained and? answered.? The patient was taken inside the operating room where he was positioned prone on the operating table. Time-out was performed delineating correct site, side, the nature of the procedure, patient's allergy, . All operating room staff was participating in OR time-out procedure. ? ? The lower back was prepped with ChloraPrep and draped with sterile utility towels.? C-arm was brought over the operating field and sq picture of L4-, L5 vertebra and S1 AREA were delineated on the screen.? Point of interest were delineated as confluence of superior articular process of L4 and L5 vertebra bilaterally with corresponding transverse processes as well as confluence of the sacral alae bilaterally with superior articular process of S1.? The projection of the point of interest to the skin were injec charlie with the small amount of local anesthetic lidocaine 2% mixed with ropivacaine 0.5% 1-1 approximately 1 cc.? After that 22 gauge 3.5 inch spinal needle was driven sequentially to the points of interest in tunnel vision fashion. After needles gently contacted the bone at the point of interests the needle was injected with small amount of the contrast.? The injection of the contrast did not demonstrate any intravascular or intrathecal spread of the contrast.? After that injection of the? ropivacaine 0.5%-1cc was performed at each needle location.?After that the needles were removed and Bandaids were applied. Orders: Orders FL guidance in treatment room 07/20/25 M47.817 - Spondylosis without myelopathy or radiculopathy, lumbosacral region Coding Level of Care Code Procedure Only Diagnoses Cervicalgia M54.2 Rotoscoliosis M41.80 Lumbosacral spondylosis M47.817 Cervical spondylosis M47.812 Lumbar degenerative disc disease M51.369
[2025-07-20 13:43] VITALS: BP 132/69; PULSE 88; RESP 16; O2SAT 97
--- OUTSIDE RECORDS SUMMARY | 2025-07-20 16:42 | XMS_ITS | Encounter Summary ---
Author Organization [facility] Address [address] [place] [address] Phone Care Team Providers Care Nurse Ldr Name Role Phone Matt Neves Primary Care Provider + Encounter Details Date Type Department Care Team (Late st Contact Info) Description 09/02/2021 Transcribe Orders Virtual Department [address] [place] [address] Jory Charles NP [address] [place] [address] [place] [address] Encounter for laboratory testing for COVID-19 virus [...] be available within 24 to 48 hrs. [facility] Symptomatic? YES [facility] Other 09/03/2021 1:28 PM EST 09/03/2021 6:27 PM EST us Jory Charles LYE BOILER LAB GENERAL ORDERABLES Final R esult [facility] [address] [place] [address] [facility] [address] [place] [id number] documented in this encounter Visit Diagnoses Diagnosis [...] documented as of this encounter Care Teams Nurse Ldr Relationship Specialty [place] [address] [place] [address] PCP - General 04/12/20 documented as of this encounter Additional Source Comments The information contained in this document represents components of the legal health record. It is not the complete legal health record.[facility]
--- OUTSIDE RECORDS SUMMARY | 2025-07-20 16:42 | XMS_ITS | Clinical Summary ---
Author Organization [facility] Address [address] [address] Phone Care Team Providers Care Lip And Gate Builder Name Role Phone Matt Neves Primary Care [...] 10/05/2024 Are you denied basic needs s [facility] [place] as food, clothing, or medical care? No [...] topic Medical Devices Not on file Insurance [employer] NON NSPG PCP SILVER CLARITY CONNECTORCARE [facility] NON NSPG PCP SILVER CLARITY CONNECTORCARE [employer] NON NSPG PCP SILVER CLARITY CONNECTORCARE [employer] NON NSPG PCP SILVER CLARITY CONNECTORCARE [employer] NON NSPG PCP SILVER CLARITY CONNECTORCARE [employer] NON NSPG PCP SILVER CLARITY CONNECTORCARE Care Teams Lip And Gate Builder Relationship Specialty Start Date End Date Matt Neves PA [address] [place] [address] PCP - General 04/12/20 Additional Source Comments The information contained in this document represents components of the legal health record. It is not the complete legal health record.[facility]
== END 2025-07-20 13:43 | disposition home or self-care (01) ==
LOC: HO.PMCPRC 12:59
PROVIDERS: PCP Physician Assistant; Visit Provider Anesthesiology
DX: M47.817 Spondylosis without myelopathy or radiculopathy, lumbosacral region (principal)
CPT/HCPCS: 64493; 64494

== ENCOUNTER 2025-07-27 09:35 | Outpatient (AMB) | payer OTHER, SELFPAY ==
--- NOTE | 2025-07-27 09:37 | A.OFFVIS_ITS ---
Vital Signs 07/27/25 09:41 Height 5 ft 7 in Weight 152 lb BMI 23.8 BP 139/70 Blood Pressure Location Rt brachial Position Sitting Pulse 107 H Pulse Source Pulse Oximeter Pulse Oximetry (%) 100 Oxygen Delivery Method Room Air Intake Visit Reasons: S/P Bilateral Diagnostic L3-L4-DR L5 MBB Intake Note: Pain today 03/04 Concrete Finisher Apprentice Required: No Accompanied by: Self / Same As Patient Allergies ciprofloxacin (From CIPRO) Allergy (Unknown, Verified 07/27/25 09:43) UNKNOWN gluten (GLUTEN) Allergy (Unknown, Verified 07/27/25 09:43) ABD PAIN penicillin V Allergy (Unknown, Verified 07/27/25 09:43) hives Penicillins (PENICILLINS) Allergy (Unknown, Verified 07/27/25 09:43) HIVES Sulfa (Sulfonamide Antibiotics) (SULFA (SULFONAMIDE ANTIBIOTICS)) Allergy (Unknown, Verified 07/27/25 09:43) RASH amitriptyline Adverse Reaction (Intermediate, Verified 07/27/25 09:43) Depression influenza virus vacc trivalent, spl Adverse Reaction (Intermediate, Verified 07/27/25 09:43) illness sumatriptan Adverse Reaction (Intermediate, Verified 07/27/25 09:43) Chest Pain HPI Comments Details: The patient is a 59 year old female presenting for a follow-up visit to evaluate the response to bilateral L4-L5 medial branch blocks performed on 07/20/[address] Mac for chronic axial low back pain. The patient reported that the injections provided 60% pain relief for six hours of relief. The assessment of back pain relief was complicated by severe, diffuse joint pain resulting from having to stop ibuprofen, which the patient takes for celiac disease-related joint pain. She also stopped Tylenol and baclofen for this procedure and reports increased flare up in polyarthralgia symptoms. The patient also experienced a period of horrible back pain one to two days after the procedure, which then resolved spontaneously. Despite limited pain score improvement (lowest 4/10), the patient noted functional benefits, including improved hip mobility, decreased stiffness, and significantly easier movement when getting in and out of a car. The patient felt able to walk with a more upright posture. Patient is interested in a repeat diagnostic lumbar medial branch block injections in order to establish reproducible response to the treatment for potential RFA for a longer term pain relief. The patient's medical history is significant for celiac disease, scoliosis, bone spurs, multiple joint pain and multilevel arthritis. The patient lives a very active lifestyle. Denies any recent cough, cold, infection, fever or any significant changes in medical history since last office visit. Past Procedures: 07/20/25: Bilateral Diagnostic L3-L4-DR L5 MBB-60% pain relief for 6 hours PRIOR: The patient is a pleasant 59-year-old female presenting with chronic low back and neck pain, persisting since 2018, interferes with mobility and daily activities. Pain management attempts include heat patches, physical activity, and medications (baclofen, Ibuprofen, OTC magnesium and anti-inflammatory supplements), but with limited success. Neck pain, attributed to cervical arthritis and degenerative changes, is coupled with headaches exacerbated post- COVID in 2020. Past treatments, including physical therapy, have been partially effective. The patient is also facing recurrent bladder infections, hematuria, and urological assessment in conjunction with degenerative pain challenges. The functional status is impacted, complicating consistent everyday activity management. - Onset and Timing: Chronic low back pain since 2018, chronic neck pain exacerbated [id number] in early 2020. - Quality and Character: Persistent, aching, sharp, tugging, pulling, cramping, tight pain in the low back and neck. - Primary Location: Low back and neck. - Radiation: Pain localized without radiation into the extremities. - Exacerbating Factors: Sitting, typical motions, walking, aggravation upon backward bending and range of motions. - Relieving Factors: Heat patches, rest, physical exercises, partial relief with medications. - Interference with Activities: Mobility limitations, challenges in everyday activities including work duties. - Affect: Pain affecting mobility and daily functionality, underscores frustration. - Analgesia: Utilizes ibuprofen and muscle relaxants with heat patches, aiming for adequate relief. - Adverse Effects: Not explicitly stated, concern with recurrent ibuprofen usage. - Activities of Daily Living: Pain limits physical activities, affects work-life balance that demands active movements. - Aberrant Drug Related Behaviors: None reported. Oswestry Low Back Pain Disabiliy Score=18 (moderate disability) [facility] Medical History Adrenal adenoma Herpes Diverticulosis Retention of urine HTN (hypertension) Celiac disease Sinus infection Surgical History [place] teeth removed History of esophagogastroduodenoscopy (EGD) Hx of colonoscopy History of hysterectomy History of breast lump/mass excision History of removal of cyst History of section History of tonsillectomy Family History Father CAD (coronary artery disease) Skin cancer Prostate cancer Mother CHF (congestive heart failure) Diabetes Guillain-[place] Son Prader-Willi syndrome Son Muscular dystrophy Son Celiac disease Social History Household Members: Significant Other Housing: House Alcohol intake: current Alcohol intake frequency: holidays/special occasions only Comment: medicated at 1420 Patient Tobacco Use Status: Former Tobacco user Tobacco use type: Cigarette e-Cigarette/Vaping Use: Never Used Second Hand Smoke Exposure: No service: No Current occupational status: employed Current occupation: [employer] Cognitive needs: No Hearing needs: No Vision needs: Yes Review of Systems Const All systems reviewed & are unremarkable except as noted in HPI and below Physical Exam Vital Signs: Last Vital Signs Pulse 107 H 07/27/25 09:41 BP 139/70 07/27/25 09:41 Pulse Ox 100 07/27/25 09:41 Oxygen Delivery Method Room Air 07/27/25 09:41 BMI result Body Mass Index 23.8 General: Appears afebrile. Alert and oriented. Mood and affect appropriate. Follows and participates in conversation appropriately. Respiratory effort is unlabored. No cough. Able to transition from sit to stand unassisted. Ambulates with bilaterally normal heel strike and toe off. General: Yes no CVA tenderness Back/Spine/Pelvis Other: Limited lumbar ROM due to pain. Lumbar extension reproduces moderate pain. Flexion is intact and reproduces mild pain. Demonstrates 5/5 strength of quadriceps bilaterally as well as flexion/dorsiflexion of bilateral feet against resistance. 2+ pedal pulses bilaterally. Straight leg rise with dorsiflexion negative bilaterally. +2 patellar and achilles reflexes bilaterally. Facet loading test positive bilaterally. Mat sign, Javier?s, and Stinchfield tests are negative bilaterally. No groin pain with I/E hip rotations. Valsalva maneuver negative. Back: no CVA tenderness Cervical Spine: loss of normal cervical lordosis, cervical muscular tenderness, pain with cervical ROM, No Cervical spine scars present, No Cervical spine tend erness and No step off deformity Thoracic/Lumbar Spine: thoracic and lumbar spine normal to inspection, No Thoracic/lumbar spine scar(s), Lasegue's sign negative, straight leg raise negative bilaterally, pain with thoraco-lumbar ROM, paraspinal muscle tenderness, thoraco-lumbar ROM limited, No thoracic spinal tenderness and lumbar spinal tenderness (L3-S1) Pelvis: no buttock tenderness Sacroiliac joints: bilaterally nontender Extrem General: Yes capillary refill normal, Yes no clubbing, cyanosis or edema and Yes no calf tenderness Results Reviewed Results Reviewed: XR LUMBOSACRAL SPINE 11/18/24 FINDINGS: Levoconvex rotoscoliosis apex at L3. Endplate sclerosis decreased intervertebral disc height and marginal osteophyte formation, L3-4 and to a lesser extent L2-3 and L1-2 levels. No acute cortical disruption or gross malalignment. No lytic or blastic lesions. IMPRESSION: Levoconvex rotoscoliosis and multilevel spondylosis. Slight worsening since prior examination. XR CERVICAL SPINE 11/18/24 FINDINGS: Marginal osteophyte formation and endplate sclerosis and decreased intervertebral disc height at C4-5 and C5-6 level. Grade 1 retrolisthesis C4-5. Reverse curvature apex at C4. Upper airway is patent. Right neuroforamina narrowing secondary to marginal osteophyte formation C4-5 and C5-6 level. Left neuroforamina narrowing C4-5 secondary to marginal osteophyte formation. Craniocervical junction is intact. IMPRESSION: Cervical spondylosis C4-5 and C5-6 level resulting in neuroforamina stenosis/narrowing and grade 1 retrolisthesis at C4-5. MR CERVICAL SPINE WITHOUT CONTRAST 12/26/24 CLINICAL INFORMATION: Cervicalgia. COMPARISON: None available. TECHNIQUE: MRI of the cervical spine was obtained using routine sequences without contrast. FINDINGS: Craniocervical junction is intact with normal alignment. There is a borderline position of the cerebellar tonsils in the foramen magnum.. No bone marrow STIR signal abnormality. Grade 1 retrolisthesis, C4-5 and C5-6 level. Grade 1 anterolisthesis C7-T1. Marginal osteophyte formation and disc desiccation, C4-5 and C5-6 level. There is buckling deformity of the dorsal aspect of the thecal sac secondary to ligamentum flavum hypertrophy at C4-5 and C5-6 level. C2-3: No disc herniation. No neuroforamina stenosis. C3-4: No disc herniation. No neuroforamina stenosis. C4-5: Broad-based disc osteophyte compresses formation abutting the cord. No cord signal abnormality. Bilateral left greater than right neuroforamina narrowing/stenosis. C5-6: Broad-based disc osteophyte compresses formation abutting the cord. No cord signal abnormality. No neuroforamina stenosis. C6-7: No disc herniation. No neuroforamina stenosis. C7-T1: No disc herniation. No neuroforamina stenosis. No prevertebral compartment hematoma, mass or fluid collection. Flow-void signal within the main vessels is normal. Codominant vertebral arteries. IMPRESSION: Cervical spondylosis C4-5 and to a lesser extent C5-6 abutting the cord without cord compression, cord edema and or myelopathy. Bilateral neuroforamina narrowing/stenosis on a degenerative basis at C4-5. Assessment & Plan Assessment & Plan (1) Cervicalgia: Code(s): M54.2 - Cervicalgia Category: Medical (2) Rotoscoliosis: Code(s): M41.80 - Other forms of scoliosis, site unspecified Category: Medical (3) Lumbosacral spondylosis: Code(s): M47.817 - Spondylosis without myelopathy or radiculopathy, lumbosacral region Category: Medical (4) Cervical spondylosis: Code(s): M47.812 - Spondylosis without myelopathy or radiculopathy, cervical region Category: Medical (5) Lumbar degenerative disc disease: Code(s): M51.369 - Other intervertebral disc degeneration, lumbar region without mention of lumbar back pain or lower extremity pain Category: Medical Plan The plan includes proceeding with repeat lumbar medial branch blocks to confirm axial low back pain. If successful, this may lead to radiofrequency ablation as a longer-term solution. To mitigate the confounding factor of diffuse joint pain and pain from celiac disease, the patient is advised to take extra-strength Tylenol and baclofen around the time of the next procedure, as ibuprofen must be avoided prior to injections. Patient was instructed to remain active for the first six hours post-procedure to accurately assess the block's efficacy. Schedule repeat diagnostic bilateral L3-L4 DR L5 medial branch blocks with local and fluoroscopy. Expectations, risks and benefits were reviewed. Patient is aware she will be contacted to schedule this procedure. All questions and concerns have been answered and patient agreed with the treatment plan. Follow up after injections and sooner as needed. Patient was informed and verbally consented to the use of an ambient scribe for clinic note documentation during this visit. Coding Level of Care Code Est Pt Level 4 (08871) Complex visit Add On G2211 Diagnoses Cervicalgia M54.2 Rotoscoliosis M41.80 Lumbosacral spondylosis M47.817 Cervical spondylosis M47.812 Lumbar degenerative disc disease M51.369
[2025-07-27 09:41] VITALS: BP 139/70; PULSE 107; O2SAT 100; BMI 23.8
--- OUTSIDE RECORDS SUMMARY | 2025-07-27 10:26 | XMS_ITS | Encounter Summary ---
Author Organization [facility] Address [address] [place] [address] Phone Care Team Providers Care Turbinated Bone Grinder Name Role Phone Matt Neves Primary Care Provider + Encounter Details Date Type Department Care Team (Late st Contact Info) Description 09/02/2021 Transcribe Orders Virtual Department [address] [place] [address] Jory Charles NP [address] [place] [address] [place] [address] Encounter for laboratory testing for COVID-19 virus [...] be available within 24 to 48 hrs. [facility] Symptomatic? YES [facility] Other 09/03/2021 1:28 PM EST 09/03/2021 6:27 PM EST us Jory Charles SECURED ENTRANCE MONITOR LAB GENERAL ORDERABLES Final R esult [facility] [address] [place] [address] [facility] [address] [place] [id number] documented in this encounter Visit Diagnoses Diagnosis [...] documented as of this encounter Care Teams Turbinated Bone Grinder Relationship Specialty [place] [address] [place] [id number] PCP - General 04/12/20 documented as of this encounter Additional Source Comments The information contained in this document represents components of the legal health record. It is not the complete legal health record.[facility]
--- OUTSIDE RECORDS SUMMARY | 2025-07-27 10:26 | XMS_ITS | Clinical Summary ---
Author Organization [facility] Address [address] [address] Phone Care Team Providers Care Leather Roller Name Role Phone Matt Neves Primary Care [...] 10/05/2024 Are you denied basic needs s [facility] as food, clothing, or medical care? [...] topic Medical Devices Not on file Insurance [employer] [place] PCP [employer] [facility] NON NSPG PCP [employer] [place] [place] PCP [place] [place] [place] PCP S[employer] [place] [place] PCP S[employer] [place] [place] PCP [employer] Care Teams Leather Roller Relationship Specialty Start Date End Date Matt Neves PA [address] [place] [address] PCP - General 04/12/20 Additional Source Comments The information contained in this document represents components of the legal health record. It is not the complete legal health record.[facility]
== END 2025-07-27 10:08 | disposition home or self-care (01) ==
LOC: HO.PMC 09:36
PROVIDERS: PCP Physician Assistant; Visit Provider Nurse Practitioner Family
DX: M54.2 Cervicalgia (principal); M41.80 Other forms of scoliosis, site unspecified; M47.817 Spondylosis without myelopathy or radiculopathy, lumbosacral region; M47.812 Spondylosis without myelopathy or radiculopathy, cervical region; M51.369 Other intervertebral disc degeneration, lumbar region without mention of lumbar back pain or lower extremity pain
CPT/HCPCS: 99214

== ENCOUNTER → 2025-07-27 09:35 | Outpatient (BNVA) | payer OTHER, SELFPAY | PROVIDERS: PCP Physician Assistant; Visit Provider Nurse Practitioner Family | DX: M41.80 Other forms of scoliosis, site unspecified (principal); M47.817 Spondylosis without myelopathy or radiculopathy, lumbosacral region; M47.812 Spondylosis without myelopathy or radiculopathy, cervical region; M51.369 Other intervertebral disc degeneration, lumbar region without mention of lumbar back pain or lower extremity pain | CPT/HCPCS: 99212 ==